=== PATIENT | female | born 1955 | race African-American/Black ===

== ENCOUNTER 2017-08-18 18:03 | Inpatient (IN) | payer MEDICARE, OTHER ==
[~2017-08-18] VITALS: Ht 167.6 cm; Wt 171.0 kg
[~2017-08-18 18:03] MED LIST: ATEN-102 PO; BENZ1TAB PO; DOCQ100C2 PO; HALO10TA PO; HYDR-2768 PO; HYDR-3580 PO; LORTA5 PO; LOTR15T TOP; MOBI15TA PO; OMEP20TA39 PO; OXYB5TAB PO; POTA-243 PO; TRIA.1%T TOP
[2017-08-18 18:25] VITALS: BP 115/71; PULSE 80; RESP 20; TEMP 97.8; O2SAT 96
--- NOTE | 2017-08-18 18:30 | PD ---
HPI Chief Complaint: abnormal labs Time Seen by Provider: 18:25 Travel History International Travel<30 days: No Contact w/Intl Traveler<30days: No History of Present Illness HPI 61 year-old woman, morbidly obese, resident occult [facility], history of schizophrenia, presents to the emergency department complaining of abnormal labs. Reportedly low sodium 118. Unable to provide much additional history. States overall she feels well but is thirsty. Nursing notes report polydipsia, increased appetite and weight gain, fatigue, and dyspnea as well as some behavior changes. Nursing staff reported to falls. History Past Medical History Narrative Medical Spinal stenosis GERD Schizophrenia Hypertension Generalized weakness, difficulty walking Depression Bladder dysfunction Menopausal: Yes : 2 Para: 2 Social History Alcohol Use: No Tobacco Use: No (QUIT 9 YEARS AGO) Allergies-Medications (Allergen,Severity, Reaction): Coded Allergies: shrimp (Verified Allergy, Severe, RASH, 08/18/17) Sulfa (Sulfonamide Antibiotics) (Verified Allergy, Intermediate, RASH, ) Reported Meds & Prescriptions Reported Meds & Active Scripts Active Review of Systems Except as stated in HPI: all other systems reviewed are Neg Physical Exam Narrative GENERAL: Morbidly obese 61 year-old woman, no acute distress. SKIN: Focused skin assessment warm/dry. HEAD: Atraumatic. Normocephalic. EYES: Pupils equal and round. No scleral icterus. No injection or drainage. ENT: No nasal bleeding or discharge. Mucous membranes pink and moist. NECK: Trachea midline. No JVD. CARDIOVASCULAR: Regular rate and rhythm. No murmur appreciated. RESPIRATORY: No accessory muscle use. Clear to auscultation. Breath sounds equal bilaterally. GASTROINTESTINAL: Abdomen soft, non-tender, nondistended. Hepatic and splenic margins not palpable. MUSCULOSKELETAL: No obvious deformities. Trace pitting edema. NEUROLOGICAL: Awake and alert. No obvious cranial nerve deficits. Motor grossly within normal limits. Normal speech. PSYCHIATRIC: Little bit bizarre affect. Data Data Last Documented VS Vital Signs Date Time Temp Pulse Resp B/P (MAP) Pulse Ox O2 Delivery O2 Flow Rate FiO2 08/18/17 18:30 80 20 96 Room Air 08/18/17 18:25 97.8 115/71 (86) Orders Orders Complete Blood Count With Diff (08/18/17 18:25) Comprehensive Metabolic Panel (08/18/17 18:25) Iv Access Insert/Monitor (08/18/17 18:25) [facility] Medical Decision Making Medical Screen Exam Complete: Yes Emergency Medical Condition: Yes Differential Diagnosis Hyponatremia, psychogenic polydipsia, generalized weakness, infection, other Narrative Course Medical decision making INITIAL: 61 year-old woman presents to the emergency department with hyponatremia. Very obese. Looks well. We'll recheck labs. Discussed with Dr. Martinez, likely admission. Physician Communication Physician Communication Spoke with Dr. Martinez, will admit patient. Diagnosis Primary Impression: Hyponatremia Additional Impression: Schizophrenia Patrick Raygoza MD Aug 18, 2017 18:30
[2017-08-18 19:00] LABS: AUTOMATED NEUTROPHIL # 7.5 TH/MM3 (1.8-7.7); BASOPHIL # 0.1 TH/MM3 (0-0.2); BASOPHIL % 0.9 % (0.0-2.0); EOSINOPHIL # 0.1 TH/MM3 (0-0.4); EOSINOPHIL % 0.6 % (0.0-4.0); HEMATOCRIT 30.7 % (35.0-46.0); HEMO FLAGS DIFF FINAL; LYMPH % 18.2 % (9.0-44.0); LYMPHOCYTE # 1.9 TH/MM3 (1.0-4.8); MEAN CELL VOLUME 77.9 FL (80.0-100.0); MEAN CORPUSCULAR HEMOGLOBIN 25.7 PG (27.0-34.0); MONO % 9.8 % (0.0-8.0); NEUT % 70.5 % (16.0-70.0); PLATELET COUNT 314 TH/MM3 (150-450); RED BLOOD COUNT 3.94 MIL/MM3 (4.00-5.30); RED CELL DISTRIBUTION WIDTH 17.3 % (11.6-17.2); WHITE BLOOD COUNT 10.7 TH/MM3 (4.0-11.0)
[2017-08-18 19:01] VITALS: BP 129/64; PULSE 84; RESP 18; O2SAT 95
[2017-08-18] MEDS ORDERED: LEXA10TA PO (19:03)
[2017-08-18] MEDS ORDERED: MILKSUS PO (19:03)
[2017-08-18] MEDS ORDERED: BENZ0.5T PO (19:03)
[2017-08-18] MEDS ORDERED: MOBI15TA PO (19:03)
[2017-08-18] MEDS ORDERED: OMEP20TA PO (19:03)
[2017-08-18] MEDS ORDERED: ATEN1TAB74 PO (19:03)
[2017-08-18] MEDS ORDERED: POTA10CA PO (19:03)
[2017-08-18] MEDS ORDERED: NEUR300C PO (19:03)
[2017-08-18] MEDS ORDERED: TRAZ50TA12 PO (19:03)
[2017-08-18] MEDS ORDERED: ENEMENE5 RECTAL (19:03)
[2017-08-18] MEDS ORDERED: CLAR10TA7 PO (19:03)
[2017-08-18] MEDS ORDERED: DULC10SU3 RECTAL (19:03)
[2017-08-18] MEDS ORDERED: HALO5TAB PO (19:03)
[2017-08-18] MEDS ORDERED: MELA0.02 PO (19:03)
[2017-08-18] MEDS ORDERED: MULT1TAB39 PO (19:03)
[2017-08-18] MEDS ORDERED: HALO10TA PO (19:03)
[2017-08-18] MEDS ORDERED: OXYB5TAB PO (19:03)
[2017-08-18] MEDS ORDERED: TYLE325T PO (19:03)
[2017-08-18] MEDS ORDERED: HYDR-3288 PO (19:03)
[2017-08-18] MEDS ORDERED: CITRSOL4 PO (19:03)
[2017-08-18 19:41] LABS: ALKALINE PHOSPHATASE 88 U/L (45-117); ALT (GPT) 39 U/L (10-53); ANION GAP 7 MEQ/L (5-15); AST (GOT) 60 U/L (15-37); BICARBONATE 30.6 MEQ/L (21.0-32.0); BLOOD UREA NITROGEN 26 MG/DL (7-18); CHLORIDE 77 MEQ/L (98-107); GLOMERULAR FILTRATION RATE 46 ML/MIN (>89); TOTAL BILIRUBIN ADULT 0.5 MG/DL (0.2-1.0)
[2017-08-18 19:42] LABS: POTASSIUM 4.5 MEQ/L (3.5-5.1)
[2017-08-18 19:54] LABS: SODIUM (NA) 115 MEQ/L (136-145)
--- NOTE | 2017-08-18 21:30 | PD ---
Data Data Last Documented VS Vital Signs Date Time Temp Pulse Resp B/P (MAP) Pulse Ox O2 Delivery O2 Flow Rate FiO2 08/18/17 19:04 18 100 Room Air 08/18/17 19:01 84 129/64 (85) 08/18/17 18:25 97.8 Orders Orders Complete Blood Count With Diff (08/18/17 18:25) Comprehensive Metabolic Panel (08/18/17 18:25) Iv Access Insert/Monitor (08/18/17 18:25) Admit Order (Ed Use Only) (08/18/17 ) Sausage Maker / Telemetry BJ.[id number] (08/18/17 19:58) Vital Signs (Adult) Q4H (08/18/17 19:58) Diet Heart Healthy (08/19/17 Breakfast) Activity Bed Rest (08/18/17 19:58) Notify Dr: Other (08/18/17 19:58) Labs Laboratory Tests Test 08/18/17 18:30 White Blood Count 10.7 TH/MM3 Red Blood Count 3.94 MIL/MM3 Hemoglobin 10.1 GM/DL Hematocrit 30.7 % Mean Corpuscular Volume 77.9 FL Mean Corpuscular Hemoglobin 25.7 PG Mean Corpuscular Hemoglobin Concent 33.0 % Red Cell Distribution Width 17.3 % Platelet Count 314 TH/MM3 Mean Platelet Volume 6.9 FL Neutrophils (%) (Auto) 70.5 % Lymphocytes (%) (Auto) 18.2 % Monocytes (%) (Auto) 9.8 % Eosinophils (%) (Auto) 0.6 % Basophils (%) (Auto) 0.9 % Neutrophils # (Auto) 7.5 TH/MM3 Lymphocytes # (Auto) 1.9 TH/MM3 Monocytes # (Auto) 1.1 TH/MM3 Eosinophils # (Auto) 0.1 TH/MM3 Basophils # (Auto) 0.1 TH/MM3 CBC Comment DIFF FINAL Differential Comment Blood Urea Nitrogen 26 MG/DL Creatinine 1.41 MG/DL Random Glucose 91 MG/DL Total Protein 6.6 GM/DL Albumin 3.0 GM/DL Calcium Level 8.1 MG/DL Alkaline Phosphatase 88 U/L Aspartate Amino Transf (AST/SGOT) 60 U/L Alanine Aminotransferase (ALT/SGPT) 39 U/L Total Bilirubin 0.5 MG/DL Sodium Level 115 MEQ/L Potassium Level 4.5 MEQ/L Chloride Level 77 MEQ/L Carbon Dioxide Level 30.6 MEQ/L Anion Gap 7 MEQ/L Estimat Glomerular Filtration Rate 46 ML/MIN MDM Medical Record Reviewed: Yes Supervised Visit with BROOK[place]NN: No Narrative Course CBC & BMP Diagram 08/18/17 18:30 Total Protein 6.6, Albumin 3.0 L, Calcium Level 8.1 L, Alkaline Phosphatase 88, Aspartate Amino Transf (AST/SGOT) 60 H, Alanine Aminotransferase (ALT/SGPT) 39, Total Bilirubin 0.5 Pt has hyponatremia. Admission for serial chemistry and water restriction. Admission to Dr Martinez Diagnosis Primary Impression: Hyponatremia Additional Impression: Schizophrenia Admitting Information Admitting Physician Requests: Observation Terence Kumar MD Aug 18, 2017 21:30
[2017-08-18] MEDS ORDERED: LACTULOSE SYRUP 20 GM/30 ML CUP PO PRN (22:00)
[2017-08-18] MEDS ORDERED: BISACODYL 10 MG SUPP RECTAL PRN (22:00)
[2017-08-18] MEDS ORDERED: ZOLPIDEM TARTRATE 5 MG TAB PO PRN (22:00)
[2017-08-18] MEDS ORDERED: ACETAMINOPHEN 325 MG TAB PO PRN (22:00)
[2017-08-18] MEDS ORDERED: MAGNESIUM HYDROXIDE SUSP 30 ML CUP PO PRN (22:00)
[2017-08-18] MEDS ORDERED: SODIUM CHLORIDE 0.9% FLUSH 10 ML FLUSH IV FLUSH PRN (22:00)
[2017-08-18] MEDS ORDERED: NALOXONE HCL 0.4 MG/ML AMP IV PUSH PRN (22:00)
[2017-08-18] MEDS ORDERED: ONDANSETRON HCL 4 MG/2 ML VIAL IVP PRN (22:00)
[2017-08-18] MEDS ORDERED: ACETAMINOPHEN/HYDROcodone 325 MG/5 MG TAB PO PRN (22:00)
[2017-08-18] MEDS ORDERED: cloNIDine HCL 0.1 MG TAB PO PRN (22:00)
[2017-08-18] MEDS ORDERED: SENNOSIDES 8.6 MG TAB PO PRN (22:00)
[2017-08-18] MEDS ORDERED: PILL SPLITTER OTHER PRN (22:15)
[2017-08-18] MEDS: HEPARIN SODIUM - SQ 10,000 UNITS/ML VIAL SQ SCH (22:45)
[2017-08-18 22:52] VITALS: PULSE 90
[2017-08-18 23:17] VITALS: BP 100/67; PULSE 99; RESP 19; TEMP 96.8; O2SAT 100
[2017-08-18 23:35] VITALS: BP 98/71; PULSE 78; RESP 19; TEMP 97.9; O2SAT 93
[2017-08-19] VITALS (12 sets, daily range): BP systolic 71–153; BP diastolic 66–93; PULSE 78–112; RESP 16–26; TEMP 96.6–98; O2SAT 84–100
[2017-08-19] MEDS ORDERED: ACETAMINOPHEN 325 MG TAB PO SCH (03:15)
[2017-08-19 07:51] LABS: POTASSIUM 4.4 MEQ/L (3.5-5.1)
[2017-08-19 08:55] LABS: BLOOD GAS BASE EXCESS 5.1 mmol/L (-2-2); BLOOD GAS CARBOXYHEMOGLOBIN 1.9 % (0-4); BLOOD GAS HCO3 30 mmol/L (22-26); BLOOD GAS METHEMOGLOBIN 0.8 % (0-2); BLOOD GAS O2 HGB SATURATION 96 % (90-100); BLOOD GAS OXYGEN CONTENT 13.6 Vol % (12.0-20.0); BLOOD GAS PCO2 54 mmHg (38-42); BLOOD GAS PO2 126 mmHg (61-120); BLOOD GAS TOTAL HGB 9.9 G/DL (12.0-16.0); CRITICAL VALUE YES; DRAW SITE RT RADIAL; LITER FLOW 4 L/M; NUMBER OF ARTERIAL PUNCTURES 1; OXYGEN DEVICE NASAL CANNULA; STAT YES; TEMP CORR TO 98.6
[2017-08-19] MEDS: SODIUM CHLOR 0.9% 1000 ML INJ 1,000 ML IV SCH ×2 (09:00→20:05)
[2017-08-19] MEDS: PANTOPRAZOLE SOD 20 MG DELAYED RELEASE TAB PO SCH (09:00)
[2017-08-19] MEDS: POTASSIUM CHLORIDE 10 MEQ CAP PO SCH (09:00)
[2017-08-19] MEDS: SODIUM CHLORIDE 0.9% FLUSH 10 ML FLUSH IV FLUSH SCH ×2 (09:00→21:00)
[2017-08-19] MEDS: DOCUSATE SODIUM 50 MG/SENNA 8.6 MG TAB PO SCH ×2 (09:00→20:08)
[2017-08-19] MEDS: TOLTERODINE TARTRATE 2 MG CAP LA PO SCH (09:00)
[2017-08-19] MEDS: BENZTROPINE MESYLATE 2 MG TAB PO SCH ×2 (09:00→20:08)
--- NOTE | 2017-08-19 09:17 | RADRPT ---
EXAM DATE/TIME: 08/19/2017 08:44 [facility] COMPARISON: CHEST PA & LAT, March 11, 2014, 8:22. INDICATIONS : Halicat. Short of breath. MEDICAL HISTORY : None. SURGICAL HISTORY : Bilateral hip replacements ENCOUNTER: Initial ACUITY: 1 day PAIN SCORE: 0/10 LOCATION: Bilateral chest FINDINGS: The heart is enlarged. Mild interstitial edema is present. There is no pneumothorax, other consolid ation or pleural effusion. CONCLUSION: Mild congestive failure. Moderate cardiomegaly progressed from 03/11/15. Kenneth Queen MD FACR on August 19, 2017 at 9:15 Board Certified Radiologist. This report was verified electronically.
--- NOTE | 2017-08-19 10:26 | MH ---
cc: KEDAR JONES MD DATE OF ADMISSION: 08/18/2017 CHIEF COMPLAINT Altered mental status HISTORY OF PRESENT ILLNESS Leigh Mcnamara is a 61 year-old -Dominican female patient of mine who resides at [facility] nursing [facility]. She apparently had altered mental status at the nursing facility and nurse practitioner was seeing her there and labs were ordered. She was found to have severe hyponatremia with a sodium of 118. She apparently had been taking a lot of ice chips and unsure about the actual free water consumption. There are some nonspecific behavior changes, although the patient typically does exhibit variable behaviors. She prefers to lay in the bed at all hours and eats numerous snacks. She takes hydrocodone for chronic pain and has had back surgery for spinal stenosis. She has had excessive weight gain at the nursing facility and we have been unable to control her weights or her appetite. She is admitted to [facility] emergency room and found to have sodium of 115. I was called by the emergency room physician for admission. Dr. Raygoza is reporting that she does exhibit some behaviors and she seems odd. I was called by nursing staff for further altered mental status and irregularity on her telemetry and the nurse thought she had atrial fibrillation. I ordered EKG and ABG. I started IV fluids after attempting free water restriction. The patient was Helicat to the ICU. She appears to be somewhat altered. She recognizes me and is not far off from her baseline mentation. I had a conference with her daughter at the bedside. I discussed with Dr. Newberry and he has been consulted as well for critical care management. LABS Sodium 115, now 116, creatinine 1.41, now 1.25, AST 60. Hemoglobin 10.1. ABG shows respiratory acidosis. IMAGING Chest x-ray shows CHF. REVIEW OF SYSTEMS Negative 14-point review of systems except as above. PAST MEDICAL HISTORY 1. Schizophrenia 2. Spinal stenosis 3. GERD 4. Hypertension 5. Depression 6. Bladder dysfunction SOCIAL HISTORY She quit tobacco. No alcohol or illicit drug use. ALLERGIES SHRIMP AND SULFA HOME MEDICATIONS 1. Atenolol 2. Meloxicam 3. [place]alt 7.5 4. Gabapentin 5. Lexapro 6. Trazodone 7. Haloperidol 8. Benztropine 9. Potassium 10. Melatonin 11. Oxybutynin PHYSICAL EXAM VITAL SIGNS: Temperature 96.9, pulse 104, respirations 18, blood pressure 141/67, pulse 94, respirations 18. GENERAL: She is an alert, obese, -Dominican female. There is some slight tremor in her right hand that resolves. HEAD, EYES, EARS, NOSE, AND THROAT: Oropharynx is clear. NECK: Carotids are clear. Neck is supple with no lymphadenopathy. CHEST: Clear. No wheezes, rales, crackles or coughing. CARDIOVASCULAR: Regular rate and rhythm. There is an occasional skipped beat. ABDOMEN: Soft and nontender. No rebound or guarding. Morbidly obese. EXTREMITIES: Trace edema in the feet. Skin is clear. NEUROLOGIC: A&O times two in no apparent distress. She has 3/5 weakness in all extremities. She is almost to her baseline mentation and typically exhibits odd behaviors. ASSESSMENT AND PLAN Altered mental status due to hyponatremia secondary to polydipsia, Haldol and SSRI's. Hyponatremia: No free water, 1000 mL fluid restriction. Normal saline IV fluids gently and repeat BMP in four hours with an ammonia level as well. I spoke with Dr. Newberry of critical care and he will see her now. Check ABG and EKG. Schizophrenia Spinal stenosis Chronic pain syndrome Hypertension Pickwickian syndrome Respiratory acidosis Congestive heart failure DVT prophylaxis, heparin 5000 subcu twice a day. GI prophylaxis, Protonix 20 mg daily. DISPOSITION Discharge back to [facility] when her mentation stabilizes and if her sodium is trending upwards. Inpatient admission for the above assessment and plan. The would without correction of her sodium levels. Kedar Jones MD RP/DEBBIE /9:35 AM /10:25 AM
[2017-08-19] MEDS ORDERED: SODIUM CHLOR 0.9% 250 ML INJ 250 ML IV ONE (11:15)
[2017-08-19] MEDS: HEPARIN SODIUM - SQ 10,000 UNITS/ML VIAL SQ SCH ×2 (11:38→18:07)
--- NOTE | 2017-08-19 13:23 | PD.CONS ---
[facility] Service Critical Care Medicine Consult Requested By Dr. Martinez Reason for Consult AMS hyponatremia Primary Care Physician Kedar Martinez MD History of Present Illness Patient is a 61 year-old -[place] patient of Dr. Martinez at [facility], with past medical history of schizophrenia, morbid obesity, hypertension, spinal stenosis. She apparently had altered mental status at the nursing facility and sodium was 118. This was assumed to be due to large amount of free water intake per Dr. Martinez. Patient has history of schizophrenia. Dr. Martinez treated with free water restriction, but patient did not improve. She was transferred to [facility] emergency department for worsening mental status and was found to have sodium of 115. Patient was admitted initially to Dr. Martinez service to the medical floor. A Halicat was called due to mental status not improving and repeat Na 116. I evaluated the patient in the ICU and also discussed with Dr. Martinez. On my evaluation patient is able to follow simple commands and is alert awake, and back to baseline per Dr. Martinez. I will attempt slow correction of sodium, NS 250 bolus followed by normal saline at 100 ML per hour. We'll check a TSH. BUN/ creatinine was elevated 26/1.4 on admission. Sodium and chloride are low. Patient may have hypovolemic hypochloremic hyponatremia. Chest x-ray shows mild pulmonary vascular congestion and cardiomegaly. We'll check a 2-D echo Review of Systems ROS Limitations: Altered Mental Status, Other (as per HPI) Past Family Social History Allergies: Coded Allergies: shrimp (Verified Allergy, Severe, RASH, 08/18/17) Sulfa (Sulfonamide Antibiotics) (Verified Allergy, Intermediate, RASH, ) Past Medical History Schizophrenia Spinal stenosis GERD Hypertension Depression Past Surgical History Unable to verify surgical history due to clinical condition Reported Medications Atenolol Meloxicam [place] Gabapentin Lexapro Trazodone Haloperidol Benztropine Potassium Melatonin Oxybutynin Active Ordered Medications Reviewed Family History Unable to obtain family history due to clinical condition Social History History of tobacco use in the past. [facility] resident Physical Exam Vital Signs Vital Signs Date Time Temp Pulse Resp B/P (MAP) Pulse Ox O2 Delivery O2 Flow Rate FiO2 08/19/17 08:27 78 08/19/17 08:00 96.6 112 16 126/67 (86) 96 08/19/17 04:23 96.9 104 19 141/67 (91) 94 08/18/17 23:35 97.9 78 19 98/71 (80) 93 08/18/17 23:17 96.8 99 19 100/67 (78) 100 08/18/17 22:52 90 08/18/17 22:15 08/18/17 19:04 18 100 Room Air 08/18/17 19:01 84 18 129/64 (85) 95 Room Air 08/18/17 18:30 80 20 96 Room Air 08/18/17 18:25 97.8 80 20 115/71 (86) 96 Physical Exam GENERAL: Morbidly obese 61 year-old woman, no acute distress, slightly lethargic SKIN: Warm/dry. HEAD: Atraumatic. Normocephalic. EYES: Pupils equal and round. No scleral icterus. No injection or drainage. ENT: No nasal bleeding or discharge. Airway patent NECK: Trachea midline. No JVD. CARDIOVASCULAR: Regular rate and rhythm. No murmur appreciated. RESPIRATORY: No accessory muscle use. Clear to auscultation. Breath sounds equal bilaterally. GASTROINTESTINAL: Abdomen soft, non-tender, nondistended. Hepatic and splenic margins not palpable. MUSCULOSKELETAL: No obvious deformities. Trace pitting edema. Intermittent involuntary jerking movements of RUE RLE and lips (Daughter confirms dyskinesia from neuroleptics) NEUROLOGICAL: Awake and alert. No obvious cranial nerve deficits. Motor grossly within normal limits. Normal speech. Laboratory Laboratory Tests Test 08/18/17 18:30 08/19/17 06:20 08/19/17 08:45 White Blood Count 10.7 Red Blood Count 3.94 Hemoglobin 10.1 Hematocrit 30.7 Mean Corpuscular Volume 77.9 Mean Corpuscular Hemoglobin 25.7 Mean Corpuscular Hemoglobin Concent 33.0 Red Cell Distribution Width 17.3 Platelet Count 314 Mean Platelet Volume 6.9 Neutrophils (%) (Auto) 70.5 Lymphocytes (%) (Auto) 18.2 Monocytes (%) (Auto) 9.8 Eosinophils (%) (Auto) 0.6 Basophils (%) (Auto) 0.9 Neutrophils # (Auto) 7.5 Lymphocytes # (Auto) 1.9 Monocytes # (Auto) 1.1 Eosinophils # (Auto) 0.1 Basophils # (Auto) 0.1 CBC Comment DIFF FINAL Differential Comment Blood Urea Nitrogen 26 25 Creatinine 1.41 1.25 Random Glucose 91 98 Total Protein 6.6 Albumin 3.0 Calcium Level 8.1 7.9 Alkaline Phosphatase 88 Aspartate Amino Transf (AST/SGOT) 60 Alanine Aminotransferase (ALT/SGPT) 39 Total Bilirubin 0.5 Sodium Level 115 116 Potassium Level 4.5 4.4 Chloride Level 77 78 Carbon Dioxide Level 30.6 29.0 Anion Gap 7 9 Estimat Glomerular Filtration Rate 46 53 Blood Gas Puncture Site RT RADIAL Blood Gas Patient Temperature 98.6 Blood Gas HCO3 30 Blood Gas Base Excess 5.1 Blood Gas Oxygen Saturation 96 Arterial Blood pH 7.36 Arterial Blood Partial Pressure CO2 54 Arterial Blood Partial Pressure O2 126 Arterial Blood Oxygen Content 13.6 Arterial Blood Carboxyhemoglobin 1.9 Arterial Blood Methemoglobin 0.8 Blood Gas Hemoglobin 9.9 Oxygen Delivery Device NASAL CANNULA Blood Gas Liter Flow 4 Result Diagram: 08/18/17 1830 08/19/17 0620 Imaging Chest x-ray with cardiomegaly and mild pulmonary vascular congestion Assessment and Plan Assessment and Plan NEURO: Acute metabolic encephalopathy Tardive 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 DuoNeb every 6 hours when necessary CV: Mild pulmonary vascular congestion Cardiomegaly - Normal saline IV fluids as below, check 2d echo - Continue home antihypertensives GI: - Regular diet / ENDO: Hypochloremic hyponatremia Acute kidney injury - Target sodium correction at 0.5 meq per hour for a total correction not exceeding 10 meq in 24 hours - Hypovolemic hyponatremia with prerenal picture. 250 mL normal saline bolus for Xenia 100 ML per hour, check sodium every 4 hours - Check TSH, cortisol level - Monitor renal function closely. ID: - Monitor for infection HEME: - Monitor CBC, CMP, coags PROPH: - Bilateral lower extremity SCDs. Heparin sq LINES: - Utilize peripheral IVs, central line if needed Level 3 new consult Code Status Full Discussed Condition With Jonah Stevens MD Aug 19, 2017 13:23
[2017-08-19 13:45] LABS: AUTOMATED NEUTROPHIL # 7.7 TH/MM3 (1.8-7.7); BASOPHIL # 0.1 TH/MM3 (0-0.2); BASOPHIL % 0.6 % (0.0-2.0); EOSINOPHIL % 0.3 % (0.0-4.0); HEMATOCRIT 33.1 % (35.0-46.0); HEMO FLAGS DIFF FINAL; LYMPHOCYTE # 1.7 TH/MM3 (1.0-4.8); MEAN CELL VOLUME 78.8 FL (80.0-100.0); MEAN CORPUSCULAR HEMOGLOBIN 24.5 PG (27.0-34.0); MEAN CORPUSCULAR HGB CONC 31.1 % (32.0-36.0); MONO % 11.8 % (0.0-8.0); NEUT % 71.3 % (16.0-70.0); PLATELET COUNT 303 TH/MM3 (150-450); RED BLOOD COUNT 4.21 MIL/MM3 (4.00-5.30); RED CELL DISTRIBUTION WIDTH 17.3 % (11.6-17.2); WHITE BLOOD COUNT 10.8 TH/MM3 (4.0-11.0)
[2017-08-19 14:14] LABS: ALKALINE PHOSPHATASE 82 U/L (45-117); ALT (GPT) 35 U/L (10-53); ANION GAP 9 MEQ/L (5-15); AST (GOT) 50 U/L (15-37); BICARBONATE 29.4 MEQ/L (21.0-32.0); BLOOD UREA NITROGEN 24 MG/DL (7-18); CHLORIDE 79 MEQ/L (98-107); GLOMERULAR FILTRATION RATE 58 ML/MIN (>89); POTASSIUM 3.7 MEQ/L (3.5-5.1); TOTAL BILIRUBIN ADULT 0.5 MG/DL (0.2-1.0)
[2017-08-19 14:21] LABS: SODIUM (NA) 117 MEQ/L (136-145)
--- NOTE | 2017-08-19 14:54 | ECHRPT ---
Indication: Heart failure, unspecified CONCLUSIONS The left ventricular systolic function grossly appears to be low normal with an estimated ejection f raction in the range of 50-55%. Wall motion abnormalities cannot be excluded. Wall thickness is measured at the upper limits of normal. Normal left ventricular size. No valvular abnormalities are identified though the technical limitations of the study preclude opti mal valvular assessment. BP: 126 / 67 HR: 97 Rhythm: Sinus MEASUREMENTS (Male / Female) Normal Values Technical Quality:Very technically difficult study 2D ECHO LV Diastolic Diameter PLAX 5.1 cm 4.2 - 5.9 / 3.9 - 5.3 cm LV Systolic Diameter PLAX 4.0 cm IVS Diastolic Thickness 1.6 cm 0.6 - 1.0 / 0.6 - 0.9 cm LVPW Diastolic Thickness 1.6 cm 0.6 - 1.0 / 0.6 - 0.9 cm LV Relative Wall Thickness 0.6 LVOT Diameter 2.4 cm M-MODE Aortic Root Diameter MM 3.5 cm LA Systolic Diameter MM 4.0 cm LA Ao Ratio MM 1.1 AV Cusp Separation MM 2.4 cm FINDINGS LEFT VENTRICLE The left ventricular systolic function grossly appears to be low normal with an estimated ejection f raction in the range of 50-55%. Wall motion abnormalities cannot be excluded. Wall thickness is measured at the upper limits of normal. Normal left ventricular size. RIGHT VENTRICLE Normal right ventricular size and systolic function. LEFT ATRIUM The left atrial size is normal. RIGHT ATRIUM The right atrial size is normal. ATRIAL SEPTUM Normal atrial septal thickness without atrial level shunting by limited color doppler interrogation. AORTA The aortic root and proximal ascending aorta are normal in size on limited imaging. MITRAL VALVE Structurally normal mitral valve. No mitral valve stenosis or regurgitation. AORTIC VALVE Trileaflet aortic valve. No aortic valve stenosis or regurgitation. TRICUSPID VALVE Structurally normal tricuspid valve. No tricuspid valve stenosis or regurgitation. PULMONARY VALVE The pulmonary valve is not well visualized. VESSELS The inferior vena cava is normal in size. PERICARDIUM No pericardial effusion. Jeremiah Peterson MD (Electronically Signed) Final Date:19 August 2017 14:53
--- NOTE | 2017-08-19 15:15 | EKG ---
Date Performed: 08/19/2017 Time Performed: 08:46:44 PTAGE: 61 years EKG: Sinus rhythm WITH FIRST DEGREE AV BLOCK WITH FREQUENT VENTRICULAR PREMATURE COMPLEXES LEFT AXIS LAFB NONSPECIFIC ST-T CHANGES ABNORMAL ECG PREVIOUS TRACING : 06/20/2016 15.08 Compared to prior tracing no significant change DOCTOR: Hyacinth Herrera Interpretating Date/Time 08/19/2017 15:15:34
[2017-08-19] MEDS ORDERED: CHLORHEXIDINE GLUCONATE 2 % 1 PACK (2 CLOTHS)(extra cloths) TOPICAL PRN (18:15)
[2017-08-19 18:47] LABS: POTASSIUM 3.7 MEQ/L (3.5-5.1)
[2017-08-19] MEDS ORDERED: HALOPERIDOL 10 MG TAB PO SCH (21:00)
[2017-08-19] MEDS ORDERED: ATENOLOL 50 MG TAB PO SCH (21:00)
[2017-08-19] MEDS: LORazepam 0.5 MG TAB PO PRN (23:00)
[2017-08-20] VITALS (13 sets, daily range): BP systolic 112–176; BP diastolic 66–114; PULSE 63–97; RESP 16–19; TEMP 97.6–98.3; O2SAT 91–96
[2017-08-20 02:11] LABS: BASOPHIL % 0.5 % (0.0-2.0); EOSINOPHIL # 0.1 TH/MM3 (0-0.4); EOSINOPHIL % 0.6 % (0.0-4.0); HEMATOCRIT 31.8 % (35.0-46.0); HEMO FLAGS DIFF FINAL; LYMPH % 16.7 % (9.0-44.0); LYMPHOCYTE # 1.7 TH/MM3 (1.0-4.8); MEAN CELL VOLUME 78.4 FL (80.0-100.0); MEAN CORPUSCULAR HEMOGLOBIN 24.1 PG (27.0-34.0); MEAN CORPUSCULAR HGB CONC 30.8 % (32.0-36.0); MONO % 11.7 % (0.0-8.0); NEUT % 70.5 % (16.0-70.0); PLATELET COUNT 372 TH/MM3 (150-450); RED BLOOD COUNT 4.06 MIL/MM3 (4.00-5.30); RED CELL DISTRIBUTION WIDTH 17.1 % (11.6-17.2)
[2017-08-20 02:27] LABS: BICARBONATE 30.8 MEQ/L (21.0-32.0); POTASSIUM 4.2 MEQ/L (3.5-5.1)
[2017-08-20] MEDS: HEPARIN SODIUM - SQ 10,000 UNITS/ML VIAL SQ SCH ×2 (03:28→08:50)
[2017-08-20] MEDS ORDERED: CHLORHEXIDINE GLUCONATE 2 % 1 PACK (2 CLOTHS)(taper/protocol) TOPICAL SCH (04:00)
[2017-08-20] MEDS: SODIUM CHLOR 0.9% 1000 ML INJ 1,000 ML IV SCH (06:05)
[2017-08-20] MEDS: DOCUSATE SODIUM 50 MG/SENNA 8.6 MG TAB PO SCH (08:49)
[2017-08-20] MEDS: PANTOPRAZOLE SOD 20 MG DELAYED RELEASE TAB PO SCH (08:49)
[2017-08-20] MEDS: POTASSIUM CHLORIDE 10 MEQ CAP PO SCH (08:49)
[2017-08-20] MEDS: BENZTROPINE MESYLATE 2 MG TAB PO SCH (08:49)
[2017-08-20] MEDS: SODIUM CHLORIDE 0.9% FLUSH 10 ML FLUSH IV FLUSH SCH (08:49)
[2017-08-20] MEDS: TOLTERODINE TARTRATE 2 MG CAP LA PO SCH (08:58)
[2017-08-20] MEDS ORDERED: ESCITALOPRAM OXALATE 10 MG TAB PO SCH (09:00)
[2017-08-20] MEDS: LORazepam 0.5 MG TAB PO PRN (11:16)
[2017-08-20] MEDS ORDERED: HALOPERIDOL LACTATE 5 MG/ML AMP IV PRN (13:00)
--- NOTE | 2017-08-20 14:44 | PD.PSY.CON ---
Provisional Diagnosis Admission Date Aug 18, 2017 at 22:01 [place] I. Schizophrenia [place] II. Deferred. [place] III. morbid obesity, hypertension, spinal stenosis History of Present Illness Service Psychiatry Consult Requested By Critical care team Reason for Consult AMBERLY Primary Care Physician Kedar Martinez MD HPI The patient is a 61 year-old -Portuguese woman, domiciled in a residential facility, [facility], single, unemployed, with psychiatric history of schizophrenia, previous psychiatric hospitalizations, established outpatient care with [facility], she is on Haldol 5 mg in the morning, 15 mg at night, Benztropine 2 mg twice a day, trazodone 50 mg hs, patient of Dr. Martinez at, with past medical history of morbid obesity, hypertension, spinal stenosis. She apparently had altered mental status at the nursing facility and sodium was 118. This was assumed to be due to large amount of free water intake per Dr. Martinez. Patient has history of schizophrenia. Dr. Martinez treated with free water restriction, but patient did not improve. She was transferred to [place] emergency department for worsening mental status and was found to have sodium of 115. Patient was admitted initially to Dr. Martinez service to the medical floor. A Halicat was called due to mental status not improving and repeat Na 116. Last Na was 121. Patient was consulted to psychiatry due to restlessness, tardive dyskinesia as a for medication adjustment. On psychiatric evaluation today patient is found restless, superficially cooperative, stating that she feels uncomfortable. She presents with flat affect, poverty of speech and blocking thought. Patient says that she does not really know the reason of her hospitalization. She says that she has been compliant with all her medications. Patient reports that she is at baseline, she denies depressive symptoms, she denies anhedonia, she denies hopelessness, helplessness, she denies suicidal and homicidal ideation, she denies visual and auditory hallucinations. Patient says she takes her Haldol as prescribed everyday. She denies paranoia, she denies delusions of reference, she denies flight of ideas, is no agitation or aggressive behavior reported. However, patient does report that she has been very thirsty " drinking a lot of water everyday, maybe 1 or 2 gallons, to control myself". Patient is observed to be very restless, moving around the bed, unable to have her legs is still for more than 5 seconds. She is fully oriented 3, there is no fluctuation of consciousness, no attention deficit, no gross cognitive impairment present. The patient denies the use of alcohol and illicit drugs. Review of Systems Constitutional: DENIES: Diaphoretic episodes, Fatigue, Fever, Weight gain, Weight loss, Chills, Dizziness, Change in appetite, Night Sweats Endocrine: DENIES: Abnorml menstrual pattern, Heat/cold intolerance, Polydipsia , Polyuria, Polyphagia Eyes: DENIES: Blurred vision, Diplopia, Eye inflammation, Eye pain, Vision loss , Photosensitivity, Double Vision Ears, nose, mouth, throat: DENIES: Tinnitus, Hearing loss, Vertigo, Nasal discharge, Oral lesions, Throat pain, Hoarseness, Ear Pain, Running Nose, Epistaxis, Sinus Pain, Toothache, Odynophagia Respiratory: DENIES: Apneas, Cough, Snoring, Wheezing, Hemoptysis, Sputum production, Shortness of breath Cardiovascular: DENIES: Chest pain, Palpitations, Syncope, Dyspnea on Exertion , PND, Lower Extremity Edema, Orthopnea, Claudication Genitourinary: DENIES: Abnormal vaginal bleeding, Dysmenorrhea, Dyspareunia, Sexual dysfunction, Urinary frequency, Urinary incontinence, Urgency, Hematuria , Dysuria, Nocturia, Vaginal discharge Musculoskeletal: DENIES: Joint pain, Muscle aches, Stiffness, Joint Swelling, Back pain, Neck pain Integumentary: DENIES: Abnormal pigmentation, Pruritus, Rash, Nail changes, Breast masses, Breast skin changes, Nipple discharge Hematologic/lymphatic: DENIES: Bruising, Lymphadenopathy Neurologic: COMPLAINS OF: Tremor Psychiatric: COMPLAINS OF: Anxiety, DENIES: Confusion, Mood changes, Depression , Hallucinations, Agitation, Suicidal Ideation, Homicidal Ideation, Delusions Past Family Social History Coded Allergies: shrimp (Verified Allergy, Severe, RASH, 08/18/17) Sulfa (Sulfonamide Antibiotics) (Verified Allergy, Intermediate, RASH, ) Reported Medications Trazodone (Trazodone) 50 Mg Tab, 50 MG PO HS for Control Depression, #30 TAB 0 Refills 08/18/17 Potassium Chloride ER (Potassium Chloride ER) 10 Meq Cap, 10 MEQ PO DAILY for Electrolyte Replacement, #30 CAP 0 Refills 08/18/17 Oxybutynin ER 24 HR (Oxybutynin ER 24 HR) 5 Mg Tab, 5 MG PO DAILY for Overactive Bladder, TAB 0 Refills 08/18/17 Omeprazole (Omeprazole) 20 Mg Tab, 20 MG PO DAILY for GERD, #30 TAB 0 Refills 08/18/17 Gabapentin (Neurontin) 300 Mg Cap, 300 MG PO BID for Pain Management, #60 CAP 0 Refills 08/18/17 Multiple Vitamins W/ Minerals (Multiple Vitamin/Minerals) 1 Tab Tab, 1 TAB PO DAILY for Nutritional Supplement 08/18/17 Magnesium Hydroxide Liq (Milk of Magnesia Liq) 400 Mg/5 Ml Susp, 30 ML PO HS Y for CONSTIPATION, #1 BOTTLE 0 Refills 08/18/17 Meloxicam (Mobic) 15 Mg Tab, 15 MG PO DAILY, TAB 0 Refills 08/18/17 Melatonin (Melatonin) 3 Mg Tab, 6 MG PO HS for Insomnia 08/18/17 Loratadine (Claritin) 10 Mg Tablet, 10 MG PO DAILY for Allergies 08/18/17 Hydrocodone-Acetaminophen (Comptche) 7.5-325 mg Tab, 1 TAB PO Q4H Y for PAIN, TAB 0 Refills 08/18/17 Haloperidol (Haloperidol) 5 Mg Tab, 2.5 MG PO DAILY for Schizophrenia, TAB 0 Refills 08/18/17 Haloperidol (Haloperidol) 10 Mg Tab, 15 MG PO HS for Schizophrenia, TAB 0 Refills 08/18/17 Escitalopram (Lexapro) 10 Mg Tab, 10 MG PO DAILY for Depression Control, #30 TAB 0 Refills 08/18/17 Sodium Phosphates (Enema Disposable) 19 Gram-7 Gram/118 Ml Flori, 1 APPLIC RECTAL Y for IF NO RESULTS FROM DULCOLAX 08/18/17 Bisacodyl Supp (Dulcolax Supp) 10 Mg Supp, 10 MG RECTAL IN THE AM Y for IF NO RESULTS FROM MILK OF MAG, #12 SUPP 0 Refills 08/18/17 Magnesium Citrate Liq (Citroma Liq) 300 Ml Liq, 296 ML PO IN THE AM Y for IF NO RESULTS FROM ENEMA, #1 BOTTLE 0 Refills 08/18/17 Benztropine (Benztropine) 0.5 Mg Tab, 2 MG PO BID for Parkinson's, #60 TAB 0 Refills 08/18/17 Atenolol (Tenormin) 50 Mg Tab, 50 MG PO HS for Blood Pressure Management, #60 TAB 0 Refills 08/18/17 Acetaminophen (Tylenol) 325 Mg Tab, 650 MG PO Q4H Y for Mild pain/Temp Elevation , TAB 0 Refills 08/18/17 Family Psych History patient denies family psychiatric history Social History She was born raised in [place]. She lives in a residential facility in [place], single, unemployed. Patient's Strengths (min. 2) Outpatient psychiatric care, Physical Exam Patient has bilateral hand tremors, she is restless, easily agitated, markedly akathisia Vital Signs Vital Signs Date Time Temp Pulse Resp B/P (MAP) Pulse Ox O2 Delivery O2 Flow Rate FiO2 08/20/17 11:18 78 127/93 (104) 08/20/17 08:00 Room Air 08/20/17 04:00 96 3.00 08/20/17 04:00 97.6 19 I/O 08/20/17 08/20/17 08/21/17 08:00 16:00 00:00 Output Total 801 ml Balance -801 ml Lab Results Test 08/19/17 17:34 08/19/17 20:06 08/20/17 01:40 08/20/17 06:36 Blood Urea Nitrogen 21 MG/DL 21 MG/DL Creatinine 1.11 MG/DL 1.10 MG/DL Random Glucose 109 MG/DL 124 MG/DL Calcium Level 8.2 MG/DL 7.8 MG/DL Sodium Level 119 MEQ/L 119 MEQ/L 120 MEQ/L 121 MEQ/L Potassium Level 3.7 MEQ/L 4.2 MEQ/L Chloride Level 80 MEQ/L 82 MEQ/L Carbon Dioxide Level 30.0 MEQ/L 30.8 MEQ/L Anion Gap 9 MEQ/L 7 MEQ/L Estimat Glomerular Filtration Rate 60 ML/MIN 61 ML/MIN Random Cortisol 18.5 MCG/DL Hepatitis A IgM Antibody NEGATIVE Hepatitis B Surface Antigen NEGATIVE Hepatitis B Core IgM Antibody NEGATIVE Hepatitis C Antibody NEGATIVE Thyroid Stimulating Hormone 3rd Gen 0.558 uIU/ML White Blood Count 10.0 TH/MM3 Red Blood Count 4.06 MIL/MM3 Hemoglobin 9.8 GM/DL Hematocrit 31.8 % Mean Corpuscular Volume 78.4 FL Mean Corpuscular Hemoglobin 24.1 PG Mean Corpuscular Hemoglobin Concent 30.8 % Red Cell Distribution Width 17.1 % Platelet Count 372 TH/MM3 Mean Platelet Volume 6.7 FL Neutrophils (%) (Auto) 70.5 % Lymphocytes (%) (Auto) 16.7 % Monocytes (%) (Auto) 11.7 % Eosinophils (%) (Auto) 0.6 % Basophils (%) (Auto) 0.5 % Neutrophils # (Auto) 7.0 TH/MM3 Lymphocytes # (Auto) 1.7 TH/MM3 Monocytes # (Auto) 1.2 TH/MM3 Eosinophils # (Auto) 0.1 TH/MM3 Basophils # (Auto) 0.0 TH/MM3 CBC Comment DIFF FINAL Differential Comment Date/Time Source Procedure Growth Status 08/19/17 13:35 Blood Peripheral Aerobic Blood Culture - Preliminary NO GROWTH IN 1 DAY Resulted 08/19/17 13:35 Blood Peripheral Anaerobic Blood Culture - Preliminary NO GROWTH IN 1 DAY Resulted Mental Status Examination Appearance: Disheveled, Malodorous Consciousness: Alert Orientation: x4 Motor Activity: Other (restless, hyperactive) Speech: Hesitant Language: Adequate Fund of Knowledge: Adequate Attention and Concentration: Adequate Memory: Unremarkable Mood: Sad Affect: Flat Thought Process & Associations: Intact Thought Content: Thought blocking Hallucination Type: None Delusion Type: None Suicidal Ideation: No Suicidal Plan: No Suicidal Intention: No Homicidal Ideation: No Homicidal Plan: No Homicidal Intention: No Insight: Adequate Judgment: Adequate Assessment & Plan Problem List: (1) Schizophrenia ICD Codes: F20.9 - Schizophrenia Status: Acute Assessment & Plan: Psychiatric evaluation today patient presents with flat affect, poverty of speech and blocking thought. He also presents with marked restlessness, anxiety and inability to control involuntary movement of her legs and arms. In that the patient denies depression, she denies elvira and psychosis , she denies suicidal and homicidal ideation, she denies visual and auditory hallucinations. She does report uncontrollable desire to take water which most probably had led to her severe hyponatremia. Patient benefits of voluntary psychiatric admission for stabilization of EPS and psychogenic polydipsia. Will hold all psychotropics. collateral information from primary psychiatric team is needed to coordinate changes in current psychotropic regimen, she might benefit of second-generation antipsychotics to avoid EPS and also psychogenic polydipsia. Patient has an elevated risk to have a psychotic break. Will order Ativan 1 mg 3 times a day for akathisia. Olanzapine 10 mg IM every 8 hours when necessary acute psychosis, agitation or aggressive behavior. Water restriction and close monitorization of water intake. Assessment & Plan Estimated LOS: days Mikal Cantu MD Aug 20, 2017 14:44
--- NOTE | 2017-08-20 17:02 | MH ---
cc: KEDAR JONES DATE OF ADMISSION 08/18/2017 CHIEF COMPLAINT Hyponatremia. HISTORY OF PRESENT ILLNESS Leigh Mcnamara is a 61-year-old -Tongan female who initially was at [facility]. She was found to have altered mental status and we did labs and she was found to have a sodium of approximately 118. I ordered her to go to the [facility] emergency room. She was admitted and found to have a sodium of 119. She was placed on fluid restriction. I admitted her to the acute care and put on free water restriction as well and started her on normal saline IV fluids. When she got to the floor, on the fifth floor at [facility], she with demonstrating altered mental status and Helicat was called. They called me and I ordered an ABG, follow up BMP. She was transferred to the ICU. I also saw her there and consulted Dr. Newberry and spoke with him about her care. He agreed with the current plan of fluid restriction and gentle IV fluids and follow up BMP. She remained stable in the ICU and Dr. Newberry saw her and noted some tremors and consulted psychiatry. Psychiatrist saw her today and phoned me for further recommendations and that he suggested she transfer to the medical psychiatric unit. I was asked to assume medical care and I saw her here in the medical psychiatric unit and spoke with Dr. Hampton of psychiatry. The plan is out outlined below. The patient seen in room 403 with the nursing staff and she is sitting up and appears to be in her usual state of health. She looks much improved. There is no tremors. REVIEW OF SYSTEMS Negative 14-point review of systems except as above. PAST MEDICAL HISTORY 1. Schizophrenia 2. Hyponatremia 3. Chronic pain syndrome 4. Spinal stenosis 5. Morbid obesity SOCIAL HISTORY No alcohol, tobacco or illicit drug usage. She lives at [facility] under long-term care. FAMILY HISTORY She is unable to report about her mother and father. She has a daughter who is alive and well. MEDICATIONS Current are none and on hold. PHYSICAL EXAMINATION VITAL SIGNS: Pulse 70, respirations 18, temperature 98.4. Blood pressure 130/78. GENERAL: She is an alert -Tongan female sitting up in a wheelchair. HEENT: Oropharynx is clear. CHEST: Clear. No wheezes, rales, crackles or coughing. CARDIOVASCULAR: Regular rate and rhythm. No murmurs, rubs, clicks or gallops. ABDOMEN: Morbidly obese, nontender. Normoactive bowel sounds. EXTREMITIES: Trace edema in the feet. SKIN: Clear. NEUROLOGIC: Alert and oriented times two. She is not very cooperative. Cranial nerves are intact. Strength is 4/5 in upper and lower extremities. Initial tremor after her resting, she does develop a slight tremor in her right hand. 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 We will place on 1000 mL fluid restriction and no free water at the bedside. I have ordered BMP every morning for three days. We are stopping her Haldol and further psychiatric recommendations per psychiatry. Schizophrenia: Ativan and Zyprexa p.r.n. have been ordered per the psychiatrist. As above, further psychiatric medications to be determined and we are monitoring her off of her medications. Chronic pain syndrome. She will need to get back on her nursing facility doses of hydrocodone. Spinal stenosis Hypertension Morbid obesity Thank you very much for the medical consultation. I will follow up with her again tomorrow. Kedar Jones MD RP/ /4:08 PM /4:48 PM
--- NOTE | 2017-08-20 18:04 | MD ---
cc: KEDAR JONES MD ADMISSION DATE: 08/18/2017 DISCHARGE DATE: 08/20/2017 ADMISSION DIAGNOSIS Altered mental status. DISCHARGE DIAGNOSIS 1. Altered mental status. 2. Hyponatremia 3. Cytogenic polydipsia. 4. Schizophrenia. 5. Spinal stenosis. 6. Chronic pain syndrome 7. Hypertension 8. Pickwickian syndrome 9. Respiratory acidosis 10. Congestive heart failure. HOSPITAL COURSE A Leigh Mcnamara is a 61-year-old -Spanish female patient who was residing at [facility]. She had altered mental status and was found to have a sodium of 118. She was seen by the nurse practitioner and they called me about what to do and it is suggested hospitalization. She presented to [facility]. He was called by the emergency room doctor, he admitted her put her on fluid restriction and no free water. She continued to have further altered mental status and Helicat was called and she was transferred to the ICU. I spoke with Dr. Newberry about her he and he was consulted as well and saw her. He ended up consulting psychiatry and they called me to asked for permission to transfer her to the medical psychiatric unit. The patient's mentation improved and she has been stable and sitting up. I spoke with Dr. Roman and formulated the plan as outlined. She is transfer to the medical on psych unit and held on the [facility]. She is going to have further psychiatric workup. DISCHARGE MEDICATIONS: None. ASSESSMENT AND PLAN: She is to be monitored in the psych unit and further meds to be determined. DISCHARGE CONDITION: Discharge condition is stable and much improved. DISPOSITION As above. Discharge to the medical psych unit. I will see her there. They called me to come see her again. Kedar Jones MD RP/pauly /4:01 PM /6:00 PM
== END 2017-08-20 13:40 | DRG 640 ==
LOC: NEPC 18:03 → NEDA 20:00 → UNDOADMOB 20:00 → INTOOBSV 20:45 → OBSVTOIN 20:45 → NEDA 21:52 → OBSVTOIN 22:01 → N06A 22:15 → HIME 08-19 09:15 → HIMW 08-20 08:12
PROVIDERS: ADMIT Family Medicine; ATTEND Family Medicine
DX: E87.1 Hypo-osmolality and hyponatremia (principal); G93.41 Metabolic encephalopathy; N17.9 Acute kidney failure, unspecified; E87.2 Acidosis; I50.9 Heart failure, unspecified; I11.0 Hypertensive heart disease with heart failure; E66.2 Morbid (severe) obesity with alveolar hypoventilation; F20.9 Schizophrenia, unspecified; R41.82 Altered mental status, unspecified; R63.1 Polydipsia; M48.00 Spinal stenosis, site unspecified; G89.4 Chronic pain syndrome; E87.8 Other disorders of electrolyte and fluid balance, not elsewhere classified; G24.01 Drug induced subacute dyskinesia; K21.9 Gastro-esophageal reflux disease without esophagitis; Z87.891 Personal history of nicotine dependence; Z96.643 Presence of artificial hip joint, bilateral
CPT/HCPCS: 36600; 71010; 80048; 80053; 80074; 82140; 82533; 82805; 82948; 83605; 84295; 84443; 85025; 85652; 87040; 87641; 93005; 93306; J1644; J7030; J7050

== ENCOUNTER 2017-08-20 15:00 | Inpatient (IN) | payer MEDICARE, OTHER ==
[~2017-08-20 15:00] MED LIST changes: -ATEN-102 PO; +ATEN1TAB74 PO; +BENZ0.5T PO; -BENZ1TAB PO; +CITRSOL4 PO; +CLAR10TA7 PO; -DOCQ100C2 PO; +DULC10SU3 RECTAL; +ENEMENE5 RECTAL; +HALO5TAB PO; -HYDR-2768 PO; +HYDR-3288 PO; -HYDR-3580 PO; +LEXA10TA PO; -LORTA5 PO; -LOTR15T TOP; +MELA0.02 PO; +MILKSUS PO; +MULT1TAB39 PO; +NEUR300C PO; +OMEP20TA PO; -OMEP20TA39 PO; -POTA-243 PO; +POTA10CA PO; +TRAZ50TA12 PO; -TRIA.1%T TOP; +TYLE325T PO
[2017-08-20] MEDS ORDERED: cloNIDine HCL 0.1 MG TAB PO PRN (19:00)
[2017-08-20] MEDS ORDERED: NALOXONE HCL 4 MG/10 ML MDV IV PUSH PRN (19:00)
[2017-08-20] MEDS ORDERED: SODIUM CHLOR 0.9% 1000 ML INJ 1,000 ML IV SCH (19:00)
[2017-08-20 20:29] VITALS: BP 154/67; PULSE 78; RESP 17; TEMP 97.5; O2SAT 95
[2017-08-20] MEDS: ATENOLOL 50 MG TAB PO SCH (21:29)
[2017-08-20] MEDS: LORazepam 1 MG TAB PO SCH (21:29)
[2017-08-20] MEDS: ACETAMINOPHEN/HYDROcodone 325 MG/5 MG TAB PO PRN (22:50)
[2017-08-21 06:08] VITALS: BP 126/64; PULSE 64; RESP 18; TEMP 97.8; O2SAT 94
[2017-08-21] MEDS: LORazepam 1 MG TAB PO SCH (06:09)
[2017-08-21 06:28] LABS: BICARBONATE 29.2 MEQ/L (21.0-32.0); CALCIUM 8.3 MG/DL (8.5-10.1); CREATININE 1.19 MG/DL (0.50-1.00)
[2017-08-21] MEDS: PANTOPRAZOLE SOD 20 MG DELAYED RELEASE TAB PO SCH (09:17)
[2017-08-21] MEDS: POTASSIUM CHLORIDE 10 MEQ CONTROLLED RELEASE TAB PO SCH (09:18)
[2017-08-21] MEDS: TOLTERODINE TARTRATE 2 MG CAP LA PO SCH (09:18)
--- NOTE | 2017-08-21 10:11 | HHI.FPPN ---
Subjective Remarks MUCH BETTER OVERALL D/W PSYCHIATRIST PT WITH SOME BEHAVIOURS D/W RN Objective Vitals Vital Signs Date Time Temp Pulse Resp B/P (MAP) Pulse Ox O2 Delivery O2 Flow Rate FiO2 08/21/17 06:08 97.8 64 18 126/64 (84) 94 08/20/17 20:29 97.5 78 17 154/67 (96) 95 I/O 08/20/17 08/20/17 08/20/17 08/21/17 08/21/17 08/21/17 07:00 15:00 23:00 07:00 15:00 23:00 Intake Total 120 ml 240 ml 120 ml Balance 120 ml 240 ml 120 ml Intake Oral 120 ml 240 ml 120 ml # Voids 1 4 Result Diagram: 08/21/17 0425 Objective Remarks GENERAL: SKIN: Warm and dry. HEAD: Atraumatic. Normocephalic. EYES: Pupils equal and round. No scleral icterus. No injection or drainage. ENT: No nasal bleeding or discharge. Mucous membranes pink and moist. NECK: Trachea midline. No JVD. CARDIOVASCULAR: Regular rate and rhythm. RESPIRATORY: No accessory muscle use. Clear to auscultation. Breath sounds equal bilaterally. GASTROINTESTINAL: Abdomen soft, non-tender, nondistended. Hepatic and splenic margins not palpable. MUSCULOSKELETAL: Extremities without clubbing, cyanosis, or edema. No obvious deformities. NEUROLOGICAL: Awake and alert. No obvious cranial nerve deficits. Motor grossly within normal limits. Five out of 5 muscle strength in the arms and legs. Normal speech. PSYCHIATRIC: Appropriate mood and affect; insight and judgment normal. Medications and IVs Current Medications Medications (Trade) Dose Ordered Sig/Wilner Route Start Time Stop Time Status Last Admin ([place] 5-325 Mg) 1 tab Q6H PRN PO 08/20/17 19:00 08/20/17 22:50 (Protonix) 20 mg DAILY PO 08/21/17 09:00 08/21/17 09:17 (Tylenol) 650 mg Q4H PRN PO 08/20/17 19:00 (Tenormin) 50 mg HS PO 08/20/17 21:00 08/20/17 21:29 (KCl) 10 meq DAILY PO 08/21/17 09:00 08/21/17 09:18 (Catapres) 0.1 mg Q6H PRN PO 08/20/17 19:00 (Narcan Inj) 0.4 mg UNSCH PRN IV PUSH 08/20/17 19:00 (Detrol La) 2 mg DAILY PO 08/21/17 09:00 08/21/17 09:18 (Ativan) 1 mg Q8HR PO 08/20/17 22:00 08/21/17 06:09 (Geodon) 20 mg BIDPC PO 08/21/17 09:15 UNV A/P Assessment and Plan A/P: HYPONATREMIA: 1OOO ML FLUID RESTRICT, NO FREE WATER, NACL TABS PSYCHOGENIC POLYDYPSIA AKATHISIA (NO TD'S) SPINAL STENOSIS GABRIELLA EDEMA MORBID OBESITY GI PROPHYLAXIS: PROTONIX DVT PROPHYLAXIS: SCDS/TEDS. DISPO: DISCHARGE BACK TO [facility] WHEN CLEARED BY PSYCHIATRY AND NA ACCEPTABLE. Kedar Martinez MD Aug 21, 2017 10:11
--- NOTE | 2017-08-21 10:11 | HHI.FPPN ---
Subjective Remarks MUCH BETTER OVERALL D/W PSYCHIATRIST PT WITH SOME BEHAVIOURS D/W RN Objective Vitals Vital Signs Date Time Temp Pulse Resp B/P (MAP) Pulse Ox O2 Delivery O2 Flow Rate FiO2 08/21/17 06:08 97.8 64 18 126/64 (84) 94 08/20/17 20:29 97.5 78 17 154/67 (96) 95 I/O 08/20/17 08/20/17 08/20/17 08/21/17 08/21/17 08/21/17 07:00 15:00 23:00 07:00 15:00 23:00 Intake Total 120 ml 240 ml 120 ml Balance 120 ml 240 ml 120 ml Intake Oral 120 ml 240 ml 120 ml # Voids 1 4 Result Diagram: 08/21/17 0425 Objective Remarks GENERAL: SKIN: Warm and dry. HEAD: Atraumatic. Normocephalic. EYES: Pupils equal and round. No scleral icterus. No injection or drainage. ENT: No nasal bleeding or discharge. Mucous membranes pink and moist. NECK: Trachea midline. No JVD. CARDIOVASCULAR: Regular rate and rhythm. RESPIRATORY: No accessory muscle use. Clear to auscultation. Breath sounds equal bilaterally. GASTROINTESTINAL: Abdomen soft, non-tender, nondistended. Hepatic and splenic margins not palpable. MUSCULOSKELETAL: Extremities without clubbing, cyanosis, or edema. No obvious deformities. NEUROLOGICAL: Awake and alert. No obvious cranial nerve deficits. Motor grossly within normal limits. Five out of 5 muscle strength in the arms and legs. Normal speech. PSYCHIATRIC: Appropriate mood and affect; insight and judgment normal. Medications and IVs Current Medications Medications (Trade) Dose Ordered Sig/Wilner Route Start Time Stop Time Status Last Admin ([place] 5-325 Mg) 1 tab Q6H PRN PO 08/20/17 19:00 08/20/17 22:50 (Protonix) 20 mg DAILY PO 08/21/17 09:00 08/21/17 09:17 (Tylenol) 650 mg Q4H PRN PO 08/20/17 19:00 (Tenormin) 50 mg HS PO 08/20/17 21:00 08/20/17 21:29 (KCl) 10 meq DAILY PO 08/21/17 09:00 08/21/17 09:18 (Catapres) 0.1 mg Q6H PRN PO 08/20/17 19:00 (Narcan Inj) 0.4 mg UNSCH PRN IV PUSH 08/20/17 19:00 (Detrol La) 2 mg DAILY PO 08/21/17 09:00 08/21/17 09:18 (Ativan) 1 mg Q8HR PO 08/20/17 22:00 08/21/17 06:09 (Geodon) 20 mg BIDPC PO 08/21/17 09:15 UNV A/P Assessment and Plan A/P: HYPONATREMIA: 1OOO ML FLUID RESTRICT, NO FREE WATER, NACL TABS PSYCHOGENIC POLYDYPSIA AKATHISIA (NO TD'S) SPINAL STENOSIS GABRIELLA EDEMA MORBID OBESITY GI PROPHYLAXIS: PROTONIX DVT PROPHYLAXIS: SCDS/TEDS. DISPO: DISCHARGE BACK TO [facility] WHEN CLEARED BY PSYCHIATRY AND NA ACCEPTABLE. Kedar Martinez MD Aug 21, 2017 10:11
--- NOTE | 2017-08-21 10:11 | HHI.FPPN ---
Subjective Remarks MUCH BETTER OVERALL D/W PSYCHIATRIST PT WITH SOME BEHAVIOURS D/W RN Objective Vitals Vital Signs Date Time Temp Pulse Resp B/P (MAP) Pulse Ox O2 Delivery O2 Flow Rate FiO2 08/21/17 06:08 97.8 64 18 126/64 (84) 94 08/20/17 20:29 97.5 78 17 154/67 (96) 95 I/O 08/20/17 08/20/17 08/20/17 08/21/17 08/21/17 08/21/17 07:00 15:00 23:00 07:00 15:00 23:00 Intake Total 120 ml 240 ml 120 ml Balance 120 ml 240 ml 120 ml Intake Oral 120 ml 240 ml 120 ml # Voids 1 4 Result Diagram: 08/21/17 0425 Objective Remarks GENERAL: SKIN: Warm and dry. HEAD: Atraumatic. Normocephalic. EYES: Pupils equal and round. No scleral icterus. No injection or drainage. ENT: No nasal bleeding or discharge. Mucous membranes pink and moist. NECK: Trachea midline. No JVD. CARDIOVASCULAR: Regular rate and rhythm. RESPIRATORY: No accessory muscle use. Clear to auscultation. Breath sounds equal bilaterally. GASTROINTESTINAL: Abdomen soft, non-tender, nondistended. Hepatic and splenic margins not palpable. MUSCULOSKELETAL: Extremities without clubbing, cyanosis, or edema. No obvious deformities. NEUROLOGICAL: Awake and alert. No obvious cranial nerve deficits. Motor grossly within normal limits. Five out of 5 muscle strength in the arms and legs. Normal speech. PSYCHIATRIC: Appropriate mood and affect; insight and judgment normal. Medications and IVs Current Medications Medications (Trade) Dose Ordered Sig/Wilner Route Start Time Stop Time Status Last Admin ([place] 5-325 Mg) 1 tab Q6H PRN PO 08/20/17 19:00 08/20/17 22:50 (Protonix) 20 mg DAILY PO 08/21/17 09:00 08/21/17 09:17 (Tylenol) 650 mg Q4H PRN PO 08/20/17 19:00 (Tenormin) 50 mg HS PO 08/20/17 21:00 08/20/17 21:29 (KCl) 10 meq DAILY PO 08/21/17 09:00 08/21/17 09:18 (Catapres) 0.1 mg Q6H PRN PO 08/20/17 19:00 (Narcan Inj) 0.4 mg UNSCH PRN IV PUSH 08/20/17 19:00 (Detrol La) 2 mg DAILY PO 08/21/17 09:00 08/21/17 09:18 (Ativan) 1 mg Q8HR PO 08/20/17 22:00 08/21/17 06:09 (Geodon) 20 mg BIDPC PO 08/21/17 09:15 UNV A/P Assessment and Plan A/P: HYPONATREMIA: 1OOO ML FLUID RESTRICT, NO FREE WATER, NACL TABS PSYCHOGENIC POLYDYPSIA AKATHISIA (NO TD'S) SPINAL STENOSIS GABRIELLA EDEMA MORBID OBESITY GI PROPHYLAXIS: PROTONIX DVT PROPHYLAXIS: SCDS/TEDS. DISPO: DISCHARGE BACK TO [facility] WHEN CLEARED BY PSYCHIATRY AND NA ACCEPTABLE. Kedar Martinez MD Aug 21, 2017 10:11
[2017-08-21] MEDS: ZIPRASIDONE HCL 20 MG CAP PO SCH ×2 (11:00→18:00)
--- NOTE | 2017-08-21 12:06 | EKG ---
Date Performed: 08/20/2017 Time Performed: 20:51:01 PTAGE: 61 years EKG: Sinus rhythm with first degree AV block and frequent PACs and PVCs PATTERN CONSISTENT WITH PULMONARY DISEASE LEFT ANTERIOR FASCICULAR BLOCK MINIMAL ST DEPRESSION Compared to prior tracing no significant change ABNO RMAL ECG PREVIOUS TRACING : 08/19/2017 08.46 DOCTOR: Jered Xiao Interpretating Date/Time 08/21/2017 12:05:48
[2017-08-21] MEDS: SODIUM CHLORIDE 1 GRAM TAB PO SCH ×2 (13:00→18:00)
--- NOTE | 2017-08-21 13:32 | HHI.HP ---
Provisional Diagnosis Admission Date Aug 20, 2017 at 15:00 [place]. Schizophrenia; Psychogenic polydipsia Certification of Person's Competence To Provide Express and Informed Consent I have personally examined Leigh Mcnamara , a person being served at [facility] [[email or web address]] on, Aug 21, 2017 13:25. Express and informed consent means consent voluntarily given in writing, by a competent person, after sufficient explanation and disclosure of the subject matter involved to enable the person to make a knowing and willful decision without any element of force, fraud, deceit, duress, or other form of constraint or coercion. This person is 18 years of age or older, is not now known to be incompetent to consent to treatment with a guardian advocate, and does not have a health care surrogate or proxy currently making medical treatment decisions. I have found this person to be one of the following: [x] Competent to provide express and informed consent, as defined above, for voluntary admission to this facility and is competent to provide express and informed consent for treatment. He/she has the consistent capacity to make well reasoned, willful, and knowing decisions concerning his or her medical or mental health treatment. The person fully and consistently understands the purpose of the admission for examination/placement and is fully capable of personally exercising all rights assured [place] Incompetent to provide express and informed consent to voluntary admission, and this is incompetent to provide express and informed consent to treatment. The person must be transferred to involuntary status and a petition for a guardian advocate filed with the Circuit Court. [] Refusing to provide express and informed consent to voluntary admission but is competent to provide express and informed consent for treatment. The person must be discharged or transferred to involuntary status. Form shall be completed within 24 hours of a person's arrival at the receiving facility and filed in the clinical record of each person: 1. Admitted on a voluntary basis 2. Permitted to provide express and informed consent to his/her own treatment 3. Allowed to transfer from involuntary to voluntary status 4. Prior to permitting a person to consent to his or her own treatment after having been previously found incompetent to consent to treatment. 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 services, she is on Haldol 5 mg in the morning, 15 mg at night, Benztropine 2 mg twice a day, trazodone 50 mg hs, patient of Dr. Martinez, past medical history of pickwickian syndrome, morbid obesity, hypertension, GERD, bladder dysfunction, chronic back pain, was brought into the hospital for altered mental status with a sodium level 118 at nursing facility with suspicion due to free water intake and was found to have settled level of 115 in the ED transferred subsequently to ICU then transferred to medical psychiatry unit for further evaluation and management after psychiatric consult. As per psychiatry consult note: Patient was consulted to psychiatry due to restlessness, tardive dyskinesia as a for medication adjustment. On psychiatric evaluation today patient is found restless, superficially cooperative, stating that she feels uncomfortable. She presents with flat affect, poverty of speech and blocking thought. Patient says that she does not really know the reason of her hospitalization. She says that she has been compliant with all her medications. Patient reports that she is at baseline, she denies depressive symptoms, she denies anhedonia, she denies hopelessness, helplessness, she denies suicidal and homicidal ideation, she denies visual and auditory hallucinations. Patient says she takes her Haldol as prescribed everyday. She denies paranoia, she denies delusions of reference, she denies flight of ideas, is no agitation or aggressive behavior reported. However, patient does report that she has been very thirsty "drinking a lot of water everyday, maybe 1 or 2 gallons, to control myself". Patient is observed to be very restless, moving around the bed, unable to have her legs is still for more than 5 seconds. She is fully oriented 3, there is no fluctuation of consciousness, no attention deficit, no gross cognitive impairment present. Patient was seen on the medical psychiatry unit sitting in hospital chair with staff assisting with hygiene, calm and cooperative interview with the noted to have limited responsiveness. Patient states that her mood has been "okay", denies any difficulty with sleep, appetite, energy or concentration, states that she had been noncompliant with her treatment at her nursing facility. Patient denies any perceptual disturbances at this time or recent. Patient reports that she was in taking about 2 gallons of ice chips daily at her residence, stating "I like to crunch". Patient is alert and oriented to person place and date. Denies any mood or psychotic symptoms at this time. Patient was noted to be rocking back and forth somewhat during interview and states that she does this for comfort but was not noted to have any lower extremity restlessness at this time. Past psychiatric history: Previous psychiatric diagnoses of schizophrenia, [facility]izations (last 13 years ago), denies any previous suicide attempts, denies history of abuse.. Medication trials include Haldol 5 mg a.m./50 mg at bedtime, Restoril 2 mg by mouth twice a day, trazodone 50 mg at bedtime. Family psychiatric history: Patient reports mother with mental illness but was unable to specify what diagnoses. Denies suicides in the family. Substance use history: previous tobacco use but quit, denies any other drug use or alcohol use. Past medical history: pickwickian syndrome, morbid obesity, hypertension, GERD, bladder dysfunction, chronic back pain Allergies: Sulfas and shrimp Social history: single, two children, unemployed, domiciled in SNF Review of Systems Except as stated in HPI: all other systems reviewed are Neg Past Psych History Violence risk - others (6 mos) Low Violence risk - self (6 mos) Low Substance Abuse History Drugs/Alcohol past 12 months Patient denies Past Family Social History Coded Allergies: shrimp (Verified Allergy, Severe, RASH, 08/18/17) Sulfa (Sulfonamide Antibiotics) (Verified Allergy, Intermediate, RASH, ) Reported Medications Trazodone (Trazodone) 50 Mg Tab, 50 MG PO HS for Control Depression, #30 TAB 0 Refills 08/18/17 Potassium Chloride ER (Potassium Chloride ER) 10 Meq Cap, 10 MEQ PO DAILY for Electrolyte Replacement, #30 CAP 0 Refills 08/18/17 Oxybutynin ER 24 HR (Oxybutynin ER 24 HR) 5 Mg Tab, 5 MG PO DAILY for Overactive Bladder, TAB 0 Refills 08/18/17 Omeprazole (Omeprazole) 20 Mg Tab, 20 MG PO DAILY for GERD, #30 TAB 0 Refills 08/18/17 Gabapentin (Neurontin) 300 Mg Cap, 300 MG PO BID for Pain Management, #60 CAP 0 Refills 08/18/17 Multiple Vitamins W/ Minerals (Multiple Vitamin/Minerals) 1 Tab Tab, 1 TAB PO DAILY for Nutritional Supplement 08/18/17 Magnesium Hydroxide Liq (Milk of Magnesia Liq) 400 Mg/5 Ml Susp, 30 ML PO HS Y for CONSTIPATION, #1 BOTTLE 0 Refills 08/18/17 Meloxicam (Mobic) 15 Mg Tab, 15 MG PO DAILY, TAB 0 Refills 08/18/17 Melatonin (Melatonin) 3 Mg Tab, 6 MG PO HS for Insomnia 08/18/17 Loratadine (Claritin) 10 Mg Tablet, 10 MG PO DAILY for Allergies 08/18/17 Hydrocodone-Acetaminophen ([place]) 7.5-325 mg Tab, 1 TAB PO Q4H Y for PAIN, TAB 0 Refills 08/18/17 Haloperidol (Haloperidol) 5 Mg Tab, 2.5 MG PO DAILY for Schizophrenia, TAB 0 Refills 08/18/17 Haloperidol (Haloperidol) 10 Mg Tab, 15 MG PO HS for Schizophrenia, TAB 0 Refills 08/18/17 Escitalopram (Lexapro) 10 Mg Tab, 10 MG PO DAILY for Depression Control, #30 TAB 0 Refills 08/18/17 Sodium Phosphates (Enema Disposable) 19 Gram-7 Gram/118 Ml [place], 1 APPLIC RECTAL Y for IF NO RESULTS FROM DULCOLAX 08/18/17 Bisacodyl Supp (Dulcolax Supp) 10 Mg Supp, 10 MG RECTAL IN THE AM Y for IF NO RESULTS FROM MILK OF MAG, #12 SUPP 0 Refills 08/18/17 Magnesium Citrate Liq (Citroma Liq) 300 Ml Liq, 296 ML PO IN THE AM Y for IF NO RESULTS FROM ENEMA, #1 BOTTLE 0 Refills 08/18/17 Benztropine (Benztropine) 0.5 Mg Tab, 2 MG PO BID for Parkinson's, #60 TAB 0 Refills 08/18/17 Atenolol (Tenormin) 50 Mg Tab, 50 MG PO HS for Blood Pressure Management, #60 TAB 0 Refills 08/18/17 Acetaminophen (Tylenol) 325 Mg Tab, 650 MG PO Q4H Y for Mild pain/Temp Elevation , TAB 0 Refills 08/18/17 Current Medications Medications (Trade) Dose Ordered Sig/Wilner Route Start Time Stop Time Status Last Admin ([place] 5-325 Mg) 1 tab Q6H PRN PO 08/20/17 19:00 08/20/17 22:50 (Protonix) 20 mg DAILY PO 08/21/17 09:00 08/21/17 09:17 (Tylenol) 650 mg Q4H PRN PO 08/20/17 19:00 (Tenormin) 50 mg HS PO 08/20/17 21:00 08/20/17 21:29 (KCl) 10 meq DAILY PO 08/21/17 09:00 08/21/17 09:18 (Catapres) 0.1 mg Q6H PRN PO 08/20/17 19:00 (Narcan Inj) 0.4 mg UNSCH PRN IV PUSH 08/20/17 19:00 (Detrol La) 2 mg DAILY PO 08/21/17 09:00 08/21/17 09:18 (Geodon) 20 mg BIDPC PO 08/21/17 11:00 (Sodium Chloride) 1 gm TID PO 08/21/17 13:00 (Ativan) 0.5 mg Q12HR PO 08/21/17 21:00 UNV Family Psych History Mother with history of mental illness (unspecified), no suicides in the family Social History single, two children, unemployed, domiciled in SNF Patient's Strengths (min. 2) Verbal and communicative Physical Exam A physical examination was completed by primary medical team prior to transfer to the inpatient unit. For me, patient noted to be obese, is moving all 4 extremities but noted rocking occasionally during interview as well as slightly sedated. No hand tremor noted today. Normal muscle bulk and tone. No abnormal motor movements noted aside from rocking back and forth. Vital Signs Vital Signs Date Time Temp Pulse Resp B/P (MAP) Pulse Ox O2 Delivery O2 Flow Rate FiO2 08/21/17 06:08 97.8 64 18 126/64 (84) 94 I/O 08/21/17 08/21/17 08/22/17 08:00 16:00 00:00 Intake Total 240 ml 240 ml Balance 240 ml 240 ml Lab Results Labs reviewed. Test 08/21/17 04:25 Blood Urea Nitrogen 22 MG/DL Creatinine 1.19 MG/DL Random Glucose 118 MG/DL Calcium Level 8.3 MG/DL Sodium Level 122 MEQ/L Potassium Level 4.1 MEQ/L Chloride Level 83 MEQ/L Carbon Dioxide Level 29.2 MEQ/L Anion Gap 10 MEQ/L Estimat Glomerular Filtration Rate 56 ML/MIN Mental Status Examination Appearance: Appropriate Consciousness: Somnolent (slightly) Orientation: Person, Place, Date/Time Motor Activity: Other Speech: Slow (slightly) Language: Adequate Fund of Knowledge: Adequate Attention and Concentration: Other (at times noted to be sleepy) Memory: Unremarkable Mood: Other ("ok") Affect: Other (restricted) Thought Process & Associations: Linear Thought Content: Appropriate Hallucination Type: None Delusion Type: None Suicidal Ideation: No Suicidal Plan: No Suicidal Intention: No Homicidal Ideation: No Homicidal Plan: No Homicidal Intention: No Insight: Fair Judgment: Adequate Assessment & Plan Problem List: (1) Schizophrenia ICD Codes: F20.9 - Schizophrenia Status: Acute (2) Psychogenic polydipsia ICD Codes: R63.1 - Polydipsia; F54 - Psychological and behavioral factors associated with disorders or diseases classified elsewhere Assessment & Plan Estimated LOS: 5-7 days. Patient is 61-year-old Afro[place] woman who carries a diagnosis of schizophrenia is admitted to the medical/psychiatry unit due to altered mental status secondary to hyponatremia in the context of likely psychogenic polydipsia as patient was ingesting more than 2-3 gallons of water in the form of ice chips and liquids at her residence. Patient was also noted to have akathisia likely secondary to first generation antipsychotics. Patient was started on lorazepam to address akathisia and Haldol held. We'll replace ziprasidone 20 mg by mouth twice a day with upper titration as needed, decrease lorazepam to 0.5 mg by mouth every 12 hours. Continue to monitor medication response and adverse drug reactions. Continue with fluid restrictions as per primary medical team recommendations. Discharge planning in progress Discharge Planning Patient return back to her residence was psychiatrically and medically stable Nitin Castro MD Aug 21, 2017 13:32
[2017-08-21] MEDS: ACETAMINOPHEN/HYDROcodone 325 MG/5 MG TAB PO PRN (15:34)
[2017-08-21 18:07] VITALS: BP 163/97; PULSE 87; RESP 20; TEMP 98.1; O2SAT 96
[2017-08-21] MEDS: LORazepam 0.5 MG TAB PO SCH (21:27)
[2017-08-21] MEDS: ATENOLOL 50 MG TAB PO SCH (21:27)
[2017-08-22 06:48] VITALS: BP 154/70; PULSE 57; RESP 16; TEMP 97.9; O2SAT 94
--- NOTE | 2017-08-22 07:49 | HHI.PYPN ---
Subjective Remarks Patient seen for follow-up, chart review. Patient found lying in hospital bed, cooperative. Patient reports having slept well last evening, her mood as being "okay", denies any auditory or visual hallucinations, denies any SI or HI. Patient reports that she feels less need to move as opposed to a couple of days ago where she was noted to move her extremities more often. Patient states that she would like to go home and was explained to her that she continues to require medical stabilization due to her low sodium levels which she acknowledged. Review of Systems Except as stated in HPI: all other systems reviewed are Neg Mental Status Examination Appearance: Appropriate Consciousness: Alert Orientation: Person, Place, Date/Time Motor Activity: Other Speech: Slow (slightly) Language: Adequate Fund of Knowledge: Adequate Attention and Concentration: Other (at times noted to be sleepy) Memory: Unremarkable Mood: Other ("good") Affect: Other (restricted) Thought Process & Associations: Linear Thought Content: Appropriate Hallucination Type: None Delusion Type: None Suicidal Ideation: No Suicidal Plan: No Suicidal Intention: No Homicidal Ideation: No Homicidal Plan: No Homicidal Intention: No Insight: Fair Judgment: Adequate Results Vitals/IOs Vital Signs Date Time Temp Pulse Resp B/P (MAP) Pulse Ox O2 Delivery O2 Flow Rate FiO2 08/22/17 06:48 97.9 57 16 154/70 (98) 94 Intake and Output 08/22/17 08/22/17 08/23/17 08:00 16:00 00:00 Intake Total 240 ml Balance 240 ml Assessment & Plan Problem List: (1) Schizophrenia ICD Codes: F20.9 - Schizophrenia Status: Acute (2) Psychogenic polydipsia ICD Codes: R63.1 - Polydipsia; F54 - Psychological and behavioral factors associated with disorders or diseases classified elsewhere Assessment & Plan Patient at this time denies any mood or psychotic symptoms. Patient's apparent akathisia has lessened, which lorazepam was decreased to 0.5 mg by mouth every 12 this patient was noted to be sedated during the day yesterday keeping consideration that she has been pickwickian syndrome. Continue current medication regimen, recommendations as per primary medical team. Labs pending. Discharge planning in progress Justification for Cont. Inpt. At risk for further decompensation if at lower level of care Discharge Planning Patient to come back to her residence once medically stable. Nitin Castro MD Aug 22, 2017 07:48
[2017-08-22] MEDS: ZIPRASIDONE HCL 20 MG CAP PO SCH ×2 (08:11→16:54)
[2017-08-22] MEDS: TOLTERODINE TARTRATE 2 MG CAP LA PO SCH (08:11)
[2017-08-22] MEDS: SODIUM CHLORIDE 1 GRAM TAB PO SCH ×3 (08:11→16:54)
[2017-08-22] MEDS: LORazepam 0.5 MG TAB PO SCH ×2 (08:11→21:24)
[2017-08-22] MEDS: POTASSIUM CHLORIDE 10 MEQ CONTROLLED RELEASE TAB PO SCH (08:11)
[2017-08-22] MEDS: PANTOPRAZOLE SOD 20 MG DELAYED RELEASE TAB PO SCH (08:11)
--- NOTE | 2017-08-22 08:22 | HHI.PR ---
Subjective Remarks Asks to get out of bed and wants to sit on chair, states she is not hungry, denies any nausea or vomiting. doesn't really want to talk. stares at the floor most of the conversation. Discussed w RN, Pt only ate muffin and part of her fruits. She is on fluid restrictions. No other concerns Objective Vitals Vital Signs Date Time Temp Pulse Resp B/P (MAP) Pulse Ox O2 Delivery O2 Flow Rate FiO2 08/22/17 06:48 97.9 57 16 154/70 (98) 94 08/21/17 18:07 98.1 87 20 163/97 (119) 96 I/O 08/21/17 08/21/17 08/21/17 08/22/17 08/22/17 08/22/17 07:00 15:00 23:00 07:00 15:00 23:00 Intake Total 240 ml 480 ml 1000 ml 240 ml 240 ml Balance 240 ml 480 ml 1000 ml 240 ml 240 ml Intake Oral 240 ml 480 ml 1000 ml 240 ml 240 ml # Voids 4 4 1 # Bowel Movements 0 Result Diagram: 08/21/17 0425 Objective Remarks GENERAL: morbidly obese SKIN: dry skin on legs HEAD: Atraumatic. Normocephalic. EYES: stares at the floor, doesn't really make eye contact ENT: No nasal bleeding or discharge. Mucous membranes pink and moist. NECK: Trachea midline. No JVD. CARDIOVASCULAR: Regular rate and rhythm. RESPIRATORY: No accessory muscle use. Clear to auscultation. decrease breath sounds at the bases GASTROINTESTINAL: Abdomen soft,obese, no guarding. MUSCULOSKELETAL: able to sit up but w assistance. hold her walker NEUROLOGICAL: Awake and alert. doesn't always like answering questions. Normal speech. PSYCHIATRIC: calm, no very talkative A/P Assessment and Plan A/P: HYPONATREMIA: continue 1OOO ml fluid restriction, no free water, sodium tabs. BMP today not yet available. Notified RN to please call the lab. PSYCHOGENIC POLYDYPSIA: causing hyponatremia. continue fluid restriction. appreciate psych input as well. AKATHISIA (NO TD'S): management per psych. SPINAL STENOSIS: stable. PT consult for recs. GABRIELLA: Cr yesterday 1.19. Per records it was up to 1.41 10/31/17. Continue to monitor closely. avoid nephrotoxic agents. MORBID OBESITY GI PROPHYLAXIS: on protonix. DVT PROPHYLAXIS: SCDS/TEDS/ambulation. Discharge Planning Discharge to SNF when cleared by Psych and sodium levels improved and acceptable. Anita Reed MD Aug 22, 2017 08:22
[2017-08-22] MEDS ORDERED: EUCERIN CREAM 120 GM JAR TOPICAL PRN (08:30)
[2017-08-22] MEDS ORDERED: cloNIDine HCL 0.1 MG TAB PO PRN (08:30)
[2017-08-22 10:18] LABS: BICARBONATE 25.8 MEQ/L (21.0-32.0); CALCIUM 8.7 MG/DL (8.5-10.1); CREATININE 1.23 MG/DL (0.50-1.00)
[2017-08-22] MEDS ORDERED: diphenhydrAMINE HCL 25 MG CAP PO ONE (13:00)
[2017-08-22 17:45] LABS: CREATININE 1.2 MG/DL (0.50-1.00)
[2017-08-22 18:00] VITALS: BP 133/67; PULSE 80; RESP 16; TEMP 98.2; O2SAT 95
[2017-08-22] MEDS: ATENOLOL 50 MG TAB PO SCH (21:24)
[2017-08-22 22:21] LABS: BICARBONATE 30.4 MEQ/L (21.0-32.0); CALCIUM 9.1 MG/DL (8.5-10.1); CREATININE 1.2 MG/DL (0.50-1.00)
[2017-08-23] MEDS: ACETAMINOPHEN 325 MG TAB PO PRN ×2 (01:41→18:00)
[2017-08-23 04:12] LABS: BICARBONATE 33.1 MEQ/L (21.0-32.0); CREATININE 1.24 MG/DL (0.50-1.00)
[2017-08-23 06:26] VITALS: BP 158/94; PULSE 75; RESP 16; TEMP 97.4; O2SAT 95
--- NOTE | 2017-08-23 07:18 | HHI.PYPN ---
Subjective Remarks Patient seen for follow-up, chart review. Patient found lying in hospital bed, cooperative interview today. Patient states that she has slept well, reports her mood as being "fine", denies any perceptual disturbances, denies any delusions. Patient states that she has been feeling better, please a her sodium level is improving as last lab showed sodium low at 127 now. Patient reports that tolerating medications well with no adverse drug reactions. Patient's akathisia has decreased and denies any feelings of restlessness at this time. Review of Systems Except as stated in HPI: all other systems reviewed are Neg Mental Status Examination Appearance: Appropriate Consciousness: Alert Orientation: Person, Place, Date/Time Motor Activity: Other Speech: Slow (slightly) Language: Adequate Fund of Knowledge: Adequate Attention and Concentration: Other (at times noted to be sleepy) Memory: Unremarkable Mood: Other ("fine") Affect: Other (restricted) Thought Process & Associations: Linear Thought Content: Appropriate Hallucination Type: None Delusion Type: None Suicidal Ideation: No Suicidal Plan: No Suicidal Intention: No Homicidal Ideation: No Homicidal Plan: No Homicidal Intention: No Insight: Fair Judgment: Adequate Results Labs Test 08/22/17 09:11 08/22/17 16:17 08/22/17 21:37 08/23/17 03:23 Blood Urea Nitrogen 23 MG/DL 22 MG/DL 22 MG/DL 23 MG/DL Creatinine 1.23 MG/DL 1.20 MG/DL 1.20 MG/DL 1.24 MG/DL Random Glucose 161 MG/DL 92 MG/DL 94 MG/DL 128 MG/DL Calcium Level 8.7 MG/DL 9.0 MG/DL 9.1 MG/DL 9.0 MG/DL Sodium Level 121 MEQ/L 127 MEQ/L 128 MEQ/L 127 MEQ/L Potassium Level 4.3 MEQ/L 4.5 MEQ/L 4.6 MEQ/L 4.5 MEQ/L Chloride Level 86 MEQ/L 87 MEQ/L 89 MEQ/L 88 MEQ/L Carbon Dioxide Level 25.8 MEQ/L 31.0 MEQ/L 30.4 MEQ/L 33.1 MEQ/L Anion Gap 9 MEQ/L 9 MEQ/L 9 MEQ/L 6 MEQ/L Estimat Glomerular Filtration Rate 54 ML/MIN 55 ML/MIN 55 ML/MIN 53 ML/MIN Vitals/IOs Vital Signs Date Time Temp Pulse Resp B/P (MAP) Pulse Ox O2 Delivery O2 Flow Rate FiO2 08/23/17 06:26 97.4 75 16 158/94 (115) 95 Intake and Output 08/23/17 08/23/17 08/24/17 08:00 16:00 00:00 Intake Total 0 ml Output Total 400 ml Balance -400 ml Assessment & Plan Problem List: (1) Schizophrenia ICD Codes: F20.9 - Schizophrenia Status: Acute (2) Psychogenic polydipsia ICD Codes: R63.1 - Polydipsia; F54 - Psychological and behavioral factors associated with disorders or diseases classified elsewhere Assessment & Plan Patient at this time continues to tolerate medications well, patient's sodium level improving with last lab results at 127. Patient to continue current treatment, continue recommendations as per primary medical team. Discharge planning in progress Justification for Cont. Inpt. At risk for further decompensation if at lower level of care Discharge Planning Patient to return back to residence once medically and psychiatrically cleared. Nitin Castro MD Aug 23, 2017 07:18
[2017-08-23] MEDS: ZIPRASIDONE HCL 20 MG CAP PO SCH ×2 (08:42→16:45)
[2017-08-23] MEDS: TOLTERODINE TARTRATE 2 MG CAP LA PO SCH (08:42)
[2017-08-23] MEDS: POTASSIUM CHLORIDE 10 MEQ CONTROLLED RELEASE TAB PO SCH (08:42)
[2017-08-23] MEDS: LORazepam 0.5 MG TAB PO SCH ×2 (08:42→21:15)
[2017-08-23] MEDS: SODIUM CHLORIDE 1 GRAM TAB PO SCH ×3 (08:42→16:45)
[2017-08-23] MEDS: PANTOPRAZOLE SOD 20 MG DELAYED RELEASE TAB PO SCH (08:42)
[2017-08-23] MEDS ORDERED: diphenhydrAMINE HCL 25 MG CAP PO PRN (10:15)
--- NOTE | 2017-08-23 10:19 | HHI.PR ---
Subjective Remarks Follow-up for hyponatremia Patient has no complaints. Spoke to patient's nurse a show she stated that last night nurse noticed some small amount of blood clots when she urinated but it was not mixed in the urine. Patient states she has vaginal bleeding but there is no vaginal bleeding on her diaper. When I asked patient about this she stated that she is scratching a lot in the area. No bleeding in her stools. Otherwise patient asking to drink water. Objective Vitals Vital Signs Date Time Temp Pulse Resp B/P (MAP) Pulse Ox O2 Delivery O2 Flow Rate FiO2 08/23/17 06:26 97.4 75 16 158/94 (115) 95 08/22/17 18:00 98.2 80 16 133/67 (89) 95 I/O 08/22/17 08/22/17 08/22/17 08/23/17 08/23/17 08/23/17 07:00 15:00 23:00 07:00 15:00 23:00 Intake Total 240 ml 480 ml 1080 ml 0 ml Output Total 400 ml 400 ml Balance 240 ml 480 ml 680 ml -400 ml Intake Oral 240 ml 480 ml 1080 ml 0 ml Output Urine Total 400 ml 400 ml # Voids 1 # Bowel Movements 0 Result Diagram: 08/23/17 0323 Objective Remarks GENERAL: in NAD CARDIOVASCULAR: Regular rate and rhythm without murmurs, gallops, or rubs. RESPIRATORY: Breath sounds equal bilaterally. No accessory muscle use. GASTROINTESTINAL: Abdomen soft, non-tender, nondistended. Pelvic: Patient does look like she has chronic skin changes from scratches but otherwise no lesions or bleeding noted. BACK: Nontender without obvious deformity. No CVA tenderness. NEURO: AAO X2 she is able to give me her full name and location. Unable to give me the date. Answers questions appropriately. Medications and IVs Current Medications Acetaminophen/ Hydrocodone Bitart ([place] 5-325 Mg) 1 tab Q6H PRN PO PAIN SCALE 6-10 Last administered on 08/21/17 15:34; Start 08/20/17 at 19:00 Pantoprazole Sodium (Protonix) 20 mg DAILY PO Last administered on 08/23/17 08 :42; Start 08/21/17 at 09:00 Acetaminophen (Tylenol) 650 mg Q4H PRN PO PAIN SCALE 1-5; TEMP>100.4F Last administered on 08/23/17 01:41; Start 08/20/17 at 19:00 Atenolol (Tenormin) 50 mg HS PO Last administered on 08/22/17 21:24; Start at 21:00 Potassium Chloride (KCl) 10 meq DAILY PO Last administered on 08/23/17 08:42; Start 08/21/17 at 09:00 Clonidine (Catapres) 0.1 mg Q6H PRN PO SBP>160, DBP>90; Start 08/20/17 at 19:00 ; Stop 08/22/17 at 08:40; Status DC Naloxone HCl (Narcan Inj) 0.4 mg UNSCH PRN IV PUSH OPIOID OVERDOSE; Start 08/20 at 19:00 Sodium Chloride 1,000 ml @ 100 mls/hr Q10H IV ; Start 08/20/17 at 19:00; Stop 08/20/17 at 19:03; Status DC Tolterodine Tartrate (Detrol La) 2 mg DAILY PO Last administered on 08/23/17 08:42; Start 08/21/17 at 09:00 Lorazepam (Ativan) 1 mg Q8HR PO Last administered on 08/21/17 06:09; Start at 22:00; Stop 08/21/17 at 12:49; Status DC Ziprasidone (Geodon) 20 mg BIDPC PO Last administered on 08/23/17 08:42; Start 08/21/17 at 11:00 Sodium Chloride (Sodium Chloride) 1 gm TID PO Last administered on 08/23/17 08 :42; Start 08/21/17 at 13:00 Lorazepam (Ativan) 0.5 mg Q12HR PO Last administered on 08/23/17 08:42; Start 08/21/17 at 21:00 Clonidine (Catapres) 0.1 mg Q6H PRN PO SBP>160, DBP>90; Start 08/22/17 at 08:30 Multi-Ingredient Ointment (Eucerin Cream) 1 applic Q6H PRN TOPICAL DRY SKIN Last administered on 08/23/17 08:42; Start 08/22/17 at 08:30 Diphenhydramine HCl (Benadryl) 25 mg ONCE ONCE PO Last administered on t 12:54; Start 08/22/17 at 13:00; Stop 08/22/17 at 13:01; Status DC A/P Assessment and Plan A/P: Hyponatremia -Due to psychogenic polydipsia. See treatment below. Psychogenic polydipsia -Sodium is improving. Continue with fluid restriction at 1 L. Avoid free water. Continue his sodium tablets. Continue to monitor BMP. Akathisia -Management per psych. Spinal stenosis -PT was consulted. But recommendation is to improve ambulation.. Chronic kidney disease -Stable. Continue to monitor. Avoid nephrotoxins. MORBID OBESITY -Education given. DVT PROPHYLAXIS: SCDS/TEDS/ambulation. Sindhu Tapia MD Aug 23, 2017 10:19
[2017-08-23] MEDS: ATENOLOL 50 MG TAB PO SCH (21:15)
[2017-08-24] MEDS: ACETAMINOPHEN/HYDROcodone 325 MG/5 MG TAB PO PRN ×2 (04:08→13:08)
[2017-08-24 05:45] VITALS: BP 136/65; PULSE 64; RESP 19; TEMP 97.9; O2SAT 90
[2017-08-24 06:00] LABS: HEMATOCRIT 34.5 % (35.0-46.0); HEMOGLOBIN 10.4 GM/DL (11.6-15.3); MEAN CELL VOLUME 80.3 FL (80.0-100.0); MEAN CORPUSCULAR HEMOGLOBIN 24.1 PG (27.0-34.0); MEAN CORPUSCULAR HGB CONC 30.1 % (32.0-36.0); MEAN PLATELET VOLUME 6.7 FL (7.0-11.0); PLATELET COUNT 333 TH/MM3 (150-450); RED CELL DISTRIBUTION WIDTH 17.8 % (11.6-17.2); WHITE BLOOD COUNT 7.5 TH/MM3 (4.0-11.0)
[2017-08-24 06:27] LABS: BICARBONATE 32.9 MEQ/L (21.0-32.0); CALCIUM 9.1 MG/DL (8.5-10.1); CREATININE 1.22 MG/DL (0.50-1.00)
[2017-08-24 08:28] VITALS: BP 114/68; PULSE 68; RESP 16; O2SAT 91; O2SAT 96
[2017-08-24] MEDS: SODIUM CHLORIDE 1 GRAM TAB PO SCH ×2 (08:32→13:08)
[2017-08-24] MEDS: ZIPRASIDONE HCL 20 MG CAP PO SCH (08:33)
[2017-08-24] MEDS: TOLTERODINE TARTRATE 2 MG CAP LA PO SCH (08:33)
[2017-08-24] MEDS: POTASSIUM CHLORIDE 10 MEQ CONTROLLED RELEASE TAB PO SCH (08:33)
[2017-08-24] MEDS: LORazepam 0.5 MG TAB PO SCH (09:00)
--- NOTE | 2017-08-24 09:46 | PD.TTN ---
Patient Problems 1. Discharge planning 2. Medication compliance 3. Knowledge deficit 4. Lack of coping skills Progress Toward Goals Provider Present: Dr. Rachel Castro Provider Input: Per Dr. Castro patient requires medical stabilizing and can be dc back to [facility] when stable Nurse(s) Input: Per nursing staff patient is no behavior she is eating meals and taking her medication; at times patient can be attention seeking Psychiatric Counselors Present: KEO Bean Psych Therapist Input: 3008 and PASRR completed; patient is encouraged to attend groups and activities Group Spec/RT/OT/GALLARDO Present: Liam Shore OT Group Spec/RT/OT/GALLARDO Input: Per OT patient has not attended groups or activities Documentation Scribe: KEO Bean Sandra LMHC Aug 24, 2017 09:46
--- NOTE | 2017-08-24 09:46 | PD.TTN ---
Patient Problems 1. Discharge planning 2. Medication compliance 3. Knowledge deficit 4. Lack of coping skills Progress Toward Goals Provider Present: Dr. Rachel Castro Provider Input: Per Dr. Castro patient requires medical stabilizing and can be dc back to [facility] when stable Nurse(s) Input: Per nursing staff patient is no behavior she is eating meals and taking her medication; at times patient can be attention seeking Psychiatric Counselors Present: KEO Bean Psych Therapist Input: 3008 and PASRR completed; patient is encouraged to attend groups and activities Group Spec/RT/OT/GALLARDO Present: Liam Shore OT Group Spec/RT/OT/GALLARDO Input: Per OT patient has not attended groups or activities Documentation Scribe: KEO Bean Sandra LMHC Aug 24, 2017 09:46
--- NOTE | 2017-08-24 10:15 | HHI.FPPN ---
Subjective Remarks stable scratching her vagina and some excoriations and bleeding per the RN. Objective Vitals Vital Signs Date Time Temp Pulse Resp B/P (MAP) Pulse Ox O2 Delivery O2 Flow Rate FiO2 08/24/17 08:28 68 16 114/68 (83) 96 08/24/17 05:45 97.9 64 19 136/65 (88) 90 I/O 08/23/17 08/23/17 08/23/17 08/24/17 08/24/17 08/24/17 07:00 15:00 23:00 07:00 15:00 23:00 Intake Total 0 ml 960 ml 0 ml 120 ml Output Total 400 ml Balance -400 ml 960 ml 0 ml 120 ml Intake Oral 0 ml 960 ml 0 ml 120 ml Output Urine Total 400 ml # Voids 5 2 # Bowel Movements 2 Result Diagram: 08/24/1744808/24/17448 Objective Remarks GENERAL: SKIN: Warm and dry. HEAD: Atraumatic. Normocephalic. EYES: Pupils equal and round. No scleral icterus. No injection or drainage. ENT: No nasal bleeding or discharge. Mucous membranes pink and moist. NECK: Trachea midline. No JVD. CARDIOVASCULAR: Regular rate and rhythm. RESPIRATORY: No accessory muscle use. Clear to auscultation. Breath sounds equal bilaterally. GASTROINTESTINAL: Abdomen soft, non-tender, nondistended. Hepatic and splenic margins not palpable. MUSCULOSKELETAL: Extremities without clubbing, cyanosis, or edema. No obvious deformities. NEUROLOGICAL: Awake and alert. No obvious cranial nerve deficits. Motor grossly within normal limits. Five out of 5 muscle strength in the arms and legs. Normal speech. PSYCHIATRIC: Appropriate mood and affect; insight and judgment normal. Medications and IVs Current Medications Medications (Trade) Dose Ordered Sig/Wilner Route Start Time Stop Time Status Last Admin ([place] 5-325 Mg) 1 tab Q6H PRN PO 08/20/17 19:00 08/24/17 04:08 (Tylenol) 650 mg Q4H PRN PO 08/20/17 19:00 08/23/17 18:00 (Tenormin) 50 mg HS PO 08/20/17 21:00 08/23/17 21:15 (KCl) 10 meq DAILY PO 08/21/17 09:00 08/24/17 08:33 (Narcan Inj) 0.4 mg UNSCH PRN IV PUSH 08/20/17 19:00 (Detrol La) 2 mg DAILY PO 08/21/17 09:00 08/24/17 08:33 (Geodon) 20 mg BIDPC PO 08/21/17 11:00 08/24/17 08:33 (Sodium Chloride) 1 gm TID PO 08/21/17 13:00 08/24/17 08:32 (Ativan) 0.5 mg Q12HR PO 08/21/17 21:00 08/23/17 21:15 (Catapres) 0.1 mg Q6H PRN PO 08/22/17 08:30 (Eucerin Cream) 1 applic Q6H PRN TOPICAL 08/22/17 08:30 08/23/17 08:42 (Benadryl) 25 mg Q4H PRN PO 08/23/17 10:15 A/P Assessment and Plan A/P: HYPONATREMIA: 1OOO ML FLUID RESTRICT, NO FREE WATER, NACL TABS PSYCHOGENIC POLYDYPSIA AKATHISIA (NO TD'S) SPINAL STENOSIS GABRIELLA EDEMA MORBID OBESITY GI PROPHYLAXIS: PROTONIX DVT PROPHYLAXIS: SCDS/TEDS. DISPO: DISCHARGE BACK TO [facility] WHEN CLEARED BY PSYCHIATRY. PT STABLE FOR DC TO SNF. Kedar Martinez MD Aug 24, 2017 10:15
[2017-08-24] MEDS ORDERED: LORA-392 PO (10:32)
[2017-08-24] MEDS ORDERED: ZIPR20 PO (10:32)
[2017-08-24] MEDS ORDERED: DETR2CAP PO (13:02)
[2017-08-24] MEDS ORDERED: Eucerin Cream TOPICAL (13:02)
--- NOTE | 2017-08-24 14:06 | HHI.DS ---
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 Martinez, past medical history of pickwickian syndrome, morbid obesity, hypertension, GERD, bladder dysfunction, chronic back pain, was brought into the hospital for altered mental status with a sodium level 118 at nursing facility with suspicion due to free water intake and was found to have settled level of 115 in the ED transferred subsequently to ICU then transferred to medical psychiatry unit for further evaluation and management after psychiatric consult. As per psychiatry consult note: Patient was consulted to psychiatry due to restlessness, tardive dyskinesia as a for medication adjustment. On psychiatric evaluation today patient is found restless, superficially cooperative, stating that she feels uncomfortable. She presents with flat affect, poverty of speech and blocking thought. Patient says that she does not really know the reason of her hospitalization. She says that she has been compliant with all her medications. Patient reports that she is at baseline, she denies depressive symptoms, she denies anhedonia, she denies hopelessness, helplessness, she denies suicidal and homicidal ideation, she denies visual and auditory hallucinations. Patient says she takes her Haldol as prescribed everyday. She denies paranoia, she denies delusions of reference, she denies flight of ideas, is no agitation or aggressive behavior reported. However, patient does report that she has been very thirsty "drinking a lot of water everyday, maybe 1 or 2 gallons, to control myself". Patient is observed to be very restless, moving around the bed, unable to have her legs is still for more than 5 seconds. She is fully oriented 3, there is no fluctuation of consciousness, no attention deficit, no gross cognitive impairment present. Patient was seen on the medical psychiatry unit sitting in hospital chair with staff assisting with hygiene, calm and cooperative interview with the noted to have limited responsiveness. Patient states that her mood has been "okay", denies any difficulty with sleep, appetite, energy or concentration, states that she had been noncompliant with her treatment at her nursing facility. Patient denies any perceptual disturbances at this time or recent. Patient reports that she was in taking about 2 gallons of ice chips daily at her residence, stating "I like to crunch". Patient is alert and oriented to person place and date. Denies any mood or psychotic symptoms at this time. Patient was noted to be rocking back and forth somewhat during interview and states that she does this for comfort but was not noted to have any lower extremity restlessness at this time. Past psychiatric history: Previous psychiatric diagnoses of schizophrenia, [facility] psychiatric hospitalizations (last 13 years ago), denies any previous suicide attempts, denies history of abuse.. Medication trials include Haldol 5 mg a.m./50 mg at bedtime, Restoril 2 mg by mouth twice a day, trazodone 50 mg at bedtime. Family psychiatric history: Patient reports mother with mental illness but was unable to specify what diagnoses. Denies suicides in the family. Substance use history: previous tobacco use but quit, denies any other drug use or alcohol use. 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 Martinez, past medical history of pickwickian syndrome, morbid obesity, hypertension, GERD, bladder dysfunction, chronic back pain, was brought into the hospital for altered mental status with a sodium level 118 at nursing facility with suspicion due to free water intake and was found to have settled level of 115 in the ED transferred subsequently to ICU then transferred to medical psychiatry unit for further evaluation and management after psychiatric consult. Patient was admitted to the inpatient psychiatry unit where she was started on ziprasidone 20mg PO BID, decrease lorazepam 0.5mg PO every 12 hours Patient continued to have stable mood, denied any perceptual disturbances nor suicidal or homicidal ideations. Patient was followed by the medical team for hyponatremia which improved and stabilized. Patients reported akathisia was also noted to be reduced with current regimen. Upon discharge patient stated feeling motivated to continue treatment as well as outpatient follow up appointments for continuity of care. Patient denies SI, HI, AVH or delusions. Supportive psychotherapy provided. Patient advised to return to ED or call 911 in case of emergency. Patient agrees with plan. Results Blood Pressure 114 / 68 Vital Signs Date Time Temp Pulse Resp B/P (MAP) Pulse Ox O2 Delivery O2 Flow Rate FiO2 08/24/17 08:28 68 16 114/68 (83) 96 08/24/17 05:45 97.9 Laboratory Tests Test 08/22/17 09:11 08/22/17 16:17 08/22/17 21:37 08/23/17 03:23 Blood Urea Nitrogen 23 MG/DL (7-18) 22 MG/DL (7-18) 22 MG/DL (7-18) 23 MG/DL (7-18) Creatinine 1.23 MG/DL (0.50-1.00) 1.20 MG/DL (0.50-1.00) 1.20 MG/DL (0.50-1.00) 1.24 MG/DL (0.50-1.00) Random Glucose 161 MG/DL (74-106) 128 MG/DL (74-106) Sodium Level 121 MEQ/L (136-145) 127 MEQ/L (136-145) 128 MEQ/L (136-145) 127 MEQ/L (136-145) Chloride Level 86 MEQ/L (98-107) 87 MEQ/L (98-107) 89 MEQ/L (98-107) 88 MEQ/L (98-107) Estimat Glomerular Filtration Rate 54 ML/MIN (>89) 55 ML/MIN (>89) 55 ML/MIN (>89) 53 ML/MIN (>89) Carbon Dioxide Level 33.1 MEQ/L (21.0-32.0) Test 08/24/17 04:49 Hemoglobin 10.4 GM/DL (11.6-15.3) Hematocrit 34.5 % (35.0-46.0) Mean Corpuscular Hemoglobin 24.1 PG (27.0-34.0) Mean Corpuscular Hemoglobin Concent 30.1 % (32.0-36.0) Red Cell Distribution Width 17.8 % (11.6-17.2) Mean Platelet Volume 6.7 FL (7.0-11.0) Blood Urea Nitrogen 21 MG/DL (7-18) Creatinine 1.22 MG/DL (0.50-1.00) Random Glucose 108 MG/DL (74-106) Sodium Level 133 MEQ/L (136-145) Chloride Level 93 MEQ/L (98-107) Carbon Dioxide Level 32.9 MEQ/L (21.0-32.0) Estimat Glomerular Filtration Rate 54 ML/MIN (>89) Summary of Procedures none Pending results at discharge: No Medications # of Antipsychotic meds at D/C: 1 Approp Antipsych med options 1 - Minimum of three failed multiple trials of monotherapy. 2 - Documented plan to taper to monotherapy due to previous use of multiple meds OR cross-taper in progress at D/C. 3 - Documentation of augmentation of Clozapine. 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 - Polydipsia; F54 - Psychological and behavioral factors associated with disorders or diseases classified elsewhere Pt Condition on Discharge: Stable Discharge Disposition: Discharge to SNF Discharge Instructions Diet Instructions: Heart Healthy Diet Activities you can perform: Weight Bearing as Min Scheduled Appointment: Amrik Maharaj providers Appointment Date: Aug 25, 2017 Appointment Time: 08:00am Discharge Time > 30 minutes Mental Status Examination Appearance: Appropriate Consciousness: Alert Orientation: Person, Place, Date/Time Motor Activity: Other Speech: Slow (slightly) Language: Adequate Fund of Knowledge: Adequate Attention and Concentration: Other (at times noted to be sleepy) Memory: Unremarkable Mood: Other ("fine") Affect: Other (restricted) Thought Process & Associations: Linear Thought Content: Appropriate Hallucination Type: None Delusion Type: None Suicidal Ideation: No Suicidal Plan: No Suicidal Intention: No Homicidal Ideation: No Homicidal Plan: No Homicidal Intention: No Insight: Fair Judgment: Adequate Discharge/Advance Care Plan Health Problems: (1) Schizophrenia (2) Psychogenic polydipsia Goals to promote your health * To prevent worsening of your condition and complications * To maintain your health at the optimal level Directions to meet your goals Take your medications as prescribed Follow your dietary instruction Follow activity as directed Keep your appointments as scheduled Take your immunizations and boosters as scheduled If your symptoms worsen call your PCP, if no PCP go to Urgent Care Center or Emergency Room For 24 questions related to your inpatient stay or results of tests pending at discharge, please contact Dr. Nitin Castro at Smoking is Dangerous to Your Health. Avoid second hand smoking Nitin Castro MD Aug 24, 2017 14:06
== END 2017-08-24 13:45 | DRG 885 ==
LOC: H4EA 15:00
PROVIDERS: ADMIT Student in an Organized Health Care Education/Training Program; ATTEND Student in an Organized Health Care Education/Training Program
DX: F20.9 Schizophrenia, unspecified (principal); E87.1 Hypo-osmolality and hyponatremia; I12.9 Hypertensive chronic kidney disease with stage 1 through stage 4 chronic kidney disease, or unspecified chronic kidney disease; E66.2 Morbid (severe) obesity with alveolar hypoventilation; R63.1 Polydipsia; G24.01 Drug induced subacute dyskinesia; G25.71 Drug induced akathisia; T43.595A Adverse effect of other antipsychotics and neuroleptics, initial encounter; M48.00 Spinal stenosis, site unspecified; R60.9 Edema, unspecified; N18.9 Chronic kidney disease, unspecified; K21.9 Gastro-esophageal reflux disease without esophagitis; Z87.891 Personal history of nicotine dependence
CPT/HCPCS: 80048; 85027; 93005

== ENCOUNTER 2018-04-09 23:35 | Inpatient (IN) ==
[2018-04-18] MEDS ORDERED: Benzonatate 100 MG Capsule PO PRN (00:01)
[2018-04-18] MEDS ORDERED: Dextrose 50% in Water 50 ML Vial IV.PUSH PRN (00:01)
[2018-04-18] MEDS ORDERED: Albumin Human 25% Inj 100 ML IV.SIG SCH ×2 (01:00→09:00)
[2018-04-18] MEDS ORDERED: Norepinephrine Inj 4 MG in Sodium Chlor 0.9% Inj 246 ML IV.SIG PRN (01:00)
[2018-04-18] MEDS: Oral Hygiene Kit OROPHARYNG SCH ×3 (04:20→17:11)
--- NOTE | 2018-04-18 04:28 | XR ---
EXAM DATE: 04/18/2018 4:24 AM EDT AGE/SEX: 62 years / Female INDICATIONS: Respiratory failure. CLINICAL DATA: This is the patient's subsequent encounter. Patient reports that signs and symptoms h ave been present for 1 week and indicates a pain score of Nonresponsive. MEDICAL/SURGICAL HISTORY: Hypertension. Gastroesophageal reflux disease. Chronic kidney diseas e. Schizophrenia. None. COMPARISON: [facility] [place], 04/16/[place]. . FINDINGS: Exam characterized by low lung volumes. Previous endotracheal tube and nasogastric tube have been rem juan carlos. There is cardiomegaly and bilateral mostly basilar airspace disease slightly increased from Tone e 30. CONCLUSION: Interval removal of endotracheal tube and nasogastric tube with slight increase in basilar airspace d isease. Electronically signed by: Zbigniew Voss MD 04/18/2018 4:27 AM EDT
[2018-04-18] MEDS: Artificial Tears Opth Drops 15 ML Bottle EACH EYE SCH ×3 (06:45→22:52)
--- NOTE | 2018-04-18 07:32 | P.PNCC ---
Subjective Subjective Remarks/Hospital Course: Remarks/Hospital Course This is a 62-year-old AA female. Date of admission 04/10/2018. Date of consultation 04/11/2018. Past medical history includes schizophrenia, depression , seizure disorder, spinal stenosis, essential hypertension, gastroesophageal reflux disease, arthritis, chronic low back pain and urinary tract infection/ recurrent. Patient originally presented from [facility] secondary to " fluid overload" fall according to records from hospitalist. She is also noted to be in acute on chronic renal failure with a creatinine of 2.3. Sodium was 125. Patient had urinary tract infection originally received cephalexin in the ED 500 mg. She is currently on ceftriaxone 1 g every 24 hours patient does have a history of psychogenic polydipsia diagnosed 09/04. She was evaluated by nephrology received 1 dose of tolvaptan 50 mg last night at 1900 hrs. Patient was in her normal state of health sitting her chair when she is found to be unresponsive on the floor. The arms were able to obtain a blood pressure. ABG revealed an acute on chronic respiratory acidosis with pH is 7.18 PCO2 75 PO2 240 bicarbonate 27 base index of -1. All labs are currently pending. She is transferred to room 1333 placed on BiPAP 09/22 at 100%. She is currently arousable and follows commands. She is oriented to person place and year. Subjective 04/12: Afebrile. Noted to have bilateral occlusive posterior tibial DVTs on Dopplers bilateral lower extremities overnight. Patient's family states history of brain mass. Will do stat CT brain and discontinue heparin drip in the interim.. Currently on midazolam drip at 5 mg now and fentanyl drip at 50 mcg an hour. Hemodynamically stable. A.m. labs currently pending. Will need central line for access 04/13: Remains intubated sedated for vent synchrony. Currently on Levophed to maintain map above 65 currently on 6 mcg/min. Urine culture growing E. coli, MDR organism. Cefepime discontinued meropenem started, ID consulted. Creatinine stable but increased weight gain. Will increase Lasix monitor renal function closely. ABG shows respiratory alkalosis respiratory rate decreased. Lactic acid 5.5 will check again in the afternoon 04/14: Remains critical remains on 10 mcg/min of Levophed, not tolerating CPAP trials due to apnea. However excellent diuresis with IV Lasix increased dose, urine output 7.6 L in 24 hours and creatinine has improved from 2.2-1.72. Remains somnolent not following commands but shakes her head intermittently 04/15: Remains intubated off all sedation. Wakes up to command follows weekly. Tolerating CPAP but with high settings, intermittently apneic. Urine output remains excellent on IV Lasix 5.3 L in 24 hours. BUN/creatinine continues to improve 33/1.45 04/16: Remains intubated off sedation currently more awake following commands. Placed on CPAP. Creatinine remained stable. Start weaning trial for potential extubation if ABG and parameters acceptable 04/17: Extubated yesterday breathing comfortably. Oriented to person and somewhat to place. Did not cooperate with BiPAP overnight. Urine output adequate achieving negative balance. We will place patient on Symbicort Spiriva , EzPAP along with DuoNeb breathing treatments 04/18: More awake patient is asking for food. But she failed swallow eval yesterday. Pulling out her IV so I have ordered Geodon IM as needed. UO 200 ml in last 24 hours. IV maintenance fluid was started yesterday suspecting overdiuresis and diuretics were held. CMP is pending at this time Objective Vital Signs / I&O: Intake & Output 04/17/18 04/18/18 04/18/18 18:59 06:59 18:59 Output Total 200 / 200 Balance -200 / -200 Output: Urine 200 / 200 Result Diagrams: 04/17/18 14:56 04/17/18 14:56 Other Results: GENERAL: 62-year-old AA female currently on NC, awake, alert, asking for food SKIN: Warm and dry. HEAD: Atraumatic. Normocephalic. EYES: Pupils equal and round. No scleral icterus. No injection or drainage. ENT: No nasal bleeding or discharge. On NC NECK: Trachea midline. Unable to define JVD secondary to elevated BMI CARDIOVASCULAR: Distant heart sounds. Regular rate and rhythm. S1, S2 no S4. Murmur not appreciated. RESPIRATORY: Diminished breath sound due to body habitus. No wheezing, crackles appreciated. Few coarse rhonchi GASTROINTESTINAL: Abdomen soft, non-tender, obese. Hypoactive bowel sounds appreciated MUSCULOSKELETAL: Extremities with woody bilateral upper and lower extremity edema. NEUROLOGICAL: Off all sedation. Opens her eyes, follows commands. Oriented to person. Asks for food almost continuously Assessment and Plan - Assessment and Plan Plan: A/P Assessment and Plan Neuro/Psych: Acute encephalopathy likely secondary to hypoxia/hypercarbia/metabolic Schizophrenia/Depression Seizure disorder as child? Parkinson's disease? Chronic opioid use History of brain mass? Per family. Brain CT negative Improving mentation. CT brain negative for acute findings Continue ziprasidone 20 mg twice daily, currently held due to no p.o. Geodon IM 5 mg as needed ordered. On hydrocodone/acetaminophen 7.5/325 one tablet every 4 hours as needed at home for pain. Currently on hydrocodone/acetaminophen 5/325 and morphine sulfate 2 mg every 2 hours as needed pain Holding lorazepam 0.5 mg every 12 hours as needed, holding melatonin 6 mg at night for insomnia, holding Neurontin also CV: Septic shock-resolved Fluid overload/pulmonary edema Congestive heart failure Essential hypertension Bradycardia Elevated BNP unclear significance in light of acute kidney injury Lasix placed on hold due to increasing creatinine diminishing urine output. CMP pending today Continue IV albumin Holding atenolol 50 mg at night due to bradycardia, hypotension 2D echocardiogram 09/04 revealed EF 50-55%. Very poor windows. Repeat echocardiogram Unable to perform due to body habitus Resp: Acute hypoxic and hypercarbic respiratory failure Bilateral DVT Pulmonary edema Extubated 04/16/2018. Use BiPAP as needed and strictly at night-patient does not cooperate Albuterol/ipratropium aerosols every 6 hours with albuterol aerosols every 2 hours as needed dyspnea EzPAP, Symbicort, Spiriva and received 1 dose of Solu-Medrol 80 mg IV 04/17 If she gets reintubated will need tracheostomy due to super morbid obesity BMI 65, and most probably obstructive sleep apnea Chest x-ray with very poor windows due to body habitus. CT thorax showed minimal consolidative changes left chest GI: Gastroesophageal reflux disease History of peptic ulcer disease Speech pathology for swallow eval, failed yesterday Lansoprazole for GI prophylaxis Docusate sodium/senna 1 tablet twice daily for bowel regimen On omeprazole 20 mg at night at home. Endo: Sliding scale insulin Accu-Cheks to maintain euglycemia with Accu-Cheks every 6 hours/low regimen NovoLog TSH and cortisol normal range Renal: Acute kidney injury in the setting of chronic kidney disease stage IIIa Followed by Dr. Hollingsworth/nephrology. Renal ultrasound showed no acute findings Diuretics held due to suspected overdiuresis Await CMP Heme: Microcytic anemia Bilateral posterior tibialis occlusive thrombus Continue IV heparin drip, CT head negative Family request no Coumadin but ok with NOAC Monitor CBC daily. Follow trends iron studies -consistent with iron deficiency anemia and reticulocyte count and peripheral smear ID: Urinary tract infection (E Coli, MDR) -Continue Ertapenem for MDR organism per ID. off Meropenem and Teflaro -Follow-up on cultures Access -IJ central line pulled out by patient 04/17/18 Prophylax -GI -pantoprazole -DVT -SCDs/heparin IV Critical Care: Level 3 PT/OT/speech Discussed Condition With: Bedside RN, daughter was updated
[2018-04-18] MEDS: Chlorhexidine 0.12% Oral Kit 15 ML UDC SWISH-SPIT SCH ×2 (08:00→20:49)
[2018-04-18] MEDS: Senna/Docusate Sodium 8.6/50 MG Tablet PO SCH ×2 (08:01→20:49)
[2018-04-18 08:40] LABS: Alanine Aminotransferase 18 U/L (10-53); Alkaline Phosphatase 74 U/L (45-117); Total Protein 7.8 g/dL (6.4-8.2)
[2018-04-18 08:42] LABS: Baso % (Auto) 0.1 % (0.0-2.0); Eos % (Auto) 0.2 % (0.0-4.0); Lymph # (Auto) 0.8 th/mm3 (1.0-4.8); Mean Corpuscular Hemoglobin 23.7 pg (27.0-34.0); Mean Corpuscular Volume 82.9 fL (80.0-100.0); Mean Platelet Volume 8.3 fL (7.0-11.0); Mono # (Auto) 0.5 th/mm3 (0.0-0.9); Neut # (Auto) 4.4 th/mm3 (1.8-7.7); Neut % (Auto) 76.7 % (16.0-70.0); Platelet Count 152 th/mm3 (150-450); Red Blood Count 4.22 mil/mm3 (4.00-5.30); Red Cell Distribution Width 21.4 % (11.6-17.2); White Blood Count 5.8 th/mm3 (4.0-11.0)
[2018-04-18] MEDS ORDERED: Bisacodyl 10 MG Supp RECTAL PRN (09:00)
[2018-04-18] MEDS ORDERED: LORazepam 0.5 MG Tablet PO SCH (09:00)
[2018-04-18 09:01] LABS: Mean Corpuscular HGB Conc 28.6 % (32.0-36.0)
[2018-04-18 09:04] LABS: Albumin 4.4 g/dL (3.4-5.0); Anion Gap 11 meq/L (5-15); Aspartate Aminotransferase 33 U/L (15-37); Blood Urea Nitrogen 43 mg/dL (7-18); Calcium 9.8 mg/dL (8.5-10.1); Carbon Dioxide 30.2 meq/L (21.0-32.0); Chloride 100 meq/L (98-107); Glomerular Filtration Rate 34 mL/min (>89); Glucose,Random 83 mg/dL (74-106); Magnesium 2.3 mg/dL (1.5-2.5); Potassium 4.2 meq/L (3.5-5.1); Sodium 141 meq/L (136-145)
[2018-04-18] MEDS: Fluconazole 100 MG Tablet PO SCH ×2 (09:22→10:03)
[2018-04-18] MEDS: Tolterodine Tartrate LA 2 MG Capsule PO SCH ×2 (09:22→10:03)
[2018-04-18] MEDS: Gabapentin 300 MG Capsule PO SCH ×3 (09:23→20:49)
[2018-04-18] MEDS: Tiotropium Bromide 18 MCG/ACT Inhaler INH SCH (09:24)
[2018-04-18] MEDS: Multivitamin/Minerals Therapeutic Tablet PO SCH (09:24)
[2018-04-18] MEDS: Budesonide-Formoterol 160/4.5 MCG 6 GM Inhaler INH SCH ×2 (09:24→20:49)
[2018-04-18] MEDS: Insulin NovoLIN Regular Correctional Sugar Inj SQ SCH ×2 (13:00→18:17)
--- NOTE | 2018-04-18 13:45 | P.PNNP ---
Physical Exam Vital signs: Vital Signs 04/18/18 08:00 04/18/18 10:00 04/18/18 12:00 Temperature 98.6 F 98.4 F Pulse Rate 98 H 116 H 94 H Respiratory Rate 22 24 Blood Pressure 131/83 128/78 Pulse Oximetry 92 L 94 L Intake & Output 04/17/18 04/18/18 04/18/18 18:59 06:59 18:59 Output Total 200 / 200 Balance -200 / -200 Output: Urine 200 / 200 Other: Date of Last Bowel Movement 04/18/18 - Urinary Catheter Management Indwelling Temp Sensing Catheter Cath placed during this visit: yes Urethral indwelling: Yes Reason for continuing: Not indwelling catheter Insertion date: 04/17/18 Insertion time: 18:10 <Debo Dickerson - Last Filed: 04/18/18 13:40> Vital signs: Vital Signs 04/18/18 08:00 04/18/18 10:00 04/18/18 12:00 Temperature 98.6 F 98.4 F Pulse Rate 98 H 116 H 94 H Respiratory Rate 22 24 Blood Pressure 131/83 128/78 Pulse Oximetry 92 L 94 L 04/18/18 16:44 Temperature Pulse Rate 90 Respiratory Rate 22 Blood Pressure Pulse Oximetry Intake & Output 04/17/18 04/18/18 04/18/18 18:59 06:59 18:59 Output Total 200 / 200 Balance -200 / -200 Output: Urine 200 / 200 Other: Date of Last Bowel Movement 04/18/18 - Urinary Catheter Management Indwelling Temp Sensing Catheter Cath placed during this visit: no <Rosie Mcgovern - Last Filed: 04/18/18 16:46> Assessment and Plan - Assessment (1) Acute kidney injury Code(s): N17.9 - Acute kidney failure, unspecified Status: Acute Plan: Her previous creatinine was 1.2 in August of last year. Creatinine 2.3 -> 2.3->2.3->2.2->1.7->1.4->1.4->1.8 Some acute worsening most likely from diuresis Urinary output has also declined. Continue to hold lasix Repeat UA abnormal and culture is pending Avoid nephrotoxins Will monitor BMP and urinary output. <Debo Dickerson - Last Filed: 04/18/18 13:40> - Assessment (1) Acute kidney injury Code(s): N17.9 - Acute kidney failure, unspecified Status: Acute Plan: Patient seen and examined, agree with above. Slight increase in the Creatinine, Lasix on hold. <Rosie Mcgovern - Last Filed: 04/18/18 16:46>
[2018-04-18] MEDS: Heparin Drip 25,000 UNIT/250 ML BAG IV.CONT PRN (13:54)
[2018-04-18] MEDS ORDERED: Sod Chloride 0.9% Inj 1,000 ML IV.SIG SCH ×2 (17:30)
[2018-04-18] MEDS: Atenolol 50 MG Tablet PO SCH (20:49)
[2018-04-18] MEDS: Melatonin 5 MG Tablet PO SCH (20:49)
[2018-04-19] MEDS: Insulin NovoLIN Regular Correctional Sugar Inj SQ SCH ×3 (00:58→11:06)
[2018-04-19] MEDS: Oral Hygiene Kit OROPHARYNG SCH ×4 (00:59→17:44)
[2018-04-19] MEDS: Artificial Tears Opth Drops 15 ML Bottle EACH EYE SCH ×3 (06:12→22:16)
--- NOTE | 2018-04-19 07:47 | P.PNCC ---
Subjective Subjective Remarks/Hospital Course: Remarks/Hospital Course This is a 62-year-old AA female. Date of admission 04/10/2018. Date of consultation 04/11/2018. Past medical history includes schizophrenia, depression , seizure disorder, spinal stenosis, essential hypertension, gastroesophageal reflux disease, arthritis, chronic low back pain and urinary tract infection/ recurrent. Patient originally presented from [facility] secondary to " fluid overload" fall according to records from hospitalist. She is also noted to be in acute on chronic renal failure with a creatinine of 2.3. Sodium was 125. Patient had urinary tract infection originally received cephalexin in the ED 500 mg. She is currently on ceftriaxone 1 g every 24 hours patient does have a history of psychogenic polydipsia diagnosed 09/04. She was evaluated by nephrology received 1 dose of tolvaptan 50 mg last night at 1900 hrs. Patient was in her normal state of health sitting her chair when she is found to be unresponsive on the floor. The arms were able to obtain a blood pressure. ABG revealed an acute on chronic respiratory acidosis with pH is 7.18 PCO2 75 PO2 240 bicarbonate 27 base index of -1. All labs are currently pending. She is transferred to room 1333 placed on BiPAP 09/22 at 100%. She is currently arousable and follows commands. She is oriented to person place and year. Subjective 04/12: Afebrile. Noted to have bilateral occlusive posterior tibial DVTs on Dopplers bilateral lower extremities overnight. Patient's family states history of brain mass. Will do stat CT brain and discontinue heparin drip in the interim.. Currently on midazolam drip at 5 mg now and fentanyl drip at 50 mcg an hour. Hemodynamically stable. A.m. labs currently pending. Will need central line for access 04/13: Remains intubated sedated for vent synchrony. Currently on Levophed to maintain map above 65 currently on 6 mcg/min. Urine culture growing E. coli, MDR organism. Cefepime discontinued meropenem started, ID consulted. Creatinine stable but increased weight gain. Will increase Lasix monitor renal function closely. ABG shows respiratory alkalosis respiratory rate decreased. Lactic acid 5.5 will check again in the afternoon 04/14: Remains critical remains on 10 mcg/min of Levophed, not tolerating CPAP trials due to apnea. However excellent diuresis with IV Lasix increased dose, urine output 7.6 L in 24 hours and creatinine has improved from 2.2-1.72. Remains somnolent not following commands but shakes her head intermittently 04/15: Remains intubated off all sedation. Wakes up to command follows weekly. Tolerating CPAP but with high settings, intermittently apneic. Urine output remains excellent on IV Lasix 5.3 L in 24 hours. BUN/creatinine continues to improve 33/1.45 04/16: Remains intubated off sedation currently more awake following commands. Placed on CPAP. Creatinine remained stable. Start weaning trial for potential extubation if ABG and parameters acceptable 04/17: Extubated yesterday breathing comfortably. Oriented to person and somewhat to place. Did not cooperate with BiPAP overnight. Urine output adequate achieving negative balance. We will place patient on Symbicort Spiriva , EzPAP along with DuoNeb breathing treatments 04/18: More awake patient is asking for food. But she failed swallow eval yesterday. Pulling out her IV so I have ordered Geodon IM as needed. UO 200 ml in last 24 hours. IV maintenance fluid was started yesterday suspecting overdiuresis and diuretics were held. CMP is pending at this time 04/19: Appears more lethargic today currently on BiPAP. Somnolent but wakes up easily follows commands 4. Chest x-ray and CMP pending at this time. Check ABG only if no improvement over the day. Patient received single dose of melatonin at night and had been somnolent since that Objective Vital Signs / I&O: Vital Signs 04/18/18 08:00 04/18/18 10:00 04/18/18 12:00 Temperature 98.6 F 98.4 F Pulse Rate 98 H 116 H 94 H Respiratory Rate 22 24 Blood Pressure 131/83 128/78 Pulse Oximetry 92 L 94 L 04/18/18 14:00 04/18/18 16:00 04/18/18 16:44 Temperature 98.6 F Pulse Rate 100 H 96 H 90 Respiratory Rate 26 H 22 Blood Pressure 135/90 Pulse Oximetry 92 L 04/18/18 18:00 04/18/18 20:00 04/18/18 20:21 Temperature 98.2 F Pulse Rate 97 H 96 H 112 H Respiratory Rate 33 H 24 Blood Pressure 111/71 Pulse Oximetry 98 97 07/01/18 22:00 04/18/18 23:25 04/18/18 23:28 Temperature Pulse Rate 112 H 109 H Respiratory Rate 20 Blood Pressure Pulse Oximetry 97 96 04/19/18 00:00 04/19/18 02:00 04/19/18 02:29 Temperature Pulse Rate 109 H 106 H Respiratory Rate Blood Pressure Pulse Oximetry 97 04/19/18 03:37 04/19/18 04:00 04/19/18 04:43 Temperature Pulse Rate 102 H 103 H Respiratory Rate 12 Blood Pressure 94/57 L Pulse Oximetry 100 100 04/19/18 06:00 Temperature Pulse Rate 98 H Respiratory Rate Blood Pressure Pulse Oximetry Intake & Output 04/18/18 04/19/18 04/19/18 18:59 06:59 18:59 Intake Total 1480 / 1480 300 / 300 Output Total 150 / 150 125 / 125 Balance 1330 / 1330 175 / 175 Intake: IV 1000 / 1000 NS Inj 1,000 ML @ 50 mls/hr IV. 1000 / 1000 SIG .Q20H SYLVIA Rx#:[id number] Oral 480 / 480 300 / 300 Output: Urine 150 / 150 125 / 125 Other: Date of Last Bowel Movement 04/18/18 04/19/18 # Bowel Movements 1 2 Result Diagrams: 04/18/18 06:51 04/18/18 06:57 Objective Remarks: GENERAL: 62-year-old AA female currently on BiPAP, more somnolent today but wakes up to command SKIN: Warm and dry. HEAD: Atraumatic. Normocephalic. EYES: Pupils equal and round. No scleral icterus. No injection or drainage. ENT: BiPAP mask limits exam NECK: Trachea midline. Unable to define JVD secondary to elevated BMI CARDIOVASCULAR: Distant heart sounds. Regular rate and rhythm. S1, S2 no S4. Murmur not appreciated. RESPIRATORY: Diminished breath sound due to body habitus. No wheezing, crackles appreciated. Few coarse rhonchi GASTROINTESTINAL: Abdomen soft, non-tender, obese. Hypoactive bowel sounds appreciated MUSCULOSKELETAL: Extremities with woody bilateral upper and lower extremity edema. NEUROLOGICAL: Patient is more somnolent today. Opens her eyes, follows verbal commands. Nonfocal exam but BiPAP limits detailed exam Assessment and Plan - Assessment and Plan Plan: A/P Assessment and Plan Neuro/Psych: Acute encephalopathy likely secondary to hypoxia/hypercarbia/metabolic Schizophrenia/Depression Seizure disorder as child? Parkinson's disease? Chronic opioid use History of brain mass? Per family. Brain CT negative More somnolent today, but also received melatonin at night. Will discontinue any sedating medications other than her scheduled Geodon which is a home medication. CT brain negative for acute findings Continue ziprasidone 20 mg twice daily, if patient can take PO. Geodon IM 5 mg as needed ordered. On hydrocodone/acetaminophen 7.5/325 one tablet every 4 hours as needed at home for pain. Currently on hydrocodone/acetaminophen 5/325 and morphine sulfate 2 mg every 2 hours as needed pain Holding lorazepam 0.5 mg every 12 hours as needed, holding melatonin 6 mg at night for insomnia, holding Neurontin also CV: Septic shock-resolved Fluid overload/pulmonary edema Congestive heart failure Essential hypertension Bradycardia Elevated BNP unclear significance in light of acute kidney injury Lasix placed on hold due to increasing creatinine diminishing urine output. Will resume due to reduced urine output CMP pending today Continue IV albumin Holding atenolol 50 mg at night due to bradycardia, hypotension 2D echocardiogram 09/04 revealed EF 50-55%. Very poor windows. Repeat echocardiogram Unable to perform due to body habitus Resp: Acute hypoxic and hypercarbic respiratory failure Bilateral DVT Pulmonary edema Extubated 04/16/2018. Currently requiring BiPAP Protecting airway at this time follow-up on chest x-ray Patient is at high risk for decompensation and reintubation Albuterol/ipratropium aerosols every 6 hours with albuterol aerosols every 2 hours as needed dyspnea EzPAP, Symbicort, Spiriva and received 1 dose of Solu-Medrol 80 mg IV 04/17 If she gets reintubated will need tracheostomy due to super morbid obesity BMI 65, and most probably obstructive sleep apnea Chest x-ray with very poor windows due to body habitus. CT thorax showed minimal consolidative changes left chest GI: Gastroesophageal reflux disease History of peptic ulcer disease Diet per speech recommendation Lansoprazole for GI prophylaxis Docusate sodium/senna 1 tablet twice daily for bowel regimen On omeprazole 20 mg at night at home. Endo: Sliding scale insulin Accu-Cheks to maintain euglycemia with Accu-Cheks every 6 hours/low regimen NovoLog TSH and cortisol normal range Renal: Acute kidney injury in the setting of chronic kidney disease stage IIIa Followed by Dr. Hollingsworth/nephrology. Renal ultrasound showed no acute findings Diuretics held, but will restart due to oliguria Await CMP Heme: Microcytic anemia Bilateral posterior tibialis occlusive thrombus Continue IV heparin drip, CT head negative Family request no Coumadin but ok with NOAC Monitor CBC daily. Follow trends iron studies -consistent with iron deficiency anemia and reticulocyte count and peripheral smear ID: Urinary tract infection (E Coli, MDR) -Continue Ertapenem for MDR organism per ID. off Meropenem and Teflaro -Follow-up on cultures Access -IJ central line pulled out by patient 04/17/18 Prophylax -GI -pantoprazole -DVT -SCDs/heparin IV Critical Care: CCT 30 There is change in patient's respiratory status more somnolent today currently requiring BiPAP. Follow-up on chest x-ray, follow-up on a CMP, resume diuretics , if mental status does not improve we will check ABG. Patient is at risk for acute respiratory decompensation and reintubation. Continue close ICU monitoring Code Status: Full
--- NOTE | 2018-04-19 08:25 | XR ---
EXAM DATE: 04/19/2018 8:14 AM EDT AGE/SEX: 62 years / Female INDICATIONS: Respiratory disease. CLINICAL DATA: This is the patient's subsequent encounter. Patient reports that signs and symptoms h ave been present for 1 week and indicates a pain score of Nonresponsive. MEDICAL/SURGICAL HISTORY: . Hypertension. Gastroesophageal reflux disease. Chronic kidney disea se. None. COMPARISON: [facility] [place], CHEST 1V SINGLE AP, 04/18/2018. . FINDINGS: A single AP view of the chest demonstrates cardiomegaly with increase in pulmonary vascularity. Bibas ilar airspace disease, greater left lower lobe. Probable left pleural effusion. The cardiomediastina l contours are unremarkable. Osseous structures are intact. CONCLUSION: 1. Bibasilar airspace disease greater left lower lobe. 2. Probable left pleural effusion. 3. Cardiomegaly. Electronically signed by: Nitin Cohen MD 04/19/2018 8:24 AM EDT
[2018-04-19] MEDS: Heparin Drip 25,000 UNIT/250 ML BAG IV.CONT PRN (08:31)
[2018-04-19 09:46] LABS: Alanine Aminotransferase 23 U/L (10-53); Alkaline Phosphatase 70 U/L (45-117); Anion Gap 11 meq/L (5-15); Aspartate Aminotransferase 41 U/L (15-37); Blood Urea Nitrogen 56 mg/dL (7-18); Carbon Dioxide 32.3 meq/L (21.0-32.0); Chloride 99 meq/L (98-107); Glomerular Filtration Rate 26 mL/min (>89); Glucose,Random 82 mg/dL (74-106); Potassium 4.5 meq/L (3.5-5.1); Sodium 142 meq/L (136-145); Total Protein 7.3 g/dL (6.4-8.2)
[2018-04-19] MEDS: Gabapentin 300 MG Capsule PO SCH ×2 (10:16→22:13)
[2018-04-19] MEDS: Multivitamin/Minerals Therapeutic Tablet PO SCH (10:16)
[2018-04-19] MEDS: Senna/Docusate Sodium 8.6/50 MG Tablet PO SCH ×2 (10:17→22:15)
[2018-04-19] MEDS: Tolterodine Tartrate LA 2 MG Capsule PO SCH (10:17)
[2018-04-19] MEDS: Chlorhexidine 0.12% Oral Kit 15 ML UDC SWISH-SPIT SCH ×2 (10:17→22:13)
[2018-04-19] MEDS: Fluconazole 100 MG Tablet PO SCH (10:17)
[2018-04-19] MEDS: Budesonide-Formoterol 160/4.5 MCG 6 GM Inhaler INH SCH ×2 (10:21→22:15)
[2018-04-19] MEDS: Tiotropium Bromide 18 MCG/ACT Inhaler INH SCH (10:21)
--- NOTE | 2018-04-19 12:25 | P.PNNP ---
Subjective Interval history: Reports mild shortness of breath, moderate dependent edema. Creatinine has increased at 2.32 and oliguric with urinary output of 275/24 hours. <Debo Dickerson - Last Filed: 04/19/18 12:30> Physical Exam Vital signs: Vital Signs 04/18/18 14:00 04/18/18 16:00 04/18/18 16:44 Temperature 98.6 F Pulse Rate 100 H 96 H 90 Respiratory Rate 26 H 22 Blood Pressure 135/90 Pulse Oximetry 92 L 04/18/18 18:00 04/18/18 20:00 04/18/18 20:21 Temperature 98.2 F Pulse Rate 97 H 96 H 112 H Respiratory Rate 33 H 24 Blood Pressure 111/71 Pulse Oximetry 98 97 04/18/18 22:00 04/18/18 23:25 04/18/18 23:28 Temperature Pulse Rate 112 H 109 H Respiratory Rate 20 Blood Pressure Pulse Oximetry 97 96 04/19/18 00:00 04/19/18 02:00 04/19/18 02:29 Temperature Pulse Rate 109 H 106 H Respiratory Rate Blood Pressure Pulse Oximetry 97 04/19/18 03:37 04/19/18 04:00 04/19/18 04:43 Temperature Pulse Rate 102 H 103 H Respiratory Rate 12 Blood Pressure 94/57 L Pulse Oximetry 100 100 04/19/18 06:00 04/19/18 08:00 04/19/18 08:47 Temperature Pulse Rate 98 H 98 H 58 L Respiratory Rate 15 Blood Pressure Pulse Oximetry 94 L 04/19/18 10:00 04/19/18 11:43 Temperature Pulse Rate 70 Respiratory Rate Blood Pressure Pulse Oximetry 100 Intake & Output 04/18/18 04/19/18 04/19/18 18:59 06:59 18:59 Intake Total 1480 / 1480 300 / 300 250 / 250 Output Total 150 / 150 125 / 125 Balance 1330 / 1330 175 / 175 250 / 250 Intake: IV 1000 / 1000 250 / 250 Heparin/D5W 25,000 U/250 mL 25, 250 / 250 000 unit In 250 ml @ Per Protocol IV.CONT TITRATE PRN Rx #:[id number] NS Inj 1,000 ML @ 50 mls/hr IV. 1000 / 1000 SIG .Q20H SYLVIA Rx#:[id number] Oral 480 / 480 300 / 300 Output: Urine 150 / 150 125 / 125 Other: Date of Last Bowel Movement 04/18/18 04/19/18 04/19/18 # Bowel Movements 1 2 - Constitutional no acute distress, obese - Routine HEENT Exam Head: Present: normocephalic ENT: Present: mucous membranes moist - Routine Neck Exam Absent: JVD - Routine Respiratory Exam Present: decreased breath sounds, rhonchi, diminished air movement - Routine Cardiovascular Exam Present: RRR - Routine Abdominal Exam Present: soft, normoactive bowel sounds Comments: large - Routine Extremities Exam Present: edema - Routine Skin Exam Present: intact - Routine Neurological Exam Present: alert - Detailed Neurological Exam: Coma Scale Eye Opening: Spontaneous - Routine Psychiatric Exam Present: cooperative - Urinary Catheter Management Indwelling Temp Sensing Catheter Cath placed during this visit: yes Urethral indwelling: Yes Reason for continuing: Hourly intake/output Insertion date: 04/17/18 Insertion time: 18:10 <Debo Dickerson - Last Filed: 04/19/18 12:30> Vital signs: Vital Signs 04/18/18 23:25 04/18/18 23:28 04/19/18 00:00 Temperature Pulse Rate 109 H 109 H Respiratory Rate 20 Blood Pressure Pulse Oximetry 96 04/19/18 02:00 04/19/18 02:29 04/19/18 03:37 Temperature Pulse Rate 106 H 102 H Respiratory Rate 12 Blood Pressure Pulse Oximetry 97 04/19/18 04:00 04/19/18 04:43 04/19/18 06:00 Temperature Pulse Rate 103 H 98 H Respiratory Rate Blood Pressure 94/57 L Pulse Oximetry 100 100 04/19/18 08:00 04/19/18 08:47 04/19/18 10:00 Temperature 98.1 F Pulse Rate 98 H 58 L 70 Respiratory Rate 19 15 Blood Pressure 102/68 Pulse Oximetry 96 94 L 04/19/18 11:43 04/19/18 12:00 04/19/18 14:00 Temperature 98.4 F Pulse Rate 74 84 Respiratory Rate 17 Blood Pressure 96/72 L Pulse Oximetry 100 98 04/19/18 16:00 04/19/18 16:32 04/19/18 16:33 Temperature 98.2 F Pulse Rate 84 91 H Respiratory Rate 20 20 Blood Pressure 102/59 L Pulse Oximetry 97 100 04/19/18 18:00 04/19/18 19:09 04/19/18 21:38 Temperature Pulse Rate 93 H 121 H Respiratory Rate 20 18 Blood Pressure Pulse Oximetry 97 100 Intake & Output 04/19/18 04/19/18 04/20/18 06:59 18:59 06:59 Intake Total 300 / 300 1090 / 1090 Output Total 125 / 125 150 / 150 Balance 175 / 175 940 / 940 Intake: IV 250 / 250 Heparin/D5W 25,000 U/250 mL 25, 250 / 250 000 unit In 250 ml @ Per Protocol IV.CONT TITRATE PRN Rx #:[id number] Oral 300 / 300 840 / 840 Output: Urine 125 / 125 Urine Amount (Catheter) 150 / 150 Indwelling Temp Sensing 150 / 150 Catheter Other: Date of Last Bowel Movement 04/19/18 04/19/18 # Bowel Movements 2 0 - Urinary Catheter Management Indwelling Temp Sensing Catheter Cath placed during this visit: no <Rosie Mcgovern - Last Filed: 04/19/18 22:26> Assessment and Plan - Assessment (1) Acute kidney injury Code(s): N17.9 - Acute kidney failure, unspecified Status: Acute Plan: Her previous creatinine was 1.2 in August of last year. Creatinine 2.3 -> 2.3->2.3->2.2->1.7->1.4->1.4->1.8->2.32 Some acute worsening most likely from diuresis Urinary output has also declined at 275ml /24 hours Lasix was resumed due to decrease urinary output and moderate edema Repeat UA abnormal on antibiotics Avoid nephrotoxins Will monitor BMP and urinary output. <Debo Dickerson - Last Filed: 04/19/18 12:30> - Assessment (1) Acute kidney injury Code(s): N17.9 - Acute kidney failure, unspecified Status: Acute - Attending Attestation Patient seen and examined, agree with above. Creatinine increase, possibly related to diuretics. <Rosie Mcgovern - Last Filed: 04/19/18 22:26>
--- NOTE | 2018-04-19 15:53 | P.DIET ---
Nutritional Evaluation Type of nutrition evaluation: follow-up Nutrition consult regarding: Tube Feeding, Diet Evaluation (TFing stopped and diet advanced.) Subjective Subjective Comments: Lethargic and not eating. Objective - Objective Body Weight Used for Calculations: IBW (125#/56.8 kg) Energy Needs - Lower Range (kCal/kg): 22 Energy Needs - Upper Range (kCal/kg): 25 Lower Limit kCal/kg (kCals): 1,250 Upper Limit kCal/kg (kCals): 1,420 Lower Limit Protein Factor (Grams per Kg): 2 Upper Limit Protein Factor (Grams per Kg): 2.5 Lower Protein Needs (Protein): 114 Upper Protein Needs (Protein): 142 Dietitian Reviewed in Medical Record: Current diet, Curent medications, Intake & Output, Labs, Tube feeding Assessment Assessment: Pt has been receiving TFing but diet is now advanced to Heart Healthy. Pt with very poor po intake, however remains with a BMI of 70.7. Needs were calculated per ASPEN and SCCM guidelines for critically ill obese pts. Will send Ensure Enlive bid: each 8 oz serving provides 350 kcals and 20 gms protein. Pt with (+ ) BM. Recommendations: 1. Diet per ST 2. Ensure Enlive bid 3. RD following Dietitian to Monitor: Lab values, Supplement acceptance, Intake & Output, Diet tolerance, Weight change, PO Intake, Medical course
[2018-04-19] MEDS ORDERED: Atropine Inj 1 MG/10 ML Syringe ONE (19:08)
--- NOTE | 2018-04-19 19:17 | P.PNID ---
Subjective Remarks: Most of the history was by review of medical records. Daughter in room confirmed some facts. She lives out of town in [place] but has been visiting with Mom for last 2 weeks. 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 At that time she was able to stand up transiently and sit in chair. She was having difficulty transferring herself. She reports her mom was other becker mentally sharp. With this background Ms. Mcnamara is a 62 y/o AAF with PMHx of Morbid Obesity, history of schizophrenia, CKD, GERD and hypertension. The patient had a previous admission a [facility] in August 2018 where she had significant hyponatremia at that time, per the notes, the patient was drinking 2-3 gallons of water per day and was diagnosed with psychogenic polydipsia. Her serum sodium was as low as 115. At that time, she was medically treated and then transferred over to psychiatry for further management of her schizophrenia. The patient has been living in [facility] and apparently has continued a history of water intake. Per daughter her Mom water intake has gone down some. The patient was admitted to [facility] with confusion apparently after a fall after some shortness of breath. Patient was found to have a sodium of 125. A chest x-ray was evaluated for any findings of pleural effusion and moderate cardiomegaly with no significant pulmonary edema. The patient also was found to have findings of a UTI on the urinalysis and she was started on ceftriaxone for treatment of her UTI. At the time of my evaluation patient is in the [facility] currently on pressors Levophed at 6 mics, elevated lactic acid at 5, no fevers, no rash, no diarrhea. Patient was not responsive at the time of my evaluation except when her daughter called out her name she blinked her eyes without opening them. Did not move any limbs for me. ID consulted for sepsis, MDR UTI, Pneumonia ? aspiration. Overnight events reviewed No fevers No rash No diarrhea Extubated. Talking, asking for food, follows commands. Antibiotics: Ertapenem IV Diflucan Lines: Line ok Past Medical History: Schizophrenia, CKD, GERD HTN Hip Replacement, Ankle Surgery Allergies/Adverse Reactions: Allergies shrimp Allergy (Severe, Verified 08/18/17 18:34) RASH Sulfa (Sulfonamide Antibiotics) Allergy (Intermediate, Verified 08/18/17 18:34) RASH Objective Vital Signs 04/18/18 20:00 04/18/18 20:21 04/18/18 22:00 Temperature 98.2 F Pulse Rate 96 H 112 H 112 H Respiratory Rate 33 H 24 Blood Pressure 111/71 Pulse Oximetry 98 97 97 04/18/18 23:25 04/18/18 23:28 04/19/18 00:00 Temperature Pulse Rate 109 H 109 H Respiratory Rate 20 Blood Pressure Pulse Oximetry 96 04/19/18 02:00 04/19/18 02:29 04/19/18 03:37 Temperature Pulse Rate 106 H 102 H Respiratory Rate 12 Blood Pressure Pulse Oximetry 97 04/19/18 04:00 04/19/18 04:43 04/19/18 06:00 Temperature Pulse Rate 103 H 98 H Respiratory Rate Blood Pressure 94/57 L Pulse Oximetry 100 100 04/19/18 08:00 04/19/18 08:47 04/19/18 10:00 Temperature Pulse Rate 98 H 58 L 70 Respiratory Rate 15 Blood Pressure Pulse Oximetry 94 L 04/19/18 11:43 04/19/18 16:32 04/19/18 16:33 Temperature Pulse Rate 91 H Respiratory Rate 20 Blood Pressure Pulse Oximetry 100 100 Intake & Output 04/19/18 04/19/18 04/20/18 06:59 18:59 06:59 Intake Total 300 / 300 250 / 250 Output Total 125 / 125 Balance 175 / 175 250 / 250 Intake: IV 250 / 250 Heparin/D5W 25,000 U/250 mL 25, 250 / 250 000 unit In 250 ml @ Per Protocol IV.CONT TITRATE PRN Rx #:[id number] Oral 300 / 300 Output: Urine 125 / 125 Other: Date of Last Bowel Movement 04/19/18 04/19/18 # Bowel Movements 2 Lab - Hematology Results 04/15/18 04/16/18 04/17/18 04:15 05:55 14:56 WBC 7.9 7.1 6.4 RBC 4.05 3.98 L 4.15 Hgb 9.6 L 9.5 L 9.8 L Hct 31.6 L 31.8 L 34.8 L MCV 78.1 L 80.0 83.8 D MCH 23.7 L 23.9 L 23.6 L MCHC 30.3 L 29.9 L 28.2 L RDW 20.3 H 20.5 H 21.4 H Plt Count 161 D 147 L 151 MPV 7.3 7.3 8.0 Neut % (Auto) 70.5 H 71.5 H Lymph % (Auto) 13.5 12.4 Bay % (Auto) 9.9 H 11.5 H Eos % (Auto) 4.2 H 3.6 Baso % (Auto) 1.9 1.0 Neut # (Auto) 5.5 5.1 Lymph # (Auto) 1.1 0.9 L Bay # (Auto) 0.8 0.8 Eos # (Auto) 0.3 0.3 Baso # (Auto) 0.2 0.1 CBC Comment DIFF FINAL DIFF FINAL WBC Differential Differential Comment 04/18/18 06:51 WBC 5.8 RBC 4.22 Hgb 10.0 L Hct 35.0 MCV 82.9 MCH 23.7 L MCHC 28.6 L RDW 21.4 H Plt Count 152 MPV 8.3 Neut % (Auto) 76.7 H Lymph % (Auto) 14.0 Bay % (Auto) 9.0 H Eos % (Auto) 0.2 Baso % (Auto) 0.1 Neut # (Auto) 4.4 Lymph # (Auto) 0.8 L Bay # (Auto) 0.5 Eos # (Auto) 0.0 Baso # (Auto) 0.0 CBC Comment WBC Differential . Differential Comment Auto diff final Lab - Chemistry Results 04/15/18 04/16/18 04/17/18 04:15 05:55 14:56 Sodium 142 142 142 Potassium 3.6 3.8 4.2 Chloride 99 98 99 Carbon Dioxide 33.9 H 34.2 H 34.0 H Anion Gap 9 10 9 BUN 33 H 33 H 36 H Creatinine 1.45 H 1.42 H 1.68 H Estimated GFR 44 L 45 L 37 L POC Glucose Random Glucose 114 H 107 H 90 Calcium 9.0 9.2 9.6 Magnesium 2.0 2.0 Total Bilirubin 2.6 H 2.7 H 3.3 H AST 33 37 31 ALT 12 20 17 Alkaline Phosphatase 146 H 169 H 86 Total Protein 6.4 7.0 D 7.9 D Albumin 2.7 L D 3.4 D 4.6 D 04/18/18 04/19/18 04/19/18 06:57 08:45 11:06 Sodium 141 142 Potassium 4.2 4.5 Chloride 100 99 Carbon Dioxide 30.2 32.3 H Anion Gap 11 11 BUN 43 H 56 H Creatinine 1.81 H 2.32 H Estimated GFR 34 L 26 L POC Glucose 78 Random Glucose 83 82 Calcium 9.8 10.0 Magnesium 2.3 Total Bilirubin 3.1 H 2.5 H AST 33 41 H ALT 18 23 Alkaline Phosphatase 74 70 Total Protein 7.8 7.3 Albumin 4.4 4.0 04/19/18 18:10 Sodium Potassium Chloride Carbon Dioxide Anion Gap BUN Creatinine Estimated GFR POC Glucose 109 Random Glucose Calcium Magnesium Total Bilirubin AST ALT Alkaline Phosphatase Total Protein Albumin Imaging: ITS Impressions Chest X-Ray 04/19/18 07:42 CONCLUSION: 1. Bibasilar airspace disease greater left lower lobe. 2. Probable left pleural effusion. 3. Cardiomegaly. Physical Exam: GENERAL: Morbidly obese patient, in no apparent distress. SKIN: No rashes, ecchymoses or lesions. Cool and dry. HEAD: Atraumatic. Normocephalic. No temporal or scalp tenderness. EYES: No scleral icterus. No injection or drainage. ENT: NAD, large neck. NECK: Trachea midline. No Supple, nontender, no meningeal signs. CARDIOVASCULAR: HS audible but distant. RESPIRATORY: Clear to auscultation. Breath sounds equal bilaterally. No wheezes , rales, or rhonchi. GASTROINTESTINAL: Abdomen soft, obese abdomen. All skin folds examined with no e /o infection Back examined with no e.o infection. Axillary folds no eo infection. MUSCULOSKELETAL: Extremities without clubbing, cyanosis. Bilateral LE swollen, left LE with erythema. NEUROLOGICAL: Follows commands, talking. Psych cooperative, calm. Assessment and Plan - Plan Sepsis (UTI, elevated lactic acid) Aspiration Pneumonia in health care setting. MDR UTI Gram negative Acute metabolic encephalopathy: infection, metabolic hyponatremia Acute resp failure on Vent Acute renal failure: prerenal, sepsis. Bilateral LE DVT Left leg cellulitis Psychogenic polydipsia Schizophrenia. Recs DC Ertapenem IV could be causing altered mental status as a side effect. Continue Diflucan per stop date in chart. Clinically treated long enough for UTI and aspiration. WBC normal, no fevers. CXR could be fluid related changes. Will observe off antibiotics. Follow clinically. mikala RN: patient and family concerns about positioning. Will sign off please call back if any change in clinical condition or questions.
--- NOTE | 2018-04-19 20:19 | XR ---
EXAM DATE: 04/19/2018 8:16 PM EDT AGE/SEX: 62 years / Female INDICATIONS: Evaluate central line placement right side CLINICAL DATA: This is the patient's subsequent encounter. Patient reports that signs and symptoms h ave been present for 3 days and indicates a pain score of Nonresponsive. MEDICAL/SURGICAL HISTORY: Non-responsive. Non-responsive. COMPARISON: C, CHEST 1V SINGLE AP, 04/19/2018. . FINDINGS: Moderate interstitial changes are present. Consolidative changes are present in the left lower lobe. There is no pneumothorax. Central line appears to be in the right atrium although film is suboptimal for such. CONCLUSION: No pneumothorax. Line probably in the right atrium. Electronically signed by: Kenneth Queen MD 04/19/2018 8:17 PM EDT
--- NOTE | 2018-04-19 20:39 | P.PCN ---
Date of procedure: 04/19/18 Pre-op diagnosis: Respiratory failure Post-op diagnosis: same Procedure: DATE: 04/19/2018 PROCEDURE: Orotracheal intubation INDICATION: Acute respiratory failure DETAILS OF PROCEDURE The patient was placed in optimal position and preoxygenated with 100% FiO2 via bag valve mask. At the start oxygen saturation was unknown.. The patient was administered no medication IV. I entered the oropharynx with a size 4 laryngoscope blade and obtained a grade 2 view of the airway. On single attempt a size 8.0 cuffed endotracheal tube was passed through the vocal cords. Correct tube location was confirmed with end tidal CO2 detector and by auscultating over bilateral lung mendoza. The endotracheal tube was secured with adhesive tape at a depth of 23 cm at the lips. The patient was connected to the ventilator. The patient tolerated the procedure well without any apparent complications. Oxygen saturations were unknown at all times. STAT chest x-ray pending at time of dictation.
[2018-04-19] MEDS: Propofol 1000 mg/100 ml Inj 1,000 MG/100 ML BOTTLE IV.CONT PRN (21:00)
[2018-04-19 21:07] LABS: ABG Base Excess 1.3 mmol/L (-2-2); ABG PCO2 59 mmHg (38-42); ABG PO2 289 mmHg (61-120)
[2018-04-19] MEDS: Sod Chloride 0.9% Inj 1,000 ML IV.SIG SCH ×2 (22:11→22:31)
[2018-04-19] MEDS ORDERED: Sodium Bicarbonate 8.4% Inj 50 MEQ/50 ML Syringe IV.CONT ONE (22:13)
[2018-04-19] MEDS ORDERED: Calcium Chloride Inj 1 GM/10 ML Syringe IV.CONT ONE (22:13)
[2018-04-19] MEDS: Melatonin 5 MG Tablet PO SCH (22:13)
[2018-04-19] MEDS: Atenolol 50 MG Tablet PO SCH (22:15)
[2018-04-20] MEDS: Sod Chloride 0.9% Inj 1,000 ML IV.SIG SCH ×2 (00:15→00:41)
[2018-04-20] MEDS: Insulin NovoLIN Regular Correctional Sugar Inj SQ SCH ×7 (00:41→23:09)
[2018-04-20] MEDS: Oral Hygiene Kit OROPHARYNG SCH ×5 (00:42→23:10)
[2018-04-20] MEDS: Propofol 1000 mg/100 ml Inj 1,000 MG/100 ML BOTTLE IV.CONT PRN ×3 (01:50→23:27)
--- NOTE | 2018-04-20 03:23 | P.PCN ---
Date of procedure: 04/19/18 Pre-op diagnosis: Respiratory failure Post-op diagnosis: same Procedure: Central line placement A time-out was completed verifying correct patient, procedure, site, positioning , and special equipment if applicable. The patient was placed in a dependent position appropriate for central line placement based on the vein to be cannulated. The patients right neck was prepped and draped in sterile fashion. 1% Lidocaine was used to anesthetize the surrounding skin area. A triple lumen 9 -Algerian Cordis catheter was introduced into the the internal jugular vein using the Seldinger technique and under ultrasound guidance. The catheter was threaded smoothly over the guide wire and appropriate blood return was obtained. Each lumen of the catheter was evacuated of air and flushed with sterile saline. The catheter was then sutured in place to the skin and a sterile dressing applied. Perfusion to the extremity distal to the point of catheter insertion was checked and found to be adequate. Estimated Blood Loss: 1ml The patient tolerated the procedure well and there were no complications. Anesthesia: local Surgeon: Cisco Goodwin Estimated blood loss (mL): 2 Condition: critical
[2018-04-20 04:16] LABS: Alanine Aminotransferase 30 U/L (10-53); Albumin 3.5 g/dL (3.4-5.0); Anion Gap 12 meq/L (5-15); Aspartate Aminotransferase 56 U/L (15-37); Blood Urea Nitrogen 60 mg/dL (7-18); Calcium 9.3 mg/dL (8.5-10.1); Carbon Dioxide 29.1 meq/L (21.0-32.0); Chloride 101 meq/L (98-107); Glomerular Filtration Rate 24 mL/min (>89); Glucose,Random 97 mg/dL (74-106); Potassium 3.8 meq/L (3.5-5.1); Sodium 142 meq/L (136-145)
[2018-04-20 04:19] LABS: Alkaline Phosphatase 64 U/L (45-117); Total Protein 6.5 g/dL (6.4-8.2)
[2018-04-20 04:35] LABS: Hematocrit 31.8 % (35.0-46.0); Hemoglobin 9.4 gm/dL (11.6-15.3); Mean Corpuscular Hemoglobin 24.3 pg (27.0-34.0); Mean Corpuscular Volume 81.9 fL (80.0-100.0); Mean Platelet Volume 8.1 fL (7.0-11.0); Platelet Count 155 th/mm3 (150-450); Red Blood Count 3.88 mil/mm3 (4.00-5.30); Red Cell Distribution Width 21.9 % (11.6-17.2); White Blood Count 7.6 th/mm3 (4.0-11.0)
[2018-04-20 04:38] LABS: Mean Corpuscular HGB Conc 29.6 % (32.0-36.0)
--- NOTE | 2018-04-20 04:52 | XR ---
EXAM DATE: 04/20/2018 3:46 AM EDT AGE/SEX: 62 years / Female INDICATIONS: Respiratory Disease. CLINICAL DATA: This is the patient's subsequent encounter. Patient reports that signs and symptoms h ave been present for 1 week and indicates a pain score of Nonresponsive. MEDICAL/SURGICAL HISTORY: Non-responsive. Non-responsive. COMPARISON: . FINDINGS: Moderate patient rotation towards the left. Persistent consolidation in the left lower lung with loss of delineation of the entire left hemidiaphragm. Patchy areas of infiltrate in the right lower lung. ET tube tip 1.5 cm above the bert. Right internal jugular catheter tip projects in the right atriu m. CONCLUSION: Persistent left lower lobe consolidation. Electronically signed by: Rocky Jiang MD 04/20/2018 4:51 AM EDT
[2018-04-20] MEDS: Artificial Tears Opth Drops 15 ML Bottle EACH EYE SCH ×3 (05:39→21:43)
--- NOTE | 2018-04-20 07:32 | P.PNCC ---
Subjective Subjective Remarks/Hospital Course: Remarks/Hospital Course This is a 62-year-old AA female. Date of admission 04/10/2018. Date of consultation 04/11/2018. Past medical history includes schizophrenia, depression , seizure disorder, spinal stenosis, essential hypertension, gastroesophageal reflux disease, arthritis, chronic low back pain and urinary tract infection/ recurrent. Patient originally presented from [facility] secondary to " fluid overload" fall according to records from hospitalist. She is also noted to be in acute on chronic renal failure with a creatinine of 2.3. Sodium was 125. Patient had urinary tract infection originally received cephalexin in the ED 500 mg. She is currently on ceftriaxone 1 g every 24 hours patient does have a history of psychogenic polydipsia diagnosed 09/04. She was evaluated by nephrology received 1 dose of tolvaptan 50 mg last night at 1900 hrs. Patient was in her normal state of health sitting her chair when she is found to be unresponsive on the floor. The arms were able to obtain a blood pressure. ABG revealed an acute on chronic respiratory acidosis with pH is 7.18 PCO2 75 PO2 240 bicarbonate 27 base index of -1. All labs are currently pending. She is transferred to room 1333 placed on BiPAP 09/22 at 100%. She is currently arousable and follows commands. She is oriented to person place and year. Subjective 04/12: Afebrile. Noted to have bilateral occlusive posterior tibial DVTs on Dopplers bilateral lower extremities overnight. Patient's family states history of brain mass. Will do stat CT brain and discontinue heparin drip in the interim.. Currently on midazolam drip at 5 mg now and fentanyl drip at 50 mcg an hour. Hemodynamically stable. A.m. labs currently pending. Will need central line for access 04/13: Remains intubated sedated for vent synchrony. Currently on Levophed to maintain map above 65 currently on 6 mcg/min. Urine culture growing E. coli, MDR organism. Cefepime discontinued meropenem started, ID consulted. Creatinine stable but increased weight gain. Will increase Lasix monitor renal function closely. ABG shows respiratory alkalosis respiratory rate decreased. Lactic acid 5.5 will check again in the afternoon 04/14: Remains critical remains on 10 mcg/min of Levophed, not tolerating CPAP trials due to apnea. However excellent diuresis with IV Lasix increased dose, urine output 7.6 L in 24 hours and creatinine has improved from 2.2-1.72. Remains somnolent not following commands but shakes her head intermittently 04/15: Remains intubated off all sedation. Wakes up to command follows weekly. Tolerating CPAP but with high settings, intermittently apneic. Urine output remains excellent on IV Lasix 5.3 L in 24 hours. BUN/creatinine continues to improve 33/1.45 04/16: Remains intubated off sedation currently more awake following commands. Placed on CPAP. Creatinine remained stable. Start weaning trial for potential extubation if ABG and parameters acceptable 04/17: Extubated yesterday breathing comfortably. Oriented to person and somewhat to place. Did not cooperate with BiPAP overnight. Urine output adequate achieving negative balance. We will place patient on Symbicort Spiriva , EzPAP along with DuoNeb breathing treatments 04/18: More awake patient is asking for food. But she failed swallow eval yesterday. Pulling out her IV so I have ordered Geodon IM as needed. UO 200 ml in last 24 hours. IV maintenance fluid was started yesterday suspecting overdiuresis and diuretics were held. CMP is pending at this time 04/19: Appears more lethargic today currently on BiPAP. Somnolent but wakes up easily follows commands 4. Chest x-ray and CMP pending at this time. Check ABG only if no improvement over the day. Patient received single dose of melatonin at night and had been somnolent since that 04/20: Yesterday shortly after 7 PM while patient was being fed by her niece, patient apparently aspirated. She was found to be unresponsive, bradycardic hypoxemic. Shortly went into PEA arrest. CPR for 5 minutes intubated during code by Dr. Haq. Return of spontaneous circulation and 5 minutes. Po score according to the RN on sedation hold patient follows commands. Briefly was on Levophed which is being weaned off now. I have instructed heparin to be restarted. There is weight gain and increasing creatinine. Start Bumex infusion. Objective Vital Signs / I&O: Vital Signs 04/19/18 08:00 04/19/18 08:47 04/19/18 10:00 Temperature 98.1 F Pulse Rate 98 H 58 L 70 Respiratory Rate 19 15 Blood Pressure 102/68 Pulse Oximetry 96 94 L 04/19/18 11:43 04/19/18 12:00 04/19/18 14:00 Temperature 98.4 F Pulse Rate 74 84 Respiratory Rate 17 Blood Pressure 96/72 L Pulse Oximetry 100 98 04/19/18 16:00 04/19/18 16:32 04/19/18 16:33 Temperature 98.2 F Pulse Rate 84 91 H Respiratory Rate 20 20 Blood Pressure 102/59 L Pulse Oximetry 97 100 04/19/18 18:00 04/19/18 19:09 04/19/18 20:00 Temperature 98.2 F Pulse Rate 93 H 121 H Respiratory Rate 20 14 Blood Pressure 138/90 Pulse Oximetry 97 100 04/19/18 21:38 04/19/18 22:00 04/20/18 00:00 Temperature 97.7 F Pulse Rate 121 H 119 H 90 Respiratory Rate 18 18 Blood Pressure 155/100 H Pulse Oximetry 100 04/20/18 01:08 04/20/18 02:00 04/20/18 04:00 Temperature 98.1 F Pulse Rate 79 60 Respiratory Rate 20 18 Blood Pressure 99/57 L Pulse Oximetry 99 04/20/18 04:31 04/20/18 06:00 Temperature Pulse Rate 71 74 Respiratory Rate 18 Blood Pressure Pulse Oximetry 100 Intake & Output 04/19/18 04/20/18 04/20/18 18:59 06:59 18:59 Intake Total 1090 / 1090 3200 / 3200 Output Total 150 / 150 125 / 125 Balance 940 / 940 3075 / 3075 Weight 198.6 kg Intake: IV 250 / 250 3200 / 3200 Heparin/D5W 25,000 U/250 mL 25, 250 / 250 000 unit In 250 ml @ Per Protocol IV.CONT TITRATE PRN Rx #:[id number] Diprivan 1000 mg/100 ml Inj 1, 200 / 200 000 mg In 100 ml @ 5 MCG/KG/MIN 5.781 mls/hr IV.CONT TITRATE PRN Rx#:[id number] NS Inj 1,000 ML @ 1000 mls/hr 3000 / 3000 IV.SIG .Q1H SYLVIA Rx#:[id number] Oral 840 / 840 0 / 0 Tube Feeding 0 / 0 Output: Urine Amount (Catheter) 150 / 150 125 / 125 Indwelling Temp Sensing 150 / 150 125 / 125 Catheter Other: Date of Last Bowel Movement 04/19/18 # Bowel Movements 0 0 Result Diagrams: 04/20/18 03:35 04/20/18 03:35 Objective Remarks: GENERAL: 62-year-old AA female currently on intubated, sedated with propofol SKIN: Warm and dry. HEAD: Atraumatic. Normocephalic. EYES: Pupils equal and round. No scleral icterus. No injection or drainage. ENT: Orotracheally intubated NECK: Trachea midline. Unable to define JVD secondary to elevated BMI CARDIOVASCULAR: Distant heart sounds. Regular rate and rhythm. S1, S2 no S4. Murmur not appreciated. RESPIRATORY: Diminished breath sound due to body habitus. No wheezing, crackles appreciated. Few coarse rhonchi. On PRVC/AC GASTROINTESTINAL: Abdomen soft, non-tender, obese. Hypoactive bowel sounds appreciated MUSCULOSKELETAL: Extremities with woody bilateral upper and lower extremity edema. NEUROLOGICAL: Patient is intubated, sedated with propofol. On sedation hold she is able to squeeze with hands to command Assessment and Plan - Assessment and Plan Plan: A/P Assessment and Plan Neuro/Psych: Acute encephalopathy likely secondary to hypoxia/hypercarbia/metabolic Schizophrenia/Depression Seizure disorder as child? Parkinson's disease? Chronic opioid use History of brain mass? Per family. Brain CT negative Propofol for sedation and vent synchrony. Neuro intact after brief PEA arrest CT brain previously negative for acute findings Continue ziprasidone 20 mg twice daily. Geodon IM 5 mg as needed ordered. Currently on hydrocodone/acetaminophen 5/325 and morphine sulfate 2 mg every 2 hours as needed pain. (On hydrocodone/acetaminophen 7.5/325 one tablet every 4 hours as needed at home for pain) Holding lorazepam 0.5 mg every 12 hours as needed, holding melatonin 6 mg at night for insomnia, holding Neurontin also CV: PEA Arrest secondary to aspiration and hypoxia Shock Fluid overload/pulmonary edema Congestive heart failure Essential hypertension Bradycardia Elevated BNP unclear significance in light of acute kidney injury Brief PEA arrest yesterday around 7:10 PM return of spontaneous circulation in 5 minutes, received epinephrine 2 PEA arrest most likely secondary to aspiration and resultant hypoxia Discontinue Lasix, start Bumex infusion at 1 mg/h Continue IV albumin Holding atenolol 50 mg at night due to bradycardia, hypotension 2D echocardiogram 09/04 revealed EF 50-55%. Very poor windows. Repeat echocardiogram Unable to perform due to body habitus Resp: Acute hypoxic and hypercarbic respiratory failure Bilateral DVT Pulmonary edema Extubated 04/16/2018. Reintubated - evening after aspiration and hypoxemic respiratory failure Consult general surgery for tracheostomy placement. Albuterol/ipratropium aerosols every 6 hours with albuterol aerosols every 2 hours as needed dyspnea Chest x-ray with very poor windows due to body habitus. CT thorax showed minimal consolidative changes left chest GI: Gastroesophageal reflux disease History of peptic ulcer disease Resume tube feeds with Nepro Lansoprazole for GI prophylaxis Docusate sodium/senna 1 tablet twice daily for bowel regimen On omeprazole 20 mg at night at home. Endo: Sliding scale insulin Accu-Cheks to maintain euglycemia with Accu-Cheks every 6 hours/low regimen NovoLog TSH and cortisol normal range Renal: Acute kidney injury in the setting of chronic kidney disease stage IIIa Followed by nephrology. I will discontinue Lasix and placed on Bumex infusion Renal ultrasound showed no acute findings Heme: Microcytic anemia Bilateral posterior tibialis occlusive thrombus Continue IV heparin drip, CT head negative Family request no Coumadin but ok with NOAC Monitor CBC daily. Follow trends iron studies -consistent with iron deficiency anemia and reticulocyte count and peripheral smear ID: Urinary tract infection (E Coli, MDR) -Continue Ertapenem for MDR organism per ID. off Meropenem and Teflaro -Send sputum cultures Access -IJ central line pulled out by patient 04/17/18, new RIJ central line 04/19/18 Prophylax -GI -pantoprazole -DVT -SCDs/heparin IV Critical Care: CCT 35 Developed PEA arrest following aspiration while being fed by family member ( niece). PE arrest for 5 minutes, neuro intact. Remains critical. Resume Heparin. Will need trach Code Status: Full
[2018-04-20] MEDS: Heparin Drip 25,000 UNIT/250 ML BAG IV.CONT PRN (09:02)
[2018-04-20] MEDS: Bumetanide Inj 25 MG/100 ML BAG IV.CONT SCH (09:04)
[2018-04-20] MEDS: Chlorhexidine 0.12% Oral Kit 15 ML UDC OROPHARYNG SCH ×2 (09:06→20:28)
[2018-04-20] MEDS: Fluconazole 100 MG Tablet PO SCH (09:07)
[2018-04-20] MEDS: Senna/Docusate Sodium 8.6/50 MG Tablet PO SCH ×2 (09:09→21:41)
[2018-04-20] MEDS: Multivitamin/Minerals Therapeutic Tablet PO SCH (09:09)
--- NOTE | 2018-04-20 13:11 | P.PN ---
Subjective Interval history: Patient is now intubated again, and sedated. Physical Exam Vital signs: Vital Signs 04/19/18 14:00 04/19/18 16:00 04/19/18 16:32 Temperature 98.2 F Pulse Rate 84 84 91 H Respiratory Rate 20 20 Blood Pressure 102/59 L Pulse Oximetry 97 04/19/18 16:33 04/19/18 18:00 04/19/18 19:09 Temperature Pulse Rate 93 H Respiratory Rate 20 Blood Pressure Pulse Oximetry 100 97 100 04/19/18 20:00 04/19/18 21:38 04/19/18 22:00 Temperature 98.2 F Pulse Rate 121 H 121 H 119 H Respiratory Rate 14 18 Blood Pressure 138/90 Pulse Oximetry 04/20/18 00:00 04/20/18 01:08 04/20/18 02:00 Temperature 97.7 F Pulse Rate 90 79 Respiratory Rate 18 20 Blood Pressure 155/100 H Pulse Oximetry 100 99 04/20/18 04:00 04/20/18 04:31 04/20/18 06:00 Temperature 98.1 F Pulse Rate 60 71 74 Respiratory Rate 18 18 Blood Pressure 99/57 L Pulse Oximetry 100 04/20/18 08:00 04/20/18 08:36 04/20/18 08:48 Temperature 98.5 F Pulse Rate 73 65 61 Respiratory Rate 18 18 18 Blood Pressure 108/69 Pulse Oximetry 100 95 95 04/20/18 10:00 04/20/18 11:57 04/20/18 12:00 Temperature 98.1 F Pulse Rate 61 71 Respiratory Rate 18 18 Blood Pressure 101/61 Pulse Oximetry 95 96 Intake & Output 04/19/18 04/20/18 04/20/18 18:59 06:59 18:59 Intake Total 1090 / 1090 3200 / 3200 350 / 350 Output Total 150 / 150 125 / 125 Balance 940 / 940 3075 / 3075 350 / 350 Weight 198.6 kg Intake: IV 250 / 250 3200 / 3200 350 / 350 Heparin/D5W 25,000 U/250 mL 25, 250 / 250 250 / 250 000 unit In 250 ml @ Per Protocol IV.CONT TITRATE PRN Rx #:[id number] Diprivan 1000 mg/100 ml Inj 1, 200 / 200 000 mg In 100 ml @ 5 MCG/KG/MIN 5.781 mls/hr IV.CONT TITRATE PRN Rx#:[id number] INVanz Inj 1,000 MG In NS Inj 100 / 100 100 ML @ 200 mls/hr IV.SIG Q24H SYLVIA Rx#:[id number] NS Inj 1,000 ML @ 1000 mls/hr 3000 / 3000 IV.SIG .Q1H SYLVIA Rx#:[id number] Oral 840 / 840 0 / 0 Tube Feeding 0 / 0 Output: Urine Amount (Catheter) 150 / 150 125 / 125 Indwelling Temp Sensing 150 / 150 125 / 125 Catheter Other: Date of Last Bowel Movement 04/19/18 04/19/18 # Bowel Movements 0 0 - Constitutional Comments: Intubated and sedated. - Routine HEENT Exam Head: Present: normocephalic Eye: Present: EOMI - Routine Neck Exam Present: supple - Routine Respiratory Exam Present: patient mechanically ventilated, decreased breath sounds, rales, rhonchi, distant breath sounds - Routine Cardiovascular Exam Present: S1, S2, tachycardia - Routine Abdominal Exam Present: soft, distended - Routine Extremities Exam Present: edema - Urinary Catheter Management Indwelling Temp Sensing Catheter Cath placed during this visit: yes Urethral indwelling: Yes Reason for continuing: Hourly intake/output Insertion date: 04/17/18 Insertion time: 18:10 Results - Labs CBC & Chem 7: 04/20/18 03:35 04/20/18 03:35 Laboratory Results - last 24 hr 04/19/18 04/19/18 04/19/18 16:35 18:10 20:47 WBC RBC Hgb Hct MCV MCH MCHC RDW Plt Count MPV APTT 53.1 H Puncture Site Right radial Patient Temperature 98.6 O2 Saturation 97 ABG pH 7.29 L* ABG pCO2 59 H* ABG pO2 289 H ABG HCO3 27 H ABG O2 Content 14.4 ABG Base Excess 1.3 ABG Methemoglobin 0.9 Colt Test Present Hemoglobin 10.0 L Carboxyhemoglobin 2.1 O2 Delivery Device Ventilator Vent Setting Prvc/ac Inspired O2 100 Critical Value Yes Sodium Potassium Chloride Carbon Dioxide Anion Gap BUN Creatinine Estimated GFR POC Glucose 109 Random Glucose Calcium Total Bilirubin AST ALT Alkaline Phosphatase Total Protein Albumin 04/20/18 04/20/18 04/20/18 00:29 03:35 03:35 WBC 7.6 RBC 3.88 L Hgb 9.4 L Hct 31.8 L MCV 81.9 MCH 24.3 L MCHC 29.6 L RDW 21.9 H Plt Count 155 MPV 8.1 APTT Puncture Site Patient Temperature O2 Saturation ABG pH ABG pCO2 ABG pO2 ABG HCO3 ABG O2 Content ABG Base Excess ABG Methemoglobin Colt Test Hemoglobin Carboxyhemoglobin O2 Delivery Device Vent Setting Inspired O2 Critical Value Sodium 142 Potassium 3.8 Chloride 101 Carbon Dioxide 29.1 Anion Gap 12 BUN 60 H Creatinine 2.47 H Estimated GFR 24 L POC Glucose 143 H Random Glucose 97 Calcium 9.3 Total Bilirubin 2.7 H AST 56 H ALT 30 Alkaline Phosphatase 64 Total Protein 6.5 D Albumin 3.5 04/20/18 04/20/18 08:30 11:31 WBC RBC Hgb Hct MCV MCH MCHC RDW Plt Count MPV APTT 23.8 L D Puncture Site Patient Temperature O2 Saturation ABG pH ABG pCO2 ABG pO2 ABG HCO3 ABG O2 Content ABG Base Excess ABG Methemoglobin Colt Test Hemoglobin Carboxyhemoglobin O2 Delivery Device Vent Setting Inspired O2 Critical Value Sodium Potassium Chloride Carbon Dioxide Anion Gap BUN Creatinine Estimated GFR POC Glucose 238 H Random Glucose Calcium Total Bilirubin AST ALT Alkaline Phosphatase Total Protein Albumin - Imaging Impressions Chest X-Ray 04/19/18 19:56 CONCLUSION: No pneumothorax. Line probably in the right atrium. Chest X-Ray 04/20/18 06:00 CONCLUSION: Persistent left lower lobe consolidation. Assessment and Plan - Assessment (1) Acute kidney injury Code(s): N17.9 - Acute kidney failure, unspecified Status: Acute - Attending Attestation (1) GABRIELLA (acute kidney injury) ICD Codes: N17.9 - Acute kidney failure, unspecified Plan: Her previous creatinine was 1.2 in August of last year. GABRIELLA, creatinine increase now, 2.4, k is normal. Possible GABRIELLA due to recent antibiotics outpatient? UTI now. Possible cardio-renal component with volume overload. Avoid nephrotoxins Will monitor BMP and urinary output. Started on Bumex gtt. Follow the urine out put and BMP. (2) Hyponatremia ICD Codes: E87.1 - Hypo-osmolality and hyponatremia Plan: The patient presented with a serum sodium of 125. 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 Apparently eating ice chips at intermediate per family. Possible ongoing pychogenic polydipsia. 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 Will continue with diuresis as tolerated. (4) UTI (lower urinary tract infection) ICD Codes: N39.0 - UTI (lower urinary tract infection) Status: Acute Plan: on antibiotics
--- NOTE | 2018-04-20 14:58 | P.CONPAL ---
Consult Service: Palliative Care Requesting Physician: Jonah Newberry Reason for Consult: a. To assist with evaluation and management of symptoms including: dyspnea; pain; encephalopathy b. To assist medical decision maker(s) with: better understanding of current medical conditions; weighing benefits/burdens of medical treatment options; making medical treatment decisions. . Primary Care Provider: Kedar Martinez MD History of Present Illness History of Present Illness: This is the third acute-care [facility] hospitalization for this 62-year- old female with a known medical history including schizophrenia; bipolar disorder; Parkinson's disease; chronic kidney disease; GERD; hypertension; spinal stenosis; osteoarthritis; and peptic ulcer disease; who was sent to the [facility] emergency department from [facility] the evening of due to complaints of generalized weakness; generalized body aches, and a fall (the staff reported the patient slid out of the bed and was found on the floor; a Mandeep lift was used to get the patient into the paramedics stretcher). The patient was a very poor historian at the time but indicated she wanted to be admitted to the psychiatric service not to the medical service and brought up the fact that she has schizophrenia. 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 Patient ingested approximately 2-3 gallons or more water per day. Initial vital signs in the emergency department showed a temperature of 97.9; pulse 53; respiratory rate 18; blood pressure 107/45. O2 sat was 95% on O2 via nasal cannula at 2 L a minute. Physical examination by the emergency department physician noted the following: Patient was morbidly obese. Patient had a strange childlike affect. Examination was otherwise unremarkable. Initial diagnostic testing revealed the following: * CBC showed WBC 4.7; hemoglobin 10.9; platelet count 246 * Chemistry profile showed sodium 125; potassium 4.6; chloride 88; CO2 28.0; BUN 41; creatinine 2.3; GFR 26; glucose 93; calcium 8.7; anion gap 9 * Liver function studies showed total bilirubin 1.6; a ST 23; ALT 16; total protein 7.0; albumin 2.9 * Cardiac serology showed B-type natriuretic peptide at 1740 * Lipase was 87 * Urinalysis was remarkable for large leukocyte esterase; positive for urobilinogen; many white blood cell clumps. The patient was started on Keflex while in the emergency department to address her probable urinary tract infection. Other concerns were her low urine sodium previously attributed to (psychogenic polydipsia). [facility] . Lower extremity edema was noted. There were concerns for the underlying urinary tract infection, hyponatremia, and possible decompensation of her psychiatric status. On 04/11/2018 the patient was found unresponsive on the floor. She had been seen earlier in the day, sitting up in her chair, and felt to be doing well. Critical care was consulted and the patient was transferred to the surgical intensive care unit. ABGs at that time were as follows--> pH 7.18; PCO2 75; PO2 240; bicarbonate 27; base excess -1. The patient was placed on BiPAP at 100%. Unfortunately, further respiratory detrioration led to intubation and mechanical ventilation. Venous dopplers on d bilateral occlusive posterior tibial DVTs. The patient became hypotensive and required pressor support. Urine grew out multi drug resistant E coli . Sedation was initially required for vent synchrony. Ms. Hanna began tolerating SBTs and she was extubated on 04/16/18. She became ore alert and was asking for food. She was agitated and pulled out IVs requiring a neuroleptic. On 04/19, she appeared more somnolent. Around 7 PM that evening while being fed by niece, she had an apparent aspiration event. She was found unresponsive and went into a PEA arrest requiring CPR for 5 minutes and re-intubation. At time of my visit, patient awakens to voice/exam. She is off pressors. She tries to mouth words. She is able to follow simple commands. . Function/Cognitive Trajectory: Ms. Hanna has been a resident of long-term care facility since about 2002. intermediate placement was at first necessary primarily for her mental health issues. Later she required assisted care for some of her medical conditions. Family reports that the patient was able to ambulate with a walker after her hip surgery 3 years ago. This slowly deteriorated. She has been primarily wheelchair bound for approximately 2 years. In the facility, she is able to move herself small distances by using her feet to push herself backwards in the wheelchair. She needs assistance with dressing, bathing, and toileting. She is in adult diapers much of the day. Family reports that the patient is normally able to carry on a conversation. The mental illness often manifests itself with spiritual and protestant beliefs. The patient apparently believes she is some sort of arch Vinicius and will never . Occasionally she has very infantile-like behavior. The patient's 2 daughters tell me she spends most of her day either looking at the Bible or watching TV. Daughters report she is able to interact with some of the activities and goes on outings. The patient is unable to provide her own review of systems. Daughters report the following: * Patient has poor vision but does not seem to have any hearing deficits. * There is a frequent cough and the patient often requests cough drops * There are shortness of breath with exertion. * No nausea, vomiting, blood per rectum, or constipation. There is frequent diarrhea. * Family notes the recurrent urinary tract infections. * Daughters describe motions with the tongue and hands that sound like tardive dyskinesia The remainder of the review of systems is negative . . Review of Systems All other systems reviewed negative except as stated in HPI PMFSH - Medical History Medical History: Medical History (Last Updated 04/20/18 @ 15:17 by Fransico Aguero MD) Pain (Acute) Dyspnea (Acute) Encephalopathy (Acute) Aspiration pneumonia (Acute) Septic shock (Acute) Respiratory failure requiring intubation (Acute) Bipolar disorder (Chronic) Insomnia (Chronic) Hyponatremia (Chronic) Psychogenic polydipsia (Acute) Anemia (Acute) DVT (deep venous thrombosis) (Acute) Urinary tract infection (Acute) - Surgical History Surgical History: Surgical History (Last Updated 04/20/18 @ 20:58 by Fransico Aguero MD) H/O total hip arthroplasty (Resolved) Previous back surgery (Resolved) S/P surgical manipulation of ankle joint (Resolved) - Family History Family History: Family History (Last Updated 04/20/18 @ 15:23 by Fransico Aguero MD) Other Family history of hypertension - Tobacco History Second Hand Smoke Exposure: No Tobacco Use In Past 30 Days: No Smoking Status: Former smoker Tobacco Type: Cigarettes - Alcohol History How Often Do You Have a Drink Containing Alcohol: Never - Substance Use History Substance History: No History of Abuse - Travel History History of Recent Travel: No Recent Travel in the [place] Within the Last 8 Weeks: No Recent Travel Out of the Country Within the Last 8 Weeks: No Medications and Allergies Active Medications: Active Medications Acetaminophen (Tylenol Liq) 650 mg NG/OG Q6H PRN PRN Reason: FEVER Al Hydroxide/Mg Hydroxide (Milk Of Magnesia Liq) 30 ml PO Q12H PRN PRN Reason: MILD CONSTIPATION Albuterol (Albuterol Neb (Prn)) 2.5 mg NEB Q2HR NEB PRN PRN Reason: DYSPNEA Albuterol (Duoneb Neb (Wilner)) 1 ampul NEB Q6HR NEB [facility] Last Admin: 04/20/18 08:35 Dose: 1 ampul Artificial Tears (Tears Naturale Opth Drops) 1 drop EACH EYE Q8HR [facility] Last Admin: 04/20/18 13:19 Dose: 1 drop Atenolol (Tenormin) 50 mg PO HS [facility] Last Admin: 04/19/18 22:15 Dose: Not Given Benzonatate (Tessalon Perles) 100 mg PO Q6H PRN PRN Reason: COUGH Bisacodyl (Dulcolax Supp) 10 mg RECTAL DAILY PRN PRN Reason: SEVERE CONSITIPATION Budesonide/Formoterol Fumarate (Symbicort 160/4.5 Mcg Inh) 2 puff INH Q12HR [facility] Last Admin: 04/19/18 22:15 Dose: Not Given Chlorhexidine Gluconate (Peridex 0.12% Oral Kit) 15 ml OROPHARYNG BID@0800, 2000 [facility] Last Admin: 04/20/18 09:06 Dose: 15 ml Dextrose (D50w Vial) 50 ml IV.PUSH UNSCH PRN PRN Reason: HYPOGLYCEMIA-SEE COMMENTS Fluconazole (Diflucan) 100 mg PO DAILY [facility] Stop: 04/22/18 08:59 Last Admin: 04/20/18 09:07 Dose: Not Given Gabapentin (Neurontin) 300 mg PO BID [facility] Last Admin: 04/19/18 22:13 Dose: Not Given Glucagon (Glucagon Inj) 1 mg OTHER PRN PRN PRN Reason: for Hypoglycemia Protocol Ertapenem 1,000 mg/ Sodium (Chloride) 100 mls @ 200 mls/hr IV.SIG Q24H [facility] Last Admin: 04/20/18 11:28 Dose: 200 mls/hr Heparin Sodium/Dextrose (Heparin/D5w 25,000 U/250 Ml) 25,000 unit in 250 mls @ 0 mls/hr IV.CONT TITRATE PRN; Protocol PRN Reason: Per Protocol Last Admin: 04/20/18 09:02 Dose: 1,800 units/hr, 18 mls/hr Norepinephrine Bitartrate 4 mg (/ Sodium Chloride) 250 mls @ 7.5 mls/hr IV.SIG TITRATE PRN; Protocol PRN Reason: Per Protocol Last Admin: 04/19/18 22:10 Dose: 12 mcg/min, 45 mls/hr Propofol (Diprivan 1000 Mg/100 Ml Inj) 1,000 mg in 100 mls @ 5.781 mls/hr IV.CONT TITRATE PRN; Protocol PRN Reason: Per Protocol Last Admin: 04/20/18 06:00 Dose: 10 mcg/kg/min, 11.56 mls/hr Bumetanide (Bumex Inj) 25 mg in 100 mls @ 4 mls/hr IV.CONT .Q24H [facility] Last Admin: 04/20/18 09:04 Dose: 1 mg/hr, 4 mls/hr Insulin Human Regular (Novolin R Supplemental Scale) 1 units SQ Q6HR [place]IL[place]; Protocol Last Admin: 04/20/18 11:36 Dose: 1 units Lactulose (Lactulose Liq) 30 ml PO DAILY PRN PRN Reason: SEVERE CONSITIPATION Lansoprazole (Prevacid Solutab) 30 mg NG/OG DAILY [facility] Last Admin: 04/20/18 09:09 Dose: Not Given Melatonin (Melatonin) 5 mg PO HS [facility] Last Admin: 04/19/18 22:13 Dose: Not Given Metoclopramide HCl (Reglan Inj) 5 mg IV.PUSH Q6H PRN PRN Reason: NAUSEA OR VOMITING Multivitamins/Minerals (Theragran-M) 1 tab PO DAILY [facility] Last Admin: 04/20/18 09:09 Dose: Not Given Senna/Docusate Sodium (Adriane-Colace) 1 tab PO BID [facility] Last Admin: 04/20/18 09:09 Dose: Not Given Sodium Chloride (Ns Flush) 0 ml IV.FLUSH DAILY [facility] Last Admin: 04/20/18 09:08 Dose: 3 ml Sodium Chloride (Ns Flush) 0 ml IV.FLUSH PRN PRN PRN Reason: FLUSH AFTER USING IV ACCESS Sodium Chloride (Ns Flush) 2 ml IV.FLUSH UNSCH PRN PRN Reason: FLUSH AFTER USING IV ACCESS Last Admin: 04/19/18 10:18 Dose: 2 ml Sodium Chloride (Ns Flush) 2 ml IV.FLUSH BID [facility] Last Admin: 04/20/18 09:09 Dose: Not Given Terbutaline Sulfate (Brethine Inj) 1 mg SQ UNSCH PRN PRN Reason: For Extravasation Tiotropium [place] (Spiriva 18 Mcg Inh) 18 mcg INH DAILY [facility] Last Admin: 04/19/18 10:21 Dose: 18 mcg Tolterodine Tartrate (Detrol La) 2 mg PO DAILY [facility] Last Admin: 04/19/18 10:17 Dose: 2 mg [facility] Admin: 04/20/18 09:07 Dose: Not Given Ziprasidone (Geodon Inj) 10 mg IM Q4H PRN PRN Reason: AGITATION Allergies Allergy/AdvReac Type Severity Reaction Status Date / Time shrimp Allergy Severe RASH Verified 08/18/17 18:34 Sulfa (Sulfonamide Allergy Intermediate RASH Verified 08/18/17 18:34 Antibiotics) Home Medications Medication Instructions Recorded Confirmed Type acetaminophen [Tylenol] 650 mg PO Q4H PRN 04/17/18 04/17/18 History atenolol [Tenormin] 50 mg PO HS 04/17/18 04/17/18 History calcium carbonate [Tums] 500 mg PO DIRECTED PRN 04/17/18 04/17/18 History dextromethorphan-guaifenesin 5 ml PO Q4-8H PRN 04/17/18 04/17/18 History [Robitussin Cough-Chest Alpesh DM] gabapentin [Neurontin] 300 mg PO BID 04/17/18 04/17/18 History hydrocodone-acetaminophen [[place]] 1 tab PO Q4H PRN 04/17/18 04/17/18 History lorazepam [Ativan] 0.5 mg PO Q12H 04/17/18 04/17/18 History magnesium citrate [Citroma] See Label Instructions .ROUTE 04/17/18 04/17/18 History .COMPLEX magnesium hydroxide [Milk of 30 ml PO HS PRN 04/17/18 04/17/18 History Magnesia] melatonin 6 mg PO HS PRN 04/17/18 04/17/18 History multivitamin with minerals 1 tab PO DAILY 04/17/18 04/17/18 History [Multiple Vitamin-Minerals] omeprazole 20 mg PO DAILY 04/17/18 04/17/18 History tolterodine [Detrol LA] 2 mg PO DAILY 04/17/18 04/17/18 History white petrolatum-mineral oil 1 applic TOPICAL Q6H PRN 04/17/18 04/17/18 History [Eucerin] ziprasidone HCl [Geodon] 20 mg PO BIDPC 04/17/18 04/17/18 History Advance Directives Living Will: No Healthcare Surrogate: Yes (Reportedly completed at [facility] -- daughter will bring it in) Health Care Surrogate Name and Number: Reportedly is daughter -- Lena hanna Power of Humid System Operator: No Documented care wishes: No known documented care goals/wishes. . Today's verbally stated goals: Patient is sedated, intubated and is unable to verbalize health care goals/ preferences . Family/friends goals: Both daughters feel the patient would want full aggressive care at this time including trach and PEG. They feel she would not want to be sustained on life support if she were in some type of vegetative state. . Physical Exam Vital Signs: Vital Signs - 24 hr 04/19/18 16:00 04/19/18 16:32 04/19/18 16:33 Temperature 98.2 F Pulse Rate 84 91 H Respiratory Rate 20 20 Blood Pressure 102/59 L Pulse Oximetry 97 100 04/19/18 18:00 04/19/18 19:09 04/19/18 20:00 Temperature 98.2 F Pulse Rate 93 H 121 H Respiratory Rate 20 14 Blood Pressure 138/90 Pulse Oximetry 97 100 04/19/18 21:38 04/19/18 22:00 04/20/18 00:00 Temperature 97.7 F Pulse Rate 121 H 119 H 90 Respiratory Rate 18 18 Blood Pressure 155/100 H Pulse Oximetry 100 04/20/18 01:08 04/20/18 02:00 04/20/18 04:00 Temperature 98.1 F Pulse Rate 79 60 Respiratory Rate 20 18 Blood Pressure 99/57 L Pulse Oximetry 99 04/20/18 04:31 04/20/18 06:00 04/20/18 08:00 Temperature 98.5 F Pulse Rate 71 74 73 Respiratory Rate 18 18 Blood Pressure 108/69 Pulse Oximetry 100 100 04/20/18 08:36 04/20/18 08:48 04/20/18 10:00 Temperature Pulse Rate 65 61 61 Respiratory Rate 18 18 Blood Pressure Pulse Oximetry 95 95 04/20/18 11:57 04/20/18 12:00 Temperature 98.1 F Pulse Rate 71 Respiratory Rate 18 18 Blood Pressure 101/61 Pulse Oximetry 95 96 . I&O: Intake & Output 04/18/18 04/19/18 04/20/18 04/21/18 06:59 06:59 06:59 06:59 Intake Total 1780 / 1780 4290 / 4290 350 / 350 Output Total 200 / 200 275 / 275 275 / 275 Balance -200 / -200 1505 / 1505 4015 / 4015 350 / 350 Weight 198.6 kg . Physical Exam: CONSTITUTIONAL/GENERAL: This is Morbidly obese female, intubated, mechanically ventilated in an [facility] bed. She is able to follow simple commands and attempts to mouth words. TUBES/LINES/DRAINS: Right IJ central line; peripheral IVs; hahn catheter; OT tube; OG tube; soft wrist restraints SKIN: No jaundice, rashes, or lesions. No wounds seen anteriorly. Skin temperature appropriate. Not diaphoretic. HEAD: Atraumatic. Normocephalic. EYES: Pupils equal and round and reactive. Extraocular motions intact. No scleral icterus. No injection or drainage. Fundi not examined. ENT: Hearing grossly normal. Nose without bleeding or purulent drainage. Throat without visible erythema, exudates, masses, or lesions though challenging to examine thoroughly because of intubations. NECK: Trachea feels midline and now obvious thyroid enlargement though level of obesity makes exam very challenging. CARDIOVASCULAR: Regular rate and rhythm without murmurs, gallops, or rubs. No JVD. Peripheral pulses faint but palpable. RESPIRATORY/CHEST: Symmetric, unlabored respirations. Clear to auscultation. Breath sounds equal bilaterally but diminished. . No audible wheezes, rales, or rhonchi. GASTROINTESTINAL: Abdomen obese, soft, non-tender, nondistended. No hepato- splenomegaly, or palpable masses though level of obesity makes exam challenging. . No guarding. Bowel sounds present. GENITOURINARY: Without palpable bladder distension. Hahn catheter in place. MUSCULOSKELETAL: Extremities without clubbing, cyanosis. Bilateral LE edema is present. Inconsistent grimace with calf pressure. No mottling . LYMPHATICS: No palpable cervical or supraclavicular adenopathy. NEUROLOGICAL: Awake. Follows simple commands. Moves all extremities. PSYCHIATRIC: Unable to assess due to level of responsiveness and intubation. . Diagnostic Tests Laboratory: Laboratory Results - last 72 hr 04/14/18 04/15/18 04/15/18 18:36 02:30 02:33 WBC RBC Hgb Hct MCV MCH MCHC RDW Plt Count MPV Neut % (Auto) Lymph % (Auto) Baker % (Auto) Eos % (Auto) Baso % (Auto) Neut # (Auto) Lymph # (Auto) Baker # (Auto) Eos # (Auto) Baso # (Auto) CBC Comment WBC Differential Differential Comment PT Cancelled 12.7 H INR Cancelled 1.3 APTT 66.5 H 63.9 H Puncture Site Patient Temperature HCO3 Base Excess O2 Saturation ABG pH ABG pCO2 ABG pO2 ABG HCO3 ABG O2 Content ABG Base Excess ABG Carboxyhemoglobin ABG Methemoglobin Colt Test Hemoglobin Carboxyhemoglobin O2 Delivery Device Vent Setting Inspired O2 Critical Value Sodium Potassium Chloride Carbon Dioxide Anion Gap BUN Creatinine Estimated GFR POC Glucose Random Glucose Calcium Magnesium Total Bilirubin AST ALT Alkaline Phosphatase Total Protein Albumin Urine Color Urine Turbidity Urine pH Ur Specific [place] Urine Protein Urine Glucose (UA) Urine Ketones Urine Occult Blood Urine Nitrite Urine Bilirubin Urine Urobilinogen Ur Leukocyte Esterase Urine RBC Urine WBC Ur Squamous Epith Cells Ur Transition Epith Cell Urine Bacteria Hyaline Casts Urine Mucus Micro UA Comment Urine Osmolality 04/15/18 04/15/18 04/15/18 04:15 04:15 12:05 WBC 7.9 RBC 4.05 Hgb 9.6 L Hct 31.6 L MCV 78.1 L MCH 23.7 L MCHC 30.3 L RDW 20.3 H Plt Count 161 D MPV 7.3 Neut % (Auto) 70.5 H Lymph % (Auto) 13.5 Baker % (Auto) 9.9 H Eos % (Auto) 4.2 H Baso % (Auto) 1.9 Neut # (Auto) 5.5 Lymph # (Auto) 1.1 Baker # (Auto) 0.8 Eos # (Auto) 0.3 Baso # (Auto) 0.2 CBC Comment DIFF FINAL WBC Differential Differential Comment PT INR APTT Puncture Site RT RADIAL Patient Temperature 98.6 HCO3 35 H Base Excess 8.3 H O2 Saturation 95 ABG pH 7.31 L ABG pCO2 71 H* ABG pO2 112 ABG HCO3 ABG O2 Content 13.5 ABG Base Excess ABG Carboxyhemoglobin 2.3 ABG Methemoglobin 0.9 Colt Test Hemoglobin 10.0 L Carboxyhemoglobin O2 Delivery Device VENTILATOR Vent Setting CPAP/10/+8/45% Inspired O2 45 Critical Value Sodium 142 Potassium 3.6 Chloride 99 Carbon Dioxide 33.9 H Anion Gap 9 BUN 33 H Creatinine 1.45 H Estimated GFR 44 L POC Glucose Random Glucose 114 H Calcium 9.0 Magnesium 2.0 Total Bilirubin 2.6 H AST 33 ALT 12 Alkaline Phosphatase 146 H Total Protein 6.4 Albumin 2.7 L D Urine Color Urine Turbidity Urine pH Ur Specific [place] Urine Protein Urine Glucose (UA) Urine Ketones Urine Occult Blood Urine Nitrite Urine Bilirubin Urine Urobilinogen Ur Leukocyte Esterase Urine RBC Urine WBC Ur Squamous Epith Cells Ur Transition Epith Cell Urine Bacteria Hyaline Casts Urine Mucus Micro UA Comment Urine Osmolality 04/16/18 04/16/18 04/16/18 00:30 00:30 05:55 WBC RBC Hgb Hct MCV MCH MCHC RDW Plt Count MPV Neut % (Auto) Lymph % (Auto) Baker % (Auto) Eos % (Auto) Baso % (Auto) Neut # (Auto) Lymph # (Auto) Baker # (Auto) Eos # (Auto) Baso # (Auto) CBC Comment WBC Differential Differential Comment PT INR APTT Puncture Site Patient Temperature HCO3 Base Excess O2 Saturation ABG pH ABG pCO2 ABG pO2 ABG HCO3 ABG O2 Content ABG Base Excess ABG Carboxyhemoglobin ABG Methemoglobin Colt Test Hemoglobin Carboxyhemoglobin O2 Delivery Device Vent Setting Inspired O2 Critical Value Sodium 142 Potassium 3.8 Chloride 98 Carbon Dioxide 34.2 H Anion Gap 10 BUN 33 H Creatinine 1.42 H Estimated GFR 45 L POC Glucose Random Glucose 107 H Calcium 9.2 Magnesium 2.0 Total Bilirubin 2.7 H AST 37 ALT 20 Alkaline Phosphatase 169 H Total Protein 7.0 D Albumin 3.4 D Urine Color YELLOW Urine Turbidity HAZY H Urine pH 5.0 Ur Specific [place] 1.010 Urine Protein NEG Urine Glucose (UA) NEG Urine Ketones NEG Urine Occult Blood MOD H Urine Nitrite NEG Urine Bilirubin NEG Urine Urobilinogen 2.0 H Ur Leukocyte Esterase NEG Urine RBC 15 H Urine WBC 8 H Ur Squamous Epith Cells 1 Ur Transition Epith Cell <1 Urine Bacteria RARE H Hyaline Casts 19 Urine Mucus FEW H Micro UA Comment CATH-CULTURE IND Urine Osmolality 357 04/16/18 04/16/18 04/16/18 05:55 10:15 11:00 WBC 7.1 RBC 3.98 L Hgb 9.5 L Hct 31.8 L MCV 80.0 MCH 23.9 L MCHC 29.9 L RDW 20.5 H Plt Count 147 L MPV 7.3 Neut % (Auto) 71.5 H Lymph % (Auto) 12.4 Baker % (Auto) 11.5 H Eos % (Auto) 3.6 Baso % (Auto) 1.0 Neut # (Auto) 5.1 Lymph # (Auto) 0.9 L Baker # (Auto) 0.8 Eos # (Auto) 0.3 Baso # (Auto) 0.1 CBC Comment DIFF FINAL WBC Differential Differential Comment PT INR APTT 57.9 H Puncture Site RT RADIAL Patient Temperature 98.6 HCO3 36 H Base Excess 9.9 H O2 Saturation 93 ABG pH 7.34 L ABG pCO2 69 H* ABG pO2 86 ABG HCO3 ABG O2 Content 12.7 ABG Base Excess ABG Carboxyhemoglobin 2.5 ABG Methemoglobin 0.8 Colt Test Hemoglobin 9.6 L Carboxyhemoglobin O2 Delivery Device VENTILATOR Vent Setting Inspired O2 40 Critical Value Sodium Potassium Chloride Carbon Dioxide Anion Gap BUN Creatinine Estimated GFR POC Glucose Random Glucose Calcium Magnesium Total Bilirubin AST ALT Alkaline Phosphatase Total Protein Albumin Urine Color Urine Turbidity Urine pH Ur Specific [place] Urine Protein Urine Glucose (UA) Urine Ketones Urine Occult Blood Urine Nitrite Urine Bilirubin Urine Urobilinogen Ur Leukocyte Esterase Urine RBC Urine WBC Ur Squamous Epith Cells Ur Transition Epith Cell Urine Bacteria Hyaline Casts Urine Mucus Micro UA Comment Urine Osmolality 04/16/18 04/17/18 04/17/18 12:20 14:56 14:56 WBC RBC Hgb Hct MCV MCH MCHC RDW Plt Count MPV Neut % (Auto) Lymph % (Auto) Baker % (Auto) Eos % (Auto) Baso % (Auto) Neut # (Auto) Lymph # (Auto) Baker # (Auto) Eos # (Auto) Baso # (Auto) CBC Comment WBC Differential Differential Comment PT INR APTT 45.5 H D Puncture Site RT RADIAL Patient Temperature 98.6 HCO3 35 H Base Excess 9.6 H O2 Saturation 94 ABG pH 7.36 L ABG pCO2 63 H* ABG pO2 89 ABG HCO3 ABG O2 Content 12.9 ABG Base Excess ABG Carboxyhemoglobin 2.5 ABG Methemoglobin 0.8 Colt Test Hemoglobin 9.7 L Carboxyhemoglobin O2 Delivery Device VENTILATOR Vent Setting CPAP8/8 Inspired O2 35 Critical Value Sodium 142 Potassium 4.2 Chloride 99 Carbon Dioxide 34.0 H Anion Gap 9 BUN 36 H Creatinine 1.68 H Estimated GFR 37 L POC Glucose Random Glucose 90 Calcium 9.6 Magnesium Total Bilirubin 3.3 H AST 31 ALT 17 Alkaline Phosphatase 86 Total Protein 7.9 D Albumin 4.6 D Urine Color Urine Turbidity Urine pH Ur Specific [place] Urine Protein Urine Glucose (UA) Urine Ketones Urine Occult Blood Urine Nitrite Urine Bilirubin Urine Urobilinogen Ur Leukocyte Esterase Urine RBC Urine WBC Ur Squamous Epith Cells Ur Transition Epith Cell Urine Bacteria Hyaline Casts Urine Mucus Micro UA Comment Urine Osmolality 04/17/18 04/18/18 04/18/18 14:56 06:49 06:51 WBC 6.4 5.8 RBC 4.15 4.22 Hgb 9.8 L 10.0 L Hct 34.8 L 35.0 MCV 83.8 D 82.9 MCH 23.6 L 23.7 L MCHC 28.2 L 28.6 L RDW 21.4 H 21.4 H Plt Count 151 152 MPV 8.0 8.3 Neut % (Auto) 76.7 H Lymph % (Auto) 14.0 Baker % (Auto) 9.0 H Eos % (Auto) 0.2 Baso % (Auto) 0.1 Neut # (Auto) 4.4 Lymph # (Auto) 0.8 L [place] # (Auto) 0.5 Eos # (Auto) 0.0 Baso # (Auto) 0.0 CBC Comment WBC Differential . Differential Comment Auto diff final PT INR APTT 26.6 Puncture Site Patient Temperature HCO3 Base Excess O2 Saturation ABG pH ABG pCO2 ABG pO2 ABG HCO3 ABG O2 Content ABG Base Excess ABG Carboxyhemoglobin ABG Methemoglobin Colt Test Hemoglobin Carboxyhemoglobin O2 Delivery Device Vent Setting Inspired O2 Critical Value Sodium Potassium Chloride Carbon Dioxide Anion Gap BUN Creatinine Estimated GFR POC Glucose Random Glucose Calcium Magnesium Total Bilirubin AST ALT Alkaline Phosphatase Total Protein Albumin Urine Color Urine Turbidity Urine pH Ur Specific [place] Urine Protein Urine Glucose (UA) Urine Ketones Urine Occult Blood Urine Nitrite Urine Bilirubin Urine Urobilinogen Ur Leukocyte Esterase Urine RBC Urine WBC Ur Squamous Epith Cells Ur Transition Epith Cell Urine Bacteria Hyaline Casts Urine Mucus Micro UA Comment Urine Osmolality 04/18/18 04/18/18 04/18/18 06:57 12:03 18:34 WBC RBC Hgb Hct MCV MCH MCHC RDW Plt Count MPV Neut % (Auto) Lymph % (Auto) Baker % (Auto) Eos % (Auto) Baso % (Auto) Neut # (Auto) Lymph # (Auto) Baker # (Auto) Eos # (Auto) Baso # (Auto) CBC Comment WBC Differential Differential Comment PT INR APTT 49.5 H D 42.9 H Puncture Site Patient Temperature HCO3 Base Excess O2 Saturation ABG pH ABG pCO2 ABG pO2 ABG HCO3 ABG O2 Content ABG Base Excess ABG Carboxyhemoglobin ABG Methemoglobin Colt Test Hemoglobin Carboxyhemoglobin O2 Delivery Device Vent Setting Inspired O2 Critical Value Sodium 141 Potassium 4.2 Chloride 100 Carbon Dioxide 30.2 Anion Gap 11 BUN 43 H Creatinine 1.81 H Estimated GFR 34 L POC Glucose Random Glucose 83 Calcium 9.8 Magnesium 2.3 Total Bilirubin 3.1 H AST 33 ALT 18 Alkaline Phosphatase 74 Total Protein 7.8 Albumin 4.4 Urine Color Urine Turbidity Urine pH Ur Specific [place] Urine Protein Urine Glucose (UA) Urine Ketones Urine Occult Blood Urine Nitrite Urine Bilirubin Urine Urobilinogen Ur Leukocyte Esterase Urine RBC Urine WBC Ur Squamous Epith Cells Ur Transition Epith Cell Urine Bacteria Hyaline Casts Urine Mucus Micro UA Comment Urine Osmolality 04/19/18 04/19/18 04/19/18 01:41 08:45 08:45 WBC RBC Hgb Hct MCV MCH MCHC RDW Plt Count MPV Neut % (Auto) Lymph % (Auto) Baker % (Auto) Eos % (Auto) Baso % (Auto) Neut # (Auto) Lymph # (Auto) Baker # (Auto) Eos # (Auto) Baso # (Auto) CBC Comment WBC Differential Differential Comment PT INR APTT 82.1 H D 44.8 H D Puncture Site Patient Temperature HCO3 Base Excess O2 Saturation ABG pH ABG pCO2 ABG pO2 ABG HCO3 ABG O2 Content ABG Base Excess ABG Carboxyhemoglobin ABG Methemoglobin Colt Test Hemoglobin Carboxyhemoglobin O2 Delivery Device Vent Setting Inspired O2 Critical Value Sodium 142 Potassium 4.5 Chloride 99 Carbon Dioxide 32.3 H Anion Gap 11 BUN 56 H Creatinine 2.32 H Estimated GFR 26 L POC Glucose Random Glucose 82 Calcium 10.0 Magnesium Total Bilirubin 2.5 H AST 41 H ALT 23 Alkaline Phosphatase 70 Total Protein 7.3 Albumin 4.0 Urine Color Urine Turbidity Urine pH Ur Specific [place] Urine Protein Urine Glucose (UA) Urine Ketones Urine Occult Blood Urine Nitrite Urine Bilirubin Urine Urobilinogen Ur Leukocyte Esterase Urine RBC Urine WBC Ur Squamous Epith Cells Ur Transition Epith Cell Urine Bacteria Hyaline Casts Urine Mucus Micro UA Comment Urine Osmolality 04/19/18 04/19/18 04/19/18 11:06 16:35 18:10 WBC RBC Hgb Hct MCV MCH MCHC RDW Plt Count MPV Neut % (Auto) Lymph % (Auto) Baker % (Auto) Eos % (Auto) Baso % (Auto) Neut # (Auto) Lymph # (Auto) Baker # (Auto) Eos # (Auto) Baso # (Auto) CBC Comment WBC Differential Differential Comment PT INR APTT 53.1 H Puncture Site Patient Temperature HCO3 Base Excess O2 Saturation ABG pH ABG pCO2 ABG pO2 ABG HCO3 ABG O2 Content ABG Base Excess ABG Carboxyhemoglobin ABG Methemoglobin Colt Test Hemoglobin Carboxyhemoglobin O2 Delivery Device Vent Setting Inspired O2 Critical Value Sodium Potassium Chloride Carbon Dioxide Anion Gap BUN Creatinine Estimated GFR POC Glucose 78 109 Random Glucose Calcium Magnesium Total Bilirubin AST ALT Alkaline Phosphatase Total Protein Albumin Urine Color Urine Turbidity Urine pH Ur Specific [place] Urine Protein Urine Glucose (UA) Urine Ketones Urine Occult Blood Urine Nitrite Urine Bilirubin Urine Urobilinogen Ur Leukocyte Esterase Urine RBC Urine WBC Ur Squamous Epith Cells Ur Transition Epith Cell Urine Bacteria Hyaline Casts Urine Mucus Micro UA Comment Urine Osmolality 04/19/18 04/20/18 04/20/18 20:47 00:29 03:35 WBC 7.6 RBC 3.88 L Hgb 9.4 L Hct 31.8 L MCV 81.9 MCH 24.3 L MCHC 29.6 L RDW 21.9 H Plt Count 155 MPV 8.1 Neut % (Auto) Lymph % (Auto) Baker % (Auto) Eos % (Auto) Baso % (Auto) Neut # (Auto) Lymph # (Auto) Baker # (Auto) Eos # (Auto) Baso # (Auto) CBC Comment WBC Differential Differential Comment PT INR APTT Puncture Site Right radial Patient Temperature 98.6 HCO3 Base Excess O2 Saturation 97 ABG pH 7.29 L* ABG pCO2 59 H* ABG pO2 289 H ABG HCO3 27 H ABG O2 Content 14.4 ABG Base Excess 1.3 ABG Carboxyhemoglobin ABG Methemoglobin 0.9 Colt Test Present Hemoglobin 10.0 L Carboxyhemoglobin 2.1 O2 Delivery Device Ventilator Vent Setting Prvc/ac Inspired O2 100 Critical Value Yes Sodium Potassium Chloride Carbon Dioxide Anion Gap BUN Creatinine Estimated GFR POC Glucose 143 H Random Glucose Calcium Magnesium Total Bilirubin AST ALT Alkaline Phosphatase Total Protein Albumin Urine Color Urine Turbidity Urine pH Ur Specific [place] Urine Protein Urine Glucose (UA) Urine Ketones Urine Occult Blood Urine Nitrite Urine Bilirubin Urine Urobilinogen Ur Leukocyte Esterase Urine RBC Urine WBC Ur Squamous Epith Cells Ur Transition Epith Cell Urine Bacteria Hyaline Casts Urine Mucus Micro UA Comment Urine Osmolality 04/20/18 04/20/18 04/20/18 03:35 08:30 11:31 WBC RBC Hgb Hct MCV MCH MCHC RDW Plt Count MPV Neut % (Auto) Lymph % (Auto) Baker % (Auto) Eos % (Auto) Baso % (Auto) Neut # (Auto) Lymph # (Auto) [place] # (Auto) Eos # (Auto) Baso # (Auto) CBC Comment WBC Differential Differential Comment PT INR APTT 23.8 L D Puncture Site Patient Temperature HCO3 Base Excess O2 Saturation ABG pH ABG pCO2 ABG pO2 ABG HCO3 ABG O2 Content ABG Base Excess ABG Carboxyhemoglobin ABG Methemoglobin Colt Test Hemoglobin Carboxyhemoglobin O2 Delivery Device Vent Setting Inspired O2 Critical Value Sodium 142 Potassium 3.8 Chloride 101 Carbon Dioxide 29.1 Anion Gap 12 BUN 60 H Creatinine 2.47 H Estimated GFR 24 L POC Glucose 238 H Random Glucose 97 Calcium 9.3 Magnesium Total Bilirubin 2.7 H AST 56 H ALT 30 Alkaline Phosphatase 64 Total Protein 6.5 D Albumin 3.5 Urine Color Urine Turbidity Urine pH Ur Specific [place] Urine Protein Urine Glucose (UA) Urine Ketones Urine Occult Blood Urine Nitrite Urine Bilirubin Urine Urobilinogen Ur Leukocyte Esterase Urine RBC Urine WBC Ur Squamous Epith Cells Ur Transition Epith Cell Urine Bacteria Hyaline Casts Urine Mucus Micro UA Comment Urine Osmolality Result Diagrams: 04/20/18 03:35 04/20/18 15:05 Microbiology: Urine cx of 04/10/18 grew out E coli MDR Blood cx of 04/13/18 showed no growth\\ Urine cx of 04/16/18 grew out Janie glabrata. . Imaging: Chest X-Ray 04/12/18 0600 Signed Impressions: CONCLUSION: Enlargement of cardiac silhouette. Increased density at the left base likely related to consolidation, atelectasis and/or effusion. Mild increased density at the right medial base likely from some consolidation or atelectasis. Lower Extremity Ultrasound 04/11/18 0000 Signed Impressions: CONCLUSION: 1. Occlusive thrombus in the posterior tibial veins bilaterally. Extensive sub cutaneous edema. Renal Ultrasound 04/10/18 0000 Signed Impressions: CONCLUSION: 1. Examination within normal limits for age. Procedures: Right IJ central line Intubation / mechanical ventilation . Patient/Family Conference Present at Family Conference: Cassi Turcios (daughter) Lena Hanna (daughter and reported health care surrogate) . Family Conference Time: 40 Family Conference Location: Telephone Issues Discussed: * Palliative care role, purpose, approach * Additional medical, psychosocial, and spiritual history * Patients general health, functional status, and cognitive changes in the months leading up to the current hospitalization * Family understanding of the current medical problems * Family understanding of prognosis * Patients goals of care as best understood from advance directives and/or conversations and/or values * Current medical treatment options and benefits/burdens of those options * Likely scenarios comparing ongoing aggressive care with a transition to comfort measures only * Questions answered to the best of my ability . 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 She also lived in [place] for a while. She moved to [place] approximately 28 years ago. The patient is a high school graduate and almost finished college. 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 The patient was never . She has 2 daughters. Cassi Turcios lives in [place]. Lena Hanna lives locally. There are 6 grandchildren. The patient had 2 sisters who are . There is one brother who is alive. The patient has been a resident of long-term care facilities since 2002. Initially, she needed these facilities primarily for her psychiatric condition. Later on she required quite a lot of help for her medical conditions. Legal: The patient never completed a living well. Reportedly, a healthcare surrogate designation was completed. Both daughters informed me that Lena is the designated surrogate. Ethical issues impacting care: The patient is currently incapacitated to make her own healthcare decisions. It is uncertain if and when she will regain capacity to do so. Substance Use: Patient was a heavy smoker earlier in her life but quit approximately 30 years ago. No history of alcohol abuse. No known use of illicits. Family Hx: patient's mother of a stroke. Patient's father of unknown causes. One of the patient's sisters of an unknown type of cancer. No other known diseases run in the family. . Important Contacts: Lena Hanna (daughter and reported health care surrogate) -- [phone] Cassi Turcios (daughter ) [phone] . Prognosis: Ms. Hanna suffers from several chronic problems including morbid obesity, sleep apnea, schizophrenia, recurrent UTIs, recurrent hyponatremia. She has had decreasing functional status over the years. She was able to walk with a walker following her hips surgeries three years ago. she is now wheelchair bound. Her hospital course has been quite challenging with a multi-drug resistant UTI, hyponatremia, aspiration penumonia, septic shock, respiratory failure, and a PEA arrest. She will be challenging to wean from the ventilator. Additional de- conditioning from the hospitalziation will make her even more vulnerable to future infections and complications. . Code Status: Full Code Plan: == Code Status: FULL CODE == Decision Making: The patient is incapacitated to make her own healthcare decisions. It is unclear if/when she will regain capacity to do so. Per the patient's daughters, she was never legally . I am told there were only 2 children. The daughters--Lena Hanna who lives locally, and Cassi Turcios who lives in [place] --are close and speak frequently regarding their mother. Lena tells me that she has paperwork indicating she is the healthcare surrogate. She will bring it in. Cassi is fine with Lena assuming this role since Lena calls Cassi frequently. == Goals of medical treatment: Both daughters feel strongly that at this time the patient would want all aggressive care including tracheostomy and PEG tube placement if necessary. They want her to remain full CODE STATUS. If the patient becomes "vegetative" they do not think at that time she would want to be sustained on life support. == Symptoms * Pain: Patient would occasionally complain of back pain prior to this hospitalization. She has been on gabapentin presumably for peripheral neuropathy. Prehospital medications also included hydrocodone/acetaminophen 7.5 -325. Other sources of pain currently would be from prolonged bedbound status; orotracheal intubation; orogastric intubation; Hahn catheter; restraints; urinary catheter; deep venous thrombosis. There are currently no orders for opiate analgesics. Understandably the medical team is attempting to minimize sedating medications which might interfere with weaning from the ventilator. Patient has been on propofol as sedation for vent synchrony. This is being tapered. As patient becomes more fully awake, we may need to add low-dose opiates to keep her comfortable. No further recommendations at this time. * Dyspnea: Dyspnea is probably from a combination of an aspiration pneumonia along with some chronic lung problems from prior smoking history and likely sleep apnea. Currently dyspnea is being managed with mechanical ventilation. No further recommendations at this time * Encephalopathy: Patient has underlying psychiatric problems but per her daughters, she could carry on a conversation. Currently, while sedation is being held, patient is able to follow some simple commands. It is unclear if she suffered any type of long-term cognitive damage from possible hypoxia during her PEA arrest. The medical team will follow this clinically as she begins to wake up. Patient could certainly have an element of encephalopathy from her infections as well. No further recommendations at this time. == Given the stated goals, recommend we go ahead with tracheostomy and PEG tube placement if critical care feels this is likely going to be needed. == Palliative care will continue to follow to assist with symptom management and to further clarify goals of medical treatment as the clinical course evolves . Appreciation Thank you for the opportunity to participate in the care of Leigh Hanna. . Attestation Attestation: To help prompt me to consider important information that might be impacting today's encounter and assessment, information from prior notes written by myself or my colleagues may have been "brought forward" into today's note. My signature on this note, however, is an attestation that I personally performed the exam, history, and/or decision-making noted today, and, unless otherwise indicated, the interactions with patient, family, and staff as well as the review of records all occurred today. I also attest that the listed assessment and stated plan reflect my best clinical judgment today based on the combination of historical information, prior notes, and today's exam/ interactions. When time spent is documented, it refers only to time spent today by the signer, or if indicated, combined time spent today by collaborating physician/nurse practitioner. .
[2018-04-20 15:55] LABS: Alanine Aminotransferase 30 U/L (10-53); Albumin 3.5 g/dL (3.4-5.0); Anion Gap 13 meq/L (5-15); Aspartate Aminotransferase 49 U/L (15-37); Blood Urea Nitrogen 64 mg/dL (7-18); Calcium 9.5 mg/dL (8.5-10.1); Chloride 101 meq/L (98-107); Glomerular Filtration Rate 21 mL/min (>89); Glucose,Random 83 mg/dL (74-106); Potassium 3.7 meq/L (3.5-5.1); Sodium 143 meq/L (136-145)
[2018-04-20 15:57] LABS: Alkaline Phosphatase 63 U/L (45-117); Total Protein 6.4 g/dL (6.4-8.2)
--- NOTE | 2018-04-20 20:31 | P.CON ---
History of Present Illness Consult date: 04/20/18 Requesting Physician: Jonah Newberry Reason for Consult: Tracheostomy placement Primary Care Provider: No Primary Care Physician History of Present Illness: The patient is a 62-year-old -[place] female who I have been asked to see to place a tracheostomy. The patient had an aspiration event yesterday and will likely have ventilator dependent respiratory failure in the coming days PMF - Medical History Medical History: Medical History (Last Updated 04/20/18 @ 15:17 by Fransico Aguero MD) Schizophrenia (Chronic) Depression (Chronic) Seizure disorder (Chronic) Hypertension (Chronic) Peptic ulcer disease (Chronic) Recurrent urinary tract infection (Chronic) Parkinsonian features (Acute) Peripheral neuropathy (Chronic) Bipolar disorder (Chronic) Insomnia (Chronic) Hyponatremia (Chronic) Psychogenic polydipsia (Acute) Anemia (Acute) DVT (deep venous thrombosis) (Acute) Urinary tract infection (Acute) - Surgical History Surgical History: Surgical History (Last Updated 04/20/18 @ 15:20 by Fransico Aguero MD) H/O total hip arthroplasty (Resolved) S/P surgical manipulation of ankle joint (Resolved) - Family History Family History: Family History (Last Updated 04/20/18 @ 15:23 by Fransico Aguero MD) Other Family history of hypertension - Tobacco History Smoking Status: Former smoker - Travel History History of Recent Travel: No Recent Travel in the [place] Within the Last 8 Weeks: No Recent Travel Out of the Country Within the Last 8 Weeks: No Medications and Allergies Active Medications: Active Medications Acetaminophen (Tylenol Liq) 650 mg NG/OG Q6H PRN PRN Reason: FEVER Al Hydroxide/Mg Hydroxide (Milk Of Magnesia Liq) 30 ml PO Q12H PRN PRN Reason: MILD CONSTIPATION Albuterol (Albuterol Neb (Prn)) 2.5 mg NEB Q2HR NEB PRN PRN Reason: DYSPNEA Albuterol (Duoneb Neb (Wilner)) 1 ampul NEB Q6HR NEB [facility] Last Admin: 04/20/18 16:59 Dose: 1 ampul Artificial Tears (Tears Naturale Opth Drops) 1 drop EACH EYE Q8HR [facility] Last Admin: 04/20/18 13:19 Dose: 1 drop Atenolol (Tenormin) 50 mg PO HS [facility] Last Admin: 04/19/18 22:15 Dose: Not Given Benzonatate (Tessalon Perles) 100 mg PO Q6H PRN PRN Reason: COUGH Bisacodyl (Dulcolax Supp) 10 mg RECTAL DAILY PRN PRN Reason: SEVERE CONSITIPATION Budesonide/Formoterol Fumarate (Symbicort 160/4.5 Mcg Inh) 2 puff INH Q12HR [facility] Last Admin: 04/19/18 22:15 Dose: Not Given Chlorhexidine Gluconate (Peridex 0.12% Oral Kit) 15 ml OROPHARYNG BID@0800, 2000 [facility] Last Admin: 04/20/18 09:06 Dose: 15 ml Dextrose (D50w Vial) 50 ml IV.PUSH UNSCH PRN PRN Reason: HYPOGLYCEMIA-SEE COMMENTS Fluconazole (Diflucan) 100 mg PO DAILY [facility] Stop: 04/22/18 08:59 Last Admin: 04/20/18 09:07 Dose: Not Given Gabapentin (Neurontin) 300 mg PO BID [facility] Last Admin: 04/19/18 22:13 Dose: Not Given Glucagon (Glucagon Inj) 1 mg OTHER PRN PRN PRN Reason: for Hypoglycemia Protocol Ertapenem 1,000 mg/ Sodium (Chloride) 100 mls @ 200 mls/hr IV.SIG Q24H [facility] Last Admin: 04/20/18 11:28 Dose: 200 mls/hr Heparin Sodium/Dextrose (Heparin/D5w 25,000 U/250 Ml) 25,000 unit in 250 mls @ 0 mls/hr IV.CONT TITRATE PRN; Protocol PRN Reason: Per Protocol Last Admin: 04/20/18 09:02 Dose: 1,800 units/hr, 18 mls/hr Norepinephrine Bitartrate 4 mg (/ Sodium Chloride) 250 mls @ 7.5 mls/hr IV.SIG TITRATE PRN; Protocol PRN Reason: Per Protocol Last Admin: 04/19/18 22:10 Dose: 12 mcg/min, 45 mls/hr Propofol (Diprivan 1000 Mg/100 Ml Inj) 1,000 mg in 100 mls @ 5.781 mls/hr IV.CONT TITRATE PRN; Protocol PRN Reason: Per Protocol Last Admin: 04/20/18 06:00 Dose: 10 mcg/kg/min, 11.56 mls/hr Bumetanide (Bumex Inj) 25 mg in 100 mls @ 4 mls/hr IV.CONT .Q24H [facility] Last Admin: 04/20/18 09:04 Dose: 1 mg/hr, 4 mls/hr Insulin Human Regular (Novolin R Supplemental Scale) 1 units SQ Q6HR [facility]; Protocol Last Admin: 04/20/18 17:33 Dose: Not Given Lactulose (Lactulose Liq) 30 ml PO DAILY PRN PRN Reason: SEVERE CONSITIPATION Lansoprazole (Prevacid Solutab) 30 mg NG/OG DAILY [facility] Last Admin: 04/20/18 09:09 Dose: Not Given Melatonin (Melatonin) 5 mg PO HS [facility] Last Admin: 04/19/18 22:13 Dose: Not Given Metoclopramide HCl (Reglan Inj) 5 mg IV.PUSH Q6H PRN PRN Reason: NAUSEA OR VOMITING Multivitamins/Minerals (Theragran-M) 1 tab PO DAILY [facility] Last Admin: 04/20/18 09:09 Dose: Not Given Senna/Docusate Sodium (Adriane-Colace) 1 tab PO BID [facility] Last Admin: 04/20/18 09:09 Dose: Not Given Sodium Chloride (Ns Flush) 0 ml IV.FLUSH DAILY [facility] Last Admin: 04/20/18 09:08 Dose: 3 ml Sodium Chloride (Ns Flush) 0 ml IV.FLUSH PRN PRN PRN Reason: FLUSH AFTER USING IV ACCESS Sodium Chloride (Ns Flush) 2 ml IV.FLUSH UNSCH PRN PRN Reason: FLUSH AFTER USING IV ACCESS Last Admin: 04/19/18 10:18 Dose: 2 ml Sodium Chloride (Ns Flush) 2 ml IV.FLUSH BID [facility] Last Admin: 04/20/18 09:09 Dose: Not Given Terbutaline Sulfate (Brethine Inj) 1 mg SQ UNSCH PRN PRN Reason: For Extravasation Tiotropium [place] (Spiriva 18 Mcg Inh) 18 mcg INH DAILY [facility] Last Admin: 04/19/18 10:21 Dose: 18 mcg Tolterodine Tartrate (Detrol La) 2 mg PO DAILY [facility] Last Admin: 04/19/18 10:17 Dose: 2 mg Ziprasidone (Geodon) 20 [facility] Last Admin: 04/20/18 17:32 Dose: Not Given Ziprasidone (Geodon Inj) 10 mg IM Q4H PRN PRN Reason: AGITATION Allergies Allergy/AdvReac Type Severity Reaction Status Date / Time shrimp Allergy Severe RASH Verified 08/18/17 18:34 Sulfa (Sulfonamide Allergy Intermediate RASH Verified 08/18/17 18:34 Antibiotics) Home Medications Medication Instructions Recorded Confirmed Type acetaminophen [Tylenol] 650 mg PO Q4H PRN 04/17/18 04/17/18 History atenolol [Tenormin] 50 mg PO HS 04/17/18 04/17/18 History calcium carbonate [Tums] 500 mg PO DIRECTED PRN 04/17/18 04/17/18 History dextromethorphan-guaifenesin 5 ml PO Q4-8H PRN 04/17/18 04/17/18 History [Robitussin Cough-Chest Alpesh DM] gabapentin [Neurontin] 300 mg PO BID 04/17/18 04/17/18 History hydrocodone-acetaminophen [[place]] 1 tab PO Q4H PRN 04/17/18 04/17/18 History lorazepam [Ativan] 0.5 mg PO Q12H 04/17/18 04/17/18 History magnesium citrate [Citroma] See Label Instructions .ROUTE 04/17/18 04/17/18 History .COMPLEX magnesium hydroxide [Milk of 30 ml PO HS PRN 04/17/18 04/17/18 History Magnesia] melatonin 6 mg PO HS PRN 04/17/18 04/17/18 History multivitamin with minerals 1 tab PO DAILY 04/17/18 04/17/18 History [Multiple Vitamin-Minerals] omeprazole 20 mg PO DAILY 04/17/18 04/17/18 History tolterodine [Detrol LA] 2 mg PO DAILY 04/17/18 04/17/18 History white petrolatum-mineral oil 1 applic TOPICAL Q6H PRN 04/17/18 04/17/18 History [Eucerin] ziprasidone HCl [Geodon] 20 mg PO BIDPC 04/17/18 04/17/18 History Physical Exam Vital signs: Vital Signs 04/19/18 21:38 04/19/18 22:00 04/20/18 00:00 Temperature 97.7 F Pulse Rate 121 H 119 H 90 Respiratory Rate 18 18 Blood Pressure 155/100 H Pulse Oximetry 100 04/20/18 01:08 04/20/18 02:00 04/20/18 04:00 Temperature 98.1 F Pulse Rate 79 60 Respiratory Rate 20 18 Blood Pressure 99/57 L Pulse Oximetry 99 04/20/18 04:31 04/20/18 06:00 04/20/18 08:00 Temperature 98.5 F Pulse Rate 71 74 73 Respiratory Rate 18 18 Blood Pressure 108/69 Pulse Oximetry 100 100 04/20/18 08:36 04/20/18 08:48 04/20/18 10:00 Temperature Pulse Rate 65 61 61 Respiratory Rate 18 18 Blood Pressure Pulse Oximetry 95 95 04/20/18 11:57 04/20/18 12:00 04/20/18 14:00 Temperature 98.1 F Pulse Rate 71 71 Respiratory Rate 18 18 Blood Pressure 101/61 Pulse Oximetry 95 96 04/20/18 16:00 04/20/18 16:06 04/20/18 16:57 Temperature 97.6 F Pulse Rate 62 71 68 Respiratory Rate 18 18 Blood Pressure 101/55 L Pulse Oximetry 96 04/20/18 16:59 04/20/18 18:00 Temperature Pulse Rate 68 Respiratory Rate 18 Blood Pressure Pulse Oximetry 97 Intake & Output 04/20/18 04/20/18 04/21/18 06:59 18:59 06:59 Intake Total 3200 / 3200 350 / 350 Output Total 125 / 125 800 / 800 Balance 3075 / 3075 -450 / -450 Weight 198.6 kg Intake: IV 3200 / 3200 350 / 350 Heparin/D5W 25,000 U/250 mL 25, 250 / 250 000 unit In 250 ml @ Per Protocol IV.CONT TITRATE PRN Rx #:[id number] Diprivan 1000 mg/100 ml Inj 1, 200 / 200 000 mg In 100 ml @ 5 MCG/KG/MIN 5.781 mls/hr IV.CONT TITRATE PRN Rx#:[id number] INVanz Inj 1,000 MG In NS Inj 100 / 100 100 ML @ 200 mls/hr IV.SIG Q24H [facility] Rx#:[id number] NS Inj 1,000 ML @ 1000 mls/hr 3000 / 3000 IV.SIG .Q1H [facility] Rx#:[id number] Oral 0 / 0 0 / 0 Tube Feeding 0 / 0 0 / 0 Output: Urine 800 / 800 Urine Amount (Catheter) 125 / 125 Indwelling Temp Sensing 125 / 125 Catheter Other: Date of Last Bowel Movement 04/19/18 # Bowel Movements 0 0 - Constitutional morbidly obese - Routine Respiratory Exam Present: distant breath sounds - Routine Cardiovascular Exam Present: RRR - Routine Abdominal Exam Present: soft - Routine Skin Exam Present: intact, warm - Routine Neurological Exam Sedated - Urinary Catheter Management Indwelling Temp Sensing Catheter Cath placed during this visit: yes Urethral indwelling: Yes Reason for continuing: Hourly intake/output Insertion date: 04/17/18 Insertion time: 18:10 Assessment and Plan - Plan Tracheostomy placement next week, if patient unable to wean. Family requests holding procedure until next week if possible. Discussed Condition With: Family Nurse Dr. Newberry
--- NOTE | 2018-04-20 23:56 | P.PNONC ---
Subjective Interval history: Resting in bed. Intubated and sedated. Objective Vital Signs/Intake & Output: Vital Signs 04/20/18 00:00 04/20/18 01:08 04/20/18 02:00 Temperature 97.7 F Pulse Rate 90 79 Respiratory Rate 18 20 Blood Pressure 155/100 H Pulse Oximetry 100 99 04/20/18 04:00 04/20/18 04:31 04/20/18 06:00 Temperature 98.1 F Pulse Rate 60 71 74 Respiratory Rate 18 18 Blood Pressure 99/57 L Pulse Oximetry 100 04/20/18 08:00 04/20/18 08:36 04/20/18 08:48 Temperature 98.5 F Pulse Rate 73 65 61 Respiratory Rate 18 18 18 Blood Pressure 108/69 Pulse Oximetry 100 95 95 04/20/18 10:00 04/20/18 11:57 04/20/18 12:00 Temperature 98.1 F Pulse Rate 61 71 Respiratory Rate 18 18 Blood Pressure 101/61 Pulse Oximetry 95 96 04/20/18 14:00 04/20/18 16:00 04/20/18 16:06 Temperature 97.6 F Pulse Rate 71 62 71 Respiratory Rate 18 Blood Pressure 101/55 L Pulse Oximetry 96 04/20/18 16:57 04/20/18 16:59 04/20/18 18:00 Temperature Pulse Rate 68 68 Respiratory Rate 18 18 Blood Pressure Pulse Oximetry 97 04/20/18 20:00 04/20/18 20:56 Temperature 98.6 F Pulse Rate 72 75 Respiratory Rate 18 18 Blood Pressure 110/59 L Pulse Oximetry 99 99 Intake & Output 04/20/18 04/20/18 04/21/18 06:59 18:59 06:59 Intake Total 3200 / 3200 450 / 450 1100 / 1100 Output Total 125 / 125 800 / 800 Balance 3075 / 3075 -350 / -350 1100 / 1100 Weight 198.6 kg Intake: IV 3200 / 3200 450 / 450 1100 / 1100 Heparin/D5W 25,000 U/250 mL 25, 250 / 250 000 unit In 250 ml @ Per Protocol IV.CONT TITRATE PRN Rx #:[id number] Diprivan 1000 mg/100 ml Inj 1, 200 / 200 100 / 100 000 mg In 100 ml @ 5 MCG/KG/MIN 5.781 mls/hr IV.CONT TITRATE PRN Rx#:[id number] INVanz Inj 1,000 MG In NS Inj 100 / 100 100 / 100 100 ML @ 200 mls/hr IV.SIG Q24H [facility] Rx#:[id number] NS Inj 1,000 ML @ 1000 mls/hr 3000 / 3000 IV.SIG .Q1H [facility] Rx#:[id number] Oral 0 / 0 0 / 0 Tube Feeding 0 / 0 0 / 0 Output: Urine 800 / 800 Urine Amount (Catheter) 125 / 125 Indwelling Temp Sensing 125 / 125 Catheter Other: Date of Last Bowel Movement 04/19/18 04/19/18 # Bowel Movements 0 0 Result Diagrams: 04/21/18 05:46 04/21/18 05:46 Laboratory Results: Laboratory Results - last 24 hr 04/20/18 04/20/18 04/20/18 00:29 03:35 03:35 WBC 7.6 RBC 3.88 L Hgb 9.4 L Hct 31.8 L MCV 81.9 MCH 24.3 L MCHC 29.6 L RDW 21.9 H Plt Count 155 MPV 8.1 APTT Sodium 142 Potassium 3.8 Chloride 101 Carbon Dioxide 29.1 Anion Gap 12 BUN 60 H Creatinine 2.47 H Estimated GFR 24 L POC Glucose 143 H Random Glucose 97 Calcium 9.3 Total Bilirubin 2.7 H AST 56 H ALT 30 Alkaline Phosphatase 64 Total Protein 6.5 D Albumin 3.5 04/20/18 04/20/18 04/20/18 08:30 11:31 15:05 WBC RBC Hgb Hct MCV MCH MCHC RDW Plt Count MPV APTT 23.8 L D Sodium 143 Potassium 3.7 Chloride 101 Carbon Dioxide 29.0 Anion Gap 13 BUN 64 H Creatinine 2.72 H Estimated GFR 21 L POC Glucose 238 H Random Glucose 83 Calcium 9.5 Total Bilirubin 2.6 H AST 49 H ALT 30 Alkaline Phosphatase 63 Total Protein 6.4 Albumin 3.5 04/20/18 04/20/18 04/20/18 15:05 17:00 17:26 WBC RBC Hgb Hct MCV MCH MCHC RDW Plt Count MPV APTT 92.1 H* D 74.2 H Sodium Potassium Chloride Carbon Dioxide Anion Gap BUN Creatinine Estimated GFR POC Glucose 95 Random Glucose Calcium Total Bilirubin AST ALT Alkaline Phosphatase Total Protein Albumin 04/20/18 23:00 WBC RBC Hgb Hct MCV MCH MCHC RDW Plt Count MPV APTT 61.4 H Sodium Potassium Chloride Carbon Dioxide Anion Gap BUN Creatinine Estimated GFR POC Glucose Random Glucose Calcium Total Bilirubin AST ALT Alkaline Phosphatase Total Protein Albumin Imaging Studies: Impressions Chest X-Ray 04/20/18 06:00 CONCLUSION: Persistent left lower lobe consolidation. Medications: Active Medications Generic Name Dose Route Start Last Admin Trade Name Freq PRN Reason Stop Dose Admin Albuterol 1 ampul 04/19/18 10:00 04/20/18 20:56 Duoneb Neb ([facility]) NEB 1 ampul Q6HR NEB [facility] Administration Artificial Tears 1 drop 04/18/18 06:00 04/20/18 21:43 Tears Naturale Opth Drops EACH EYE 1 drop Q8HR [facility] Administration Atenolol 50 mg 04/18/18 21:00 04/19/18 22:15 Tenormin PO Not Given HS [facility] Budesonide/Formoterol Fumarate 2 puff 04/18/18 09:00 04/19/18 22:15 Symbicort 160/4.5 Mcg Inh INH Not Given Q12HR [facility] Chlorhexidine Gluconate 15 ml 04/20/18 08:00 04/20/18 20:28 Peridex 0.12% Oral Kit OROPHARYNG 15 ml BID@0800,2000 [facility] Administration Fluconazole 100 mg 04/18/18 09:00 04/20/18 09:07 Diflucan PO 04/22/18 08:59 Not Given DAILY [facility] Gabapentin 300 mg 04/18/18 09:00 04/19/18 22:13 Neurontin PO Not Given BID [facility] Ertapenem 1,000 mg/ Sodium 100 mls @ 200 mls/hr 04/19/18 11:00 04/20/18 21:53 Chloride IV.SIG Infused Q24H [facility] Infusion Heparin Sodium/Dextrose 25,000 unit in 250 mls @ 0 mls/hr 04/18/18 01:00 01/03 21:47 Heparin/D5w 25,000 U/250 Ml IV.CONT 1,000 units/hr TITRATE PRN 10 mls/hr Per Protocol Titration Protocol Per Protocol Norepinephrine Bitartrate 4 mg 250 mls @ 7.5 mls/hr 04/18/18 01:00 04/20/18 21:53 / Sodium Chloride IV.SIG 0 mcg/min TITRATE PRN 0 mls/hr Per Protocol Titration Protocol 2 MCG/MIN Propofol 1,000 mg in 100 mls @ 5.781 mls/hr 04/19/18 20:24 04/20/18 23:27 Diprivan 1000 Mg/100 Ml Inj IV.CONT 10 mcg/kg/min TITRATE PRN 11.56 mls/hr Per Protocol Administration Protocol 5 MCG/KG/MIN Bumetanide 25 mg in 100 mls @ 4 mls/hr 04/20/18 08:00 04/20/18 09:04 Bumex Inj IV.CONT 1 mg/hr .Q24H [facility] 4 mls/hr Administration 1 MG/HR Insulin Human Regular 1 units 04/18/18 06:00 04/20/18 23:09 Novolin R Supplemental Scale SQ Not Given Q6HR [facility] Protocol Lansoprazole 30 mg 04/18/18 09:00 04/20/18 09:09 Prevacid Solutab NG/OG Not Given DAILY [facility] Melatonin 5 mg 04/18/18 21:00 04/19/18 22:13 Melatonin PO Not Given HS [facility] Multivitamins/Minerals 1 tab 04/18/18 09:00 04/20/18 09:09 Theragran-M PO Not Given DAILY [facility] Senna/Docusate Sodium 1 tab 04/18/18 09:00 04/20/18 21:41 Adriane-Colace PO Not Given BID [facility] Sodium Chloride 0 ml 04/18/18 09:00 04/20/18 09:08 Ns Flush IV.FLUSH 3 ml DAILY [facility] Administration Sodium Chloride 2 ml 04/18/18 00:01 04/19/18 10:18 Ns Flush IV.FLUSH 2 ml UNSCH PRN Administration FLUSH AFTER USING IV ACCESS Sodium Chloride 2 ml 04/18/18 09:00 04/20/18 20:28 Ns Flush IV.FLUSH 2 ml BID [facility] Administration Tiotropium [place] 18 mcg 04/18/18 09:00 04/19/18 10:21 Spiriva 18 Mcg Inh INH 18 mcg DAILY [facility] Administration Tolterodine Tartrate 2 mg 04/18/18 09:00 04/19/18 10:17 Detrol La PO 2 mg DAILY [facility] Administration Ziprasidone 20 mg 04/18/18 09:00 04/20/18 17:32 Geodon PO Not Given BIDPC [facility] Objective Remarks: GENERAL: Well-nourished, well-developed patient. SKIN: Warm and dry. HEAD: Normocephalic. EYES: No scleral icterus. No injection or drainage. NECK: Supple, trachea midline. No JVD or lymphadenopathy. LYMPHATIC: No adenopathy. CARDIOVASCULAR: Regular rate and rhythm without murmurs. RESPIRATORY: Breath sounds equal bilaterally. No accessory muscle use. GASTROINTESTINAL: Abdomen soft, non-tender, nondistended. EXTREMITIES: No cyanosis, or edema. MUSCULOSKELETAL: Adequate muscle tone. NEUROLOGICAL: No obvious focal deficit. Awake, alert, and oriented x3. PSYCHIATRIC: Appropriate mood and affect; insight and judgment normal. Assessment/Plan - Plan 1. Bilateral lower extremity VTE: continue anticoagulation with heparin. Will continue to follow and once clinical condition improves and inpatient discharge approaches will discuss with patient and family outpatient anticoagulation. 2. Anemia. Suspicous for TIM.
--- NOTE | 2018-04-21 04:35 | XR ---
EXAM DATE: 04/21/2018 4:16 AM EDT AGE/SEX: 62 years / Female INDICATIONS: Difficulty breathing. CLINICAL DATA: This is the patient's subsequent encounter. Patient reports that signs and symptoms h ave been present for 1 week and indicates a pain score of Nonresponsive. MEDICAL/SURGICAL HISTORY: . Hypertension. Gastroesophageal reflux disease. Chronic kidney disea se. None. COMPARISON: C, CHEST 1V SINGLE AP, 04/20/2018. . FINDINGS: Image quality is compromised by patient's body habitus. ET tube tip 1.5 cm above the bert. Right in ternal jugular catheter tip in the mid superior vena cava. There is persistent consolidation left mid lower lung with loss of delineation of the entire left hemidiaphragm. Right lung is clear. CONCLUSION: Persistent left lower lobe consolidation. Electronically signed by: Rocky Jiang MD 04/21/2018 4:34 AM EDT
[2018-04-21] MEDS: Oral Hygiene Kit OROPHARYNG SCH ×3 (04:41→16:29)
[2018-04-21] MEDS: Propofol 1000 mg/100 ml Inj 1,000 MG/100 ML BOTTLE IV.CONT PRN ×3 (06:14→21:59)
[2018-04-21 06:17] LABS: Hemoglobin 10.2 gm/dL (11.6-15.3); Mean Corpuscular Hemoglobin 23.6 pg (27.0-34.0); Mean Corpuscular Volume 79.1 fL (80.0-100.0); Mean Platelet Volume 8.5 fL (7.0-11.0); Platelet Count 173 th/mm3 (150-450); Red Cell Distribution Width 22.3 % (11.6-17.2)
[2018-04-21] MEDS: Artificial Tears Opth Drops 15 ML Bottle EACH EYE SCH ×3 (06:20→21:59)
[2018-04-21] MEDS: Insulin NovoLIN Regular Correctional Sugar Inj SQ SCH ×3 (06:20→17:47)
[2018-04-21 06:37] LABS: Mean Corpuscular HGB Conc 29.9 % (32.0-36.0)
[2018-04-21 06:38] LABS: Alanine Aminotransferase 26 U/L (10-53); Albumin 3.3 g/dL (3.4-5.0); Anion Gap 14 meq/L (5-15); Aspartate Aminotransferase 41 U/L (15-37); Calcium 10.1 mg/dL (8.5-10.1); Carbon Dioxide 28.3 meq/L (21.0-32.0); Chloride 100 meq/L (98-107); Glomerular Filtration Rate 20 mL/min (>89); Glucose,Random 78 mg/dL (74-106); Potassium 3.3 meq/L (3.5-5.1); Sodium 142 meq/L (136-145)
[2018-04-21 06:58] LABS: Alkaline Phosphatase 70 U/L (45-117); Blood Urea Nitrogen 69 mg/dL (7-18); Total Protein 6.6 g/dL (6.4-8.2)
[2018-04-21] MEDS: Heparin Drip 25,000 UNIT/250 ML BAG IV.CONT PRN ×2 (07:45→17:56)
[2018-04-21] MEDS: Chlorhexidine 0.12% Oral Kit 15 ML UDC OROPHARYNG SCH ×2 (08:10→21:58)
[2018-04-21] MEDS: Multivitamin/Minerals Therapeutic Tablet PO SCH (08:24)
[2018-04-21] MEDS: Fluconazole 100 MG Tablet PO SCH (08:24)
[2018-04-21] MEDS: Senna/Docusate Sodium 8.6/50 MG Tablet PO SCH ×2 (08:25→21:59)
[2018-04-21] MEDS: Bumetanide Inj 25 MG/100 ML BAG IV.CONT SCH ×2 (08:25→12:23)
--- NOTE | 2018-04-21 10:51 | P.PNCC ---
Subjective Subjective Remarks/Hospital Course: Remarks/Hospital Course This is a 62-year-old AA female. Date of admission 04/10/2018. Date of consultation 04/11/2018. Past medical history includes schizophrenia, depression , seizure disorder, spinal stenosis, essential hypertension, gastroesophageal reflux disease, arthritis, chronic low back pain and urinary tract infection/ recurrent. Patient originally presented from [facility] secondary to " fluid overload" fall according to records from hospitalist. She is also noted to be in acute on chronic renal failure with a creatinine of 2.3. Sodium was 125. Patient had urinary tract infection originally received cephalexin in the ED 500 mg. She is currently on ceftriaxone 1 g every 24 hours patient does have a history of psychogenic polydipsia diagnosed 09/04. She was evaluated by nephrology received 1 dose of tolvaptan 50 mg last night at 1900 hrs. Patient was in her normal state of health sitting her chair when she is found to be unresponsive on the floor. The arms were able to obtain a blood pressure. ABG revealed an acute on chronic respiratory acidosis with pH is 7.18 PCO2 75 PO2 240 bicarbonate 27 base index of -1. All labs are currently pending. She is transferred to room 1333 placed on BiPAP 09/22 at 100%. She is currently arousable and follows commands. She is oriented to person place and year. Subjective 04/12: Afebrile. Noted to have bilateral occlusive posterior tibial DVTs on Dopplers bilateral lower extremities overnight. Patient's family states history of brain mass. Will do stat CT brain and discontinue heparin drip in the interim.. Currently on midazolam drip at 5 mg now and fentanyl drip at 50 mcg an hour. Hemodynamically stable. A.m. labs currently pending. Will need central line for access 04/13: Remains intubated sedated for vent synchrony. Currently on Levophed to maintain map above 65 currently on 6 mcg/min. Urine culture growing E. coli, MDR organism. Cefepime discontinued meropenem started, ID consulted. Creatinine stable but increased weight gain. Will increase Lasix monitor renal function closely. ABG shows respiratory alkalosis respiratory rate decreased. Lactic acid 5.5 will check again in the afternoon 04/14: Remains critical remains on 10 mcg/min of Levophed, not tolerating CPAP trials due to apnea. However excellent diuresis with IV Lasix increased dose, urine output 7.6 L in 24 hours and creatinine has improved from 2.2-1.72. Remains somnolent not following commands but shakes her head intermittently 04/15: Remains intubated off all sedation. Wakes up to command follows weekly. Tolerating CPAP but with high settings, intermittently apneic. Urine output remains excellent on IV Lasix 5.3 L in 24 hours. BUN/creatinine continues to improve 33/1.45 04/16: Remains intubated off sedation currently more awake following commands. Placed on CPAP. Creatinine remained stable. Start weaning trial for potential extubation if ABG and parameters acceptable 04/17: Extubated yesterday breathing comfortably. Oriented to person and somewhat to place. Did not cooperate with BiPAP overnight. Urine output adequate achieving negative balance. We will place patient on Symbicort Spiriva , EzPAP along with DuoNeb breathing treatments 04/18: More awake patient is asking for food. But she failed swallow eval yesterday. Pulling out her IV so I have ordered Geodon IM as needed. UO 200 ml in last 24 hours. IV maintenance fluid was started yesterday suspecting overdiuresis and diuretics were held. CMP is pending at this time 04/19: Appears more lethargic today currently on BiPAP. Somnolent but wakes up easily follows commands 4. Chest x-ray and CMP pending at this time. Check ABG only if no improvement over the day. Patient received single dose of melatonin at night and had been somnolent since that 04/20: Yesterday shortly after 7 PM while patient was being fed by her niece, patient apparently aspirated. She was found to be unresponsive, bradycardic hypoxemic. Shortly went into PEA arrest. CPR for 5 minutes intubated during code by Dr. Haq. Return of spontaneous circulation and 5 minutes. Po score according to the RN on sedation hold patient follows commands. Briefly was on Levophed which is being weaned off now. I have instructed heparin to be restarted. There is weight gain and increasing creatinine. Start Bumex infusion. 04/21: Remains intubated but on sedation lightening patient wakes up easily follows commands 4. With Bumex infusion urine output improved 2.6 L in the last 24 hours. But BUN 69 with creatinine 2.8 for now. With creatinine worsening I will reduce Bumex infusion 2.5 mg/h. Continue IV heparin. Palliative care consulted to address goals of care but it appears like family wants tracheostomy. Dr. Forrest was already consulted Objective Vital Signs / I&O: Vital Signs 04/20/18 11:57 04/20/18 12:00 04/20/18 14:00 Temperature 98.1 F Pulse Rate 71 71 Respiratory Rate 18 18 Blood Pressure 101/61 Pulse Oximetry 95 96 04/20/18 16:00 04/20/18 16:06 04/20/18 16:57 Temperature 97.6 F Pulse Rate 62 71 68 Respiratory Rate 18 18 Blood Pressure 101/55 L Pulse Oximetry 96 04/20/18 16:59 04/20/18 18:00 04/20/18 20:00 Temperature 98.6 F Pulse Rate 68 72 Respiratory Rate 18 18 Blood Pressure 110/59 L Pulse Oximetry 97 99 04/20/18 20:56 04/20/18 22:00 04/21/18 00:00 Temperature Pulse Rate 75 72 86 Respiratory Rate 18 Blood Pressure Pulse Oximetry 99 04/21/18 02:00 04/21/18 04:00 04/21/18 04:19 Temperature 98.2 F Pulse Rate 64 61 69 Respiratory Rate 18 18 Blood Pressure 110/78 Pulse Oximetry 98 96 04/21/18 06:00 04/21/18 08:00 04/21/18 09:09 Temperature 97.9 F Pulse Rate 69 77 Respiratory Rate 18 18 Blood Pressure 94/50 L Pulse Oximetry 99 04/21/18 09:18 04/21/18 10:00 Temperature Pulse Rate 66 66 Respiratory Rate 18 Blood Pressure Pulse Oximetry Intake & Output 04/20/18 04/21/18 04/21/18 18:59 06:59 18:59 Intake Total 450 / 450 1200 / 1200 350 / 350 Output Total 800 / 800 1800 / 1800 Balance -350 / -350 -600 / -600 350 / 350 Weight 194.1 kg Intake: IV 450 / 450 1200 / 1200 350 / 350 Bumex Inj 25 mg In 100 ml @ 1 100 / 100 MG/HR 4 mls/hr IV.CONT .Q24H [facility] Rx#:[id number] Heparin/D5W 25,000 U/250 mL 25, 250 / 250 250 / 250 000 unit In 250 ml @ Per Protocol IV.CONT TITRATE PRN Rx #:[id number] Diprivan 1000 mg/100 ml Inj 1, 100 / 100 100 / 100 000 mg In 100 ml @ 5 MCG/KG/MIN 5.781 mls/hr IV.CONT TITRATE PRN Rx#:[id number] INVanz Inj 1,000 MG In NS Inj 100 / 100 100 / 100 100 ML @ 200 mls/hr IV.SIG Q24H [facility] Rx#:[id number] Oral 0 / 0 0 / 0 Tube Feeding 0 / 0 0 / 0 Output: Urine 800 / 800 1800 / 1800 Other: Date of Last Bowel Movement 04/19/18 04/19/18 04/19/18 # Bowel Movements 0 1 Result Diagrams: 04/21/18 05:46 04/21/18 05:46 Objective Remarks: GENERAL: 62-year-old AA female currently on intubated, sedated with propofol 10 mcg/kg/min SKIN: Warm and dry. HEAD: Atraumatic. Normocephalic. EYES: Pupils equal and round. No scleral icterus. No injection or drainage. ENT: Orotracheally intubated NECK: Trachea midline. Unable to define JVD secondary to elevated BMI CARDIOVASCULAR: Distant heart sounds. Regular rate and rhythm. S1, S2 no S4. Murmur not appreciated. RESPIRATORY: Diminished breath sound due to body habitus. No wheezing, crackles appreciated. Few coarse rhonchi. On PRVC/AC GASTROINTESTINAL: Abdomen soft, non-tender, obese. Hypoactive bowel sounds appreciated MUSCULOSKELETAL: Extremities with woody bilateral upper and lower extremity edema. NEUROLOGICAL: Patient is intubated, sedated with propofol. On sedation hold wakes up easily, follows commands Assessment and Plan - Assessment and Plan Plan: A/P Assessment and Plan Neuro/Psych: Acute encephalopathy Schizophrenia/Depression Seizure disorder as child? Parkinson's disease? Chronic opioid use History of brain mass? Per family. Brain CT negative Propofol for sedation and vent synchrony. Daily sedation location Neuro intact after brief PEA arrest CT brain previously negative for acute findings Continue ziprasidone 20 mg twice daily. Geodon IM 5 mg as needed ordered. Currently on hydrocodone/acetaminophen 5/325 and morphine sulfate 2 mg every 2 hours as needed pain. (On hydrocodone/acetaminophen 7.5/325 one tablet every 4 hours as needed at home for pain) Holding lorazepam 0.5 mg every 12 hours as needed, holding melatonin 6 mg at night for insomnia, holding Neurontin also CV: PEA Arrest secondary to aspiration and hypoxia Shock-resolved Fluid overload/pulmonary edema Congestive heart failure Essential hypertension Bradycardia Brief PEA arrest 04/19/18 around 7:10 PM return of spontaneous circulation in 5 minutes, received epinephrine 2 PEA arrest most likely secondary to aspiration and resultant hypoxia Bumex infusion at 1 mg/h with good urine output but worsening creatinine, reduce Bumex to 0.5 mg/h Continue IV albumin Holding atenolol 50 mg at night due to bradycardia, hypotension 2D echocardiogram 09/04 revealed EF 50-55%. Very poor windows. Repeat echocardiogram Unable to perform due to body habitus Resp: Acute hypoxic and hypercarbic respiratory failure Bilateral DVT Pulmonary edema Extubated 04/16/2018. Reintubated 04/19/18 evening after aspiration and hypoxemic respiratory failure Consulted general surgery for tracheostomy placement-discussed with Dr. Forrest Albuterol/ipratropium aerosols every 6 hours with albuterol aerosols every 2 hours as needed dyspnea Chest x-ray with very poor windows due to body habitus. CT thorax showed minimal consolidative changes left chest GI: Gastroesophageal reflux disease History of peptic ulcer disease Tube feeds with Nepro Lansoprazole for GI prophylaxis Docusate sodium/senna 1 tablet twice daily for bowel regimen On omeprazole 20 mg at night at home. Endo: Sliding scale insulin Accu-Cheks to maintain euglycemia with Accu-Cheks every 6 hours/low regimen NovoLog TSH and cortisol normal range Renal: Acute kidney injury in the setting of chronic kidney disease stage IIIa Followed by nephrology. Bumex infusion as above Renal ultrasound showed no acute findings Heme: Microcytic anemia Bilateral posterior tibialis occlusive thrombus Continue IV heparin drip, CT head negative Family request no Coumadin but ok with NOAC Monitor CBC daily. Follow trends iron studies -consistent with iron deficiency anemia Hematology following ID: Urinary tract infection (E Coli, MDR, Janie) -Continue Ertapenem, Diflucan for MDR organism per ID. Access -IJ central line pulled out by patient 04/17/18, new RIJ central line 04/19/18 Prophylax -GI -pantoprazole -DVT -SCDs/heparin IV Critical Care: CCT 35 Developed PEA arrest 04/19/18 following aspiration while being fed by family member (niece). PE arrest for 5 minutes, neuro intact. Remains critical. Plan for trach soon. Dr. Forrest consulted Code Status: Full
--- NOTE | 2018-04-21 14:41 | P.PN ---
Subjective Interval history: Patient remain intubated and sedated, clinically same. Physical Exam Vital signs: Vital Signs 04/20/18 16:00 04/20/18 16:06 04/20/18 16:57 Temperature 97.6 F Pulse Rate 62 71 68 Respiratory Rate 18 18 Blood Pressure 101/55 L Pulse Oximetry 96 04/20/18 16:59 04/20/18 18:00 04/20/18 20:00 Temperature 98.6 F Pulse Rate 68 72 Respiratory Rate 18 18 Blood Pressure 110/59 L Pulse Oximetry 97 99 04/20/18 20:56 04/20/18 22:00 04/21/18 00:00 Temperature Pulse Rate 75 72 86 Respiratory Rate 18 Blood Pressure Pulse Oximetry 99 04/21/18 02:00 04/21/18 04:00 04/21/18 04:19 Temperature 98.2 F Pulse Rate 64 61 69 Respiratory Rate 18 18 Blood Pressure 110/78 Pulse Oximetry 98 96 04/21/18 06:00 04/21/18 08:00 04/21/18 09:09 Temperature 97.9 F Pulse Rate 69 77 Respiratory Rate 18 18 Blood Pressure 94/50 L Pulse Oximetry 99 04/21/18 09:18 04/21/18 10:00 04/21/18 12:00 Temperature 97.7 F Pulse Rate 66 66 65 Respiratory Rate 18 18 Blood Pressure 101/56 L Pulse Oximetry 99 Intake & Output 04/20/18 04/21/18 04/21/18 18:59 06:59 18:59 Intake Total 450 / 450 1200 / 1200 350 / 350 Output Total 800 / 800 1800 / 1800 Balance -350 / -350 -600 / -600 350 / 350 Weight 194.1 kg Intake: IV 450 / 450 1200 / 1200 350 / 350 Bumex Inj 25 mg In 100 ml @ 1 100 / 100 MG/HR 4 mls/hr IV.CONT .Q24H [facility] Rx#:[id number] Heparin/D5W 25,000 U/250 mL 25, 250 / 250 250 / 250 000 unit In 250 ml @ Per Protocol IV.CONT TITRATE PRN Rx #:[id number] Diprivan 1000 mg/100 ml Inj 1, 100 / 100 100 / 100 000 mg In 100 ml @ 5 MCG/KG/MIN 5.781 mls/hr IV.CONT TITRATE PRN Rx#:[id number] INVanz Inj 1,000 MG In NS Inj 100 / 100 100 / 100 100 ML @ 200 mls/hr IV.SIG Q24H [facility] Rx#:[id number] Oral 0 / 0 0 / 0 Tube Feeding 0 / 0 0 / 0 Output: Urine 800 / 800 1800 / 1800 Other: Date of Last Bowel Movement 04/19/18 04/19/18 04/19/18 # Bowel Movements 0 1 - Constitutional Comments: Intubated and sedated. - Routine HEENT Exam Head: Present: normocephalic - Routine Neck Exam Present: supple - Routine Cardiovascular Exam Present: S1, S2, tachycardia - Routine Abdominal Exam Present: soft, distended - Routine Extremities Exam Present: edema - Routine Neurological Exam Sedated. - Urinary Catheter Management Indwelling Temp Sensing Catheter Cath placed during this visit: yes Urethral indwelling: Yes Reason for continuing: Hourly intake/output Insertion date: 04/17/18 Insertion time: 18:10 Results - Labs CBC & Chem 7: 04/21/18 05:46 04/21/18 05:46 Laboratory Results - last 24 hr 04/20/18 04/20/18 04/20/18 15:05 15:05 17:00 WBC RBC Hgb Hct MCV MCH MCHC RDW Plt Count MPV APTT 92.1 H* D 74.2 H Sodium 143 Potassium 3.7 Chloride 101 Carbon Dioxide 29.0 Anion Gap 13 BUN 64 H Creatinine 2.72 H Estimated GFR 21 L POC Glucose Random Glucose 83 Calcium 9.5 Total Bilirubin 2.6 H AST 49 H ALT 30 Alkaline Phosphatase 63 Total Protein 6.4 Albumin 3.5 04/20/18 04/20/18 04/21/18 17:26 23:00 05:46 WBC 6.0 RBC 4.30 Hgb 10.2 L Hct 34.0 L MCV 79.1 L MCH 23.6 L MCHC 29.9 L RDW 22.3 H Plt Count 173 MPV 8.5 APTT 61.4 H Sodium Potassium Chloride Carbon Dioxide Anion Gap BUN Creatinine Estimated GFR POC Glucose 95 Random Glucose Calcium Total Bilirubin AST ALT Alkaline Phosphatase Total Protein Albumin 04/21/18 04/21/18 04/21/18 05:46 05:46 06:16 WBC RBC Hgb Hct MCV MCH MCHC RDW Plt Count MPV APTT 48.5 H D Sodium 142 Potassium 3.3 L Chloride 100 Carbon Dioxide 28.3 Anion Gap 14 BUN 69 H Creatinine 2.84 H Estimated GFR 20 L POC Glucose 99 Random Glucose 78 Calcium 10.1 Total Bilirubin 3.0 H AST 41 H ALT 26 Alkaline Phosphatase 70 Total Protein 6.6 Albumin 3.3 L 04/21/18 04/21/18 10:00 12:33 WBC RBC Hgb Hct MCV MCH MCHC RDW Plt Count MPV APTT 40.9 H Sodium Potassium Chloride Carbon Dioxide Anion Gap BUN Creatinine Estimated GFR POC Glucose 84 Random Glucose Calcium Total Bilirubin AST ALT Alkaline Phosphatase Total Protein Albumin - Imaging Impressions Chest X-Ray 04/21/18 06:00 CONCLUSION: Persistent left lower lobe consolidation. Assessment and Plan - Assessment (1) Acute kidney injury Code(s): N17.9 - Acute kidney failure, unspecified Status: Acute - Plan (1) Acute kidney injury Code(s): N17.9 - Acute kidney failure, unspecified Status: Acute - Attending Attestation (1) GABRIELLA (acute kidney injury) ICD Codes: N17.9 - Acute kidney failure, unspecified Plan: Her previous creatinine was 1.2 in August of last year. GABRIELLA, creatinine now stable at 2.7-2.8. Possible GABRIELLA due to recent antibiotics outpatient? UTI now. Possible cardio-renal component with volume overload. Avoid nephrotoxins Will monitor BMP and urinary output. Started on Bumex gtt. Follow the urine out put and BMP. (2) Hyponatremia ICD Codes: E87.1 - Hypo-osmolality and hyponatremia Plan: The Sodium is normalized. 3) Fluid overload: Continue Bumex. 4) Respiratory failure. Intubated, CCM following.
--- NOTE | 2018-04-21 14:52 | P.PNID ---
Subjective Remarks: Most of the history was by review of medical records. Daughter in room confirmed some facts. She [place] out [place] in [place] but has been visiting with Mom for last 2 weeks. 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 At that time she was able to stand up transiently and sit in chair. She was having difficulty transferring herself. She reports her mom was other becker mentally sharp. With this background Ms. Mcnamara is a 62 y/o AAF with PMHx of Morbid Obesity, history of schizophrenia, CKD, GERD and hypertension. The patient had a previous admission a [facility] in August 2018 where she had significant hyponatremia at that time, per the notes, the patient was drinking 2-3 gallons of water per day and was diagnosed with psychogenic polydipsia. Her serum sodium was as low as 115. At that time, she was medically treated and then transferred over to psychiatry for further management of her schizophrenia. The patient has been living in [facility] and apparently has continued a history of water intake. Per daughter her Mom water intake has gone down some. The patient was admitted to [facility] with confusion apparently after a fall after some shortness of breath. Patient was found to have a sodium of 125. A chest x-ray was evaluated for any findings of pleural effusion and moderate cardiomegaly with no significant pulmonary edema. The patient also was found to have findings of a UTI on the urinalysis and she was started on ceftriaxone for treatment of her UTI. At the time of my evaluation patient is in the [facility] currently on pressors Levophed at 6 mics, elevated lactic acid at 5, no fevers, no rash, no diarrhea. Patient was not responsive at the time of my evaluation except when her daughter called out her name she blinked her eyes without opening them. Did not move any limbs for me. ID consulted for sepsis, MDR UTI, Pneumonia ? aspiration. reconsulted by to address antibiotics and Left lower lobe consolidation. Overnight events reviewed No fevers No rash No diarrhea Antibiotics: Ertapenem IV Diflucan Lines: Line ok Past Medical History: Schizophrenia, CKD, GERD HTN Hip Replacement, Ankle Surgery Allergies/Adverse Reactions: Allergies shrimp Allergy (Severe, Verified 08/18/17 18:34) RASH Sulfa (Sulfonamide Antibiotics) Allergy (Intermediate, Verified 08/18/17 18:34) RASH Objective Vital Signs 04/20/18 16:00 04/20/18 16:06 04/20/18 16:57 Temperature 97.6 F Pulse Rate 62 71 68 Respiratory Rate 18 18 Blood Pressure 101/55 L Pulse Oximetry 96 04/20/18 16:59 04/20/18 18:00 04/20/18 20:00 Temperature 98.6 F Pulse Rate 68 72 Respiratory Rate 18 18 Blood Pressure 110/59 L Pulse Oximetry 97 99 04/20/18 20:56 04/20/18 22:00 04/21/18 00:00 Temperature Pulse Rate 75 72 86 Respiratory Rate 18 Blood Pressure Pulse Oximetry 99 04/21/18 02:00 04/21/18 04:00 04/21/18 04:19 Temperature 98.2 F Pulse Rate 64 61 69 Respiratory Rate 18 18 Blood Pressure 110/78 Pulse Oximetry 98 96 04/21/18 06:00 04/21/18 08:00 04/21/18 09:09 Temperature 97.9 F Pulse Rate 69 77 Respiratory Rate 18 18 Blood Pressure 94/50 L Pulse Oximetry 99 04/21/18 09:18 04/21/18 10:00 04/21/18 12:00 Temperature 97.7 F Pulse Rate 66 66 65 Respiratory Rate 18 18 Blood Pressure 101/56 L Pulse Oximetry 99 04/21/18 14:00 Temperature Pulse Rate 65 Respiratory Rate Blood Pressure Pulse Oximetry Intake & Output 04/20/18 04/21/18 04/21/18 18:59 06:59 18:59 Intake Total 450 / 450 1200 / 1200 450 / 450 Output Total 800 / 800 1800 / 1800 Balance -350 / -350 -600 / -600 450 / 450 Weight 194.1 kg Intake: IV 450 / 450 1200 / 1200 450 / 450 Bumex Inj 25 mg In 100 ml @ 1 100 / 100 MG/HR 4 mls/hr IV.CONT .Q24H [facility] Rx#:[id number] Heparin/D5W 25,000 U/250 mL 25, 250 / 250 250 / 250 000 unit In 250 ml @ Per Protocol IV.CONT TITRATE PRN Rx #:[id number] Diprivan 1000 mg/100 ml Inj 1, 100 / 100 100 / 100 100 / 100 000 mg In 100 ml @ 5 MCG/KG/MIN 5.781 mls/hr IV.CONT TITRATE PRN Rx#:[id number] INVanz Inj 1,000 MG In NS Inj 100 / 100 100 / 100 100 ML @ 200 mls/hr IV.SIG Q24H [facility] Rx#:[id number] Oral 0 / 0 0 / 0 Tube Feeding 0 / 0 0 / 0 Output: Urine 800 / 800 1800 / 1800 Other: Date of Last Bowel Movement 04/19/18 04/19/18 04/19/18 # Bowel Movements 0 1 04/21/18 14:00 Sputum - Endotracheal Gram Stain - Pending 04/21/18 14:00 Sputum - Endotracheal Sputum Culture - Pending Lab - Hematology Results 04/20/18 04/21/18 03:35 05:46 WBC 7.6 6.0 RBC 3.88 L 4.30 Hgb 9.4 L 10.2 L Hct 31.8 L 34.0 L MCV 81.9 79.1 L MCH 24.3 L 23.6 L MCHC 29.6 L 29.9 L RDW 21.9 H 22.3 H Plt Count 155 173 MPV 8.1 8.5 Lab - Chemistry Results 04/19/18 04/20/18 04/20/18 18:10 00:29 03:35 Sodium 142 Potassium 3.8 Chloride 101 Carbon Dioxide 29.1 Anion Gap 12 BUN 60 H Creatinine 2.47 H Estimated GFR 24 L POC Glucose 109 143 H Random Glucose 97 Calcium 9.3 Total Bilirubin 2.7 H AST 56 H ALT 30 Alkaline Phosphatase 64 Total Protein 6.5 D Albumin 3.5 04/20/18 04/20/18 04/20/18 11:31 15:05 17:26 Sodium 143 Potassium 3.7 Chloride 101 Carbon Dioxide 29.0 Anion Gap 13 BUN 64 H Creatinine 2.72 H Estimated GFR 21 L POC Glucose 238 H 95 Random Glucose 83 Calcium 9.5 Total Bilirubin 2.6 H AST 49 H ALT 30 Alkaline Phosphatase 63 Total Protein 6.4 Albumin 3.5 04/21/18 04/21/18 04/21/18 05:46 06:16 12:33 Sodium 142 Potassium 3.3 L Chloride 100 Carbon Dioxide 28.3 Anion Gap 14 BUN 69 H Creatinine 2.84 H Estimated GFR 20 L POC Glucose 99 84 Random Glucose 78 Calcium 10.1 Total Bilirubin 3.0 H AST 41 H ALT 26 Alkaline Phosphatase 70 Total Protein 6.6 Albumin 3.3 L Imaging: ITS Impressions Chest X-Ray 04/21/18 06:00 CONCLUSION: Persistent left lower lobe consolidation. Physical Exam: GENERAL: Morbidly obese patient, in no apparent distress. SKIN: No rashes, ecchymoses or lesions. Cool and dry. HEAD: Atraumatic. Normocephalic. No temporal or scalp tenderness. EYES: No scleral icterus. No injection or drainage. ENT: NAD, large neck. NECK: Trachea midline. No Supple, nontender, no meningeal signs. CARDIOVASCULAR: HS audible but distant. RESPIRATORY: Clear to auscultation. Breath sounds equal bilaterally. No wheezes , rales, or rhonchi. GASTROINTESTINAL: Abdomen soft, obese abdomen. All skin folds examined with no e /o infection Back examined with no e.o infection. Axillary folds no eo infection. MUSCULOSKELETAL: Extremities without clubbing, cyanosis. Bilateral LE swollen, left LE with erythema. NEUROLOGICAL: Follows commands, talking. Psych cooperative, calm. Assessment and Plan - Plan Sepsis (UTI, elevated lactic acid) Aspiration Pneumonia in health care setting. MDR UTI Gram negative Acute metabolic encephalopathy: infection, metabolic hyponatremia Acute resp failure on Vent Acute renal failure: prerenal, sepsis. Bilateral LE DVT Left leg cellulitis Psychogenic polydipsia Schizophrenia. Recs DC Ertapenem IV could be causing altered mental status as a side effect. Continue Diflucan per stop date in chart. Clinically treated long enough for UTI and aspiration. WBC normal, no fevers. CXR could be fluid related changes. Will observe off antibiotics. Follow clinically. mikala RN: patient and family concerns about positioning. Will sign off please call back if any change in clinical condition or questions.
[2018-04-22] MEDS: Insulin NovoLIN Regular Correctional Sugar Inj SQ SCH ×4 (01:54→18:22)
[2018-04-22] MEDS: Oral Hygiene Kit OROPHARYNG SCH ×3 (01:54→16:00)
[2018-04-22] MEDS: Propofol 1000 mg/100 ml Inj 1,000 MG/100 ML BOTTLE IV.CONT PRN ×3 (05:05→22:11)
[2018-04-22] MEDS: Artificial Tears Opth Drops 15 ML Bottle EACH EYE SCH ×3 (06:20→21:18)
[2018-04-22] MEDS: Chlorhexidine 0.12% Oral Kit 15 ML UDC OROPHARYNG SCH ×2 (10:08→21:17)
[2018-04-22] MEDS: Senna/Docusate Sodium 8.6/50 MG Tablet PO SCH ×2 (10:09→21:18)
[2018-04-22] MEDS: Multivitamin/Minerals Therapeutic Tablet PO SCH (10:10)
[2018-04-22 12:35] LABS: Calcium 10.2 mg/dL (8.5-10.1)
--- NOTE | 2018-04-22 12:38 | P.PNCC ---
Subjective Subjective Remarks/Hospital Course: This is a 62-year-old AA female. Date of admission 04/10/2018. Date of consultation 04/11/2018. Past medical history includes schizophrenia, depression , seizure disorder, spinal stenosis, essential hypertension, gastroesophageal reflux disease, arthritis, chronic low back pain and urinary tract infection/ recurrent. Patient originally presented from [facility] secondary to " fluid overload" fall according to records from hospitalist. She is also noted to be in acute on chronic renal failure with a creatinine of 2.3. Sodium was 125. Patient had urinary tract infection originally received cephalexin in the ED 500 mg. She is currently on ceftriaxone 1 g every 24 hours patient does have a history of psychogenic polydipsia diagnosed 09/04. She was evaluated by nephrology received 1 dose of tolvaptan 50 mg last night at 1900 hrs. Patient was in her normal state of health sitting her chair when she is found to be unresponsive on the floor. The arms were able to obtain a blood pressure. ABG revealed an acute on chronic respiratory acidosis with pH is 7.18 PCO2 75 PO2 240 bicarbonate 27 base index of -1. All labs are currently pending. She is transferred to room 1333 placed on BiPAP 09/22 at 100%. She is currently arousable and follows commands. She is oriented to person place and year. 04/12: Afebrile. Noted to have bilateral occlusive posterior tibial DVTs on Dopplers bilateral lower extremities overnight. Patient's family states history of brain mass. Will do stat CT brain and discontinue heparin drip in the interim.. Currently on midazolam drip at 5 mg now and fentanyl drip at 50 mcg an hour. Hemodynamically stable. A.m. labs currently pending. Will need central line for access 04/13: Remains intubated sedated for vent synchrony. Currently on Levophed to maintain map above 65 currently on 6 mcg/min. Urine culture growing E. coli, MDR organism. Cefepime discontinued meropenem started, ID consulted. Creatinine stable but increased weight gain. Will increase Lasix monitor renal function closely. ABG shows respiratory alkalosis respiratory rate decreased. Lactic acid 5.5 will check again in the afternoon 04/14: Remains critical remains on 10 mcg/min of Levophed, not tolerating CPAP trials due to apnea. However excellent diuresis with IV Lasix increased dose, urine output 7.6 L in 24 hours and creatinine has improved from 2.2-1.72. Remains somnolent not following commands but shakes her head intermittently 04/15: Remains intubated off all sedation. Wakes up to command follows weekly. Tolerating CPAP but with high settings, intermittently apneic. Urine output remains excellent on IV Lasix 5.3 L in 24 hours. BUN/creatinine continues to improve 33/1.45 04/16: Remains intubated off sedation currently more awake following commands. Placed on CPAP. Creatinine remained stable. Start weaning trial for potential extubation if ABG and parameters acceptable 04/17: Extubated yesterday breathing comfortably. Oriented to person and somewhat to place. Did not cooperate with BiPAP overnight. Urine output adequate achieving negative balance. We will place patient on Symbicort Spiriva , EzPAP along with DuoNeb breathing treatments 04/18: More awake patient is asking for food. But she failed swallow eval yesterday. Pulling out her IV so I have ordered Geodon IM as needed. UO 200 ml in last 24 hours. IV maintenance fluid was started yesterday suspecting overdiuresis and diuretics were held. CMP is pending at this time 04/19: Appears more lethargic today currently on BiPAP. Somnolent but wakes up easily follows commands 4. Chest x-ray and CMP pending at this time. Check ABG only if no improvement over the day. Patient received single dose of melatonin at night and had been somnolent since that 04/20: Yesterday shortly after 7 PM while patient was being fed by her niece, patient apparently aspirated. She was found to be unresponsive, bradycardic hypoxemic. Shortly went into PEA arrest. CPR for 5 minutes intubated during code by Dr. Haq. Return of spontaneous circulation and 5 minutes. Po score according to the RN on sedation hold patient follows commands. Briefly was on Levophed which is being weaned off now. I have instructed heparin to be restarted. There is weight gain and increasing creatinine. Start Bumex infusion. 04/21: Remains intubated but on sedation lightening patient wakes up easily follows commands 4. With Bumex infusion urine output improved 2.6 L in the last 24 hours. But BUN 69 with creatinine 2.8 for now. With creatinine worsening I will reduce Bumex infusion 2.5 mg/h. Continue IV heparin. Palliative care consulted to address goals of care but it appears like family wants tracheostomy. Dr. Forrest was already consulted SUBJECTIVE: 04/22: Afebrile. Heparin drip currently at one thousand units an hour. Tube feeds are resumed. Bumetanide drip at 0.5 mg an hour. Stable on propofol drip at 10 mcg/kg/min Objective Vital Signs / I&O: Vital Signs 04/21/18 14:00 04/21/18 16:00 04/21/18 16:17 Temperature 97.6 F Pulse Rate 65 65 65 Respiratory Rate 18 18 Blood Pressure 109/71 Pulse Oximetry 97 98 04/21/18 18:00 04/21/18 20:00 04/21/18 20:30 Temperature Pulse Rate 82 69 Respiratory Rate 18 Blood Pressure 102/63 Pulse Oximetry 96 97 04/21/18 20:37 04/21/18 22:00 04/22/18 00:00 Temperature 98.2 F Pulse Rate 65 65 66 Respiratory Rate 18 18 Blood Pressure 104/56 L Pulse Oximetry 96 04/22/18 00:11 04/22/18 02:00 04/22/18 03:37 Temperature Pulse Rate 65 66 Respiratory Rate 19 18 Blood Pressure Pulse Oximetry 98 94 L 04/22/18 04:00 04/22/18 06:00 04/22/18 08:00 Temperature 98.0 F 97.8 F Pulse Rate 66 65 67 Respiratory Rate 18 18 Blood Pressure 106/80 137/60 Pulse Oximetry 96 97 04/22/18 09:12 04/22/18 09:17 04/22/18 09:19 Temperature Pulse Rate 66 Respiratory Rate 18 18 18 Blood Pressure Pulse Oximetry 97 98 04/22/18 10:00 04/22/18 12:00 04/22/18 12:10 Temperature 97.9 F Pulse Rate 66 67 Respiratory Rate 20 Blood Pressure 138/100 H 131/67 Pulse Oximetry Intake & Output 04/21/18 04/22/18 04/22/18 18:59 06:59 18:59 Intake Total 700 / 700 200 / 200 100 / 100 Output Total 3000 / 3000 1800 / 1800 Balance -2300 / -2300 -1600 / -1600 100 / 100 Weight 188.7 kg Intake: IV 700 / 700 200 / 200 Bumex Inj 25 mg In 100 ml @ 1 100 / 100 MG/HR 4 mls/hr IV.CONT .Q24H [facility] Rx#:[id number] Heparin/D5W 25,000 U/250 mL 25, 500 / 500 000 unit In 250 ml @ Per Protocol IV.CONT TITRATE PRN Rx #:[id number] Diprivan 1000 mg/100 ml Inj 1, 100 / 100 200 / 200 000 mg In 100 ml @ 5 MCG/KG/MIN 5.781 mls/hr IV.CONT TITRATE PRN Rx#:[id number] Oral 0 / 0 0 / 0 Tube Feeding 0 / 0 0 / 0 Water Bolus Amount 100 / 100 Output: Urine 1800 / 1800 Urine Amount (Catheter) 3000 / 3000 Indwelling Temp Sensing 3000 / 3000 Catheter Other: Date of Last Bowel Movement 04/19/18 04/19/18 04/21/18 # Bowel Movements 1 1 Result Diagrams: 04/21/18 05:46 04/22/18 12:01 Other Results: Microbiology 04/21/18 14:00 Sputum - Endotracheal Gram Stain - Final Imaging: ITS Impressions Chest X-Ray 04/18/18 06:00 CONCLUSION: Interval removal of endotracheal tube and nasogastric tube with slight increase in basilar airspace disease. Chest X-Ray 04/19/18 07:42 CONCLUSION: 1. Bibasilar airspace disease greater left lower lobe. 2. Probable left pleural effusion. 3. Cardiomegaly. Chest X-Ray 04/19/18 19:56 CONCLUSION: No pneumothorax. Line probably in the right atrium. Chest X-Ray 04/20/18 06:00 CONCLUSION: Persistent left lower lobe consolidation. Chest X-Ray 04/21/18 06:00 CONCLUSION: Persistent left lower lobe consolidation. Objective Remarks: GENERAL: 62-year-old AA female currently orotracheally intubated SKIN: Warm and dry. HEAD: Atraumatic. Normocephalic. EYES: Pupils equal and round. No scleral icterus. No injection or drainage. ENT: Orotracheally intubated NECK: Trachea midline. Unable to define JVD secondary to elevated BMI. Right IJ CVL clean dry and intact CARDIOVASCULAR: Distant heart sounds. Regular rate and rhythm. S1, S2 no S4. Murmur not appreciated. RESPIRATORY: Diminished breath sound due to body habitus. No wheezing, crackles appreciated. Few coarse rhonchi. GASTROINTESTINAL: Abdomen soft, non-tender, obese. Hypoactive bowel sounds appreciated MUSCULOSKELETAL: Extremities with woody bilateral upper and lower extremity edema. NEUROLOGICAL: Patient is intubated, sedated with propofol. On sedation hold wakes up easily, follows commands bilateral upper lower extremities Assessment and Plan - Assessment and Plan Plan: A/P Assessment and Plan Neuro/Psych: Acute encephalopathy Schizophrenia/Depression Seizure disorder as child? Parkinson's disease? Chronic opioid use History of brain mass? Per family. Brain CT negative. Unable to do MRI at this facility due to body habitus Propofol currently at 10 mcg/kg/min for sedation and vent synchrony. GOAL RASS -2 Daily sedation vacation Neuro intact after brief PEA arrest CT brain previously negative for acute findings Continue ziprasidone 20 mg twice daily. Holding lorazepam 0.5 mg every 12 hours as needed, holding melatonin 6 mg at night for insomnia, holding Neurontin also CV: PEA Arrest secondary to aspiration and hypoxia Shock-resolved Fluid overload/pulmonary edema Congestive heart failure Essential hypertension Bradycardia Brief PEA arrest 04/19/18 around 7:10 PM return of spontaneous circulation in 5 minutes, received epinephrine 2 PEA arrest most likely secondary to aspiration and resultant hypoxia Bumetanide infusion at 0.5 mg/h with good urine output but worsening creatinine with a.m. laboratories still pending Continue IV albumin Holding atenolol 50 mg at night due to bradycardia, hypotension Weaned off norepinephrine to maintain mean arterial pressure greater than equal to 65 2D echocardiogram 09/04 revealed EF 50-55%. Very poor windows. Repeat echocardiogram Unable to perform due to body habitus Resp: Acute hypoxic and hypercarbic respiratory failure Bilateral DVT Pulmonary edema Extubated 04/16/2018. Reintubated 04/19/18 evening after aspiration and hypoxemic respiratory failure [facility] ventilation Consulted general surgery for tracheostomy placement-discussed with Dr. Forrest Albuterol/ipratropium aerosols every 4 hours with albuterol aerosols every 2 hours as needed dyspnea Chest x-ray with very poor windows due to body habitus. CT thorax showed minimal consolidative changes left chest GI: Gastroesophageal reflux disease History of peptic ulcer disease Tube feeds with Nepro to resume goal 50 cc an hour. Lansoprazole for GI prophylaxis Docusate sodium/senna 1 tablet twice daily for bowel regimen On omeprazole 20 mg at night at home. Endo: Sliding scale insulin Accu-Cheks to maintain euglycemia with Accu-Cheks every 6 hours/low regimen NovoLog TSH and cortisol normal range Renal: Acute kidney injury in the setting of chronic kidney disease stage IIIa Followed by nephrology. Bumetanide infusion as above Renal ultrasound showed no acute findings Heme: Microcytic anemia Bilateral posterior tibialis occlusive thrombus Continue IV heparin drip, CT head negative Family request no Coumadin but ok with NOAC Monitor CBC daily. Follow trends iron studies -consistent with iron deficiency anemia Hematology following ID: Urinary tract infection (E Coli, MDR, Janie) ID discontinued ertapenem/continue, Diflucan for MDR organism per ID. MSK: Elevated BMI Weight loss encouraged Access -IJ central line pulled out by patient 04/17/18, new RIJ central line 04/19/18 Prophylax -GI -lansoprazole -DVT -SCDs/heparin IV
--- NOTE | 2018-04-22 15:32 | P.PNNP ---
Subjective Interval history: Intubated on slight sedation. Creatinine is stable at 2.81 on Bumex gtt. <MariannasherwinJessica eliasne - Last Filed: 04/22/18 15:28> Physical Exam Vital signs: Vital Signs 04/21/18 16:00 04/21/18 16:17 04/21/18 18:00 Temperature 97.6 F Pulse Rate 65 65 82 Respiratory Rate 18 18 Blood Pressure 109/71 Pulse Oximetry 97 98 04/21/18 20:00 04/21/18 20:30 04/21/18 20:37 Temperature Pulse Rate 69 65 Respiratory Rate 18 18 Blood Pressure 102/63 Pulse Oximetry 96 97 04/21/18 22:00 04/22/18 00:00 04/22/18 00:11 Temperature 98.2 F Pulse Rate 65 66 Respiratory Rate 18 19 Blood Pressure 104/56 L Pulse Oximetry 96 98 04/22/18 02:00 04/22/18 03:37 04/22/18 04:00 Temperature 98.0 F Pulse Rate 65 66 66 Respiratory Rate 18 18 Blood Pressure 106/80 Pulse Oximetry 94 L 96 04/22/18 06:00 04/22/18 08:00 04/22/18 09:12 Temperature 97.8 F Pulse Rate 65 67 Respiratory Rate 18 18 Blood Pressure 137/60 Pulse Oximetry 97 97 04/22/18 09:17 04/22/18 09:19 04/22/18 10:00 Temperature Pulse Rate 66 66 Respiratory Rate 18 18 Blood Pressure Pulse Oximetry 98 04/22/18 12:00 04/22/18 12:10 Temperature 97.9 F Pulse Rate 67 Respiratory Rate 20 Blood Pressure 138/100 H 131/67 Pulse Oximetry Intake & Output 04/21/18 04/22/18 04/22/18 18:59 06:59 18:59 Intake Total 700 / 700 200 / 200 200 / 200 Output Total 3000 / 3000 1800 / 1800 Balance -2300 / -2300 -1600 / -1600 200 / 200 Weight 188.7 kg Intake: IV 700 / 700 200 / 200 Bumex Inj 25 mg In 100 ml @ 1 100 / 100 MG/HR 4 mls/hr IV.CONT .Q24H [facility] Rx#:[id number] Heparin/D5W 25,000 U/250 mL 25, 500 / 500 000 unit In 250 ml @ Per Protocol IV.CONT TITRATE PRN Rx #:[id number] Diprivan 1000 mg/100 ml Inj 1, 100 / 100 200 / 200 000 mg In 100 ml @ 5 MCG/KG/MIN 5.781 mls/hr IV.CONT TITRATE PRN Rx#:[id number] Oral 0 / 0 0 / 0 Tube Feeding 0 / 0 0 / 0 Water Bolus Amount 100 / 100 Other 100 / 100 Output: Urine 1800 / 1800 Urine Amount (Catheter) 3000 / 3000 Indwelling Temp Sensing 3000 / 3000 Catheter Other: Date of Last Bowel Movement 04/19/18 04/19/18 04/21/18 # Bowel Movements 1 1 - Constitutional no acute distress, morbidly obese - Routine HEENT Exam Head: Present: normocephalic ENT: Present: mucous membranes moist - Routine Neck Exam Absent: JVD - Routine Respiratory Exam Present: patient mechanically ventilated, rhonchi. Absent: wheezes, crackles - Routine Cardiovascular Exam Present: RRR - Routine Abdominal Exam Present: soft, normoactive bowel sounds Comments: large - Routine Extremities Exam Present: edema - Routine Skin Exam Present: warm - Detailed Neurological Exam: Coma Scale Eye Opening: Spontaneous - Urinary Catheter Management Indwelling Temp Sensing Catheter Cath placed during this visit: yes Urethral indwelling: Yes Reason for continuing: Hourly intake/output Insertion date: 04/17/18 Insertion time: 18:10 <Debo Dickerson - Last Filed: 04/22/18 15:28> Vital signs: Vital Signs 04/22/18 00:00 04/22/18 00:11 04/22/18 02:00 Temperature 98.2 F Pulse Rate 66 65 Respiratory Rate 18 19 Blood Pressure 104/56 L Pulse Oximetry 96 98 04/22/18 03:37 04/22/18 04:00 04/22/18 06:00 Temperature 98.0 F Pulse Rate 66 66 65 Respiratory Rate 18 18 Blood Pressure 106/80 Pulse Oximetry 94 L 96 04/22/18 08:00 04/22/18 09:12 04/22/18 09:17 Temperature 97.8 F Pulse Rate 67 Respiratory Rate 18 18 18 Blood Pressure 137/60 Pulse Oximetry 97 97 98 04/22/18 09:19 04/22/18 10:00 04/22/18 12:00 Temperature 97.9 F Pulse Rate 66 66 67 Respiratory Rate 18 20 Blood Pressure 138/100 H Pulse Oximetry 04/22/18 12:10 04/22/18 14:00 04/22/18 16:00 Temperature 97.6 F Pulse Rate 66 67 Respiratory Rate 21 Blood Pressure 131/67 107/58 L Pulse Oximetry 04/22/18 17:26 04/22/18 17:30 04/22/18 18:00 Temperature Pulse Rate 69 67 Respiratory Rate 19 19 Blood Pressure Pulse Oximetry 100 04/22/18 20:42 Temperature Pulse Rate 68 Respiratory Rate 18 Blood Pressure Pulse Oximetry 98 Intake & Output 04/22/18 04/22/18 04/23/18 06:59 18:59 06:59 Intake Total 200 / 200 640 / 640 Output Total 1800 / 1800 1840 / 1840 Balance -1600 / -1600 -1200 / -1200 Weight 188.7 kg Intake: IV 200 / 200 250 / 250 Heparin/D5W 25,000 U/250 mL 25, 250 / 250 000 unit In 250 ml @ Per Protocol IV.CONT TITRATE PRN Rx #:[id number] Diprivan 1000 mg/100 ml Inj 1, 200 / 200 000 mg In 100 ml @ 5 MCG/KG/MIN 5.781 mls/hr IV.CONT TITRATE PRN Rx#:[id number] Oral 0 / 0 Tube Feeding 0 / 0 Water Bolus Amount 290 / 290 Other 100 / 100 Output: Urine 1800 / 1800 Emesis 40 / 40 Urine Amount (Catheter) 1800 / 1800 Indwelling Temp Sensing 1800 / 1800 Catheter Other: Date of Last Bowel Movement 04/19/18 04/21/18 # Bowel Movements 1 # Emeses 1 - Urinary Catheter Management Indwelling Temp Sensing Catheter Cath placed during this visit: no <Rosie Mcgovern - Last Filed: 04/22/18 22:28> Assessment and Plan - Assessment (1) Acute kidney injury Code(s): N17.9 - Acute kidney failure, unspecified Status: Acute Plan: Her previous creatinine was 1.2 in August of last year. Possible GABRIELLA due to recent antibiotics outpatient? UTI now. Possible cardio-renal component with volume overload. Creatinine 2.81 and potassium level at 3.0 Urinary output 3 Lm /24 hours Hypokalemia replacement give Continue Bumex gtt Avoid nephrotoxins Will monitor BMP and urinary output. <Debo Dickerson - Last Filed: 04/22/18 15:28> - Assessment (1) Acute kidney injury Code(s): N17.9 - Acute kidney failure, unspecified Status: Acute - Attending Attestation Patient seen and examined, agree with above. Continue Bumex infusion, Creatinine is same. <Rosie Mcgovern - Last Filed: 04/22/18 22:28>
[2018-04-22] MEDS ORDERED: Potassium Chloride 20 MEQ Pwd Pkt NG/OG ONE (15:50)
--- NOTE | 2018-04-22 17:42 | P.PN ---
Subjective Interval history: Failed weaning today Physical Exam Vital signs: Vital Signs 04/21/18 18:00 04/21/18 20:00 04/21/18 20:30 Temperature Pulse Rate 82 69 Respiratory Rate 18 Blood Pressure 102/63 Pulse Oximetry 96 97 04/21/18 20:37 04/21/18 22:00 04/22/18 00:00 Temperature 98.2 F Pulse Rate 65 65 66 Respiratory Rate 18 18 Blood Pressure 104/56 L Pulse Oximetry 96 04/22/18 00:11 04/22/18 02:00 04/22/18 03:37 Temperature Pulse Rate 65 66 Respiratory Rate 19 18 Blood Pressure Pulse Oximetry 98 94 L 04/22/18 04:00 04/22/18 06:00 04/22/18 08:00 Temperature 98.0 F 97.8 F Pulse Rate 66 65 67 Respiratory Rate 18 18 Blood Pressure 106/80 137/60 Pulse Oximetry 96 97 04/22/18 09:12 04/22/18 09:17 04/22/18 09:19 Temperature Pulse Rate 66 Respiratory Rate 18 18 18 Blood Pressure Pulse Oximetry 97 98 04/22/18 10:00 04/22/18 12:00 04/22/18 12:10 Temperature 97.9 F Pulse Rate 66 67 Respiratory Rate 20 Blood Pressure 138/100 H 131/67 Pulse Oximetry 04/22/18 14:00 04/22/18 16:00 04/22/18 17:26 Temperature 97.6 F Pulse Rate 66 67 Respiratory Rate 21 19 Blood Pressure 107/58 L Pulse Oximetry 100 04/22/18 17:30 Temperature Pulse Rate 69 Respiratory Rate 19 Blood Pressure Pulse Oximetry Intake & Output 04/21/18 04/22/18 04/22/18 18:59 06:59 18:59 Intake Total 700 / 700 200 / 200 350 / 350 Output Total 3000 / 3000 1800 / 1800 1800 / 1800 Balance -2300 / -2300 -1600 / -1600 -1450 / -1450 Weight 188.7 kg Intake: IV 700 / 700 200 / 200 Bumex Inj 25 mg In 100 ml @ 1 100 / 100 MG/HR 4 mls/hr IV.CONT .Q24H [facility] Rx#:[id number] Heparin/D5W 25,000 U/250 mL 25, 500 / 500 000 unit In 250 ml @ Per Protocol IV.CONT TITRATE PRN Rx #:[id number] Diprivan 1000 mg/100 ml Inj 1, 100 / 100 200 / 200 000 mg In 100 ml @ 5 MCG/KG/MIN 5.781 mls/hr IV.CONT TITRATE PRN Rx#:[id number] Oral 0 / 0 0 / 0 Tube Feeding 0 / 0 0 / 0 Water Bolus Amount 250 / 250 Other 100 / 100 Output: Urine 1800 / 1800 Urine Amount (Catheter) 3000 / 3000 1800 / 1800 Indwelling Temp Sensing 3000 / 3000 1800 / 1800 Catheter Other: Date of Last Bowel Movement 04/19/18 04/19/18 04/21/18 # Bowel Movements 1 1 - Routine Respiratory Exam Present: distant breath sounds - Urinary Catheter Management Indwelling Temp Sensing Catheter Cath placed during this visit: yes Urethral indwelling: Yes Reason for continuing: Hourly intake/output Insertion date: 04/17/18 Insertion time: 18:10 Results - Labs CBC & Chem 7: 04/21/18 05:46 04/22/18 12:01 Laboratory Results - last 24 hr 04/21/18 04/22/18 04/22/18 17:44 07:00 12:01 APTT 41.6 H Sodium 143 Potassium 3.0 L Chloride 98 Carbon Dioxide 28.0 Anion Gap 17 H BUN 74 H Creatinine 2.81 H Estimated GFR 21 L POC Glucose 115 H Random Glucose 84 Calcium 10.2 H Microbiology 04/21/18 14:00 Sputum - Endotracheal Gram Stain - Final 04/21/18 14:00 Sputum - Endotracheal Sputum Culture - Preliminary Assessment and Plan - Plan Tracheostomy placement next week, if patient unable to wean. Family requests holding procedure until next week if possible. Discussed Condition With: Nurse Owens
[2018-04-22] MEDS: Bumetanide Inj 25 MG/100 ML BAG IV.CONT SCH (18:11)
[2018-04-22] MEDS: Heparin Drip 25,000 UNIT/250 ML BAG IV.CONT PRN (19:08)
[2018-04-23] MEDS: Oral Hygiene Kit OROPHARYNG SCH ×4 (00:18→17:46)
--- NOTE | 2018-04-23 04:04 | XR ---
EXAM DATE: 04/23/2018 4:00 AM EDT AGE/SEX: 62 years / Female INDICATIONS: Respiratory failure. CLINICAL DATA: This is the patient's subsequent encounter. Patient reports that signs and symptoms h ave been present for 2 weeks and indicates a pain score of Nonresponsive. MEDICAL/SURGICAL HISTORY: . Hypertension. Gastroesophageal reflux disease. Chronic kidney disea se. None. COMPARISON: [facility] – [place]ST 1V SINGLE AP, 04/21/2018. . FINDINGS: Persistent left base consolidation and probably at least modestly worse in the interim. Right lung re familia reasonably clear. No pneumothorax seen. Mild cardiomegaly unchanged. Endotracheal tube tip estimated 3 cm above the bert. Nasogastric tube courses in the stomach. CONCLUSION: Persistent and probably at least modestly worse left base consolidation. Electronically signed by: Rohith Parmar MD 04/23/2018 4:03 AM EDT
[2018-04-23] MEDS: Propofol 1000 mg/100 ml Inj 1,000 MG/100 ML BOTTLE IV.CONT PRN (05:32)
[2018-04-23] MEDS: Insulin NovoLIN Regular Correctional Sugar Inj SQ SCH ×4 (05:33→18:47)
[2018-04-23 06:20] LABS: Baso % (Auto) 0.3 % (0.0-2.0); Eos # (Auto) 0.2 th/mm3 (0.0-0.4); Eos % (Auto) 3.6 % (0.0-4.0); Hematocrit 32.9 % (35.0-46.0); Lymph # (Auto) 1.3 th/mm3 (1.0-4.8); Mean Corpuscular Hemoglobin 24.4 pg (27.0-34.0); Mean Corpuscular Volume 80.1 fL (80.0-100.0); Mean Platelet Volume 8.8 fL (7.0-11.0); Mono # (Auto) 0.5 th/mm3 (0.0-0.9); Mono % (Auto) 8.3 % (0.0-8.0); Neut # (Auto) 3.6 th/mm3 (1.8-7.7); Neut % (Auto) 63.8 % (16.0-70.0); Platelet Count 164 th/mm3 (150-450); Red Blood Count 4.11 mil/mm3 (4.00-5.30); Red Cell Distribution Width 22.4 % (11.6-17.2); White Blood Count 5.6 th/mm3 (4.0-11.0)
[2018-04-23 06:38] LABS: Mean Corpuscular HGB Conc 30.5 % (32.0-36.0)
[2018-04-23] MEDS: Artificial Tears Opth Drops 15 ML Bottle EACH EYE SCH ×3 (06:54→22:33)
[2018-04-23 06:56] LABS: Alkaline Phosphatase 74 U/L (45-117); Total Protein 6.3 g/dL (6.4-8.2)
[2018-04-23 07:14] LABS: Alanine Aminotransferase 19 U/L (10-53); Albumin 3.1 g/dL (3.4-5.0); Anion Gap 13 meq/L (5-15); Aspartate Aminotransferase 32 U/L (15-37); Blood Urea Nitrogen 69 mg/dL (7-18); Calcium 9.8 mg/dL (8.5-10.1); Carbon Dioxide 32.1 meq/L (21.0-32.0); Chloride 101 meq/L (98-107); Glomerular Filtration Rate 21 mL/min (>89); Glucose,Random 80 mg/dL (74-106); Magnesium 2.3 mg/dL (1.5-2.5); Phosphorus 4.3 mg/dL (2.5-4.9); Sodium 146 meq/L (136-145)
[2018-04-23] MEDS ORDERED: Potassium Chloride 20 MEQ Pwd Pkt NG/OG ONE (09:00)
[2018-04-23] MEDS ORDERED: Dexmedetomidine Inj 800 MCG in Sodium Chlor 0.9% Inj 42 ML IV.CONT PRN (09:00)
[2018-04-23] MEDS ORDERED: Potassium Chlor 20 mEq Premix 20 MEQ/100 ML PIGGYBACK IV.SIG ONE (09:00)
--- NOTE | 2018-04-23 09:06 | P.PNCC ---
Subjective Subjective Remarks/Hospital Course: This is a 62-year-old AA female. Date of admission 04/10/2018. Date of consultation 04/11/2018. Past medical history includes schizophrenia, depression , seizure disorder, spinal stenosis, essential hypertension, gastroesophageal reflux disease, arthritis, chronic low back pain and urinary tract infection/ recurrent. Patient originally presented from [facility] secondary to " fluid overload" fall according to records from hospitalist. She is also noted to be in acute on chronic renal failure with a creatinine of 2.3. Sodium was 125. Patient had urinary tract infection originally received cephalexin in the ED 500 mg. She is currently on ceftriaxone 1 g every 24 hours patient does have a history of psychogenic polydipsia diagnosed 09/04. She was evaluated by nephrology received 1 dose of tolvaptan 50 mg last night at 1900 hrs. Patient was in her normal state of health sitting her chair when she is found to be unresponsive on the floor. The arms were able to obtain a blood pressure. ABG revealed an acute on chronic respiratory acidosis with pH is 7.18 PCO2 75 PO2 240 bicarbonate 27 base index of -1. All labs are currently pending. She is transferred to room 1333 placed on BiPAP 09/22 at 100%. She is currently arousable and follows commands. She is oriented to person place and year. 04/12: Afebrile. Noted to have bilateral occlusive posterior tibial DVTs on Dopplers bilateral lower extremities overnight. Patient's family states history of brain mass. Will do stat CT brain and discontinue heparin drip in the interim.. Currently on midazolam drip at 5 mg now and fentanyl drip at 50 mcg an hour. Hemodynamically stable. A.m. labs currently pending. Will need central line for access 04/13: Remains intubated sedated for vent synchrony. Currently on Levophed to maintain map above 65 currently on 6 mcg/min. Urine culture growing E. coli, MDR organism. Cefepime discontinued meropenem started, ID consulted. Creatinine stable but increased weight gain. Will increase Lasix monitor renal function closely. ABG shows respiratory alkalosis respiratory rate decreased. Lactic acid 5.5 will check again in the afternoon 04/14: Remains critical remains on 10 mcg/min of Levophed, not tolerating CPAP trials due to apnea. However excellent diuresis with IV Lasix increased dose, urine output 7.6 L in 24 hours and creatinine has improved from 2.2-1.72. Remains somnolent not following commands but shakes her head intermittently 04/15: Remains intubated off all sedation. Wakes up to command follows weekly. Tolerating CPAP but with high settings, intermittently apneic. Urine output remains excellent on IV Lasix 5.3 L in 24 hours. BUN/creatinine continues to improve 33/1.45 04/16: Remains intubated off sedation currently more awake following commands. Placed on CPAP. Creatinine remained stable. Start weaning trial for potential extubation if ABG and parameters acceptable 04/17: Extubated yesterday breathing comfortably. Oriented to person and somewhat to place. Did not cooperate with BiPAP overnight. Urine output adequate achieving negative balance. We will place patient on Symbicort Spiriva , EzPAP along with DuoNeb breathing treatments 04/18: More awake patient is asking for food. But she failed swallow eval yesterday. Pulling out her IV so I have ordered Geodon IM as needed. UO 200 ml in last 24 hours. IV maintenance fluid was started yesterday suspecting overdiuresis and diuretics were held. CMP is pending at this time 04/19: Appears more lethargic today currently on BiPAP. Somnolent but wakes up easily follows commands 4. Chest x-ray and CMP pending at this time. Check ABG only if no improvement over the day. Patient received single dose of melatonin at night and had been somnolent since that 04/20: Yesterday shortly after 7 PM while patient was being fed by her niece, patient apparently aspirated. She was found to be unresponsive, bradycardic hypoxemic. Shortly went into PEA arrest. CPR for 5 minutes intubated during code by Dr. Haq. Return of spontaneous circulation and 5 minutes. Po score according to the RN on sedation hold patient follows commands. Briefly was on Levophed which is being weaned off now. I have instructed heparin to be restarted. There is weight gain and increasing creatinine. Start Bumex infusion. 04/21: Remains intubated but on sedation lightening patient wakes up easily follows commands 4. With Bumex infusion urine output improved 2.6 L in the last 24 hours. But BUN 69 with creatinine 2.8 for now. With creatinine worsening I will reduce Bumex infusion 2.5 mg/h. Continue IV heparin. Palliative care consulted to address goals of care but it appears like family wants tracheostomy. Dr. Forrest was already consulted 04/22: Afebrile. Heparin drip currently at one thousand units an hour. Tube feeds are resumed. Bumetanide drip at 0.5 mg an hour. Stable on propofol drip at 10 mcg/kg/min SUBJECTIVE: 04/23: Currently resting in bed in no acute distress. Will attempt dexmedetomidine drip and attempt for spontaneous breathing trials today. Otherwise too agitated. Currently afebrile. Positive BM. Tolerating tube feeds. Objective Vital Signs / I&O: Vital Signs 04/22/18 09:12 04/22/18 09:17 04/22/18 09:19 Temperature Pulse Rate 66 Respiratory Rate 18 18 18 Blood Pressure Pulse Oximetry 97 98 04/22/18 10:00 04/22/18 12:00 04/22/18 12:10 Temperature 97.9 F Pulse Rate 66 67 Respiratory Rate 20 Blood Pressure 138/100 H 131/67 Pulse Oximetry 04/22/18 14:00 04/22/18 16:00 04/22/18 17:26 Temperature 97.6 F Pulse Rate 66 67 Respiratory Rate 21 19 Blood Pressure 107/58 L Pulse Oximetry 100 04/22/18 17:30 04/22/18 18:00 04/22/18 20:00 Temperature 98.1 F Pulse Rate 69 67 68 Respiratory Rate 19 18 Blood Pressure 97/49 L Pulse Oximetry 04/22/18 20:42 04/22/18 22:00 04/23/18 00:00 Temperature 98.0 F Pulse Rate 68 68 67 Respiratory Rate 18 Blood Pressure 101/49 L Pulse Oximetry 98 98 04/23/18 00:43 04/23/18 02:00 04/23/18 03:33 Temperature Pulse Rate 67 68 Respiratory Rate 20 21 Blood Pressure Pulse Oximetry 97 99 04/23/18 03:37 04/23/18 04:00 04/23/18 06:00 Temperature 98.0 F Pulse Rate 68 67 68 Respiratory Rate 21 Blood Pressure 101/49 L Pulse Oximetry 98 Intake & Output 04/22/18 04/23/18 04/23/18 18:59 06:59 18:59 Intake Total 640 / 640 350 / 350 Output Total 1840 / 1840 4200 / 4200 Balance -1200 / -1200 -3850 / -3850 Weight 184.4 kg Intake: IV 250 / 250 200 / 200 Heparin/D5W 25,000 U/250 mL 25, 250 / 250 000 unit In 250 ml @ Per Protocol IV.CONT TITRATE PRN Rx #:[id number] Diprivan 1000 mg/100 ml Inj 1, 200 / 200 000 mg In 100 ml @ 5 MCG/KG/MIN 5.781 mls/hr IV.CONT TITRATE PRN Rx#:[id number] Oral 0 / 0 Tube Feeding 0 / 0 Water Bolus Amount 290 / 290 50 / 50 Other 100 / 100 100 / 100 Output: Urine 4200 / 4200 Emesis 40 / 40 Urine Amount (Catheter) 1800 / 1800 Indwelling Temp Sensing 1800 / 1800 Catheter Other: Date of Last Bowel Movement 04/21/18 04/21/18 # Bowel Movements 3 # Emeses 1 Result Diagrams: 04/23/18 05:31 04/23/18 05:31 Other Results: Microbiology 04/21/18 14:00 Sputum - Endotracheal Gram Stain - Final 04/21/18 14:00 Sputum - Endotracheal Sputum Culture - Preliminary Imaging: ITS Impressions Chest X-Ray 04/18/18 06:00 CONCLUSION: Interval removal of endotracheal tube and nasogastric tube with slight increase in basilar airspace disease. Chest X-Ray 04/19/18 07:42 CONCLUSION: 1. Bibasilar airspace disease greater left lower lobe. 2. Probable left pleural effusion. 3. Cardiomegaly. Chest X-Ray 04/19/18 19:56 CONCLUSION: No pneumothorax. Line probably in the right atrium. Chest X-Ray 04/20/18 06:00 CONCLUSION: Persistent left lower lobe consolidation. Chest X-Ray 04/21/18 06:00 CONCLUSION: Persistent left lower lobe consolidation. Chest X-Ray 04/23/18 06:00 CONCLUSION: Persistent and probably at least modestly worse left base consolidation. Objective Remarks: GENERAL: 62-year-old AA female currently orotracheally intubated SKIN: Warm and dry. HEAD: Atraumatic. Normocephalic. EYES: Pupils equal and round. No scleral icterus. No injection or drainage. ENT: Orotracheally intubated NECK: Trachea midline. Unable to define JVD secondary to elevated BMI. Right IJ CVL clean dry and intact CARDIOVASCULAR: Distant heart sounds. Regular rate and rhythm. S1, S2 no S4. Murmur not appreciated. RESPIRATORY: Diminished breath sound due to body habitus. No wheezing, crackles appreciated. Few coarse rhonchi. GASTROINTESTINAL: Abdomen soft, non-tender, obese. Hypoactive bowel sounds appreciated MUSCULOSKELETAL: Extremities with woody bilateral upper and lower extremity edema. NEUROLOGICAL: Patient is intubated, sedated with propofol. On sedation hold wakes up easily, follows commands bilateral upper lower extremities Assessment and Plan - Assessment and Plan Plan: Neuro/Psych: Acute encephalopathy Schizophrenia/Depression Seizure disorder as child? Parkinson's disease? Chronic opioid use History of brain mass? Per family. Brain CT negative. Unable to do MRI at this facility due to body habitus Propofol currently at 10 mcg/kg/min for sedation and vent synchrony. We will start on dexmedetomidine drip and attempt to initiate spontaneous breathing trial GOAL RASS -2 Daily sedation vacation Neuro intact after brief PEA arrest CT brain previously negative for acute findings Continue ziprasidone 20 mg twice daily. Holding lorazepam 0.5 mg every 12 hours as needed, holding melatonin 6 mg at night for insomnia, holding Neurontin also CV: PEA Arrest secondary to aspiration and hypoxia Shock-resolved Fluid overload/pulmonary edema Congestive heart failure Essential hypertension Bradycardia Brief PEA arrest 04/19/18 around 7:10 PM return of spontaneous circulation in 5 minutes, received epinephrine 2 PEA arrest most likely secondary to aspiration and resultant hypoxia Bumetanide infusion at 0.5 mg/h with good urine output but worsening creatinine with a.m. laboratories still pending Continue IV albumin Holding atenolol 50 mg at night due to bradycardia, hypotension Weaned off norepinephrine to maintain mean arterial pressure greater than equal to 65 2D echocardiogram 09/04 revealed EF 50-55%. Very poor windows. Repeat echocardiogram Unable to perform due to body habitus Resp: Acute hypoxic and hypercarbic respiratory failure Bilateral DVT Pulmonary edema Extubated 04/16/2018. Reintubated 04/19/18 evening after aspiration and hypoxemic respiratory failure PRVC ventilation 18/10/26/49 Consulted general surgery for tracheostomy placement-discussed with Dr. Forrest Albuterol/ipratropium aerosols every 4 hours with albuterol aerosols every 2 hours as needed dyspnea Chest x-ray with very poor windows due to body habitus. CT thorax showed minimal consolidative changes left chest GI: Gastroesophageal reflux disease History of peptic ulcer disease Tube feeds with Nepro to resume goal 50 cc an hour. Currently at 25 cc an hour Lansoprazole for GI prophylaxis Docusate sodium/senna 1 tablet twice daily for bowel regimen On omeprazole 20 mg at night at home. Endo: Sliding scale insulin Accu-Cheks to maintain euglycemia with Accu-Cheks every 6 hours/low regimen NovoLog TSH and cortisol normal range Renal: Acute kidney injury in the setting of chronic kidney disease stage IIIa Followed by nephrology. Bumetanide infusion as above Renal ultrasound showed no acute findings Heme: Microcytic anemia Bilateral posterior tibialis occlusive thrombus Continue IV heparin drip currently at thousand units an hour, CT head negative Family request no Coumadin but ok with TSOAC Monitor CBC daily. Follow trends iron studies -consistent with iron deficiency anemia Hematology following ID: Urinary tract infection (E Coli, MDR, Janie) ID discontinued ertapenem/continue, fluconazole for MDR organism per ID. MSK: Elevated BMI Weight loss encouraged Access -IJ central line pulled out by patient 04/17/18, new RIJ central line 04/19/18 Prophylax -GI -lansoprazole -DVT -SCDs/heparin IV Level 2 follow-up
[2018-04-23] MEDS: Chlorhexidine 0.12% Oral Kit 15 ML UDC OROPHARYNG SCH ×2 (09:13→19:56)
[2018-04-23] MEDS: Multivitamin/Minerals Therapeutic Tablet PO SCH (09:41)
[2018-04-23] MEDS: Senna/Docusate Sodium 8.6/50 MG Tablet PO SCH ×2 (09:41→20:36)
--- NOTE | 2018-04-23 10:35 | P.DIET ---
Nutritional Evaluation Type of nutrition evaluation: follow-up (04/22 [facility] [place] Nutrition consult regarding: Tube Feeding, Diet Evaluation (TFing stopped and diet advanced.) Subjective Subjective Comments: Lethargic and not eating. Objective - Objective Body Weight Used for Calculations: IBW (125#/56.8 kg) Energy Needs - Lower Range (kCal/kg): 22 Energy Needs - Upper Range (kCal/kg): 25 Lower Limit kCal/kg (kCals): 1,250 Upper Limit kCal/kg (kCals): 1,420 Lower Limit Protein Factor (Grams per Kg): 2 Upper Limit Protein Factor (Grams per Kg): 2.5 Lower Protein Needs (Protein): 114 Upper Protein Needs (Protein): 142 Dietitian Reviewed in Medical Record: Current diet, Curent medications, Intake & Output, Labs, Tube feeding Feeding - Current Tube Feeding Tube Feeding Product: Nepro Tube Feeding Rate: 20 (mls/hr) Assessment Assessment: Pt aspirated while being fed, had PEA arrest and was intubated on 04/20. TF started on 04/22. Needs were calculated per ASPEN and SCCM guidelines for critically ill obese pts. To meet needs with TFing, recommend Vital High Protein @ 55 mls/hr to provide 1320 kcals, 116 gms protein and 1104 mls of free water. Some addiitonal kcals will beprovided by propofol (1.1 kcal/ml). Pt with (+) BM. CBW = 184.4 kg. Renal labs noted. Recommendations: Vital High Protein @ 55 mls/hr goal Dietitian to Monitor: Lab values, Renal labs, Intake & Output, Tube feeding tolerance, Weight change, PO Intake, Medical course
--- NOTE | 2018-04-23 12:40 | P.PNNP ---
Subjective Interval history: Patient is sedated and intubated. FiO2 at 40 %. Creatinine at 2.76 on bumex gtt. <Debo Dickerson - Last Filed: 04/23/18 12:33> Physical Exam Vital signs: Vital Signs 04/22/18 14:00 04/22/18 16:00 04/22/18 17:26 Temperature 97.6 F Pulse Rate 66 67 Respiratory Rate 21 19 Blood Pressure 107/58 L Pulse Oximetry 100 04/22/18 17:30 04/22/18 18:00 04/22/18 20:00 Temperature 98.1 F Pulse Rate 69 67 68 Respiratory Rate 19 18 Blood Pressure 97/49 L Pulse Oximetry 04/22/18 20:42 04/22/18 22:00 04/23/18 00:00 Temperature 98.0 F Pulse Rate 68 68 67 Respiratory Rate 18 Blood Pressure 101/49 L Pulse Oximetry 98 98 04/23/18 00:43 04/23/18 02:00 04/23/18 03:33 Temperature Pulse Rate 67 68 Respiratory Rate 20 21 Blood Pressure Pulse Oximetry 97 99 04/23/18 03:37 04/23/18 04:00 04/23/18 06:00 Temperature 98.0 F Pulse Rate 68 67 68 Respiratory Rate 21 Blood Pressure 101/49 L Pulse Oximetry 98 04/23/18 09:05 Temperature Pulse Rate 68 Respiratory Rate 18 Blood Pressure Pulse Oximetry 98 Intake & Output 04/22/18 04/23/18 04/23/18 18:59 06:59 18:59 Intake Total 640 / 640 350 / 350 Output Total 1840 / 1840 4200 / 4200 Balance -1200 / -1200 -3850 / -3850 Weight 184.4 kg Intake: IV 250 / 250 200 / 200 Heparin/D5W 25,000 U/250 mL 25, 250 / 250 000 unit In 250 ml @ Per Protocol IV.CONT TITRATE PRN Rx #:[id number] Diprivan 1000 mg/100 ml Inj 1, 200 / 200 000 mg In 100 ml @ 5 MCG/KG/MIN 5.781 mls/hr IV.CONT TITRATE PRN Rx#:[id number] Oral 0 / 0 Tube Feeding 0 / 0 Water Bolus Amount 290 / 290 50 / 50 Other 100 / 100 100 / 100 Output: Urine 4200 / 4200 Emesis 40 / 40 Urine Amount (Catheter) 1800 / 1800 Indwelling Temp Sensing 1800 / 1800 Catheter Other: Date of Last Bowel Movement 04/21/18 04/21/18 # Bowel Movements 3 # Emeses 1 - Constitutional no acute distress - Routine HEENT Exam Head: Present: normocephalic - Routine Neck Exam Present: supple. Absent: JVD - Routine Respiratory Exam Present: patient mechanically ventilated - Routine Cardiovascular Exam Present: RRR - Routine Abdominal Exam Present: soft, normoactive bowel sounds Comments: large - Routine Extremities Exam Present: edema Comments: improving - Routine Skin Exam Present: warm - Detailed Neurological Exam: Coma Scale Eye Opening: To sound - Urinary Catheter Management Indwelling Temp Sensing Catheter Cath placed during this visit: yes Urethral indwelling: Yes Reason for continuing: Hourly intake/output Insertion date: 04/17/18 Insertion time: 18:10 <Debo Dickerson - Last Filed: 04/23/18 12:33> Vital signs: Vital Signs 04/23/18 00:00 04/23/18 00:43 04/23/18 02:00 Temperature 98.0 F Pulse Rate 67 67 68 Respiratory Rate 20 Blood Pressure 101/49 L Pulse Oximetry 98 97 04/23/18 03:33 04/23/18 03:37 04/23/18 04:00 Temperature 98.0 F Pulse Rate 68 67 Respiratory Rate 21 21 Blood Pressure 101/49 L Pulse Oximetry 99 98 04/23/18 06:00 04/23/18 08:00 04/23/18 09:05 Temperature Pulse Rate 68 66 68 Respiratory Rate 18 Blood Pressure 114/58 L Pulse Oximetry 98 98 04/23/18 10:00 04/23/18 12:00 04/23/18 12:36 Temperature Pulse Rate 66 66 Respiratory Rate 18 Blood Pressure 117/57 L Pulse Oximetry 98 98 04/23/18 12:38 04/23/18 14:00 04/23/18 16:00 Temperature Pulse Rate 68 66 66 Respiratory Rate 11 L Blood Pressure 129/64 Pulse Oximetry 98 04/23/18 17:16 04/23/18 17:17 04/23/18 18:00 Temperature Pulse Rate 66 66 Respiratory Rate 18 18 Blood Pressure Pulse Oximetry 04/23/18 20:00 04/23/18 22:00 Temperature 97.0 F L Pulse Rate 64 66 Respiratory Rate 18 Blood Pressure 136/71 Pulse Oximetry 96 Intake & Output 04/23/18 04/23/18 04/24/18 06:59 18:59 06:59 Intake Total 350 / 350 811 / 811 250 / 250 Output Total 4200 / 4200 2950 / 2950 Balance -3850 / -3850 -2139 / -2139 250 / 250 Weight 184.4 kg Intake: IV 200 / 200 250 / 250 Heparin/D5W 25,000 U/250 mL 25, 250 / 250 000 unit In 250 ml @ Per Protocol IV.CONT TITRATE PRN Rx #:[id number] Diprivan 1000 mg/100 ml Inj 1, 200 / 200 000 mg In 100 ml @ 5 MCG/KG/MIN 5.781 mls/hr IV.CONT TITRATE PRN Rx#:[id number] Oral 0 / 0 0 / 0 Tube Feeding 0 / 0 211 / 211 Water Bolus Amount 50 / 50 600 / 600 Other 100 / 100 Output: Urine 4200 / 4200 Urine Amount (Catheter) 2950 / 2950 Indwelling Temp Sensing 2950 / 2950 Catheter Other: Date of Last Bowel Movement 04/21/18 04/21/18 04/23/18 # Bowel Movements 3 - Urinary Catheter Management Indwelling Temp Sensing Catheter Cath placed during this visit: no <Rosie Mcgovern - Last Filed: 04/23/18 22:40> Assessment and Plan - Assessment (1) Acute kidney injury Code(s): N17.9 - Acute kidney failure, unspecified Status: Deleted Plan: Her previous creatinine was 1.2 in August of last year. Possible GABRIELLA due to recent antibiotics outpatient? UTI now. Possible cardio-renal component with volume overload. Creatinine at 2.76 from 2.81 and potassium level at 3.0 Urinary output 4.2 Lm /24 hours Hypokalemia replacement has been ordered. On Bumex gtt Avoid nephrotoxins Will monitor BMP and urinary output. labs in AM <Debo Dickerson - Last Filed: 04/23/18 12:33> - Assessment (1) Acute kidney injury Code(s): N17.9 - Acute kidney failure, unspecified Status: Deleted - Attending Attestation Patient seen and examined, agree with above. K was low, replaced, Creatinine is almost same. Continue diuretics. <Rosie Mcgovern - Last Filed: 04/23/18 22:40>
[2018-04-23] MEDS: Bumetanide Inj 25 MG/100 ML BAG IV.CONT SCH (18:48)
--- NOTE | 2018-04-23 19:05 | P.PNONC ---
Subjective Interval history: Resting in bed. Objective Vital Signs/Intake & Output: Vital Signs 04/22/18 20:00 04/22/18 20:42 04/22/18 22:00 Temperature 98.1 F Pulse Rate 68 68 68 Respiratory Rate 18 18 Blood Pressure 97/49 L Pulse Oximetry 98 04/23/18 00:00 04/23/18 00:43 04/23/18 02:00 Temperature 98.0 F Pulse Rate 67 67 68 Respiratory Rate 20 Blood Pressure 101/49 L Pulse Oximetry 98 97 04/23/18 03:33 04/23/18 03:37 04/23/18 04:00 Temperature 98.0 F Pulse Rate 68 67 Respiratory Rate 21 21 Blood Pressure 101/49 L Pulse Oximetry 99 98 04/23/18 06:00 04/23/18 08:00 04/23/18 09:05 Temperature Pulse Rate 68 66 68 Respiratory Rate 18 Blood Pressure 114/58 L Pulse Oximetry 98 98 04/23/18 10:00 04/23/18 12:00 04/23/18 12:36 Temperature Pulse Rate 66 66 Respiratory Rate 18 Blood Pressure 117/57 L Pulse Oximetry 98 98 04/23/18 12:38 04/23/18 14:00 04/23/18 16:00 Temperature Pulse Rate 68 66 66 Respiratory Rate 11 L Blood Pressure 129/64 Pulse Oximetry 98 04/23/18 17:16 04/23/18 17:17 04/23/18 18:00 Temperature Pulse Rate 66 66 Respiratory Rate 18 18 Blood Pressure Pulse Oximetry Intake & Output 04/23/18 04/23/18 04/24/18 06:59 18:59 06:59 Intake Total 350 / 350 811 / 811 Output Total 4200 / 4200 2950 / 2950 Balance -3850 / -3850 -2139 / -2139 Weight 184.4 kg Intake: IV 200 / 200 Diprivan 1000 mg/100 ml Inj 1, 200 / 200 000 mg In 100 ml @ 5 MCG/KG/MIN 5.781 mls/hr IV.CONT TITRATE PRN Rx#:[id number] Oral 0 / 0 0 / 0 Tube Feeding 0 / 0 211 / 211 Water Bolus Amount 50 / 50 600 / 600 Other 100 / 100 Output: Urine 4200 / 4200 Urine Amount (Catheter) 2950 / 2950 Indwelling Temp Sensing 2950 / 2950 Catheter Other: Date of Last Bowel Movement 04/21/18 04/21/18 # Bowel Movements 3 Result Diagrams: 04/23/18 05:31 04/23/18 05:31 Laboratory Results: Laboratory Results - last 24 hr 04/23/18 04/23/18 04/23/18 05:31 05:31 05:31 WBC 5.6 RBC 4.11 Hgb 10.0 L Hct 32.9 L MCV 80.1 MCH 24.4 L MCHC 30.5 L RDW 22.4 H Plt Count 164 MPV 8.8 Neut % (Auto) 63.8 Lymph % (Auto) 24.0 Heard % (Auto) 8.3 H Eos % (Auto) 3.6 Baso % (Auto) 0.3 Neut # (Auto) 3.6 Lymph # (Auto) 1.3 Heard # (Auto) 0.5 Eos # (Auto) 0.2 Baso # (Auto) 0.0 WBC Differential . Differential Comment Auto diff final APTT 40.3 H Sodium 146 H Potassium 3.0 L Chloride 101 Carbon Dioxide 32.1 H Anion Gap 13 BUN 69 H Creatinine 2.76 H Estimated GFR 21 L Random Glucose 80 Calcium 9.8 Phosphorus 4.3 Magnesium 2.3 Total Bilirubin 3.5 H AST 32 ALT 19 Alkaline Phosphatase 74 Total Protein 6.3 L Albumin 3.1 L Culture Results: Microbiology 04/21/18 14:00 Gram Stain - Final Sputum - Endotracheal Sputum Culture - Final Moderate growth normal respiratory paramjit Imaging Studies: Impressions Chest X-Ray 04/23/18 06:00 CONCLUSION: Persistent and probably at least modestly worse left base consolidation. Medications: Active Medications Generic Name Dose Route Start Last Admin Trade Name Freq PRN Reason Stop Dose Admin Albuterol 1 ampul 04/22/18 16:00 04/23/18 17:20 Duoneb Neb (Wilner) NEB 1 ampul Q4HR NEB WILNER Administration Artificial Tears 1 drop 04/18/18 06:00 04/23/18 17:46 Tears Naturale Opth Drops EACH EYE 1 drop Q8HR WILNER Administration Budesonide 0.5 mg 04/23/18 09:00 04/23/18 10:45 Pulmocort Respule Neb NEB Not Given Q12HR NEB WILNER Chlorhexidine Gluconate 15 ml 04/20/18 08:00 04/23/18 09:13 Peridex 0.12% Oral Kit OROPHARYNG 15 ml BID@0800,2000 WILNER Administration Dextrose 50 ml 04/18/18 00:01 04/21/18 17:47 D50w Vial IV.PUSH 50 ml UNSCH PRN Administration HYPOGLYCEMIA-SEE COMMENTS Heparin Sodium/Dextrose 25,000 unit in 250 mls @ 0 mls/hr 04/18/18 01:00 03/05 19:08 Heparin/D5w 25,000 U/250 Ml IV.CONT 1,000 units/hr TITRATE PRN 10 mls/hr Per Protocol Administration Protocol Per Protocol Norepinephrine Bitartrate 4 mg 250 mls @ 7.5 mls/hr 04/18/18 01:00 04/20/18 21:53 / Sodium Chloride IV.SIG 0 mcg/min TITRATE PRN 0 mls/hr Per Protocol Titration Protocol 2 MCG/MIN Propofol 1,000 mg in 100 mls @ 5.781 mls/hr 04/19/18 20:24 04/23/18 05:32 Diprivan 1000 Mg/100 Ml Inj IV.CONT 10 mcg/kg/min TITRATE PRN 11.56 mls/hr Per Protocol Administration Protocol 5 MCG/KG/MIN Bumetanide 25 mg in 100 mls @ 2 mls/hr 04/21/18 11:00 04/23/18 18:48 Bumex Inj IV.CONT Not Given .Q24H WILNER 0.5 MG/HR Insulin Human Regular 1 units 04/18/18 06:00 04/23/18 18:47 Novolin R Supplemental Scale SQ 1 units Q6HR WILNER Administration Protocol Lansoprazole 30 mg 04/18/18 09:00 04/23/18 09:45 Prevacid Solutab NG/OG 30 mg DAILY WILNER Administration Multivitamins/Minerals 1 tab 04/18/18 09:00 04/23/18 09:41 Theragran-M PO 1 tab DAILY WILNER Administration Senna/Docusate Sodium 1 tab 04/18/18 09:00 04/23/18 09:41 Adriane-Colace PO 1 tab BID WILNER Administration Sodium Chloride 0 ml 04/18/18 09:00 04/23/18 09:42 Ns Flush IV.FLUSH 6 ml DAILY WILNER Administration Sodium Chloride 2 ml 04/18/18 00:01 04/19/18 10:18 Ns Flush IV.FLUSH 2 ml UNSCH PRN Administration FLUSH AFTER USING IV ACCESS Sodium Chloride 2 ml 04/18/18 09:00 04/23/18 09:43 Ns Flush IV.FLUSH 2 ml BID WILNER Administration Sterile Water 200 ml 04/23/18 12:00 04/23/18 17:45 Free Water G-TUBE 200 ml Q4HR WILNER Administration Ziprasidone 20 mg 04/18/18 09:00 04/23/18 18:47 Geodon PO 20 mg BIDPC WILNER Administration Objective Remarks: GENERAL: overweight lady in no distress SKIN: Warm and dry. HEAD: Normocephalic. EYES: No scleral icterus. No injection or drainage. LYMPHATIC: No adenopathy. CARDIOVASCULAR: Regular rate and rhythm without murmurs. RESPIRATORY: Breath sounds equal bilaterally. No accessory muscle use. GASTROINTESTINAL: Abdomen soft, non-tender, nondistended. EXTREMITIES: No cyanosis, or edema. MUSCULOSKELETAL: Adequate muscle tone. NEUROLOGICAL: No obvious focal deficit. Assessment/Plan - Plan 1. Bilateral lower extremity VTE: continue anticoagulation with heparin. Will continue to follow and once clinical condition improves and inpatient discharge approaches will discuss with patient and family outpatient anticoagulation. 2. Anemia. Suspicous for TIM. Once acute illness resolved will consider EGD and colonoscopy
[2018-04-23] MEDS: Heparin Drip 25,000 UNIT/250 ML BAG IV.CONT PRN (22:33)
[2018-04-23] MEDS: Potassium Chlor 40 mEq Premix 40 MEQ/100 ML PIGGYBACK IV.SIG SCH (23:48)
[2018-04-24] MEDS: Potassium Chlor 40 mEq Premix 40 MEQ/100 ML PIGGYBACK IV.SIG SCH ×3 (03:40→18:30)
[2018-04-24] MEDS: Oral Hygiene Kit OROPHARYNG SCH ×4 (03:41→17:41)
--- NOTE | 2018-04-24 04:37 | XR ---
EXAM DATE: 04/24/2018 4:06 AM EDT AGE/SEX: 62 years / Female INDICATIONS: Respiratory failure. CLINICAL DATA: This is the patient's subsequent encounter. Patient reports that signs and symptoms h ave been present for 2 weeks and indicates a pain score of Nonresponsive. MEDICAL/SURGICAL HISTORY: . Hypertension. Gastroesophageal reflux disease. Chronic kidney disea se. None. COMPARISON: [facility], CHEST 1V SINGLE AP, 04/23/2018. . FINDINGS: Single AP view the chest. Endotracheal tube and nasogastric tube as well as right IJ central venous c atheter remain in place. Slight increase in bilateral basilar pulmonary parenchymal opacity and small bilateral pleural effusions. No evidence of pneumothorax. CONCLUSION: Slight increase in bilateral lower lung zone pulmonary parenchymal opacity and small bilateral pleura l effusions. Electronically signed by: Seth Kathleen MD 04/24/2018 4:36 AM EDT
[2018-04-24 06:17] LABS: Baso % (Auto) 0.4 % (0.0-2.0); Eos # (Auto) 0.1 th/mm3 (0.0-0.4); Eos % (Auto) 2.1 % (0.0-4.0); Hematocrit 31.6 % (35.0-46.0); Hemoglobin 9.6 gm/dL (11.6-15.3); Lymph # (Auto) 1.5 th/mm3 (1.0-4.8); Mean Corpuscular Hemoglobin 24.3 pg (27.0-34.0); Mean Corpuscular Volume 80.1 fL (80.0-100.0); Mean Platelet Volume 8.6 fL (7.0-11.0); Mono # (Auto) 0.4 th/mm3 (0.0-0.9); Mono % (Auto) 6.8 % (0.0-8.0); Neut # (Auto) 3.8 th/mm3 (1.8-7.7); Neut % (Auto) 65.7 % (16.0-70.0); Platelet Count 151 th/mm3 (150-450); Red Blood Count 3.95 mil/mm3 (4.00-5.30); Red Cell Distribution Width 23.1 % (11.6-17.2); White Blood Count 5.8 th/mm3 (4.0-11.0)
[2018-04-24 06:27] LABS: Mean Corpuscular HGB Conc 30.3 % (32.0-36.0)
[2018-04-24] MEDS: Artificial Tears Opth Drops 15 ML Bottle EACH EYE SCH ×3 (06:28→21:32)
[2018-04-24 06:31] LABS: Alanine Aminotransferase 19 U/L (10-53); Albumin 3.2 g/dL (3.4-5.0); Alkaline Phosphatase 112 U/L (45-117); Anion Gap 13 meq/L (5-15); Aspartate Aminotransferase 31 U/L (15-37); Blood Urea Nitrogen 72 mg/dL (7-18); Calcium 9.7 mg/dL (8.5-10.1); Carbon Dioxide 31.8 meq/L (21.0-32.0); Chloride 100 meq/L (98-107); Glomerular Filtration Rate 21 mL/min (>89); Glucose,Random 139 mg/dL (74-106); Magnesium 2.1 mg/dL (1.5-2.5); Phosphorus 4.8 mg/dL (2.5-4.9); Sodium 145 meq/L (136-145); Total Protein 6.7 g/dL (6.4-8.2)
[2018-04-24 06:37] LABS: Potassium 2.8 meq/L (3.5-5.1)
[2018-04-24] MEDS: Insulin NovoLIN Regular Correctional Sugar Inj SQ SCH ×4 (06:50→18:31)
[2018-04-24] MEDS: Multivitamin/Minerals Therapeutic Tablet PO SCH (08:24)
[2018-04-24] MEDS: Senna/Docusate Sodium 8.6/50 MG Tablet PO SCH ×2 (08:24→21:30)
[2018-04-24] MEDS: Chlorhexidine 0.12% Oral Kit 15 ML UDC OROPHARYNG SCH ×2 (08:25→21:30)
--- NOTE | 2018-04-24 11:00 | P.PNCC ---
Subjective Subjective Remarks/Hospital Course: This is a 62-year-old AA female. Date of admission 04/10/2018. Date of consultation 04/11/2018. Past medical history includes schizophrenia, depression , seizure disorder, spinal stenosis, essential hypertension, gastroesophageal reflux disease, arthritis, chronic low back pain and urinary tract infection/ recurrent. Patient originally presented from [facility] secondary to " fluid overload" fall according to records from hospitalist. She is also noted to be in acute on chronic renal failure with a creatinine of 2.3. Sodium was 125. Patient had urinary tract infection originally received cephalexin in the ED 500 mg. She is currently on ceftriaxone 1 g every 24 hours patient does have a history of psychogenic polydipsia diagnosed 09/04. She was evaluated by nephrology received 1 dose of tolvaptan 50 mg last night at 1900 hrs. Patient was in her normal state of health sitting her chair when she is found to be unresponsive on the floor. The arms were able to obtain a blood pressure. ABG revealed an acute on chronic respiratory acidosis with pH is 7.18 PCO2 75 PO2 240 bicarbonate 27 base index of -1. All labs are currently pending. She is transferred to room 1333 placed on BiPAP 09/22 at 100%. She is currently arousable and follows commands. She is oriented to person place and year. 04/12: Afebrile. Noted to have bilateral occlusive posterior tibial DVTs on Dopplers bilateral lower extremities overnight. Patient's family states history of brain mass. Will do stat CT brain and discontinue heparin drip in the interim.. Currently on midazolam drip at 5 mg now and fentanyl drip at 50 mcg an hour. Hemodynamically stable. A.m. labs currently pending. Will need central line for access 04/13: Remains intubated sedated for vent synchrony. Currently on Levophed to maintain map above 65 currently on 6 mcg/min. Urine culture growing E. coli, MDR organism. Cefepime discontinued meropenem started, ID consulted. Creatinine stable but increased weight gain. Will increase Lasix monitor renal function closely. ABG shows respiratory alkalosis respiratory rate decreased. Lactic acid 5.5 will check again in the afternoon 04/14: Remains critical remains on 10 mcg/min of Levophed, not tolerating CPAP trials due to apnea. However excellent diuresis with IV Lasix increased dose, urine output 7.6 L in 24 hours and creatinine has improved from 2.2-1.72. Remains somnolent not following commands but shakes her head intermittently 04/15: Remains intubated off all sedation. Wakes up to command follows weekly. Tolerating CPAP but with high settings, intermittently apneic. Urine output remains excellent on IV Lasix 5.3 L in 24 hours. BUN/creatinine continues to improve 33/1.45 04/16: Remains intubated off sedation currently more awake following commands. Placed on CPAP. Creatinine remained stable. Start weaning trial for potential extubation if ABG and parameters acceptable 04/17: Extubated yesterday breathing comfortably. Oriented to person and somewhat to place. Did not cooperate with BiPAP overnight. Urine output adequate achieving negative balance. We will place patient on Symbicort Spiriva , EzPAP along with DuoNeb breathing treatments 04/18: More awake patient is asking for food. But she failed swallow eval yesterday. Pulling out her IV so I have ordered Geodon IM as needed. UO 200 ml in last 24 hours. IV maintenance fluid was started yesterday suspecting overdiuresis and diuretics were held. CMP is pending at this time 04/19: Appears more lethargic today currently on BiPAP. Somnolent but wakes up easily follows commands 4. Chest x-ray and CMP pending at this time. Check ABG only if no improvement over the day. Patient received single dose of melatonin at night and had been somnolent since that 04/20: Yesterday shortly after 7 PM while patient was being fed by her niece, patient apparently aspirated. She was found to be unresponsive, bradycardic hypoxemic. Shortly went into PEA arrest. CPR for 5 minutes intubated during code by Dr. Haq. Return of spontaneous circulation and 5 minutes. Po score according to the RN on sedation hold patient follows commands. Briefly was on Levophed which is being weaned off now. I have instructed heparin to be restarted. There is weight gain and increasing creatinine. Start Bumex infusion. 04/21: Remains intubated but on sedation lightening patient wakes up easily follows commands 4. With Bumex infusion urine output improved 2.6 L in the last 24 hours. But BUN 69 with creatinine 2.8 for now. With creatinine worsening I will reduce Bumex infusion 2.5 mg/h. Continue IV heparin. Palliative care consulted to address goals of care but it appears like family wants tracheostomy. Dr. Forrest was already consulted 04/22: Afebrile. Heparin drip currently at one thousand units an hour. Tube feeds are resumed. Bumetanide drip at 0.5 mg an hour. Stable on propofol drip at 10 mcg/kg/min 04/23: Currently resting in bed in no acute distress. Will attempt dexmedetomidine drip and attempt for spontaneous breathing trials today. Otherwise too agitated. Currently afebrile. Positive BM. Tolerating tube feeds. SUBJECTIVE: 04/24: Currently afebrile. Continues on dexmedetomidine drip at 0.2 mg now for sedation. Lasted 1 minute spontaneous breathing trial 04/23. Positive BM. Tolerating tube feeds at goal. No family available. Objective Vital Signs / I&O: Vital Signs 04/23/18 12:00 04/23/18 12:36 04/23/18 12:38 Temperature Pulse Rate 66 68 Respiratory Rate 18 11 L Blood Pressure 117/57 L Pulse Oximetry 98 98 04/23/18 14:00 04/23/18 16:00 04/23/18 17:16 Temperature Pulse Rate 66 66 Respiratory Rate 18 Blood Pressure 129/64 Pulse Oximetry 98 04/23/18 17:17 04/23/18 18:00 04/23/18 20:00 Temperature 97.0 F L Pulse Rate 66 66 64 Respiratory Rate 18 18 Blood Pressure 136/71 Pulse Oximetry 96 04/23/18 22:00 04/24/18 00:00 04/24/18 00:45 Temperature 97.5 F L Pulse Rate 66 64 65 Respiratory Rate 18 18 Blood Pressure 131/65 Pulse Oximetry 96 04/24/18 02:00 04/24/18 03:10 04/24/18 04:00 Temperature 97.6 F Pulse Rate 68 83 Respiratory Rate 18 18 Blood Pressure 119/63 Pulse Oximetry 97 97 04/24/18 04:12 04/24/18 06:00 04/24/18 08:00 Temperature Pulse Rate 69 69 Respiratory Rate 18 18 Blood Pressure Pulse Oximetry 94 L 04/24/18 09:28 Temperature Pulse Rate 69 Respiratory Rate 18 Blood Pressure Pulse Oximetry Intake & Output 04/23/18 04/24/18 04/24/18 18:59 06:59 18:59 Intake Total 811 / 811 787 / 787 Output Total 2950 / 2950 2150 / 2150 Balance -2139 / -2139 -1363 / -1363 Weight 180.2 kg Intake: IV 350 / 350 Heparin/D5W 25,000 U/250 mL 25, 250 / 250 000 unit In 250 ml @ Per Protocol IV.CONT TITRATE PRN Rx #:[id number] KCl 40 mEq Premix Inj 40 meq In 100 / 100 100 ml @ 50 mls/hr IV.SIG Q4H SYLVIA Rx#:[id number] Oral 0 / 0 0 / 0 Tube Feeding 211 / 211 437 / 437 Water Bolus Amount 600 / 600 Output: Urine 2150 / 2150 Urine Amount (Catheter) 2950 / 2950 Indwelling Temp Sensing 2950 / 2950 Catheter Other: Date of Last Bowel Movement 04/21/18 04/23/18 Result Diagrams: 04/24/18 05:20 04/24/18 05:20 Other Results: Microbiology 04/21/18 14:00 Sputum - Endotracheal Gram Stain - Final 04/21/18 14:00 Sputum - Endotracheal Sputum Culture - Final Moderate growth normal respiratory paramjit Imaging: ITS Impressions Chest X-Ray 04/18/18 06:00 CONCLUSION: Interval removal of endotracheal tube and nasogastric tube with slight increase in basilar airspace disease. Chest X-Ray 04/19/18 07:42 CONCLUSION: 1. Bibasilar airspace disease greater left lower lobe. 2. Probable left pleural effusion. 3. Cardiomegaly. Chest X-Ray 04/19/18 19:56 CONCLUSION: No pneumothorax. Line probably in the right atrium. Chest X-Ray 04/20/18 06:00 CONCLUSION: Persistent left lower lobe consolidation. Chest X-Ray 04/21/18 06:00 CONCLUSION: Persistent left lower lobe consolidation. Chest X-Ray 04/23/18 06:00 CONCLUSION: Persistent and probably at least modestly worse left base consolidation. Chest X-Ray 04/24/18 06:00 CONCLUSION: Slight increase in bilateral lower lung zone pulmonary parenchymal opacity and small bilateral pleural effusions. Objective Remarks: GENERAL: 62-year-old AA female currently orotracheally intubated SKIN: Warm and dry. HEAD: Atraumatic. Normocephalic. EYES: Pupils equal and round. No scleral icterus. No injection or drainage. ENT: Orotracheally intubated NECK: Trachea midline. Unable to define JVD secondary to elevated BMI. Right IJ CVL clean dry and intact CARDIOVASCULAR: Distant heart sounds. Regular rate and rhythm. S1, S2 no S4. Murmur not appreciated. RESPIRATORY: Diminished breath sound due to body habitus. No wheezing, crackles appreciated. Few coarse rhonchi. GASTROINTESTINAL: Abdomen soft, non-tender, obese. Hypoactive bowel sounds appreciated MUSCULOSKELETAL: Extremities with woody bilateral upper and lower extremity edema. NEUROLOGICAL: Patient is intubated, sedated with propofol. On sedation hold wakes up easily, follows commands bilateral upper lower extremities Assessment and Plan - Assessment and Plan Plan: Neuro/Psych: Acute encephalopathy Schizophrenia/Depression Seizure disorder as child? Parkinson's disease? Chronic opioid use History of brain mass? Per family. Brain CT negative. Unable to do MRI at this facility due to body habitus Currently on dexmedetomidine drip 0.2 mcg per gallop per minute for sedation/ analgesia while intubated GOAL RASS -2 Daily sedation vacation Neuro intact after brief PEA arrest CT brain previously negative for acute findings Continue ziprasidone 20 mg twice daily. Holding lorazepam 0.5 mg every 12 hours as needed, holding melatonin 6 mg at night for insomnia, holding Neurontin also CV: PEA Arrest secondary to aspiration and hypoxia Shock-resolved Fluid overload/pulmonary edema Congestive heart failure Essential hypertension Bradycardia Brief PEA arrest 04/19/18 around 7:10 PM return of spontaneous circulation in 5 minutes, received epinephrine 2 PEA arrest most likely secondary to aspiration and resultant hypoxia Bumetanide infusion at 0.5 mg/h with good urine output but worsening creatinine with a.m. laboratories still pending Continue IV albumin Holding atenolol 50 mg at night due to bradycardia, hypotension Weaned off norepinephrine to maintain mean arterial pressure greater than equal to 65 2D echocardiogram 09/04 revealed EF 50-55%. Very poor windows. Repeat echocardiogram Unable to perform due to body habitus Resp: Acute hypoxic and hypercarbic respiratory failure Bilateral DVT Pulmonary edema Extubated 04/16/2018. Reintubated 04/19/18 evening after aspiration and hypoxemic respiratory failure PRVC ventilation 18/550/10/26/50 Consulted general surgery for tracheostomy placement-discussed with Dr. Forrest Albuterol/ipratropium aerosols every 4 hours with albuterol aerosols every 2 hours as needed dyspnea Chest x-ray with very poor windows due to body habitus. CT thorax showed minimal consolidative changes left chest GI: Gastroesophageal reflux disease History of peptic ulcer disease Tube feeds with Nepro to resume goal 50 cc an hour. Currently at 25 cc an hour Lansoprazole for GI prophylaxis Docusate sodium/senna 1 tablet twice daily for bowel regimen On omeprazole 20 mg at night at home. Endo: Sliding scale insulin Accu-Cheks to maintain euglycemia with Accu-Cheks every 6 hours/low regimen NovoLog TSH and cortisol normal range Renal: Acute kidney injury in the setting of chronic kidney disease stage IIIa Followed by nephrology. Bumetanide infusion as above Renal ultrasound showed no acute findings Heme: Microcytic anemia Bilateral posterior tibialis occlusive thrombus Continue IV heparin drip currently at thousand units an hour, CT head negative Family request no Coumadin but ok with TSOAC Monitor CBC daily. Follow trends iron studies -consistent with iron deficiency anemia Hematology following ID: Urinary tract infection (E Coli, MDR, Janie) ID discontinued ertapenem/continue fluconazole for MDR organism per ID. Sputum 04/21 revealed normal paramjit. MSK: Elevated BMI Weight loss encouraged Access -IJ central line pulled out by patient 04/17/18, new RIJ central line 04/19/18 Prophylax -GI -lansoprazole -DVT -SCDs/heparin IV Level 2 follow-up
[2018-04-24] MEDS: Bumetanide Inj 25 MG/100 ML BAG IV.CONT SCH (17:41)
--- NOTE | 2018-04-24 19:46 | P.PNNP ---
Subjective Interval history: no acute events, remains intubated Physical Exam Vital signs: Vital Signs 04/23/18 20:00 04/23/18 22:00 04/24/18 00:00 Temperature 97.0 F L 97.5 F L Pulse Rate 64 66 64 Respiratory Rate 18 18 Blood Pressure 136/71 131/65 Pulse Oximetry 96 96 04/24/18 00:45 04/24/18 02:00 04/24/18 03:10 Temperature Pulse Rate 65 68 Respiratory Rate 18 18 Blood Pressure Pulse Oximetry 97 04/24/18 04:00 04/24/18 04:12 04/24/18 06:00 Temperature 97.6 F Pulse Rate 83 69 69 Respiratory Rate 18 18 Blood Pressure 119/63 Pulse Oximetry 97 04/24/18 08:00 04/24/18 09:28 04/24/18 10:00 Temperature 98.0 F Pulse Rate 68 69 68 Respiratory Rate 18 18 Blood Pressure 106/56 L Pulse Oximetry 100 04/24/18 11:56 04/24/18 12:00 04/24/18 16:00 Temperature 98.4 F 97.9 F Pulse Rate 72 94 H Respiratory Rate 23 26 H 19 Blood Pressure 89/52 L 109/51 L Pulse Oximetry 92 L 88 L 94 L 04/24/18 16:03 04/24/18 18:00 Temperature Pulse Rate 94 H 94 H Respiratory Rate 20 Blood Pressure Pulse Oximetry Intake & Output 04/24/18 04/24/18 04/25/18 06:59 18:59 06:59 Intake Total 787 / 787 1237 / 1237 Output Total 2150 / 2150 2190 / 2190 Balance -1363 / -1363 -953 / -953 Weight 180.2 kg Intake: IV 350 / 350 100 / 100 Heparin/D5W 25,000 U/250 mL 25, 250 / 250 000 unit In 250 ml @ Per Protocol IV.CONT TITRATE PRN Rx #:[id number] KCl 40 mEq Premix Inj 40 meq In 100 / 100 100 / 100 100 ml @ 25 mls/hr IV.SIG Q4H SYLVIA Rx#:[id number] Oral 0 / 0 0 / 0 Tube Feeding 437 / 437 437 / 437 Water Bolus Amount 600 / 600 Other 100 / 100 Output: Urine 2150 / 2150 2150 / 2150 Emesis 40 / 40 Other: Date of Last Bowel Movement 04/23/18 04/23/18 # Bowel Movements 3 # Emeses 1 - Constitutional no acute distress - Routine HEENT Exam Head: Present: normocephalic ENT: Present: mucous membranes moist - Routine Neck Exam Present: supple - Routine Respiratory Exam Present: patient mechanically ventilated, diminished air movement - Routine Cardiovascular Exam Present: RRR - Routine Abdominal Exam Present: soft - Routine Extremities Exam Present: edema - Routine Skin Exam Present: intact - Urinary Catheter Management Indwelling Temp Sensing Catheter Cath placed during this visit: yes Urethral indwelling: Yes Reason for continuing: Hourly intake/output Insertion date: 04/17/18 Insertion time: 18:10 Assessment and Plan - Assessment (1) Acute kidney injury Code(s): N17.9 - Acute kidney failure, unspecified Status: Deleted Plan: Her previous creatinine was 1.2 in August of last year. Possible GABRIELLA due to recent antibiotics outpatient? UTI now. Possible cardio-renal component with volume overload. Creatinine stable at 2.7 Hypokalemia today - replacement ordered Urinary output 2 Lm /24 hours Continue Bumex gtt at 0.5mg/hour, creatinine stable Avoid nephrotoxins Will monitor BMP and urinary output. labs in AM
[2018-04-24 22:27] LABS: Hematocrit 30.8 % (35.0-46.0); Hemoglobin 9.2 gm/dL (11.6-15.3); Mean Corpuscular Hemoglobin 24.1 pg (27.0-34.0); Mean Corpuscular Volume 80.9 fL (80.0-100.0); Mean Platelet Volume 8.6 fL (7.0-11.0); Platelet Count 144 th/mm3 (150-450); Red Blood Count 3.81 mil/mm3 (4.00-5.30); Red Cell Distribution Width 23.5 % (11.6-17.2); White Blood Count 7.7 th/mm3 (4.0-11.0)
[2018-04-24 22:29] LABS: Mean Corpuscular HGB Conc 29.8 % (32.0-36.0)
[2018-04-24] MEDS: Heparin Drip 25,000 UNIT/250 ML BAG IV.CONT PRN (22:34)
[2018-04-24 23:02] LABS: Albumin 3.2 g/dL (3.4-5.0); Anion Gap 12 meq/L (5-15); Aspartate Aminotransferase 36 U/L (15-37); Blood Urea Nitrogen 77 mg/dL (7-18); Carbon Dioxide 33.4 meq/L (21.0-32.0); Chloride 101 meq/L (98-107); Glomerular Filtration Rate 22 mL/min (>89); Glucose,Random 127 mg/dL (74-106); Magnesium 2.2 mg/dL (1.5-2.5); Potassium 3.3 meq/L (3.5-5.1); Sodium 146 meq/L (136-145)
[2018-04-24 23:03] LABS: Alanine Aminotransferase 21 U/L (10-53); Phosphorus 4.5 mg/dL (2.5-4.9)
[2018-04-24 23:05] LABS: Alkaline Phosphatase 132 U/L (45-117); Total Protein 6.7 g/dL (6.4-8.2)
[2018-04-25] MEDS: Insulin NovoLIN Regular Correctional Sugar Inj SQ SCH ×4 (03:44→18:53)
[2018-04-25] MEDS: Oral Hygiene Kit OROPHARYNG SCH ×4 (03:45→18:52)
[2018-04-25 06:16] LABS: Baso % (Auto) 0.3 % (0.0-2.0); Eos # (Auto) 0.2 th/mm3 (0.0-0.4); Eos % (Auto) 2.9 % (0.0-4.0); Hematocrit 29.7 % (35.0-46.0); Hemoglobin 9.1 gm/dL (11.6-15.3); Lymph # (Auto) 1.2 th/mm3 (1.0-4.8); Lymph % (Auto) 17.7 % (9.0-44.0); Mean Corpuscular Hemoglobin 24.5 pg (27.0-34.0); Mean Corpuscular Volume 79.7 fL (80.0-100.0); Mean Platelet Volume 8.4 fL (7.0-11.0); Mono # (Auto) 0.4 th/mm3 (0.0-0.9); Mono % (Auto) 6.4 % (0.0-8.0); Neut # (Auto) 5.1 th/mm3 (1.8-7.7); Neut % (Auto) 72.7 % (16.0-70.0); Platelet Count 145 th/mm3 (150-450); Red Blood Count 3.72 mil/mm3 (4.00-5.30); Red Cell Distribution Width 23.7 % (11.6-17.2)
[2018-04-25 06:26] LABS: Mean Corpuscular HGB Conc 30.7 % (32.0-36.0)
[2018-04-25 06:34] LABS: Alanine Aminotransferase 19 U/L (10-53); Albumin 3.3 g/dL (3.4-5.0); Anion Gap 13 meq/L (5-15); Aspartate Aminotransferase 31 U/L (15-37); Blood Urea Nitrogen 72 mg/dL (7-18); Calcium 9.9 mg/dL (8.5-10.1); Carbon Dioxide 32.5 meq/L (21.0-32.0); Chloride 102 meq/L (98-107); Glomerular Filtration Rate 23 mL/min (>89); Glucose,Random 119 mg/dL (74-106); Magnesium 2.2 mg/dL (1.5-2.5); Potassium 3.1 meq/L (3.5-5.1); Sodium 147 meq/L (136-145)
[2018-04-25 06:36] LABS: Alkaline Phosphatase 132 U/L (45-117); Total Protein 6.8 g/dL (6.4-8.2)
[2018-04-25] MEDS: Artificial Tears Opth Drops 15 ML Bottle EACH EYE SCH ×3 (06:42→22:22)
[2018-04-25] MEDS: Senna/Docusate Sodium 8.6/50 MG Tablet PO SCH ×2 (10:31→20:09)
[2018-04-25] MEDS: Chlorhexidine 0.12% Oral Kit 15 ML UDC OROPHARYNG SCH ×2 (10:32→20:09)
[2018-04-25] MEDS: Multivitamin/Minerals Therapeutic Tablet PO SCH (10:34)
[2018-04-25] MEDS ORDERED: Potassium Chloride 20 MEQ Pwd Pkt NG/OG ONE (12:59)
--- NOTE | 2018-04-25 13:04 | P.PNCC ---
Subjective Subjective Remarks/Hospital Course: This is a 62-year-old AA female. Date of admission 04/10/2018. Date of consultation 04/11/2018. Past medical history includes schizophrenia, depression , seizure disorder, spinal stenosis, essential hypertension, gastroesophageal reflux disease, arthritis, chronic low back pain and urinary tract infection/ recurrent. Patient originally presented from [facility] secondary to " fluid overload" fall according to records from hospitalist. She is also noted to be in acute on chronic renal failure with a creatinine of 2.3. Sodium was 125. Patient had urinary tract infection originally received cephalexin in the ED 500 mg. She is currently on ceftriaxone 1 g every 24 hours patient does have a history of psychogenic polydipsia diagnosed 09/04. She was evaluated by nephrology received 1 dose of tolvaptan 50 mg last night at 1900 hrs. Patient was in her normal state of health sitting her chair when she is found to be unresponsive on the floor. The arms were able to obtain a blood pressure. ABG revealed an acute on chronic respiratory acidosis with pH is 7.18 PCO2 75 PO2 240 bicarbonate 27 base index of -1. All labs are currently pending. She is transferred to room 1333 placed on BiPAP 09/22 at 100%. She is currently arousable and follows commands. She is oriented to person place and year. 04/12: Afebrile. Noted to have bilateral occlusive posterior tibial DVTs on Dopplers bilateral lower extremities overnight. Patient's family states history of brain mass. Will do stat CT brain and discontinue heparin drip in the interim.. Currently on midazolam drip at 5 mg now and fentanyl drip at 50 mcg an hour. Hemodynamically stable. A.m. labs currently pending. Will need central line for access 04/13: Remains intubated sedated for vent synchrony. Currently on Levophed to maintain map above 65 currently on 6 mcg/min. Urine culture growing E. coli, MDR organism. Cefepime discontinued meropenem started, ID consulted. Creatinine stable but increased weight gain. Will increase Lasix monitor renal function closely. ABG shows respiratory alkalosis respiratory rate decreased. Lactic acid 5.5 will check again in the afternoon 04/14: Remains critical remains on 10 mcg/min of Levophed, not tolerating CPAP trials due to apnea. However excellent diuresis with IV Lasix increased dose, urine output 7.6 L in 24 hours and creatinine has improved from 2.2-1.72. Remains somnolent not following commands but shakes her head intermittently 04/15: Remains intubated off all sedation. Wakes up to command follows weekly. Tolerating CPAP but with high settings, intermittently apneic. Urine output remains excellent on IV Lasix 5.3 L in 24 hours. BUN/creatinine continues to improve 33/1.45 04/16: Remains intubated off sedation currently more awake following commands. Placed on CPAP. Creatinine remained stable. Start weaning trial for potential extubation if ABG and parameters acceptable 04/17: Extubated yesterday breathing comfortably. Oriented to person and somewhat to place. Did not cooperate with BiPAP overnight. Urine output adequate achieving negative balance. We will place patient on Symbicort Spiriva , EzPAP along with DuoNeb breathing treatments 04/18: More awake patient is asking for food. But she failed swallow eval yesterday. Pulling out her IV so I have ordered Geodon IM as needed. UO 200 ml in last 24 hours. IV maintenance fluid was started yesterday suspecting overdiuresis and diuretics were held. CMP is pending at this time 04/19: Appears more lethargic today currently on BiPAP. Somnolent but wakes up easily follows commands 4. Chest x-ray and CMP pending at this time. Check ABG only if no improvement over the day. Patient received single dose of melatonin at night and had been somnolent since that 04/20: Yesterday shortly after 7 PM while patient was being fed by her niece, patient apparently aspirated. She was found to be unresponsive, bradycardic hypoxemic. Shortly went into PEA arrest. CPR for 5 minutes intubated during code by Dr. Haq. Return of spontaneous circulation and 5 minutes. Po score according to the RN on sedation hold patient follows commands. Briefly was on Levophed which is being weaned off now. I have instructed heparin to be restarted. There is weight gain and increasing creatinine. Start Bumex infusion. 04/21: Remains intubated but on sedation lightening patient wakes up easily follows commands 4. With Bumex infusion urine output improved 2.6 L in the last 24 hours. But BUN 69 with creatinine 2.8 for now. With creatinine worsening I will reduce Bumex infusion 2.5 mg/h. Continue IV heparin. Palliative care consulted to address goals of care but it appears like family wants tracheostomy. Dr. Forrest was already consulted 04/22: Afebrile. Heparin drip currently at one thousand units an hour. Tube feeds are resumed. Bumetanide drip at 0.5 mg an hour. Stable on propofol drip at 10 mcg/kg/min 04/23: Currently resting in bed in no acute distress. Will attempt dexmedetomidine drip and attempt for spontaneous breathing trials today. Otherwise too agitated. Currently afebrile. Positive BM. Tolerating tube feeds. 04/24: Currently afebrile. Continues on dexmedetomidine drip at 0.2 mcg per kilogram per hour now for sedation. Lasted 1 minute spontaneous breathing trial 04/23. Positive BM. Tolerating tube feeds at goal. No family available. SUBJECTIVE: 04/25: Resting in bed in no acute distress on dexmedetomidine drip at 0.2 mcg/kg/ h. Tolerating spontaneous breathing trials. 09/25 at 40%. Tolerating tube feeding. Objective Vital Signs / I&O: Vital Signs 04/24/18 16:00 04/24/18 16:03 04/24/18 18:00 Temperature 97.9 F Pulse Rate 94 H 94 H 94 H Respiratory Rate 19 20 Blood Pressure 109/51 L Pulse Oximetry 94 L 04/24/18 20:00 04/24/18 20:35 04/24/18 20:36 Temperature 97.9 F Pulse Rate 70 70 Respiratory Rate 18 21 18 Blood Pressure 105/51 L Pulse Oximetry 97 95 04/24/18 22:00 04/25/18 00:00 04/25/18 01:13 Temperature 98.2 F Pulse Rate 70 70 70 Respiratory Rate 18 18 Blood Pressure 106/55 L Pulse Oximetry 95 95 04/25/18 02:00 04/25/18 04:00 04/25/18 04:01 Temperature 98.8 F Pulse Rate 70 71 71 Respiratory Rate 18 19 Blood Pressure 108/50 L Pulse Oximetry 96 96 04/25/18 06:00 04/25/18 08:18 04/25/18 08:19 Temperature Pulse Rate 71 72 Respiratory Rate 18 16 Blood Pressure Pulse Oximetry 99 04/25/18 11:45 Temperature Pulse Rate 70 Respiratory Rate 18 Blood Pressure Pulse Oximetry 92 L Intake & Output 04/24/18 04/25/18 04/25/18 18:59 06:59 18:59 Intake Total 1237 / 1237 1361 / 1361 Output Total 2190 / 2190 3015 / 3015 Balance -953 / -953 -1654 / -1654 Weight 178.1 kg Intake: IV 100 / 100 250 / 250 Heparin/D5W 25,000 U/250 mL 25, 250 / 250 000 unit In 250 ml @ Per Protocol IV.CONT TITRATE PRN Rx #:[id number] KCl 40 mEq Premix Inj 40 meq In 100 / 100 100 ml @ 25 mls/hr IV.SIG Q4H SYLVIA Rx#:[id number] Oral 0 / 0 0 / 0 Tube Feeding 437 / 437 511 / 511 Water Bolus Amount 600 / 600 600 / 600 Other 100 / 100 Output: Urine 2150 / 2150 Emesis 40 / 40 40 / 40 Urine Amount (Catheter) 2975 / 2975 Indwelling Temp Sensing 2975 / 2975 Catheter Other: Date of Last Bowel Movement 04/23/18 04/23/18 # Bowel Movements 3 3 # Emeses 1 1 Result Diagrams: 04/25/18 05:30 04/25/18 05:30 Other Results: Microbiology 04/21/18 14:00 Sputum - Endotracheal Gram Stain - Final 04/21/18 14:00 Sputum - Endotracheal Sputum Culture - Final Moderate growth normal respiratory paramjit Imaging: ITS Impressions Chest X-Ray 04/18/18 06:00 CONCLUSION: Interval removal of endotracheal tube and nasogastric tube with slight increase in basilar airspace disease. Chest X-Ray 04/19/18 07:42 CONCLUSION: 1. Bibasilar airspace disease greater left lower lobe. 2. Probable left pleural effusion. 3. Cardiomegaly. Chest X-Ray 04/19/18 19:56 CONCLUSION: No pneumothorax. Line probably in the right atrium. Chest X-Ray 04/20/18 06:00 CONCLUSION: Persistent left lower lobe consolidation. Chest X-Ray 04/21/18 06:00 CONCLUSION: Persistent left lower lobe consolidation. Chest X-Ray 04/23/18 06:00 CONCLUSION: Persistent and probably at least modestly worse left base consolidation. Chest X-Ray 04/24/18 06:00 CONCLUSION: Slight increase in bilateral lower lung zone pulmonary parenchymal opacity and small bilateral pleural effusions. Objective Remarks: GENERAL: 62-year-old AA female currently orotracheally intubated SKIN: Warm and dry. HEAD: Atraumatic. Normocephalic. EYES: Pupils equal and round. No scleral icterus. No injection or drainage. ENT: Orotracheally intubated NECK: Trachea midline. Unable to define JVD secondary to elevated BMI. Right IJ CVL clean dry and intact CARDIOVASCULAR: Distant heart sounds. Regular rate and rhythm. S1, S2 no S4. Murmur not appreciated. RESPIRATORY: Diminished breath sound due to body habitus. No wheezing, crackles appreciated. Few coarse rhonchi. GASTROINTESTINAL: Abdomen soft, non-tender, obese. Hypoactive bowel sounds appreciated MUSCULOSKELETAL: Extremities with woody bilateral upper and lower extremity edema. NEUROLOGICAL: Patient is intubated, sedated with propofol. On sedation hold wakes up easily, follows commands bilateral upper lower extremities. Assessment and Plan - Assessment and Plan Plan: Neuro/Psych: Acute encephalopathy Schizophrenia/Depression Seizure disorder as child? Parkinson's disease? Chronic opioid use History of brain mass? Per family. Brain CT negative. Unable to do MRI at this facility due to body habitus Currently on dexmedetomidine drip 0.2 mcg per gallop per minute for sedation/ analgesia while intubated GOAL RASS -2 Daily sedation vacation Neuro intact after brief PEA arrest CT brain previously negative for acute findings Continue ziprasidone 20 mg twice daily. Holding lorazepam 0.5 mg every 12 hours as needed, holding melatonin 6 mg at night for insomnia, holding Neurontin also CV: PEA Arrest secondary to aspiration and hypoxia Shock-resolved Fluid overload/pulmonary edema Congestive heart failure Essential hypertension Bradycardia Brief PEA arrest 04/19/18 around 7:10 PM return of spontaneous circulation in 5 minutes, received epinephrine 2 PEA arrest most likely secondary to aspiration and resultant hypoxia Bumetanide infusion at 0.25 mg/h with good urine output but worsening creatinine with a.m. laboratories still pending Continue IV albumin Holding atenolol 50 mg at night due to bradycardia, hypotension Weaned off norepinephrine to maintain mean arterial pressure greater than equal to 65 2D echocardiogram 09/04 revealed EF 50-55%. Very poor windows. Repeat echocardiogram Unable to perform due to body habitus Resp: Acute hypoxic and hypercarbic respiratory failure Bilateral DVT Pulmonary edema Extubated 04/16/2018. Reintubated 04/19/18 evening after aspiration and hypoxemic respiratory failure PRVC ventilation 18/550/10/26/39 Consulted general surgery for tracheostomy placement-discussed with Dr. Forrest Albuterol/ipratropium aerosols every 4 hours with albuterol aerosols every 2 hours as needed dyspnea Budesonide 0.5/2 1 inhalation twice daily Chest x-ray with very poor windows due to body habitus. CT thorax showed minimal consolidative changes left chest GI: Gastroesophageal reflux disease History of peptic ulcer disease Tube feeds with Nepro to resume goal 50 cc an hour. Currently at 25 cc an hour Lansoprazole for GI prophylaxis Docusate sodium/senna 1 tablet twice daily for bowel regimen On omeprazole 20 mg at night at home. Endo: Sliding scale insulin Accu-Cheks to maintain euglycemia with Accu-Cheks every 6 hours/low regimen NovoLog TSH and cortisol normal range FEN/Renal: Acute kidney injury in the setting of chronic kidney disease stage IIIa Hypernatremia Hypopotassemia Followed by nephrology. Bumetanide infusion as above Renal ultrasound showed no acute findings Receiving free water flushes 250 every 4 hours. Recheck BMP in a.m. Receiving 120 mg potassium chloride 1 now. Recheck in a.m. Heme: Microcytic anemia Bilateral posterior tibialis occlusive thrombus Continue IV heparin drip currently at thousand units an hour, CT head negative Family request no Coumadin but ok with TSOAC Monitor CBC daily. Follow trends iron studies -consistent with iron deficiency anemia Hematology following ID: Urinary tract infection (E Coli, MDR, Janie) ID discontinued ertapenem/continue fluconazole for MDR organism per ID. Sputum 04/21 revealed normal paramjit. MSK: Elevated BMI Weight loss encouraged Access -IJ central line pulled out by patient 04/17/18, new RIJ central line 04/19/18 Prophylax -GI -lansoprazole -DVT -SCDs/heparin IV Level 2 follow-up
[2018-04-25] MEDS: Bumetanide Inj 25 MG/100 ML BAG IV.CONT SCH (13:18)
[2018-04-25] MEDS: Dexmedetomidine Inj 1,000 MCG in Sodium Chlor 0.9% Inj 240 ML IV.CONT PRN (13:22)
--- NOTE | 2018-04-25 13:58 | P.PNNP ---
Subjective Interval history: no acute issues, remains on ventilator Physical Exam Vital signs: Vital Signs 04/24/18 16:00 04/24/18 16:03 04/24/18 18:00 Temperature 97.9 F Pulse Rate 94 H 94 H 94 H Respiratory Rate 19 20 Blood Pressure 109/51 L Pulse Oximetry 94 L 04/24/18 20:00 04/24/18 20:35 04/24/18 20:36 Temperature 97.9 F Pulse Rate 70 70 Respiratory Rate 18 21 18 Blood Pressure 105/51 L Pulse Oximetry 97 95 04/24/18 22:00 04/25/18 00:00 04/25/18 01:13 Temperature 98.2 F Pulse Rate 70 70 70 Respiratory Rate 18 18 Blood Pressure 106/55 L Pulse Oximetry 95 95 04/25/18 02:00 04/25/18 04:00 04/25/18 04:01 Temperature 98.8 F Pulse Rate 70 71 71 Respiratory Rate 18 19 Blood Pressure 108/50 L Pulse Oximetry 96 96 04/25/18 06:00 04/25/18 08:18 04/25/18 08:19 Temperature Pulse Rate 71 72 Respiratory Rate 18 16 Blood Pressure Pulse Oximetry 99 04/25/18 11:45 Temperature Pulse Rate 70 Respiratory Rate 18 Blood Pressure Pulse Oximetry 92 L Intake & Output 04/24/18 04/25/18 04/25/18 18:59 06:59 18:59 Intake Total 1237 / 1237 1461 / 1461 Output Total 2190 / 2190 3015 / 3015 Balance -953 / -953 -1554 / -1554 Weight 178.1 kg Intake: IV 100 / 100 350 / 350 Bumex Inj 25 mg In 100 ml @ 0. 100 / 100 25 MG/HR 1 mls/hr IV.CONT .Q24H SYLVIA Rx#:[id number] Heparin/D5W 25,000 U/250 mL 25, 250 / 250 000 unit In 250 ml @ Per Protocol IV.CONT TITRATE PRN Rx #:[id number] KCl 40 mEq Premix Inj 40 meq In 100 / 100 100 ml @ 25 mls/hr IV.SIG Q4H SYLVIA Rx#:[id number] Oral 0 / 0 0 / 0 Tube Feeding 437 / 437 511 / 511 Water Bolus Amount 600 / 600 600 / 600 Other 100 / 100 Output: Urine 2150 / 2150 Emesis 40 / 40 40 / 40 Urine Amount (Catheter) 2975 / 2975 Indwelling Temp Sensing 2975 / 2975 Catheter Other: Date of Last Bowel Movement 04/23/18 04/23/18 # Bowel Movements 3 3 # Emeses 1 1 - Constitutional no acute distress - Routine HEENT Exam Head: Present: normocephalic - Routine Neck Exam Present: supple - Routine Respiratory Exam Present: patient mechanically ventilated, diminished air movement - Routine Cardiovascular Exam Present: RRR - Routine Abdominal Exam Present: soft - Routine Skin Exam Present: intact - Routine Psychiatric Exam Present: unable to assess - Urinary Catheter Management Indwelling Temp Sensing Catheter Cath placed during this visit: yes Urethral indwelling: Yes Reason for continuing: Hourly intake/output Insertion date: 04/17/18 Insertion time: 18:10 Assessment and Plan - Assessment (1) Acute kidney injury Code(s): N17.9 - Acute kidney failure, unspecified Status: Deleted Plan: Her previous creatinine was 1.2 in August of last year. Possible GABRIELLA due to recent antibiotics outpatient? UTI now. Possible cardio-renal component with volume overload. Creatinine stable: 2.6 -> 2.5 Hypokalemia today - replacement ordered Urinary output 2.1 Lm /24 hours Continue Bumex gtt at 0.5mg/hour, creatinine stable Avoid nephrotoxins Will monitor BMP and urinary output. labs in AM
[2018-04-25] MEDS: Potassium Chlor 40 mEq Premix 40 MEQ/100 ML PIGGYBACK IV.SIG SCH ×2 (14:34→19:33)
[2018-04-26] MEDS: Insulin NovoLIN Regular Correctional Sugar Inj SQ SCH ×4 (00:29→17:59)
[2018-04-26] MEDS: Oral Hygiene Kit OROPHARYNG SCH ×4 (00:30→17:12)
[2018-04-26] MEDS: Heparin Drip 25,000 UNIT/250 ML BAG IV.CONT PRN (02:04)
--- NOTE | 2018-04-26 05:26 | XR ---
EXAM DATE: 04/26/2018 5:21 AM EDT AGE/SEX: 62 years / Female INDICATIONS: Respiratory failure. CLINICAL DATA: This is the patient's subsequent encounter. Patient reports that signs and symptoms h ave been present for 2 weeks and indicates a pain score of Nonresponsive. MEDICAL/SURGICAL HISTORY: . Hypertension. Gastroesophageal reflux disease. Chronic kidney dise ase. None. COMPARISON: [facility], CHEST 1V SINGLE AP, 04/24/2018. . FINDINGS: Stable ETT, right IJ central line and NGT. Cardiac silhouette is enlarged with diffuse interstitial p rominence and indistinct central pulmonary vascularity. Mild bilateral airspace disease. Bony thorax is intact. CONCLUSION: 1. No significant interval change. 2. Stable tubes and lines. 3. Cardiomegaly with positive fluid balance. 4. Stable bilateral lower lobe airspace disease. Electronically signed by: Eber Goddard MD 04/26/2018 5:24 AM EDT
[2018-04-26 06:19] LABS: Hematocrit 29.2 % (35.0-46.0); Hemoglobin 8.8 gm/dL (11.6-15.3); Mean Corpuscular Hemoglobin 24.3 pg (27.0-34.0); Mean Corpuscular Volume 80.1 fL (80.0-100.0); Mean Platelet Volume 8.3 fL (7.0-11.0); Platelet Count 144 th/mm3 (150-450); Red Blood Count 3.65 mil/mm3 (4.00-5.30); Red Cell Distribution Width 23.8 % (11.6-17.2); White Blood Count 8.6 th/mm3 (4.0-11.0)
[2018-04-26 06:23] LABS: Mean Corpuscular HGB Conc 30.3 % (32.0-36.0)
[2018-04-26 06:45] LABS: Alanine Aminotransferase 20 U/L (10-53); Albumin 3.3 g/dL (3.4-5.0); Anion Gap 11 meq/L (5-15); Aspartate Aminotransferase 34 U/L (15-37); Blood Urea Nitrogen 69 mg/dL (7-18); Calcium 9.9 mg/dL (8.5-10.1); Chloride 103 meq/L (98-107); Glomerular Filtration Rate 25 mL/min (>89); Glucose,Random 111 mg/dL (74-106); Magnesium 2.2 mg/dL (1.5-2.5); Phosphorus 3.3 mg/dL (2.5-4.9); Potassium 3.1 meq/L (3.5-5.1); Sodium 148 meq/L (136-145)
[2018-04-26 06:47] LABS: Alkaline Phosphatase 127 U/L (45-117)
[2018-04-26 09:32] LABS: Eosinophils 8 % (0-4); Lymphocytes 13 % (9-44); Monocytes 3 % (0-8)
[2018-04-26 09:33] LABS: Platelet Morphology Normal (Normal); Stomatocytes 1+
[2018-04-26] MEDS: Artificial Tears Opth Drops 15 ML Bottle EACH EYE SCH ×3 (09:59→21:25)
[2018-04-26] MEDS: Chlorhexidine 0.12% Oral Kit 15 ML UDC OROPHARYNG SCH ×2 (10:00→21:25)
[2018-04-26] MEDS: Multivitamin/Minerals Therapeutic Tablet PO SCH (10:04)
[2018-04-26] MEDS: Senna/Docusate Sodium 8.6/50 MG Tablet PO SCH ×2 (10:04→21:24)
--- NOTE | 2018-04-26 15:33 | P.PNCC ---
Subjective Subjective Remarks/Hospital Course: This is a 62-year-old AA female. Date of admission 04/10/2018. Date of consultation 04/11/2018. Past medical history includes schizophrenia, depression , seizure disorder, spinal stenosis, essential hypertension, gastroesophageal reflux disease, arthritis, chronic low back pain and urinary tract infection/ recurrent. Patient originally presented from [facility] secondary to " fluid overload" fall according to records from hospitalist. She is also noted to be in acute on chronic renal failure with a creatinine of 2.3. Sodium was 125. Patient had urinary tract infection originally received cephalexin in the ED 500 mg. She is currently on ceftriaxone 1 g every 24 hours patient does have a history of psychogenic polydipsia diagnosed 09/04. She was evaluated by nephrology received 1 dose of tolvaptan 50 mg last night at 1900 hrs. Patient was in her normal state of health sitting her chair when she is found to be unresponsive on the floor. The arms were able to obtain a blood pressure. ABG revealed an acute on chronic respiratory acidosis with pH is 7.18 PCO2 75 PO2 240 bicarbonate 27 base index of -1. All labs are currently pending. She is transferred to room 1333 placed on BiPAP 09/22 at 100%. She is currently arousable and follows commands. She is oriented to person place and year. 04/12: Afebrile. Noted to have bilateral occlusive posterior tibial DVTs on Dopplers bilateral lower extremities overnight. Patient's family states history of brain mass. Will do stat CT brain and discontinue heparin drip in the interim.. Currently on midazolam drip at 5 mg now and fentanyl drip at 50 mcg an hour. Hemodynamically stable. A.m. labs currently pending. Will need central line for access 04/13: Remains intubated sedated for vent synchrony. Currently on Levophed to maintain map above 65 currently on 6 mcg/min. Urine culture growing E. coli, MDR organism. Cefepime discontinued meropenem started, ID consulted. Creatinine stable but increased weight gain. Will increase Lasix monitor renal function closely. ABG shows respiratory alkalosis respiratory rate decreased. Lactic acid 5.5 will check again in the afternoon 04/14: Remains critical remains on 10 mcg/min of Levophed, not tolerating CPAP trials due to apnea. However excellent diuresis with IV Lasix increased dose, urine output 7.6 L in 24 hours and creatinine has improved from 2.2-1.72. Remains somnolent not following commands but shakes her head intermittently 04/15: Remains intubated off all sedation. Wakes up to command follows weekly. Tolerating CPAP but with high settings, intermittently apneic. Urine output remains excellent on IV Lasix 5.3 L in 24 hours. BUN/creatinine continues to improve 33/1.45 04/16: Remains intubated off sedation currently more awake following commands. Placed on CPAP. Creatinine remained stable. Start weaning trial for potential extubation if ABG and parameters acceptable 04/17: Extubated yesterday breathing comfortably. Oriented to person and somewhat to place. Did not cooperate with BiPAP overnight. Urine output adequate achieving negative balance. We will place patient on Symbicort Spiriva , EzPAP along with DuoNeb breathing treatments 04/18: More awake patient is asking for food. But she failed swallow eval yesterday. Pulling out her IV so I have ordered Geodon IM as needed. UO 200 ml in last 24 hours. IV maintenance fluid was started yesterday suspecting overdiuresis and diuretics were held. CMP is pending at this time 04/19: Appears more lethargic today currently on BiPAP. Somnolent but wakes up easily follows commands 4. Chest x-ray and CMP pending at this time. Check ABG only if no improvement over the day. Patient received single dose of melatonin at night and had been somnolent since that 04/20: Yesterday shortly after 7 PM while patient was being fed by her niece, patient apparently aspirated. She was found to be unresponsive, bradycardic hypoxemic. Shortly went into PEA arrest. CPR for 5 minutes intubated during code by Dr. Haq. Return of spontaneous circulation and 5 minutes. Po score according to the RN on sedation hold patient follows commands. Briefly was on Levophed which is being weaned off now. I have instructed heparin to be restarted. There is weight gain and increasing creatinine. Start Bumex infusion. 04/21: Remains intubated but on sedation lightening patient wakes up easily follows commands 4. With Bumex infusion urine output improved 2.6 L in the last 24 hours. But BUN 69 with creatinine 2.8 for now. With creatinine worsening I will reduce Bumex infusion 2.5 mg/h. Continue IV heparin. Palliative care consulted to address goals of care but it appears like family wants tracheostomy. Dr. Forrest was already consulted 04/22: Afebrile. Heparin drip currently at one thousand units an hour. Tube feeds are resumed. Bumetanide drip at 0.5 mg an hour. Stable on propofol drip at 10 mcg/kg/min 04/23: Currently resting in bed in no acute distress. Will attempt dexmedetomidine drip and attempt for spontaneous breathing trials today. Otherwise too agitated. Currently afebrile. Positive BM. Tolerating tube feeds. 04/24: Currently afebrile. Continues on dexmedetomidine drip at 0.2 mcg per kilogram per hour now for sedation. Lasted 1 minute spontaneous breathing trial 04/23. Positive BM. Tolerating tube feeds at goal. No family available. SUBJECTIVE: 04/25: Resting in bed in no acute distress on dexmedetomidine drip at 0.2 mcg/kg/ h. Tolerating spontaneous breathing trials. 09/25 at 40%. Tolerating tube feedin 04/26: Vigorous upper extremity movement and interacts aggressively with eyes and left arm. Strong on CPAP today but chest x-ray and body habitus makes successful extubation at this time unlikely. The patient has been offered tracheostomy which she flatly refuses and she has asked us to remove the endotracheal tube. After consultation with the palliative care service we will request that the psychiatric department assess the patient's capacity to make healthcare decisions. Her daughters state that her history of schizophrenia precludes this. Objective Vital Signs / I&O: Vital Signs 04/25/18 16:00 04/25/18 16:35 04/25/18 16:36 Temperature 99 F Pulse Rate 70 70 Respiratory Rate 18 18 Blood Pressure 94/50 L Pulse Oximetry 94 L 100 04/25/18 18:00 04/25/18 19:59 04/25/18 20:00 Temperature 99 F Pulse Rate 70 75 Respiratory Rate 19 18 Blood Pressure 117/72 Pulse Oximetry 96 96 04/25/18 22:00 04/25/18 23:58 04/26/18 00:00 Temperature 97.2 F L Pulse Rate 75 75 70 Respiratory Rate 18 18 Blood Pressure 115/63 Pulse Oximetry 100 04/26/18 00:15 04/26/18 02:00 04/26/18 03:51 Temperature Pulse Rate 70 71 Respiratory Rate 21 18 Blood Pressure Pulse Oximetry 99 04/26/18 04:00 04/26/18 04:55 04/26/18 06:00 Temperature 97.9 F Pulse Rate 70 73 Respiratory Rate 18 19 Blood Pressure 123/65 Pulse Oximetry 100 99 04/26/18 08:00 04/26/18 08:57 04/26/18 10:00 Temperature 98 F Pulse Rate 70 70 70 Respiratory Rate 18 13 Blood Pressure 129/74 Pulse Oximetry 99 100 04/26/18 12:00 04/26/18 13:23 04/26/18 14:00 Temperature 97.5 F L Pulse Rate 70 70 70 Respiratory Rate 17 21 Blood Pressure 107/56 L Pulse Oximetry 99 Intake & Output 04/25/18 04/26/18 04/26/18 18:59 06:59 18:59 Intake Total 1331 / 1331 1554 / 1554 Output Total 2190 / 2190 3225 / 3225 Balance -859 / -859 -1671 / -1671 Weight 175.4 kg Intake: IV 120 / 120 452 / 452 Heparin/D5W 25,000 U/250 mL 25, 326 / 326 000 unit In 250 ml @ Per Protocol IV.CONT TITRATE PRN Rx #:[id number] KCl 40 mEq Premix Inj 40 meq In 120 / 120 126 / 126 100 ml @ 25 mls/hr IV.SIG Q4H [facility] Rx#:[id number] Oral 0 / 0 0 / 0 Tube Feeding 511 / 511 452 / 452 Water Bolus Amount 600 / 600 650 / 650 Other 100 / 100 Output: Urine 2150 / 2150 Emesis 40 / 40 Urine Amount (Catheter) 3225 / 3225 Indwelling Temp Sensing 3225 / 3225 Catheter Other: Date of Last Bowel Movement 04/23/18 04/23/18 04/23/18 # Bowel Movements 3 0 # Emeses 1 Result Diagrams: 04/26/18 06:00 04/26/18 06:00 Objective Remarks: GENERAL: 62-year-old AA female currently orotracheally intubated SKIN: Warm and dry. HEAD: Atraumatic. Normocephalic. EYES: Pupils equal and round. No scleral icterus. No injection or drainage. ENT: Orotracheally intubated NECK: Trachea midline. Unable to define JVD secondary to elevated BMI. Right IJ CVL clean dry and intact CARDIOVASCULAR: Distant heart sounds. Regular rate and rhythm. S1, S2 no S4. Murmur not appreciated. RESPIRATORY: Diminished breath sound due to body habitus. No wheezing, crackles appreciated. Few coarse rhonchi. GASTROINTESTINAL: Abdomen soft, non-tender, obese. Hypoactive bowel sounds appreciated MUSCULOSKELETAL: Extremities with woody bilateral upper and lower extremity edema. NEUROLOGICAL: Patient is intubated, lightly sedated with propofol. On sedation hold wakes up easily, follows commands bilateral upper lower extremities. Nods head yes and no to questions and gestures strongly with her arms. Assessment and Plan - Assessment and Plan Plan: Neuro/Psych: Acute encephalopathy Schizophrenia/Depression Seizure disorder as child? Parkinson's disease? Chronic opioid use History of brain mass? Per family. Brain CT negative. Unable to do MRI at this facility due to body habitus Currently on dexmedetomidine drip 0.2 mcg per gallop per minute for sedation/ analgesia while intubated GOAL RASS -2 Daily sedation vacation Neuro intact after brief PEA arrest CT brain previously negative for acute findings Continue ziprasidone 20 mg twice daily. Holding lorazepam 0.5 mg every 12 hours as needed, holding melatonin 6 mg at night for insomnia, holding Neurontin also CV: PEA Arrest secondary to aspiration and hypoxia Shock-resolved Fluid overload/pulmonary edema Congestive heart failure Essential hypertension Bradycardia Brief PEA arrest 04/19/18 around 7:10 PM return of spontaneous circulation in 5 minutes, received epinephrine 2 PEA arrest most likely secondary to aspiration and resultant hypoxia Bumetanide infusion at 0.25 mg/h with good urine output but worsening creatinine with a.m. laboratories still pending Continue IV albumin Holding atenolol 50 mg at night due to bradycardia, hypotension Weaned off norepinephrine to maintain mean arterial pressure greater than equal to 65 2D echocardiogram 09/04 revealed EF 50-55%. Very poor windows. Repeat echocardiogram Unable to perform due to body habitus Resp: Acute hypoxic and hypercarbic respiratory failure Bilateral DVT Pulmonary edema Extubated 04/16/2018. Reintubated 04/19/18 evening after aspiration and hypoxemic respiratory failure PRVC ventilation 18/550///40 Consulted general surgery for tracheostomy placement-discussed with Dr. Forrest Albuterol/ipratropium aerosols every 4 hours with albuterol aerosols every 2 hours as needed dyspnea Budesonide 0.5/2 1 inhalation twice daily Chest x-ray with very poor windows due to body habitus. CT thorax showed minimal consolidative changes left chest GI: Gastroesophageal reflux disease History of peptic ulcer disease Tube feeds with Nepro to resume goal 50 cc an hour. Currently at 25 cc an hour Lansoprazole for GI prophylaxis Docusate sodium/senna 1 tablet twice daily for bowel regimen On omeprazole 20 mg at night at home. Endo: Sliding scale insulin Accu-Cheks to maintain euglycemia with Accu-Cheks every 6 hours/low regimen NovoLog TSH and cortisol normal range FEN/Renal: Acute kidney injury in the setting of chronic kidney disease stage IIIa Hypernatremia Hypopotassemia Followed by nephrology. Bumetanide infusion as above Renal ultrasound showed no acute findings Recheck BMP in a.m. Heme: Microcytic anemia Bilateral posterior tibialis occlusive thrombus Continue IV heparin drip currently at thousand units an hour, CT head negative Family request no Coumadin but ok with TSOAC Monitor CBC daily. Follow trends iron studies -consistent with iron deficiency anemia Hematology following ID: Urinary tract infection (E Coli, MDR, Janie) ID discontinued ertapenem/continue fluconazole for MDR organism per ID. Sputum 04/21 revealed normal paramjit. MSK: Elevated BMI Weight loss encouraged Access -IJ central line pulled out by patient 04/17/18, new RIJ central line 04/19/18 Prophylax -GI -lansoprazole -DVT -SCDs/heparin IV Overall impression: Patient is marginal for extubation at this point but is adamant that we perform such. Historically the patient's daughters have had power of privacy attorney over her healthcare decisions because of her schizophrenia. Today she seems quite appropriate and oriented. I will ask the psychiatry service to assess her capacity to make healthcare decisions.
--- NOTE | 2018-04-26 15:50 | P.PNGS ---
<Liyah Bell - Last Filed: 04/26/18 15:46> Subjective Patient reports: no new complaints (attempting CPAP trials; anxious ) Physical Exam Vital signs: Vital Signs 04/25/18 16:00 04/25/18 16:35 04/25/18 16:36 Temperature 99 F Pulse Rate 70 70 Respiratory Rate 18 18 Blood Pressure 94/50 L Pulse Oximetry 94 L 100 04/25/18 18:00 04/25/18 19:59 04/25/18 20:00 Temperature 99 F Pulse Rate 70 75 Respiratory Rate 19 18 Blood Pressure 117/72 Pulse Oximetry 96 96 04/25/18 22:00 04/25/18 23:58 04/26/18 00:00 Temperature 97.2 F L Pulse Rate 75 75 70 Respiratory Rate 18 18 Blood Pressure 115/63 Pulse Oximetry 100 04/26/18 00:15 04/26/18 02:00 04/26/18 03:51 Temperature Pulse Rate 70 71 Respiratory Rate 21 18 Blood Pressure Pulse Oximetry 99 04/26/18 04:00 04/26/18 04:55 04/26/18 06:00 Temperature 97.9 F Pulse Rate 70 73 Respiratory Rate 18 19 Blood Pressure 123/65 Pulse Oximetry 100 99 04/26/18 08:00 04/26/18 08:57 04/26/18 10:00 Temperature 98 F Pulse Rate 70 70 70 Respiratory Rate 18 13 Blood Pressure 129/74 Pulse Oximetry 99 100 04/26/18 12:00 04/26/18 13:23 04/26/18 14:00 Temperature 97.5 F L Pulse Rate 70 70 70 Respiratory Rate 17 21 Blood Pressure 107/56 L Pulse Oximetry 99 Intake & Output 04/25/18 04/26/18 04/26/18 18:59 06:59 18:59 Intake Total 1331 / 1331 1554 / 1554 Output Total 2190 / 2190 3225 / 3225 Balance -859 / -859 -1671 / -1671 Weight 175.4 kg Intake: IV 120 / 120 452 / 452 Heparin/D5W 25,000 U/250 mL 25, 326 / 326 000 unit In 250 ml @ Per Protocol IV.CONT TITRATE PRN Rx #:[id number] KCl 40 mEq Premix Inj 40 meq In 120 / 120 126 / 126 100 ml @ 25 mls/hr IV.SIG Q4H [facility] Rx#:[id number] Oral 0 / 0 0 / 0 Tube Feeding 511 / 511 452 / 452 Water Bolus Amount 600 / 600 650 / 650 Other 100 / 100 Output: Urine 2150 / 2150 Emesis 40 / 40 Urine Amount (Catheter) 3225 / 3225 Indwelling Temp Sensing 3225 / 3225 Catheter Other: Date of Last Bowel Movement 04/23/18 04/23/18 04/23/18 # Bowel Movements 3 0 # Emeses 1 - Constitutional moderate distress - Routine HEENT Exam Head: Present: normocephalic - Routine Neck Exam Comments: short neck - Routine Respiratory Exam Present: patient mechanically ventilated - Routine Cardiovascular Exam Present: RRR - Routine Abdominal Exam Present: soft, normoactive bowel sounds - Routine Extremities Exam Present: pulses intact - Routine Skin Exam Present: intact - Routine Neurological Exam Present: alert, oriented X3 - Detailed Neurological Exam: Coma Scale Eye Opening: Spontaneous Verbal Response: Oriented Motor Response: Obey commands Ayan Coma Scale Total: 15 - Routine Psychiatric Exam Present: normal affect - Urinary Catheter Management Indwelling Temp Sensing Catheter Cath placed during this visit: yes Urethral indwelling: Yes Reason for continuing: Hourly intake/output Insertion date: 04/17/18 Insertion time: 18:10 Assessment and Plan - Plan 62 year old female with VDRF; possible need for tracheostomy tube placement -Will hold off on trach placement for now -CCM attempting to wean ventilator -Patient does not want trach placement -Palliative Care following <Sher Forrest - Last Filed: 04/27/18 18:00> Physical Exam Vital signs: Vital Signs 04/26/18 18:00 04/26/18 20:00 04/26/18 20:51 Temperature 98.5 F Pulse Rate 70 69 68 Respiratory Rate 24 18 Blood Pressure 114/63 Pulse Oximetry 100 100 04/26/18 22:00 04/27/18 00:00 04/27/18 00:35 Temperature 98.4 F Pulse Rate 70 70 Respiratory Rate 18 18 Blood Pressure 103/65 Pulse Oximetry 99 99 04/27/18 02:00 04/27/18 04:00 04/27/18 04:29 Temperature 98.1 F Pulse Rate 70 71 Respiratory Rate 18 18 Blood Pressure 98/51 L Pulse Oximetry 98 100 04/27/18 06:00 04/27/18 08:00 04/27/18 09:09 Temperature 98.8 F Pulse Rate 71 70 Respiratory Rate 18 18 Blood Pressure 116/65 Pulse Oximetry 100 98 04/27/18 09:12 04/27/18 10:00 04/27/18 12:00 Temperature Pulse Rate 70 71 70 Respiratory Rate 18 Blood Pressure Pulse Oximetry 04/27/18 14:00 04/27/18 17:02 Temperature Pulse Rate 70 Respiratory Rate 18 Blood Pressure Pulse Oximetry Intake & Output 04/26/18 04/27/18 04/27/18 18:59 06:59 18:59 Intake Total 1206 / 1206 1375 / 1375 Output Total 2450 / 2450 900 / 900 Balance -1244 / -1244 475 / 475 Weight 168.1 kg Intake: IV 250 / 250 250 / 250 Precedex Inj 1,000 MCG In NS 250 / 250 Inj 240 ML @ 0.2 MCG/KG/HR 9.22 mls/hr IV.CONT TITRATE PRN Rx# :[id number] Heparin/D5W 25,000 U/250 mL 25, 250 / 250 000 unit In 250 ml @ Per Protocol IV.CONT TITRATE PRN Rx #:[id number] Oral 0 / 0 0 / 0 Tube Feeding 556 / 556 625 / 625 Water Bolus Amount 400 / 400 500 / 500 Output: Urine Amount (Catheter) 2450 / 2450 900 / 900 Indwelling Temp Sensing 2450 / 2450 900 / 900 Catheter Other: Date of Last Bowel Movement 04/23/18 04/27/18 04/27/18 # Bowel Movements 0 # Incontinent Bowel Movements 1 - Urinary Catheter Management Indwelling Temp Sensing Catheter Cath placed during this visit: no Assessment and Plan - Plan As above; patient is adamant about refusing tracheostomy; she is competent, and thus cannot proceed at this time. - Attending Attestation The exam, history, and the medical decision-making described in the above note were completed with the assistance of the mid-level provider. I reviewed and agree with the findings presented. I attest that I had a [id number] encounter with the patient on the same day, and personally performed and documented my assessment and findings in the medical record.
--- NOTE | 2018-04-26 16:04 | P.PNPAL ---
Reason for Visit Reason for visit: a. To assist with evaluation and management of symptoms including: dyspnea; pain; encephalopathy b. To assist medical decision maker(s) with: better understanding of current medical conditions; weighing benefits/burdens of medical treatment options; making medical treatment decisions. . Subjective Subjective/Interval History: INTERVAL NOTE: The patient remains alert, on the ventilator. The nurse reports that the patient has been insisting that she be extubated and allowed to . The patient's daughters, on the other hand, continue to insist that the patient remain intubated and all aggressive care be continued, and they reportedly told the nurse that the patient "has schizophrenia and cannot make her own decisions." Remains afebrile Advance Directives Health Care Surrogate Name and Number: Reportedly is daughter -- Lena hanna Documented care wishes:: No known documented care goals/wishes. . Objective Vital Signs: Vital Signs 04/25/18 16:00 04/25/18 16:35 04/25/18 16:36 Temperature 99 F Pulse Rate 70 70 Respiratory Rate 18 18 Blood Pressure 94/50 L Pulse Oximetry 94 L 100 04/25/18 18:00 04/25/18 19:59 04/25/18 20:00 Temperature 99 F Pulse Rate 70 75 Respiratory Rate 19 18 Blood Pressure 117/72 Pulse Oximetry 96 96 04/25/18 22:00 04/25/18 23:58 04/26/18 00:00 Temperature 97.2 F L Pulse Rate 75 75 70 Respiratory Rate 18 18 Blood Pressure 115/63 Pulse Oximetry 100 04/26/18 00:15 04/26/18 02:00 04/26/18 03:51 Temperature Pulse Rate 70 71 Respiratory Rate 21 18 Blood Pressure Pulse Oximetry 99 04/26/18 04:00 04/26/18 04:55 04/26/18 06:00 Temperature 97.9 F Pulse Rate 70 73 Respiratory Rate 18 19 Blood Pressure 123/65 Pulse Oximetry 100 99 04/26/18 08:00 04/26/18 08:57 04/26/18 10:00 Temperature 98 F Pulse Rate 70 70 70 Respiratory Rate 18 13 Blood Pressure 129/74 Pulse Oximetry 99 100 04/26/18 12:00 04/26/18 13:23 04/26/18 14:00 Temperature 97.5 F L Pulse Rate 70 70 70 Respiratory Rate 17 21 Blood Pressure 107/56 L Pulse Oximetry 99 Intake & Output 04/25/18 04/26/18 04/26/18 18:59 06:59 18:59 Intake Total 1331 / 1331 1554 / 1554 Output Total 2190 / 2190 3225 / 3225 Balance -859 / -859 -1671 / -1671 Weight 175.4 kg Intake: IV 120 / 120 452 / 452 Heparin/D5W 25,000 U/250 mL 25, 326 / 326 000 unit In 250 ml @ Per Protocol IV.CONT TITRATE PRN Rx #:[id number] KCl 40 mEq Premix Inj 40 meq In 120 / 120 126 / 126 100 ml @ 25 mls/hr IV.SIG Q4H SYLVIA Rx#:[id number] Oral 0 / 0 0 / 0 Tube Feeding 511 / 511 452 / 452 Water Bolus Amount 600 / 600 650 / 650 Other 100 / 100 Output: Urine 2150 / 2150 Emesis 40 / 40 Urine Amount (Catheter) 3225 / 3225 Indwelling Temp Sensing 3225 / 3225 Catheter Other: Date of Last Bowel Movement 04/23/18 04/23/18 04/23/18 # Bowel Movements 3 0 # Emeses 1 Physical Exam: CONSTITUTIONAL/GENERAL: This is Morbidly obese female, intubated, mechanically ventilated in an [facility] bed. She is alert and communicating with her hands and by nodding yes/no. EYES: Pupils equal and round and reactive. Extraocular motions intact. ENT: Hearing grossly normal. Nose without bleeding or purulent drainage. NECK: Trachea feels midline and now obvious thyroid enlargement though level of obesity makes exam very challenging. CARDIOVASCULAR: Regular rate and rhythm without murmurs, gallops, or rubs. No JVD. Peripheral pulses faint but palpable. RESPIRATORY/CHEST: Symmetric, unlabored respirations. Clear to auscultation. Breath sounds equal bilaterally but diminished. . No audible wheezes, rales, or rhonchi. GASTROINTESTINAL: Abdomen obese, soft, non-tender, nondistended. No hepato- splenomegaly, or palpable masses though level of obesity makes exam challenging. . No guarding. Bowel sounds present. MUSCULOSKELETAL: Extremities without clubbing, cyanosis. Bilateral LE edema is present. No mottling . NEUROLOGICAL: Awake. Nods yes/no appropriately, answering multiple choice queries correctly regarding month, year, place, person. PSYCHIATRIC: Denies visual or auditory hallucinations . Diagnostic Tests Laboratory: Laboratory Results - last 72 hr 04/23/18 04/23/18 04/24/18 20:30 23:21 05:20 WBC RBC Hgb Hct MCV MCH MCHC RDW Plt Count MPV Prelim Diff (Auto) Neut % (Auto) Lymph % (Auto) Newberry % (Auto) Eos % (Auto) Baso % (Auto) Neut # (Auto) Lymph # (Auto) Newberry # (Auto) Eos # (Auto) Baso # (Auto) WBC Differential Seg Neuts % (Manual) Band Neuts % (Manual) Lymphocytes % (Manual) Monocytes % (Manual) Eosinophils % (Manual) Abs Neuts (Manual) Differential Comment Platelet Estimate Platelet Morphology Stomatocytes APTT Sodium 145 Potassium 2.6 L* 2.8 L* Chloride 100 Carbon Dioxide 31.8 Anion Gap 13 BUN 72 H Creatinine 2.72 H Estimated GFR 21 L POC Glucose 136 H Random Glucose 139 H Calcium 9.7 Phosphorus 4.8 Magnesium 2.1 Total Bilirubin 3.4 H Direct Bilirubin 2.4 H Indirect Bilirubin 1.0 H AST 31 ALT 19 Alkaline Phosphatase 112 Total Protein 6.7 Albumin 3.2 L 04/24/18 04/24/18 04/24/18 05:20 05:20 22:10 WBC 5.8 7.7 RBC 3.95 L 3.81 L Hgb 9.6 L 9.2 L Hct 31.6 L 30.8 L MCV 80.1 80.9 MCH 24.3 L 24.1 L MCHC 30.3 L 29.8 L RDW 23.1 H 23.5 H Plt Count 151 144 L MPV 8.6 8.6 Prelim Diff (Auto) Neut % (Auto) 65.7 Lymph % (Auto) 25.0 Newberry % (Auto) 6.8 Eos % (Auto) 2.1 Baso % (Auto) 0.4 Neut # (Auto) 3.8 Lymph # (Auto) 1.5 Newberry # (Auto) 0.4 Eos # (Auto) 0.1 Baso # (Auto) 0.0 WBC Differential . Seg Neuts % (Manual) Band Neuts % (Manual) Lymphocytes % (Manual) Monocytes % (Manual) Eosinophils % (Manual) Abs Neuts (Manual) Differential Comment Auto diff final Platelet Estimate Platelet Morphology Stomatocytes APTT 42.3 H Sodium Potassium Chloride Carbon Dioxide Anion Gap BUN Creatinine Estimated GFR POC Glucose Random Glucose Calcium Phosphorus Magnesium Total Bilirubin Direct Bilirubin Indirect Bilirubin AST ALT Alkaline Phosphatase Total Protein Albumin 04/24/18 04/25/18 04/25/18 22:10 05:30 05:30 WBC 7.0 RBC 3.72 L Hgb 9.1 L Hct 29.7 L MCV 79.7 L MCH 24.5 L MCHC 30.7 L RDW 23.7 H Plt Count 145 L MPV 8.4 Prelim Diff (Auto) Neut % (Auto) 72.7 H Lymph % (Auto) 17.7 Newberry % (Auto) 6.4 Eos % (Auto) 2.9 Baso % (Auto) 0.3 Neut # (Auto) 5.1 Lymph # (Auto) 1.2 Newberry # (Auto) 0.4 Eos # (Auto) 0.2 Baso # (Auto) 0.0 WBC Differential . Seg Neuts % (Manual) Band Neuts % (Manual) Lymphocytes % (Manual) Monocytes % (Manual) Eosinophils % (Manual) Abs Neuts (Manual) Differential Comment Auto diff final Platelet Estimate Platelet Morphology Stomatocytes APTT 41.0 H Sodium 146 H Potassium 3.3 L Chloride 101 Carbon Dioxide 33.4 H Anion Gap 12 BUN 77 H Creatinine 2.64 H Estimated GFR 22 L POC Glucose Random Glucose 127 H Calcium 10.0 Phosphorus 4.5 Magnesium 2.2 Total Bilirubin 2.8 H Direct Bilirubin Indirect Bilirubin AST 36 ALT 21 Alkaline Phosphatase 132 H Total Protein 6.7 Albumin 3.2 L 04/25/18 04/25/18 04/26/18 05:30 23:25 06:00 WBC 8.6 RBC 3.65 L Hgb 8.8 L Hct 29.2 L MCV 80.1 MCH 24.3 L MCHC 30.3 L RDW 23.8 H Plt Count 144 L MPV 8.3 Prelim Diff (Auto) Slide review pending Neut % (Auto) Lymph % (Auto) Newberry % (Auto) Eos % (Auto) Baso % (Auto) Neut # (Auto) Lymph # (Auto) Newberry # (Auto) Eos # (Auto) Baso # (Auto) WBC Differential Manual diff final Seg Neuts % (Manual) 75 H Band Neuts % (Manual) 1 Lymphocytes % (Manual) 13 Monocytes % (Manual) 3 Eosinophils % (Manual) 8 H Abs Neuts (Manual) 6.5 Differential Comment . Platelet Estimate Low L Platelet Morphology Normal Stomatocytes 1+ H APTT Sodium 147 H Potassium 3.1 L Chloride 102 Carbon Dioxide 32.5 H Anion Gap 13 BUN 72 H Creatinine 2.52 H Estimated GFR 23 L POC Glucose 137 H Random Glucose 119 H Calcium 9.9 Phosphorus 4.0 Magnesium 2.2 Total Bilirubin 2.7 H Direct Bilirubin Indirect Bilirubin AST 31 ALT 19 Alkaline Phosphatase 132 H Total Protein 6.8 Albumin 3.3 L 04/26/18 04/26/18 04/26/18 06:00 06:00 07:30 WBC RBC Hgb Hct MCV MCH MCHC RDW Plt Count MPV Prelim Diff (Auto) Neut % (Auto) Lymph % (Auto) Newberry % (Auto) Eos % (Auto) Baso % (Auto) Neut # (Auto) Lymph # (Auto) Newberry # (Auto) Eos # (Auto) Baso # (Auto) WBC Differential Seg Neuts % (Manual) Band Neuts % (Manual) Lymphocytes % (Manual) Monocytes % (Manual) Eosinophils % (Manual) Abs Neuts (Manual) Differential Comment Platelet Estimate Platelet Morphology Stomatocytes APTT 37.6 H Sodium 148 H Potassium 3.1 L Chloride 103 Carbon Dioxide 34.0 H Anion Gap 11 BUN 69 H Creatinine 2.34 H Estimated GFR 25 L POC Glucose 117 H Random Glucose 111 H Calcium 9.9 Phosphorus 3.3 Magnesium 2.2 Total Bilirubin 2.9 H Direct Bilirubin Indirect Bilirubin AST 34 ALT 20 Alkaline Phosphatase 127 H Total Protein 7.0 Albumin 3.3 L 04/26/18 13:19 WBC RBC Hgb Hct MCV MCH MCHC RDW Plt Count MPV Prelim Diff (Auto) Neut % (Auto) Lymph % (Auto) Newberry % (Auto) Eos % (Auto) Baso % (Auto) Neut # (Auto) Lymph # (Auto) Newberry # (Auto) Eos # (Auto) Baso # (Auto) WBC Differential Seg Neuts % (Manual) Band Neuts % (Manual) Lymphocytes % (Manual) Monocytes % (Manual) Eosinophils % (Manual) Abs Neuts (Manual) Differential Comment Platelet Estimate Platelet Morphology Stomatocytes APTT Sodium Potassium Chloride Carbon Dioxide Anion Gap BUN Creatinine Estimated GFR POC Glucose 124 H Random Glucose Calcium Phosphorus Magnesium Total Bilirubin Direct Bilirubin Indirect Bilirubin AST ALT Alkaline Phosphatase Total Protein Albumin Result Diagrams: 04/26/18 06:00 04/26/18 06:00 Procedures: Right IJ central line Intubation / mechanical ventilation . Assessment and Plan - Disease Oriented Problem List (1) Acute kidney injury (2) Aspiration pneumonia (3) Septic shock (4) Respiratory failure requiring intubation (5) Previous back surgery (6) Bipolar disorder (7) Insomnia (8) Hyponatremia (9) Psychogenic polydipsia (10) Anemia (11) DVT (deep venous thrombosis) Comment: Posterior tibial veins bilaterally per dopplers of 04/11/18 (12) Urinary tract infection Comment: Cultures grew out resistant E coli and Janie glabrata Pertinent Non-Medical Issues: Psychosocial: Patient is originally from [place]. She also lived in [place] for a while. She moved to [place] approximately 28 years ago. The patient is a high school graduate and almost finished college. 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 The patient was never . She has 2 daughters. Cassi Turcios lives in [place]. Lena Hanna lives locally. There are 6 grandchildren. The patient had 2 sisters who are . There is one brother who is alive. The patient has been a resident of long-term care facilities since 2002. Initially, she needed these facilities primarily for her psychiatric condition. Later on she required quite a lot of help for her medical conditions. Legal: The patient never completed a living well. Reportedly, a healthcare surrogate designation was completed. Both daughters informed me that Lena is the designated surrogate. Ethical issues impacting care: The patient is currently incapacitated to make her own healthcare decisions. It is uncertain if and when she will regain capacity to do so. Substance Use: Patient was a heavy smoker earlier in her life but quit approximately 30 years ago. No history of alcohol abuse. No known use of illicits. Family Hx: patient's mother of a stroke. Patient's father of unknown causes. One of the patient's sisters of an unknown type of cancer. No other known diseases run in the family. . Important Contacts: Lena Hanna (daughter and reported health care surrogate) -- [phone] Cassi Turcios (daughter ) [phone] . Prognosis: Ms. Hanna suffers from several chronic problems including morbid obesity, sleep apnea, schizophrenia, recurrent UTIs, recurrent hyponatremia. She has had decreasing functional status over the years. She was able to walk with a walker following her hips surgeries three years ago. she is now wheelchair bound. Her hospital course has been quite challenging with a multi-drug resistant UTI, hyponatremia, aspiration pneumonia, septic shock, respiratory failure, and a PEA arrest. She will be challenging to wean from the ventilator. Additional de- conditioning from the hospitalization will make her even more vulnerable to future infections and complications. She is appropriate for hospice services if the goals become comfort oriented. . Code Status: Full Code Plan: == Code Status: FULL CODE, per request of her 2 daughters == Decision Making: The patient was felt to be incapacitated to make her own healthcare decisions, and her daughters were the decision-maker. It is clear that the patient is much more alert now, and is making her own demands. Dr. Hall is requesting a determination of capacity from psychiatry (since the patient's goals appear to be in marked contrast with those of her daughters). == Goals of medical treatment: Both daughters have asked for all aggressive care including tracheostomy and PEG tube placement if necessary. They have wanted her to remain full CODE STATUS. In spite of being intubated, the patient seems to be expressing other goals, and a determination of capacity is being requested. == Symptoms * Pain: Patient would occasionally complain of back pain prior to this hospitalization. She has been on gabapentin presumably for peripheral neuropathy. Prehospital medications also included hydrocodone/acetaminophen 7.5 -325. She is denying pain at this time. * Dyspnea: Dyspnea is probably from a combination of an aspiration pneumonia along with some chronic lung problems from prior smoking history and likely sleep apnea. Currently dyspnea is being managed with mechanical ventilation. No further recommendations at this time * Encephalopathy: Patient has underlying psychiatric problems but per her daughters, she could carry on a conversation. Currently, she is remaining alert and communicative. == Psychiatry has been consulted to assist in determining capacity for medical decision making. == Palliative care will continue to follow to assist with symptom management and to further clarify goals of medical treatment as the clinical course evolves . Time Spent Total Floor Time (mins): 39 Face to Face Time (mins): 21 >50% Time in Counseling or Coordination of Care: Yes (d/w Dr. Hall, Alexandra Ortiz MEMBER SERVICE REPRESENTATIVE, and RN) Attestation Attestation: To help prompt me to consider important information that might be impacting today's encounter and assessment, information from prior notes written by myself or my colleagues may have been "brought forward" into today's note. My signature on this note, however, is an attestation that I personally performed the exam, history, and/or decision-making noted today, and, unless otherwise indicated, the interactions with patient, family, and staff as well as the review of records all occurred today. I also attest that the listed assessment and stated plan reflect my best clinical judgment today based on the combination of historical information, prior notes, and today's exam/ interactions. When time spent is documented, it refers only to time spent today by the signer, or if indicated, combined time spent today by collaborating physician/nurse practitioner.
--- NOTE | 2018-04-26 16:30 | P.PNNP ---
Subjective Interval history: Remains on ventilator. Creatinine is stable at 2.34, on bumex gtt. <Debo Dickerson - Last Filed: 04/26/18 16:24> Physical Exam Vital signs: Vital Signs 04/25/18 16:35 04/25/18 16:36 04/25/18 18:00 Temperature Pulse Rate 70 70 Respiratory Rate 18 18 Blood Pressure Pulse Oximetry 100 04/25/18 19:59 04/25/18 20:00 04/25/18 22:00 Temperature 99 F Pulse Rate 75 75 Respiratory Rate 19 18 Blood Pressure 117/72 Pulse Oximetry 96 96 04/25/18 23:58 04/26/18 00:00 04/26/18 00:15 Temperature 97.2 F L Pulse Rate 75 70 Respiratory Rate 18 18 21 Blood Pressure 115/63 Pulse Oximetry 100 99 04/26/18 02:00 04/26/18 03:51 04/26/18 04:00 Temperature 97.9 F Pulse Rate 70 71 70 Respiratory Rate 18 18 Blood Pressure 123/65 Pulse Oximetry 100 04/26/18 04:55 04/26/18 06:00 04/26/18 08:00 Temperature 98 F Pulse Rate 73 70 Respiratory Rate 19 18 Blood Pressure 129/74 Pulse Oximetry 99 99 04/26/18 08:57 04/26/18 10:00 04/26/18 12:00 Temperature 97.5 F L Pulse Rate 70 70 70 Respiratory Rate 13 17 Blood Pressure 107/56 L Pulse Oximetry 100 04/26/18 13:23 04/26/18 14:00 Temperature Pulse Rate 70 70 Respiratory Rate 21 Blood Pressure Pulse Oximetry 99 Intake & Output 04/25/18 04/26/18 04/26/18 18:59 06:59 18:59 Intake Total 1331 / 1331 1554 / 1554 Output Total 2190 / 2190 3225 / 3225 Balance -859 / -859 -1671 / -1671 Weight 175.4 kg Intake: IV 120 / 120 452 / 452 Heparin/D5W 25,000 U/250 mL 25, 326 / 326 000 unit In 250 ml @ Per Protocol IV.CONT TITRATE PRN Rx #:[id number] KCl 40 mEq Premix Inj 40 meq In 120 / 120 126 / 126 100 ml @ 25 mls/hr IV.SIG Q4H SYLVIA Rx#:[id number] Oral 0 / 0 0 / 0 Tube Feeding 511 / 511 452 / 452 Water Bolus Amount 600 / 600 650 / 650 Other 100 / 100 Output: Urine 2150 / 2150 Emesis 40 / 40 Urine Amount (Catheter) 3225 / 3225 Indwelling Temp Sensing 3224 / 3224 Catheter Other: Date of Last Bowel Movement 04/23/18 04/23/18 04/23/18 # Bowel Movements 3 0 # Emeses 1 - Constitutional no acute distress, morbidly obese - Routine HEENT Exam Head: Present: normocephalic ENT: Present: mucous membranes moist - Routine Neck Exam Absent: JVD - Routine Respiratory Exam Present: patient mechanically ventilated. Absent: rhonchi - Routine Cardiovascular Exam Present: RRR - Routine Abdominal Exam Present: soft, normoactive bowel sounds. Absent: tenderness - Routine Extremities Exam Present: edema - Routine Skin Exam Present: dry, warm - Routine Neurological Exam Present: alert - Routine Psychiatric Exam Present: cooperative - Urinary Catheter Management Indwelling Temp Sensing Catheter Cath placed during this visit: yes Urethral indwelling: Yes Reason for continuing: Hourly intake/output Insertion date: 04/17/18 Insertion time: 18:10 <Debo Dickerson - Last Filed: 04/26/18 16:24> Vital signs: Vital Signs 04/25/18 22:00 04/25/18 23:58 04/26/18 00:00 Temperature 97.2 F L Pulse Rate 75 75 70 Respiratory Rate 18 18 Blood Pressure 115/63 Pulse Oximetry 100 04/26/18 00:15 04/26/18 02:00 04/26/18 03:51 Temperature Pulse Rate 70 71 Respiratory Rate 21 18 Blood Pressure Pulse Oximetry 99 04/26/18 04:00 04/26/18 04:55 04/26/18 06:00 Temperature 97.9 F Pulse Rate 70 73 Respiratory Rate 18 19 Blood Pressure 123/65 Pulse Oximetry 100 99 04/26/18 08:00 04/26/18 08:57 04/26/18 10:00 Temperature 98 F Pulse Rate 70 70 70 Respiratory Rate 18 13 Blood Pressure 129/74 Pulse Oximetry 99 100 04/26/18 12:00 04/26/18 13:23 04/26/18 14:00 Temperature 97.5 F L Pulse Rate 70 70 70 Respiratory Rate 17 21 Blood Pressure 107/56 L Pulse Oximetry 99 04/26/18 16:00 04/26/18 16:59 04/26/18 18:00 Temperature 97.2 F L Pulse Rate 68 70 70 Respiratory Rate 22 18 Blood Pressure 108/64 Pulse Oximetry 100 96 Intake & Output 04/26/18 04/26/18 04/27/18 06:59 18:59 06:59 Intake Total 1554 / 1554 1206 / 1206 Output Total 3225 / 3225 2450 / 2450 Balance -1671 / -1671 -1244 / -1244 Weight 175.4 kg Intake: IV 452 / 452 250 / 250 Precedex Inj 1,000 MCG In NS 250 / 250 Inj 240 ML @ 0.2 MCG/KG/HR 9.22 mls/hr IV.CONT TITRATE PRN Rx# :[id number] Heparin/D5W 25,000 U/250 mL 25, 326 / 326 000 unit In 250 ml @ Per Protocol IV.CONT TITRATE PRN Rx #:[id number] KCl 40 mEq Premix Inj 40 meq In 126 / 126 100 ml @ 25 mls/hr IV.SIG Q4H SYLVIA Rx#:[id number] Oral 0 / 0 0 / 0 Tube Feeding 452 / 452 556 / 556 Water Bolus Amount 650 / 650 400 / 400 Output: Urine Amount (Catheter) 3225 / 3225 2450 / 2450 Indwelling Temp Sensing 3225 / 3225 2450 / 2450 Catheter Other: Date of Last Bowel Movement 04/23/18 04/23/18 # Bowel Movements 0 0 - Urinary Catheter Management Indwelling Temp Sensing Catheter Cath placed during this visit: no <Rosie Mcgovern - Last Filed: 04/26/18 21:13> Assessment and Plan - Assessment (1) Acute kidney injury Code(s): N17.9 - Acute kidney failure, unspecified Status: Deleted Plan: Acute kidney injury Her previous creatinine was 1.2 in August of last year. Possible GABRIELLA due to recent antibiotics outpatient? UTI now. Possible cardio-renal component with volume overload. Creatinine stable: 2.6 -> 2.5 ->2.34 Urinary output 2.1 Lm /24 hours Continue Bumex gtt at 0.5mg/hour, creatinine stable Avoid nephrotoxins Will monitor BMP and urinary output. labs in AM Hypernatremia On bumex gtt may need to decrease gtt with worsening hypernatremia. <Debo Dickerson - Last Filed: 04/26/18 16:24> - Assessment (1) Acute kidney injury Code(s): N17.9 - Acute kidney failure, unspecified Status: Deleted - Attending Attestation Patient seen and examined, agree with above. Continue diuretics, Creatinine is slightly better. <Rosie Mcgovern - Last Filed: 04/26/18 21:13>
[2018-04-26] MEDS: Bumetanide Inj 25 MG/100 ML BAG IV.CONT SCH (17:11)
[2018-04-26] MEDS: Dexmedetomidine Inj 1,000 MCG in Sodium Chlor 0.9% Inj 240 ML IV.CONT PRN (18:40)
[2018-04-27] MEDS: Heparin Drip 25,000 UNIT/250 ML BAG IV.CONT PRN (00:11)
[2018-04-27] MEDS: Oral Hygiene Kit OROPHARYNG SCH ×3 (00:13→11:11)
[2018-04-27 06:04] LABS: Calcium 10.7 mg/dL (8.5-10.1); Carbon Dioxide 35.3 meq/L (21.0-32.0); Potassium 3.1 meq/L (3.5-5.1)
[2018-04-27] MEDS: Insulin NovoLIN Regular Correctional Sugar Inj SQ SCH ×3 (06:17→11:11)
[2018-04-27] MEDS: Artificial Tears Opth Drops 15 ML Bottle EACH EYE SCH ×2 (06:19→16:58)
[2018-04-27] MEDS: Chlorhexidine 0.12% Oral Kit 15 ML UDC OROPHARYNG SCH (09:11)
[2018-04-27] MEDS: Senna/Docusate Sodium 8.6/50 MG Tablet PO SCH (09:12)
[2018-04-27] MEDS: Multivitamin/Minerals Therapeutic Tablet PO SCH (09:12)
[2018-04-27] MEDS ORDERED: Potassium Chloride 20 MEQ Pwd Pkt NG/OG ONE (10:00)
--- NOTE | 2018-04-27 10:17 | P.PNNP ---
Subjective Interval history: Orally intubated on ventilator, pointing to pain in right hip region. Creatinine has remained stable at 2.15, on Bumex gtt. <JaylaDebo - Last Filed: 04/27/18 10:11> Physical Exam Vital signs: Vital Signs 04/26/18 12:00 04/26/18 13:23 04/26/18 14:00 Temperature 97.5 F L Pulse Rate 70 70 70 Respiratory Rate 17 21 Blood Pressure 107/56 L Pulse Oximetry 99 04/26/18 16:00 04/26/18 16:59 04/26/18 18:00 Temperature 97.2 F L Pulse Rate 68 70 70 Respiratory Rate 22 18 Blood Pressure 108/64 Pulse Oximetry 100 96 04/26/18 20:00 04/26/18 20:51 04/26/18 22:00 Temperature 98.5 F Pulse Rate 69 68 70 Respiratory Rate 24 18 Blood Pressure 114/63 Pulse Oximetry 100 100 04/27/18 00:00 04/27/18 00:35 04/27/18 02:00 Temperature 98.4 F Pulse Rate 70 70 Respiratory Rate 18 18 Blood Pressure 103/65 Pulse Oximetry 99 99 04/27/18 04:00 04/27/18 04:29 04/27/18 06:00 Temperature 98.1 F Pulse Rate 71 71 Respiratory Rate 18 18 Blood Pressure 98/51 L Pulse Oximetry 98 100 04/27/18 09:09 04/27/18 09:12 Temperature Pulse Rate 70 Respiratory Rate 18 18 Blood Pressure Pulse Oximetry 98 Intake & Output 04/26/18 04/27/18 04/27/18 18:59 06:59 18:59 Intake Total 1206 / 1206 1375 / 1375 Output Total 2450 / 2450 900 / 900 Balance -1244 / -1244 475 / 475 Weight 168.1 kg Intake: IV 250 / 250 250 / 250 Precedex Inj 1,000 MCG In NS 250 / 250 Inj 240 ML @ 0.2 MCG/KG/HR 9.22 mls/hr IV.CONT TITRATE PRN Rx# :[id number] Heparin/D5W 25,000 U/250 mL 25, 250 / 250 000 unit In 250 ml @ Per Protocol IV.CONT TITRATE PRN Rx #:[id number] Oral 0 / 0 0 / 0 Tube Feeding 556 / 556 625 / 625 Water Bolus Amount 400 / 400 500 / 500 Output: Urine Amount (Catheter) 2450 / 2450 900 / 900 Indwelling Temp Sensing 2450 / 2450 900 / 900 Catheter Other: Date of Last Bowel Movement 04/23/18 04/27/18 # Bowel Movements 0 # Incontinent Bowel Movements 1 - Constitutional no acute distress - Routine HEENT Exam Head: Present: normocephalic ENT: Present: mucous membranes moist - Routine Neck Exam Present: supple. Absent: JVD - Routine Respiratory Exam Present: patient mechanically ventilated, rhonchi. Absent: wheezes - Routine Cardiovascular Exam Present: RRR - Routine Abdominal Exam Present: soft, normoactive bowel sounds Comments: large - Routine Extremities Exam Present: edema Comments: improving - Routine Skin Exam Present: dry, warm - Routine Neurological Exam Present: alert - Detailed Neurological Exam: Coma Scale Verbal Response: Oriented Motor Response: Obey commands - Routine Psychiatric Exam Present: cooperative - Urinary Catheter Management Indwelling Temp Sensing Catheter Cath placed during this visit: yes Urethral indwelling: Yes Reason for continuing: Not indwelling catheter Insertion date: 04/17/18 Insertion time: 18:10 <Debo iDckerson - Last Filed: 04/27/18 10:11> Vital signs: Vital Signs 04/27/18 00:00 04/27/18 00:35 04/27/18 02:00 Temperature 98.4 F Pulse Rate 70 70 Respiratory Rate 18 18 Blood Pressure 103/65 Pulse Oximetry 99 99 04/27/18 04:00 04/27/18 04:29 04/27/18 06:00 Temperature 98.1 F Pulse Rate 71 71 Respiratory Rate 18 18 Blood Pressure 98/51 L Pulse Oximetry 98 100 04/27/18 08:00 04/27/18 09:09 04/27/18 09:12 Temperature 98.8 F Pulse Rate 70 70 Respiratory Rate 18 18 18 Blood Pressure 116/65 Pulse Oximetry 100 98 04/27/18 10:00 04/27/18 12:00 04/27/18 14:00 Temperature Pulse Rate 71 70 70 Respiratory Rate Blood Pressure Pulse Oximetry 04/27/18 17:02 Temperature Pulse Rate Respiratory Rate 18 Blood Pressure Pulse Oximetry Intake & Output 04/27/18 04/27/18 04/28/18 06:59 18:59 06:59 Intake Total 1375 / 1375 Output Total 900 / 900 Balance 475 / 475 Weight 168.1 kg Intake: IV 250 / 250 Heparin/D5W 25,000 U/250 mL 25, 250 / 250 000 unit In 250 ml @ Per Protocol IV.CONT TITRATE PRN Rx #:[id number] Oral 0 / 0 Tube Feeding 625 / 625 Water Bolus Amount 500 / 500 Output: Urine Amount (Catheter) 900 / 900 Indwelling Temp Sensing 900 / 900 Catheter Other: Date of Last Bowel Movement 04/27/18 04/27/18 # Incontinent Bowel Movements 1 - Urinary Catheter Management Indwelling Temp Sensing Catheter Cath placed during this visit: no <Rosie Mcgovern - Last Filed: 04/27/18 22:04> Assessment and Plan - Assessment (1) Acute kidney injury Code(s): N17.9 - Acute kidney failure, unspecified Status: Deleted Plan: Acute kidney injury Her previous creatinine was 1.2 in August of last year. Possible GABRIELLA due to recent antibiotics outpatient? UTI now. Possible cardio-renal component with volume overload. Creatinine stable: 2.6 -> 2.5 ->2.34->2.15 Urinary output 3.3 L /24 hours Continue Bumex gtt at 0.5mg/hour, creatinine stable Avoid nephrotoxins Will monitor BMP and urinary output. labs in AM Hypernatremia On bumex gtt may need to decrease gtt with hypernatremia. Free water <Debo Dickerson - Last Filed: 04/27/18 10:11> - Assessment (1) Acute kidney injury Code(s): N17.9 - Acute kidney failure, unspecified Status: Deleted - Attending Attestation Patient for with drawl of treatment. Will sign off from Nephrology. <Rosie Mcgovern - Last Filed: 04/27/18 22:04>
--- NOTE | 2018-04-27 10:44 | P.PNCC ---
Subjective Subjective Remarks/Hospital Course: This is a 62-year-old AA female. Date of admission 04/10/2018. Date of consultation 04/11/2018. Past medical history includes schizophrenia, depression , seizure disorder, spinal stenosis, essential hypertension, gastroesophageal reflux disease, arthritis, chronic low back pain and urinary tract infection/ recurrent. Patient originally presented from [facility] secondary to " fluid overload" fall according to records from hospitalist. She is also noted to be in acute on chronic renal failure with a creatinine of 2.3. Sodium was 125. Patient had urinary tract infection originally received cephalexin in the ED 500 mg. She is currently on ceftriaxone 1 g every 24 hours patient does have a history of psychogenic polydipsia diagnosed 09/04. She was evaluated by nephrology received 1 dose of tolvaptan 50 mg last night at 1900 hrs. Patient was in her normal state of health sitting her chair when she is found to be unresponsive on the floor. The arms were able to obtain a blood pressure. ABG revealed an acute on chronic respiratory acidosis with pH is 7.18 PCO2 75 PO2 240 bicarbonate 27 base index of -1. All labs are currently pending. She is transferred to room 1333 placed on BiPAP 09/22 at 100%. She is currently arousable and follows commands. She is oriented to person place and year. 04/12: Afebrile. Noted to have bilateral occlusive posterior tibial DVTs on Dopplers bilateral lower extremities overnight. Patient's family states history of brain mass. Will do stat CT brain and discontinue heparin drip in the interim.. Currently on midazolam drip at 5 mg now and fentanyl drip at 50 mcg an hour. Hemodynamically stable. A.m. labs currently pending. Will need central line for access 04/13: Remains intubated sedated for vent synchrony. Currently on Levophed to maintain map above 65 currently on 6 mcg/min. Urine culture growing E. coli, MDR organism. Cefepime discontinued meropenem started, ID consulted. Creatinine stable but increased weight gain. Will increase Lasix monitor renal function closely. ABG shows respiratory alkalosis respiratory rate decreased. Lactic acid 5.5 will check again in the afternoon 04/14: Remains critical remains on 10 mcg/min of Levophed, not tolerating CPAP trials due to apnea. However excellent diuresis with IV Lasix increased dose, urine output 7.6 L in 24 hours and creatinine has improved from 2.2-1.72. Remains somnolent not following commands but shakes her head intermittently 04/15: Remains intubated off all sedation. Wakes up to command follows weekly. Tolerating CPAP but with high settings, intermittently apneic. Urine output remains excellent on IV Lasix 5.3 L in 24 hours. BUN/creatinine continues to improve 33/1.45 04/16: Remains intubated off sedation currently more awake following commands. Placed on CPAP. Creatinine remained stable. Start weaning trial for potential extubation if ABG and parameters acceptable 04/17: Extubated yesterday breathing comfortably. Oriented to person and somewhat to place. Did not cooperate with BiPAP overnight. Urine output adequate achieving negative balance. We will place patient on Symbicort Spiriva , EzPAP along with DuoNeb breathing treatments 04/18: More awake patient is asking for food. But she failed swallow eval yesterday. Pulling out her IV so I have ordered Geodon IM as needed. UO 200 ml in last 24 hours. IV maintenance fluid was started yesterday suspecting overdiuresis and diuretics were held. CMP is pending at this time 04/19: Appears more lethargic today currently on BiPAP. Somnolent but wakes up easily follows commands 4. Chest x-ray and CMP pending at this time. Check ABG only if no improvement over the day. Patient received single dose of melatonin at night and had been somnolent since that 04/20: Yesterday shortly after 7 PM while patient was being fed by her niece, patient apparently aspirated. She was found to be unresponsive, bradycardic hypoxemic. Shortly went into PEA arrest. CPR for 5 minutes intubated during code by Dr. Haq. Return of spontaneous circulation and 5 minutes. Po score according to the RN on sedation hold patient follows commands. Briefly was on Levophed which is being weaned off now. I have instructed heparin to be restarted. There is weight gain and increasing creatinine. Start Bumex infusion. 04/21: Remains intubated but on sedation lightening patient wakes up easily follows commands 4. With Bumex infusion urine output improved 2.6 L in the last 24 hours. But BUN 69 with creatinine 2.8 for now. With creatinine worsening I will reduce Bumex infusion 2.5 mg/h. Continue IV heparin. Palliative care consulted to address goals of care but it appears like family wants tracheostomy. Dr. Forrest was already consulted 04/22: Afebrile. Heparin drip currently at one thousand units an hour. Tube feeds are resumed. Bumetanide drip at 0.5 mg an hour. Stable on propofol drip at 10 mcg/kg/min 04/23: Currently resting in bed in no acute distress. Will attempt dexmedetomidine drip and attempt for spontaneous breathing trials today. Otherwise too agitated. Currently afebrile. Positive BM. Tolerating tube feeds. 04/24: Currently afebrile. Continues on dexmedetomidine drip at 0.2 mcg per kilogram per hour now for sedation. Lasted 1 minute spontaneous breathing trial 04/23. Positive BM. Tolerating tube feeds at goal. No family available. SUBJECTIVE: 04/25: Resting in bed in no acute distress on dexmedetomidine drip at 0.2 mcg/kg/ h. Tolerating spontaneous breathing trials. 09/25 at 40%. Tolerating tube feedin 04/26: Vigorous upper extremity movement and interacts aggressively with eyes and left arm. Strong on CPAP today but chest x-ray and body habitus makes successful extubation at this time unlikely. The patient has been offered tracheostomy which she flatly refuses and she has asked us to remove the endotracheal tube. After consultation with the palliative care service we will request that the psychiatric department assess the patient's capacity to make healthcare decisions. Her daughters state that her history of schizophrenia precludes this. 04/27: Alert and vigorous. Requiring 0.2 mcg/kg/min Precedex to avoid extubation. Capacity for healthcare decisions being decided. Objective Vital Signs / I&O: Vital Signs 04/26/18 12:00 04/26/18 13:23 04/26/18 14:00 Temperature 97.5 F L Pulse Rate 70 70 70 Respiratory Rate 17 21 Blood Pressure 107/56 L Pulse Oximetry 99 04/26/18 16:00 04/26/18 16:59 04/26/18 18:00 Temperature 97.2 F L Pulse Rate 68 70 70 Respiratory Rate 22 18 Blood Pressure 108/64 Pulse Oximetry 100 96 04/26/18 20:00 04/26/18 20:51 04/26/18 22:00 Temperature 98.5 F Pulse Rate 69 68 70 Respiratory Rate 24 18 Blood Pressure 114/63 Pulse Oximetry 100 100 04/27/18 00:00 04/27/18 00:35 04/27/18 02:00 Temperature 98.4 F Pulse Rate 70 70 Respiratory Rate 18 18 Blood Pressure 103/65 Pulse Oximetry 99 99 04/27/18 04:00 04/27/18 04:29 04/27/18 06:00 Temperature 98.1 F Pulse Rate 71 71 Respiratory Rate 18 18 Blood Pressure 98/51 L Pulse Oximetry 98 100 04/27/18 09:09 04/27/18 09:12 Temperature Pulse Rate 70 Respiratory Rate 18 18 Blood Pressure Pulse Oximetry 98 Intake & Output 04/26/18 04/27/18 04/27/18 18:59 06:59 18:59 Intake Total 1206 / 1206 1375 / 1375 Output Total 2450 / 2450 900 / 900 Balance -1244 / -1244 475 / 475 Weight 168.1 kg Intake: IV 250 / 250 250 / 250 Precedex Inj 1,000 MCG In NS 250 / 250 Inj 240 ML @ 0.2 MCG/KG/HR 9.22 mls/hr IV.CONT TITRATE PRN Rx# :[id number] Heparin/D5W 25,000 U/250 mL 25, 250 / 250 000 unit In 250 ml @ Per Protocol IV.CONT TITRATE PRN Rx #:[id number] Oral 0 / 0 0 / 0 Tube Feeding 556 / 556 625 / 625 Water Bolus Amount 400 / 400 500 / 500 Output: Urine Amount (Catheter) 2450 / 2450 900 / 900 Indwelling Temp Sensing 2450 / 2450 900 / 900 Catheter Other: Date of Last Bowel Movement 04/23/18 04/27/18 # Bowel Movements 0 # Incontinent Bowel Movements 1 Result Diagrams: 04/26/18 06:00 04/27/18 05:30 Objective Remarks: GENERAL: 62-year-old AA female currently orotracheally intubated SKIN: Warm and dry. HEAD: Atraumatic. Normocephalic. EYES: Pupils equal and round. No scleral icterus. No injection or drainage. ENT: Orotracheally intubated NECK: Trachea midline. Unable to define JVD secondary to elevated BMI. Right IJ CVL clean dry and intact CARDIOVASCULAR: Distant heart sounds. Regular rate and rhythm. S1, S2 no S4. Murmur not appreciated. RESPIRATORY: Diminished breath sound due to body habitus. No wheezing, crackles appreciated. Few coarse rhonchi. GASTROINTESTINAL: Abdomen soft, non-tender, obese. Hypoactive bowel sounds appreciated MUSCULOSKELETAL: Extremities with woody bilateral upper and lower extremity edema. NEUROLOGICAL: Patient is intubated, lightly sedated with propofol. On sedation hold wakes up easily, follows commands bilateral upper lower extremities. Nods head yes and no to questions and gestures strongly with her arms. Assessment and Plan - Assessment and Plan Plan: Neuro/Psych: Acute encephalopathy Schizophrenia/Depression Seizure disorder as child? Parkinson's disease? Chronic opioid use History of brain mass? Per family. Brain CT negative. Unable to do MRI at this facility due to body habitus Currently on dexmedetomidine drip 0.2 mcg per gallop per minute for sedation/ analgesia while intubated GOAL RASS -2 Daily sedation vacation Neuro intact after brief PEA arrest CT brain previously negative for acute findings Continue ziprasidone 20 mg twice daily. Holding lorazepam 0.5 mg every 12 hours as needed, holding melatonin 6 mg at night for insomnia, holding Neurontin also CV: PEA Arrest secondary to aspiration and hypoxia Shock-resolved Fluid overload/pulmonary edema Congestive heart failure Essential hypertension Bradycardia Brief PEA arrest 04/19/18 around 7:10 PM return of spontaneous circulation in 5 minutes, received epinephrine 2 PEA arrest most likely secondary to aspiration and resultant hypoxia Bumetanide infusion at 0.25 mg/h with good urine output but worsening creatinine with a.m. laboratories still pending Continue IV albumin Holding atenolol 50 mg at night due to bradycardia, hypotension Weaned off norepinephrine to maintain mean arterial pressure greater than equal to 65 2D echocardiogram 09/04 revealed EF 50-55%. Very poor windows. Repeat echocardiogram Unable to perform due to body habitus Resp: Acute hypoxic and hypercarbic respiratory failure Bilateral DVT Pulmonary edema Extubated 04/16/2018. Reintubated 04/19/18 evening after aspiration and hypoxemic respiratory failure PRVC ventilation /10/26/39 Consulted general surgery for tracheostomy placement-discussed with Dr. Forrest Albuterol/ipratropium aerosols every 4 hours with albuterol aerosols every 2 hours as needed dyspnea Budesonide 0.5/2 1 inhalation twice daily Chest x-ray with very poor windows due to body habitus. CT thorax showed minimal consolidative changes left chest GI: Gastroesophageal reflux disease History of peptic ulcer disease Tube feeds with Nepro to resume goal 50 cc an hour. Currently at 25 cc an hour Lansoprazole for GI prophylaxis Docusate sodium/senna 1 tablet twice daily for bowel regimen On omeprazole 20 mg at night at home. Endo: Sliding scale insulin Accu-Cheks to maintain euglycemia with Accu-Cheks every 6 hours/low regimen NovoLog TSH and cortisol normal range FEN/Renal: Acute kidney injury in the setting of chronic kidney disease stage IIIa Hypernatremia Hypopotassemia Followed by nephrology. Bumetanide infusion as above Renal ultrasound showed no acute findings Recheck BMP in a.m. Heme: Microcytic anemia Bilateral posterior tibialis occlusive thrombus Continue IV heparin drip currently at thousand units an hour, CT head negative Family request no Coumadin but ok with TSOAC Monitor CBC daily. Follow trends iron studies -consistent with iron deficiency anemia Hematology following ID: Urinary tract infection (E Coli, MDR, Janie) ID discontinued ertapenem/continue fluconazole for MDR organism per ID. Sputum 04/21 revealed normal paramjit. MSK: Elevated BMI Weight loss encouraged Access -IJ central line pulled out by patient 04/17/18, new RIJ central line 04/19/18 Prophylax -GI -lansoprazole -DVT -SCDs/heparin IV Overall impression: Patient is marginal for extubation at this point but remains adamant that we perform such. Historically the patient's daughters have had power of city attorney over her healthcare decisions because of her schizophrenia. Today, again, she seems quite appropriate and oriented. I will ask the psychiatry service to assess her capacity to make healthcare decisions.
[2018-04-27] MEDS: Bumetanide Inj 25 MG/100 ML BAG IV.CONT SCH (11:10)
--- NOTE | 2018-04-27 11:42 | P.PNONC ---
Subjective Interval history: Afebrile Patient on CPAP; appears very anxious Daughter at bedside Objective Vital Signs/Intake & Output: Vital Signs 04/26/18 12:00 04/26/18 13:23 04/26/18 14:00 Temperature 97.5 F L Pulse Rate 70 70 70 Respiratory Rate 17 21 Blood Pressure 107/56 L Pulse Oximetry 99 04/26/18 16:00 04/26/18 16:59 04/26/18 18:00 Temperature 97.2 F L Pulse Rate 68 70 70 Respiratory Rate 22 18 Blood Pressure 108/64 Pulse Oximetry 100 96 04/26/18 20:00 04/26/18 20:51 04/26/18 22:00 Temperature 98.5 F Pulse Rate 69 68 70 Respiratory Rate 24 18 Blood Pressure 114/63 Pulse Oximetry 100 100 04/27/18 00:00 04/27/18 00:35 04/27/18 02:00 Temperature 98.4 F Pulse Rate 70 70 Respiratory Rate 18 18 Blood Pressure 103/65 Pulse Oximetry 99 99 04/27/18 04:00 04/27/18 04:29 04/27/18 06:00 Temperature 98.1 F Pulse Rate 71 71 Respiratory Rate 18 18 Blood Pressure 98/51 L Pulse Oximetry 98 100 04/27/18 08:00 04/27/18 09:09 04/27/18 09:12 Temperature 98.8 F Pulse Rate 70 70 Respiratory Rate 18 18 18 Blood Pressure 116/65 Pulse Oximetry 100 98 04/27/18 10:00 Temperature Pulse Rate 71 Respiratory Rate Blood Pressure Pulse Oximetry Intake & Output 04/26/18 04/27/18 04/27/18 18:59 06:59 18:59 Intake Total 1206 / 1206 1375 / 1375 Output Total 2450 / 2450 900 / 900 Balance -1244 / -1244 475 / 475 Weight 370 lb 9.553 oz Intake: IV 250 / 250 250 / 250 Precedex Inj 1,000 MCG In NS 250 / 250 Inj 240 ML @ 0.2 MCG/KG/HR 9.22 mls/hr IV.CONT TITRATE PRN Rx# :[id number] Heparin/D5W 25,000 U/250 mL 25, 250 / 250 000 unit In 250 ml @ Per Protocol IV.CONT TITRATE PRN Rx #:[id number] Oral 0 / 0 0 / 0 Tube Feeding 556 / 556 625 / 625 Water Bolus Amount 400 / 400 500 / 500 Output: Urine Amount (Catheter) 2450 / 2450 900 / 900 Indwelling Temp Sensing 2450 / 2450 900 / 900 Catheter Other: Date of Last Bowel Movement 04/23/18 04/27/18 04/27/18 # Bowel Movements 0 # Incontinent Bowel Movements 1 Result Diagrams: 04/26/18 06:00 04/27/18 05:30 Laboratory Results: Laboratory Results - last 24 hr 04/26/18 04/26/18 04/26/18 13:19 16:00 17:28 APTT 39.2 H Sodium Potassium Chloride Carbon Dioxide Anion Gap BUN Creatinine Estimated GFR POC Glucose 124 H 125 H Random Glucose Calcium 04/27/18 04/27/18 04/27/18 02:02 02:06 05:30 APTT 56.1 H D Sodium 148 H Potassium 3.1 L Chloride 101 Carbon Dioxide 35.3 H Anion Gap 12 BUN 70 H Creatinine 2.15 H Estimated GFR 28 L POC Glucose 137 H Random Glucose 121 H Calcium 10.7 H D 04/27/18 06:30 APTT 47.4 H Sodium Potassium Chloride Carbon Dioxide Anion Gap BUN Creatinine Estimated GFR POC Glucose Random Glucose Calcium Medications: Active Medications Generic Name Dose Route Start Last Admin Trade Name Freq PRN Reason Stop Dose Admin Artificial Tears 1 drop 04/18/18 06:00 04/27/18 06:19 Tears Naturale Opth Drops EACH EYE 1 drop Q8HR SYLVIA Administration Budesonide 0.5 mg 04/23/18 09:00 04/27/18 09:13 Pulmocort Respule Neb NEB 0.5 mg Q12HR NEB SYLVIA Administration Chlorhexidine Gluconate 15 ml 04/20/18 08:00 04/27/18 09:11 Peridex 0.12% Oral Kit OROPHARYNG 15 ml BID@0800,2000 SYLVIA Administration Dextrose 50 ml 04/18/18 00:01 04/21/18 17:47 D50w Vial IV.PUSH 50 ml UNSCH PRN Administration HYPOGLYCEMIA-SEE COMMENTS Heparin Sodium/Dextrose 25,000 unit in 250 mls @ 0 mls/hr 04/18/18 01:00 08/05 00:11 Heparin/D5w 25,000 U/250 Ml IV.CONT 1,200 units/hr TITRATE PRN 12 mls/hr Per Protocol Administration Protocol Per Protocol Norepinephrine Bitartrate 4 mg 250 mls @ 7.5 mls/hr 04/18/18 01:00 04/20/18 21:53 / Sodium Chloride IV.SIG 0 mcg/min TITRATE PRN 0 mls/hr Per Protocol Titration Protocol 2 MCG/MIN Propofol 1,000 mg in 100 mls @ 5.781 mls/hr 04/19/18 20:24 04/23/18 05:32 Diprivan 1000 Mg/100 Ml Inj IV.CONT 10 mcg/kg/min TITRATE PRN 11.56 mls/hr Per Protocol Administration Protocol 5 MCG/KG/MIN Bumetanide 25 mg in 100 mls @ 1 mls/hr 04/21/18 11:00 04/27/18 11:10 Bumex Inj IV.CONT Not Given .Q24H SYLVIA 0.25 MG/HR Dexmedetomidine HCl 1,000 mcg/ 250 mls @ 9.22 mls/hr 04/23/18 11:43 04/26/18 18:40 Sodium Chloride IV.CONT 0.5 mcg/kg/hr TITRATE PRN 23.05 mls/hr See Protocol Administration Protocol 0.2 MCG/KG/HR Insulin Human Regular 1 units 04/18/18 06:00 04/27/18 11:11 Novolin R Supplemental Scale SQ Not Given Q6HR SYLVIA Protocol Lansoprazole 30 mg 04/18/18 09:00 04/27/18 09:12 Prevacid Solutab NG/OG 30 mg DAILY SYLVIA Administration Multivitamins/Minerals 1 tab 04/18/18 09:00 04/27/18 09:12 Theragran-M PO 1 tab DAILY SYLVIA Administration Senna/Docusate Sodium 1 tab 04/18/18 09:00 04/27/18 09:12 Adriane-Colace PO Not Given BID SYLVIA Sodium Chloride 0 ml 04/18/18 09:00 04/27/18 09:12 Ns Flush IV.FLUSH 5 ml DAILY SYLVIA Administration Sodium Chloride 2 ml 04/18/18 00:01 04/19/18 10:18 Ns Flush IV.FLUSH 2 ml UNSCH PRN Administration FLUSH AFTER USING IV ACCESS Sodium Chloride 2 ml 04/18/18 09:00 04/27/18 09:12 Ns Flush IV.FLUSH Not Given BID SYLVIA Sterile Water 250 ml 04/25/18 13:00 04/27/18 11:10 Free Water G-TUBE 250 ml Q4HR SYVLIA Administration Ziprasidone 20 mg 04/18/18 09:00 04/27/18 09:12 Geodon PO 20 mg BIDPC SYLVIA Administration Objective Remarks: GENERAL: Obese female resting in bed mechanically ventilated. SKIN: Warm and dry. HEAD: Normocephalic. EYES: No scleral icterus. No injection or drainage. NECK: Supple, trachea midline. No JVD or lymphadenopathy. CARDIOVASCULAR: Regular rate and rhythm without murmurs. RESPIRATORY: Clear anteriorly. Breathing unlabored at rest. GASTROINTESTINAL: Abdomen soft, non-tender, nondistended. EXTREMITIES: No cyanosis. Generalized edema. MUSCULOSKELETAL: Generalized weakness NEUROLOGICAL: Unable to speak. Mouthing words over the ET tube. Assessment/Plan - Plan 1. Patient continues on anticoagulation with heparin drip for her bilateral lower extremity DVT. No obvious bleeding. Once she is extubated and her clinical course has improved we can transition to oral anticoagulation. 2. Her hemoglobin is noted to be slightly declining. She remains microcytic in nature. Check stool for occult blood. Continue to monitor CBC. - Attending Statement 62 yoF who the hematology service was following for bilateral VTE. Patient elected for palliative extubation and today.
[2018-04-27] MEDS ORDERED: Morphine Inj 4 MG/ML Vial IV.PUSH ONE (12:29)
[2018-04-27] MEDS ORDERED: Hyoscyamine Inj 0.5 MG/ML Ampul IV.PUSH PRN (12:31)
--- NOTE | 2018-04-27 13:53 | P.PNPAL ---
Reason for Visit Reason for visit: a. To assist with evaluation and management of symptoms including: dyspnea; pain b. To assist medical decision maker(s) with: better understanding of current medical conditions; weighing benefits/burdens of medical treatment options; making medical treatment decisions. . Subjective Subjective/Interval History: INTERVAL NOTE: The patient remains alert, on the ventilator, requesting extubation. Dr. Beltre evaluated the pt and agrees that she has capacity for maker medical decisions. Remains afebrile. Family/Friend Interactions: Daughter Lena at bedside and other tg on speaker phone. Pt clearly requests to be extubated, and clearly understands that her breathing may fail today or in upcoming days and she may soon; she wants to proceed, and daughters want to honor her wishes and have her extubated, "putting it in God's hands." Advance Directives Health Care Surrogate Name and Number: Reportedly is daughter -- Lena hanna Documented care wishes:: No known documented care goals/wishes. . Significant change in goals:: requests extubation; does not want hospice yet Objective Vital Signs: Vital Signs 04/26/18 14:00 04/26/18 16:00 04/26/18 16:59 Temperature 97.2 F L Pulse Rate 70 68 70 Respiratory Rate 22 18 Blood Pressure 108/64 Pulse Oximetry 100 96 04/26/18 18:00 04/26/18 20:00 04/26/18 20:51 Temperature 98.5 F Pulse Rate 70 69 68 Respiratory Rate 24 18 Blood Pressure 114/63 Pulse Oximetry 100 100 04/26/18 22:00 04/27/18 00:00 04/27/18 00:35 Temperature 98.4 F Pulse Rate 70 70 Respiratory Rate 18 18 Blood Pressure 103/65 Pulse Oximetry 99 99 04/27/18 02:00 04/27/18 04:00 04/27/18 04:29 Temperature 98.1 F Pulse Rate 70 71 Respiratory Rate 18 18 Blood Pressure 98/51 L Pulse Oximetry 98 100 04/27/18 06:00 04/27/18 08:00 04/27/18 09:09 Temperature 98.8 F Pulse Rate 71 70 Respiratory Rate 18 18 Blood Pressure 116/65 Pulse Oximetry 100 98 04/27/18 09:12 04/27/18 10:00 04/27/18 12:00 Temperature Pulse Rate 70 71 70 Respiratory Rate 18 Blood Pressure Pulse Oximetry Intake & Output 04/26/18 04/27/18 04/27/18 18:59 06:59 18:59 Intake Total 1206 / 1206 1375 / 1375 Output Total 2450 / 2450 900 / 900 Balance -1244 / -1244 475 / 475 Weight 168.1 kg Intake: IV 250 / 250 250 / 250 Precedex Inj 1,000 MCG In NS 250 / 250 Inj 240 ML @ 0.2 MCG/KG/HR 9.22 mls/hr IV.CONT TITRATE PRN Rx# :[id number] Heparin/D5W 25,000 U/250 mL 25, 250 / 250 000 unit In 250 ml @ Per Protocol IV.CONT TITRATE PRN Rx #:[id number] Oral 0 / 0 0 / 0 Tube Feeding 556 / 556 625 / 625 Water Bolus Amount 400 / 400 500 / 500 Output: Urine Amount (Catheter) 2450 / 2450 900 / 900 Indwelling Temp Sensing 2450 / 2450 900 / 900 Catheter Other: Date of Last Bowel Movement 04/23/18 04/27/18 04/27/18 # Bowel Movements 0 # Incontinent Bowel Movements 1 Physical Exam: CONSTITUTIONAL/GENERAL: This is Morbidly obese female, intubated, mechanically ventilated in an [facility] bed. She is alert and communicating with her hands and by nodding yes/no. EYES: Pupils equal and round and reactive. Extraocular motions intact. ENT: Hearing grossly normal. Nose without bleeding or purulent drainage. NECK: Trachea feels midline and now obvious thyroid enlargement though level of obesity makes exam very challenging. CARDIOVASCULAR: Regular rate and rhythm without murmurs, gallops, or rubs. No JVD. Peripheral pulses faint but palpable. RESPIRATORY/CHEST: Symmetric, unlabored respirations. Clear to auscultation. Breath sounds equal bilaterally but diminished. . No audible wheezes, rales, or rhonchi. GASTROINTESTINAL: Abdomen obese, soft, non-tender, nondistended. No hepato- splenomegaly, or palpable masses though level of obesity makes exam challenging. . No guarding. Bowel sounds present. MUSCULOSKELETAL: Extremities without clubbing, cyanosis. Bilateral LE edema is present. No mottling . NEUROLOGICAL: Awake. Nods yes/no appropriately, answering multiple choice queries correctly regarding month, year, place, person. Writing her wishes on a tablet. PSYCHIATRIC: no evidence of psychosis . Diagnostic Tests Laboratory: Laboratory Results - last 72 hr 04/24/18 04/24/18 04/25/18 22:10 22:10 05:30 WBC 7.7 RBC 3.81 L Hgb 9.2 L Hct 30.8 L MCV 80.9 MCH 24.1 L MCHC 29.8 L RDW 23.5 H Plt Count 144 L MPV 8.6 Prelim Diff (Auto) Neut % (Auto) Lymph % (Auto) [place] % (Auto) Eos % (Auto) Baso % (Auto) Neut # (Auto) Lymph # (Auto) [place] # (Auto) Eos # (Auto) Baso # (Auto) WBC Differential Seg Neuts % (Manual) Band Neuts % (Manual) Lymphocytes % (Manual) Monocytes % (Manual) Eosinophils % (Manual) Abs Neuts (Manual) Differential Comment Platelet Estimate Platelet Morphology Stomatocytes APTT 41.0 H Sodium 146 H Potassium 3.3 L Chloride 101 Carbon Dioxide 33.4 H Anion Gap 12 BUN 77 H Creatinine 2.64 H Estimated GFR 22 L POC Glucose Random Glucose 127 H Calcium 10.0 Phosphorus 4.5 Magnesium 2.2 Total Bilirubin 2.8 H AST 36 ALT 21 Alkaline Phosphatase 132 H Total Protein 6.7 Albumin 3.2 L 04/25/18 04/25/18 04/25/18 05:30 05:30 23:25 WBC 7.0 RBC 3.72 L Hgb 9.1 L Hct 29.7 L MCV 79.7 L MCH 24.5 L MCHC 30.7 L RDW 23.7 H Plt Count 145 L MPV 8.4 Prelim Diff (Auto) Neut % (Auto) 72.7 H Lymph % (Auto) 17.7 [place] % (Auto) 6.4 Eos % (Auto) 2.9 Baso % (Auto) 0.3 Neut # (Auto) 5.1 Lymph # (Auto) 1.2 [place] # (Auto) 0.4 Eos # (Auto) 0.2 Baso # (Auto) 0.0 WBC Differential . Seg Neuts % (Manual) Band Neuts % (Manual) Lymphocytes % (Manual) Monocytes % (Manual) Eosinophils % (Manual) Abs Neuts (Manual) Differential Comment Auto diff final Platelet Estimate Platelet Morphology Stomatocytes APTT Sodium 147 H Potassium 3.1 L Chloride 102 Carbon Dioxide 32.5 H Anion Gap 13 BUN 72 H Creatinine 2.52 H Estimated GFR 23 L POC Glucose 137 H Random Glucose 119 H Calcium 9.9 Phosphorus 4.0 Magnesium 2.2 Total Bilirubin 2.7 H AST 31 ALT 19 Alkaline Phosphatase 132 H Total Protein 6.8 Albumin 3.3 L 04/26/18 04/26/18 04/26/18 06:00 06:00 06:00 WBC 8.6 RBC 3.65 L Hgb 8.8 L Hct 29.2 L MCV 80.1 MCH 24.3 L MCHC 30.3 L RDW 23.8 H Plt Count 144 L MPV 8.3 Prelim Diff (Auto) Slide review pending Neut % (Auto) Lymph % (Auto) [place] % (Auto) Eos % (Auto) Baso % (Auto) Neut # (Auto) Lymph # (Auto) [place] # (Auto) Eos # (Auto) Baso # (Auto) WBC Differential Manual diff final Seg Neuts % (Manual) 75 H Band Neuts % (Manual) 1 Lymphocytes % (Manual) 13 Monocytes % (Manual) 3 Eosinophils % (Manual) 8 H Abs Neuts (Manual) 6.5 Differential Comment . Platelet Estimate Low L Platelet Morphology Normal Stomatocytes 1+ H APTT Sodium 148 H Potassium 3.1 L Chloride 103 Carbon Dioxide 34.0 H Anion Gap 11 BUN 69 H Creatinine 2.34 H Estimated GFR 25 L POC Glucose 117 H Random Glucose 111 H Calcium 9.9 Phosphorus 3.3 Magnesium 2.2 Total Bilirubin 2.9 H AST 34 ALT 20 Alkaline Phosphatase 127 H Total Protein 7.0 Albumin 3.3 L 04/26/18 04/26/18 04/26/18 07:30 13:19 16:00 WBC RBC Hgb Hct MCV MCH MCHC RDW Plt Count MPV Prelim Diff (Auto) Neut % (Auto) Lymph % (Auto) [place] % (Auto) Eos % (Auto) Baso % (Auto) Neut # (Auto) Lymph # (Auto) [place] # (Auto) Eos # (Auto) Baso # (Auto) WBC Differential Seg Neuts % (Manual) Band Neuts % (Manual) Lymphocytes % (Manual) Monocytes % (Manual) Eosinophils % (Manual) Abs Neuts (Manual) Differential Comment Platelet Estimate Platelet Morphology Stomatocytes APTT 37.6 H 39.2 H Sodium Potassium Chloride Carbon Dioxide Anion Gap BUN Creatinine Estimated GFR POC Glucose 124 H Random Glucose Calcium Phosphorus Magnesium Total Bilirubin AST ALT Alkaline Phosphatase Total Protein Albumin 04/26/18 04/27/18 04/27/18 17:28 02:02 02:06 WBC RBC Hgb Hct MCV MCH MCHC RDW Plt Count MPV Prelim Diff (Auto) Neut % (Auto) Lymph % (Auto) [place] % (Auto) Eos % (Auto) Baso % (Auto) Neut # (Auto) Lymph # (Auto) [place] # (Auto) Eos # (Auto) Baso # (Auto) WBC Differential Seg Neuts % (Manual) Band Neuts % (Manual) Lymphocytes % (Manual) Monocytes % (Manual) Eosinophils % (Manual) Abs Neuts (Manual) Differential Comment Platelet Estimate Platelet Morphology Stomatocytes APTT 56.1 H D Sodium Potassium Chloride Carbon Dioxide Anion Gap BUN Creatinine Estimated GFR POC Glucose 125 H 137 H Random Glucose Calcium Phosphorus Magnesium Total Bilirubin AST ALT Alkaline Phosphatase Total Protein Albumin 04/27/18 04/27/18 05:30 06:30 WBC RBC Hgb Hct MCV MCH MCHC RDW Plt Count MPV Prelim Diff (Auto) Neut % (Auto) Lymph % (Auto) [place] % (Auto) Eos % (Auto) Baso % (Auto) Neut # (Auto) Lymph # (Auto) [place] # (Auto) Eos # (Auto) Baso # (Auto) WBC Differential Seg Neuts % (Manual) Band Neuts % (Manual) Lymphocytes % (Manual) Monocytes % (Manual) Eosinophils % (Manual) Abs Neuts (Manual) Differential Comment Platelet Estimate Platelet Morphology Stomatocytes APTT 47.4 H Sodium 148 H Potassium 3.1 L Chloride 101 Carbon Dioxide 35.3 H Anion Gap 12 BUN 70 H Creatinine 2.15 H Estimated GFR 28 L POC Glucose Random Glucose 121 H Calcium 10.7 H D Phosphorus Magnesium Total Bilirubin AST ALT Alkaline Phosphatase Total Protein Albumin Result Diagrams: 04/26/18 06:00 04/27/18 05:30 Procedures: Right IJ central line Intubation / mechanical ventilation Extubation 04/27/18 . Assessment and Plan - Disease Oriented Problem List (1) Respiratory failure requiring intubation Comment: extubating 04/27 (2) Acute kidney injury (3) Aspiration pneumonia (4) Septic shock (5) Anemia (6) DVT (deep venous thrombosis) (7) Hyponatremia (8) Psychogenic polydipsia (9) Anemia (10) DVT (deep venous thrombosis) Comment: Posterior tibial veins bilaterally per dopplers of 04/11/18 (11) Urinary tract infection Comment: Cultures grew out resistant E coli and Janie glabrata - Symptom Scale (1) Pain 0-10 Scale: 1 (2) Dyspnea 0-10 Scale: 1 Pertinent Non-Medical Issues: Psychosocial: Patient is originally from [place]. She also lived in [place] for a while. She moved to [place] approximately 28 years ago. The patient is a high school graduate and almost finished college. 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 The patient was never . She has 2 daughters. Cassi Turcios lives in [place]. Lena Hanna lives locally. There are 6 grandchildren. The patient had 2 sisters who are . There is one brother who is alive. The patient has been a resident of long-term care facilities since 2002. Initially, she needed these facilities primarily for her psychiatric condition. Later on she required quite a lot of help for her medical conditions. Legal: The patient never completed a living well. Reportedly, a healthcare surrogate designation was completed. Both daughters informed me that Lena is the designated surrogate. Ethical issues impacting care: The patient is currently incapacitated to make her own healthcare decisions. It is uncertain if and when she will regain capacity to do so. Substance Use: Patient was a heavy smoker earlier in her life but quit approximately 30 years ago. No history of alcohol abuse. No known use of illicits. Family Hx: patient's mother of a stroke. Patient's father of unknown causes. One of the patient's sisters of an unknown type of cancer. No other known diseases run in the family. . Important Contacts: Lena Hanna (daughter and reported health care surrogate) -- [phone] Cassi Turcios (daughter ) [phone] . Prognosis: Ms. Hanna suffers from several chronic problems including morbid obesity, sleep apnea, schizophrenia, recurrent UTIs, recurrent hyponatremia. She has had decreasing functional status over the years. She was able to walk with a walker following her hips surgeries three years ago. she is now wheelchair bound. Her hospital course has been quite challenging with a multi-drug resistant UTI, hyponatremia, aspiration pneumonia, septic shock, respiratory failure, and a PEA arrest. She is being extubated 7/10; Additional de-conditioning from the hospitalization will make her even more vulnerable to future infections and complications. She is appropriate for hospice services if the goals become comfort oriented. . Code Status: No Code DNR Plan: == DNR == Decision Making: The patient is found to have capacity for medical decision- making 04/27/18; her daughters are supporting her in her decisions. == Goals of medical treatment: DNR. Extubate. Comfort meds available if she develops symptoms. == Symptoms * Pain: Patient would occasionally complain of back pain prior to this hospitalization. She has been on gabapentin presumably for peripheral neuropathy. Prehospital medications also included hydrocodone/acetaminophen 7.5 -325. She is denying pain at this time. * Dyspnea: extubated 04/27 and PRN meds and comfort meds in place * Encephalopathy: Cleared == Palliative care will continue to follow to assist with symptom management and to further clarify goals of medical treatment as the clinical course evolves * Will engage in further discussion RE hospice services, and perhaps can get [facility] to the [facility].. . Time Spent Total Floor Time (mins): 44 Face to Face Time (mins): 22 >50% Time in Counseling or Coordination of Care: Yes (d/w Dr. Beltre, Dr. Hall, and RN) Attestation Attestation: To help prompt me to consider important information that might be impacting today's encounter and assessment, information from prior notes written by myself or my colleagues may have been "brought forward" into today's note. My signature on this note, however, is an attestation that I personally performed the exam, history, and/or decision-making noted today, and, unless otherwise indicated, the interactions with patient, family, and staff as well as the review of records all occurred today. I also attest that the listed assessment and stated plan reflect my best clinical judgment today based on the combination of historical information, prior notes, and today's exam/ interactions. When time spent is documented, it refers only to time spent today by the signer, or if indicated, combined time spent today by collaborating physician/nurse practitioner.
[2018-04-27] MEDS: Morphine Inj 4 MG/ML Vial IV.PUSH PRN ×2 (14:25→15:30)
--- NOTE | 2018-04-27 16:02 | P.DS ---
Date of admission: 04/10/18 02:33 Primary care physician: No Primary Care Physician Attending physician on discharge: Mehran Hall Anticipated date of discharge: 04/27/18 Brief History from admission: This 62-year-old woman developed acute respiratory failure at her nursing facility and was rushed to [facility] where she required endotracheal intubation and mechanical ventilation. She was found to be in hypercapnic respiratory failure exacerbated by fluid overload. She had newly developed acute kidney injury and severe sepsis from urinary tract infection. After several days it became apparent that she would not be easily weaned from mechanical ventilation. The patient refused tracheostomy or long-term mechanical ventilation. She was deemed competent to make healthcare decisions by a psychiatric evaluation and she elected for compassionate extubation. She shortly thereafter at 1543 hours on April 27, 2018. Dictation time 38 minutes DS: Summary Hospital Course: This is a 62-year-old AA female. Date of admission 04/10/2018. Date of consultation 04/11/2018. Past medical history includes schizophrenia, depression , seizure disorder, spinal stenosis, essential hypertension, gastroesophageal reflux disease, arthritis, chronic low back pain and urinary tract infection/ recurrent. Patient originally presented from [facility] secondary to " fluid overload" fall according to records from hospitalist. She is also noted to be in acute on chronic renal failure with a creatinine of 2.3. Sodium was 125. Patient had urinary tract infection originally received cephalexin in the ED 500 mg. She is currently on ceftriaxone 1 g every 24 hours patient does have a history of psychogenic polydipsia diagnosed 09/04. She was evaluated by nephrology received 1 dose of tolvaptan 50 mg last night at 1900 hrs. Patient was in her normal state of health sitting her chair when she is found to be unresponsive on the floor. The arms were able to obtain a blood pressure. ABG revealed an acute on chronic respiratory acidosis with pH is 7.18 PCO2 75 PO2 240 bicarbonate 27 base index of -1. All labs are currently pending. She is transferred to room 1333 placed on BiPAP 09/22 at 100%. She is currently arousable and follows commands. She is oriented to person place and year. 04/12: Afebrile. Noted to have bilateral occlusive posterior tibial DVTs on Dopplers bilateral lower extremities overnight. Patient's family states history of brain mass. Will do stat CT brain and discontinue heparin drip in the interim.. Currently on midazolam drip at 5 mg now and fentanyl drip at 50 mcg an hour. Hemodynamically stable. A.m. labs currently pending. Will need central line for access 04/13: Remains intubated sedated for vent synchrony. Currently on Levophed to maintain map above 65 currently on 6 mcg/min. Urine culture growing E. coli, MDR organism. Cefepime discontinued meropenem started, ID consulted. Creatinine stable but increased weight gain. Will increase Lasix monitor renal function closely. ABG shows respiratory alkalosis respiratory rate decreased. Lactic acid 5.5 will check again in the afternoon 04/14: Remains critical remains on 10 mcg/min of Levophed, not tolerating CPAP trials due to apnea. However excellent diuresis with IV Lasix increased dose, urine output 7.6 L in 24 hours and creatinine has improved from 2.2-1.72. Remains somnolent not following commands but shakes her head intermittently 04/15: Remains intubated off all sedation. Wakes up to command follows weekly. Tolerating CPAP but with high settings, intermittently apneic. Urine output remains excellent on IV Lasix 5.3 L in 24 hours. BUN/creatinine continues to improve 33/1.45 04/16: Remains intubated off sedation currently more awake following commands. Placed on CPAP. Creatinine remained stable. Start weaning trial for potential extubation if ABG and parameters acceptable 04/17: Extubated yesterday breathing comfortably. Oriented to person and somewhat to place. Did not cooperate with BiPAP overnight. Urine output adequate achieving negative balance. We will place patient on Symbicort Spiriva , EzPAP along with DuoNeb breathing treatments 04/18: More awake patient is asking for food. But she failed swallow eval yesterday. Pulling out her IV so I have ordered Geodon IM as needed. UO 200 ml in last 24 hours. IV maintenance fluid was started yesterday suspecting overdiuresis and diuretics were held. CMP is pending at this time 04/19: Appears more lethargic today currently on BiPAP. Somnolent but wakes up easily follows commands 4. Chest x-ray and CMP pending at this time. Check ABG only if no improvement over the day. Patient received single dose of melatonin at night and had been somnolent since that 04/20: Yesterday shortly after 7 PM while patient was being fed by her niece, patient apparently aspirated. She was found to be unresponsive, bradycardic hypoxemic. Shortly went into PEA arrest. CPR for 5 minutes intubated during code by Dr. Haq. Return of spontaneous circulation and 5 minutes. Po score according to the RN on sedation hold patient follows commands. Briefly was on Levophed which is being weaned off now. I have instructed heparin to be restarted. There is weight gain and increasing creatinine. Start Bumex infusion. 04/21: Remains intubated but on sedation lightening patient wakes up easily follows commands 4. With Bumex infusion urine output improved 2.6 L in the last 24 hours. But BUN 69 with creatinine 2.8 for now. With creatinine worsening I will reduce Bumex infusion 2.5 mg/h. Continue IV heparin. Palliative care consulted to address goals of care but it appears like family wants tracheostomy. Dr. Forrest was already consulted 04/22: Afebrile. Heparin drip currently at one thousand units an hour. Tube feeds are resumed. Bumetanide drip at 0.5 mg an hour. Stable on propofol drip at 10 mcg/kg/min 04/23: Currently resting in bed in no acute distress. Will attempt dexmedetomidine drip and attempt for spontaneous breathing trials today. Otherwise too agitated. Currently afebrile. Positive BM. Tolerating tube feeds. 04/24: Currently afebrile. Continues on dexmedetomidine drip at 0.2 mcg per kilogram per hour now for sedation. Lasted 1 minute spontaneous breathing trial 04/23. Positive BM. Tolerating tube feeds at goal. No family available. SUBJECTIVE: 04/25: Resting in bed in no acute distress on dexmedetomidine drip at 0.2 mcg/kg/ h. Tolerating spontaneous breathing trials. 09/25 at 40%. Tolerating tube feedin 04/26: Vigorous upper extremity movement and interacts aggressively with eyes and left arm. Strong on CPAP today but chest x-ray and body habitus makes successful extubation at this time unlikely. The patient has been offered tracheostomy which she flatly refuses and she has asked us to remove the endotracheal tube. After consultation with the palliative care service we will request that the psychiatric department assess the patient's capacity to make healthcare decisions. Her daughters state that her history of schizophrenia precludes this. 04/27: Alert and vigorous. Requiring 0.2 mcg/kg/min Precedex to avoid extubation. Capacity for healthcare decisions being decided. 04/27: Patient was found to be competent at psychiatric evaluation today. She is clearly ventilator dependent and will require tracheostomy for ongoing ventilator support. The patient is quite clear in her thinking and adamant that she not stay intubated any longer. The patient is specifically requested compassionate extubation after lengthy discussion with myself and the palliative care team. Her daughters are aware of her decision and accepted. She was from mechanical ventilation and shortly thereafter at 1543 hrs. the family is at the bedside. - Time Spent with Patient Total time spent providing and/or coordinating discharge services: Greater than 30 minutes Exam Vital signs: Vital Signs 04/26/18 16:00 04/26/18 16:59 04/26/18 18:00 Temperature 97.2 F L Pulse Rate 68 70 70 Respiratory Rate 22 18 Blood Pressure 108/64 Pulse Oximetry 100 96 04/26/18 20:00 04/26/18 20:51 04/26/18 22:00 Temperature 98.5 F Pulse Rate 69 68 70 Respiratory Rate 24 18 Blood Pressure 114/63 Pulse Oximetry 100 100 04/27/18 00:00 04/27/18 00:35 04/27/18 02:00 Temperature 98.4 F Pulse Rate 70 70 Respiratory Rate 18 18 Blood Pressure 103/65 Pulse Oximetry 99 99 04/27/18 04:00 04/27/18 04:29 04/27/18 06:00 Temperature 98.1 F Pulse Rate 71 71 Respiratory Rate 18 18 Blood Pressure 98/51 L Pulse Oximetry 98 100 04/27/18 08:00 04/27/18 09:09 04/27/18 09:12 Temperature 98.8 F Pulse Rate 70 70 Respiratory Rate 18 18 18 Blood Pressure 116/65 Pulse Oximetry 100 98 04/27/18 10:00 04/27/18 12:00 04/27/18 14:00 Temperature Pulse Rate 71 70 70 Respiratory Rate Blood Pressure Pulse Oximetry Intake & Output 04/26/18 04/27/18 04/27/18 18:59 06:59 18:59 Intake Total 1206 / 1206 1375 / 1375 Output Total 2450 / 2450 900 / 900 Balance -1244 / -1244 475 / 475 Weight 168.1 kg Intake: IV 250 / 250 250 / 250 Precedex Inj 1,000 MCG In NS 250 / 250 Inj 240 ML @ 0.2 MCG/KG/HR 9.22 mls/hr IV.CONT TITRATE PRN Rx# :[id number] Heparin/D5W 25,000 U/250 mL 25, 250 / 250 000 unit In 250 ml @ Per Protocol IV.CONT TITRATE PRN Rx #:[id number] Oral 0 / 0 0 / 0 Tube Feeding 556 / 556 625 / 625 Water Bolus Amount 400 / 400 500 / 500 Output: Urine Amount (Catheter) 2450 / 2450 900 / 900 Indwelling Temp Sensing 2450 / 2450 900 / 900 Catheter Other: Date of Last Bowel Movement 04/23/18 04/27/18 04/27/18 # Bowel Movements 0 # Incontinent Bowel Movements 1 Narrative: Lungs clear. Results Procedures completed during hospitalization: none Labs on day of discharge: Labs from last 24 hours 04/27/18 04/27/18 04/27/18 06:30 05:30 02:06 APTT 47.4 H Sodium 148 H Potassium 3.1 L Chloride 101 Carbon Dioxide 35.3 H Anion Gap 12 BUN 70 H Creatinine 2.15 H Estimated GFR 28 L POC Glucose 137 H Random Glucose 121 H Calcium 10.7 H D 04/27/18 04/26/18 04/26/18 02:02 17:28 16:00 APTT 56.1 H D 39.2 H Sodium Potassium Chloride Carbon Dioxide Anion Gap BUN Creatinine Estimated GFR POC Glucose 125 H Random Glucose Calcium - Impressions ITS Impressions Chest X-Ray 04/26/18 06:00 CONCLUSION: 1. No significant interval change. 2. Stable tubes and lines. 3. Cardiomegaly with positive fluid balance. 4. Stable bilateral lower lobe airspace disease. Discharge Plan - Discharge Disposition Patient Disposition: 20 - Discharge Details Date/Time: 04/27/18 16:36 - Physicians Team Primary Care Provider: Primary Care Rhiannon Cai Attending Provider: Teo Haq Other Providers: Teo Haq MD ; Rosie Mcogvern MD ; Sridevi Gan MD ; Terence Hollingsworth MD ; Randi Christianson ; ; Sher Forrest MD ; Fransico Aguero MD ; [facility] ; [facility] ; [facility] ; Mikal Cantu MD - Rxs /Orders / Referrals /Forms Prescriptions: Discontinued acetaminophen [Tylenol] 325 mg Capsule 650 mg PO Q4H PRN (Reason: Pain) atenolol [Tenormin] 50 mg Tablet 50 mg PO HS No Action calcium carbonate [Tums] 200 mg calcium (500 mg) Tablet,Chewable 500 mg PO DIRECTED PRN (Reason: Heartburn) dextromethorphan-guaifenesin [Robitussin Cough-Chest Alpesh DM] 5-100 mg/5 mL Liquid 5 ml PO Q4-8H PRN (Reason: Cough) gabapentin [Neurontin] 300 mg Capsule 300 mg PO BID hydrocodone-acetaminophen [Sidney] 7.5-325 mg Tablet 1 tab PO Q4H PRN (Reason: Pain) lorazepam [Ativan] 0.5 mg Tablet 0.5 mg PO Q12H magnesium citrate [Citroma] Solution See Label Instructions .ROUTE .COMPLEX magnesium hydroxide [Milk of Magnesia] 400 mg/5 mL Suspension 30 ml PO HS PRN (Reason: Constipation) melatonin 3 mg Tablet 6 mg PO HS PRN (Reason: Insomnia) multivitamin with minerals [Multiple Vitamin-Minerals] Tablet 1 tab PO DAILY omeprazole 20 mg Capsule,Delayed Release(Dr/Ec) 20 mg PO DAILY tolterodine [Detrol LA] 2 mg Capsule,Extended Release 24hr 2 mg PO DAILY white petrolatum-mineral oil [Eucerin] Cream 1 applic TOPICAL Q6H PRN (Reason: Itching) ziprasidone HCl [Geodon] 20 mg Capsule 20 mg PO BIDPC Referrals: Primary Care KlausiNo [Primary Care Provider] - See Instructions
--- NOTE | 2018-04-27 16:26 | P.CONPSY ---
Provisional Diagnosis Admission Date: April 10, 2018 02:33 [place] I.: Chronic paranoid schizophrenia History of Present Illness Service: Critical care team Primary Care Provider: No Primary Care Physician History of Present Illness: The patient is a is a 62-year-old -[place] woman, she is domiciled in an [place], she has 2 daughters, she has psychiatric history of schizophrenia, previous psychiatric hospitalizations, she was hospitalized in 4 . under the care of Dr. Castro in August 2017, I was the psychiatrist who saw her in the medical floor and suggested psychiatric admission due to altered mental status related with hyponatremia and suspected psychogenic polydipsia, at that moment we learned that the patient has history of schizophrenia, but she was quite stable for many years, never had any suicidal attempt in the past, and she was quite functional in the society and for her family, she has medical history of seizure disorder, spinal stenosis, essential hypertension, gastroesophageal reflux disease, arthritis, chronic low back pain and urinary tract infection/ recurrent. Patient originally presented from [facility] secondary to " fluid overload" fall according to records from hospitalist. She is also noted to be in acute on chronic renal failure with a creatinine of 2.3. Sodium was 125. The patient now is hospitalized due to acute respiratory failure, she is intubated, psychiatric was consulted to assist her decision-making capacity to refuse aggressive treatment including intubation. This case was widely discussed with palliative care team. I also had a conversation with her youngest daughter, Lena Mcnamara, . On psychiatric evaluation patient is calm, superficially cooperative. Communication is limited due to intubation. However, the patient is able to communicate through writing and blinking. She reports that she feels quite okay. Reports good mood. But she says that she does not wish to continue intubated. She clarifies that she does not want to , but she does not know have any suicidal thoughts, and her wish is to live, but she does not want to have a tooth in her mouth. The patient expressed the understanding that we doubt the tube she might but she says that she prefers to take that chance. The patient is fully oriented 3. She knows who is the street superintendent, she expressed a good understanding of hospitalization a medical conditions. She is quite logical, coherent and relevant. Denies suicidal enemas ideation, she denies visual and auditory hallucinations. [facility] - Medical History Medical History: Medical History (Last Updated 04/20/18 @ 15:17 by Fransico Aguero MD) Anemia (Acute) DVT (deep venous thrombosis) (Acute) - Surgical History Surgical History: Surgical History (Last Updated 04/20/18 @ 20:58 by Fransico Aguero MD) H/O total hip arthroplasty (Resolved) Previous back surgery (Resolved) S/P surgical manipulation of ankle joint (Resolved) - Family History Family History: Family History (Last Updated 04/20/18 @ 15:23 by Fransico Aguero MD) Other Family history of hypertension - Tobacco History Second Hand Smoke Exposure: No Tobacco Use In Past 30 Days: No Smoking Status: Former smoker Tobacco Type: Cigarettes - Alcohol History How Often Do You Have a Drink Containing Alcohol: Never - Substance Use History Substance History: No History of Abuse - Travel History History of Recent Travel: No Recent Travel in the [place] Within the Last 8 Weeks: No Recent Travel Out of the Country Within the Last 8 Weeks: No Medications and Allergies Active Medications: Active Medications Acetaminophen (Tylenol Liq) 650 mg NG/OG Q6H PRN PRN Reason: FEVER Al Hydroxide/Mg Hydroxide (Milk Of Magnesia Liq) 30 ml PO Q12H PRN PRN Reason: MILD CONSTIPATION Albuterol (Albuterol Neb (Prn)) 2.5 mg NEB Q2HR NEB PRN PRN Reason: DYSPNEA Artificial Tears (Tears Naturale Opth Drops) 1 drop EACH EYE Q8HR [facility] Last Admin: 04/27/18 06:19 Dose: 1 drop Benzonatate (Tessalon Perles) 100 mg PO Q6H PRN PRN Reason: COUGH Bisacodyl (Dulcolax Supp) 10 mg RECTAL DAILY PRN PRN Reason: SEVERE CONSITIPATION Budesonide (Pulmocort Respule Neb) 0.5 mg NEB Q12HR NEB [facility] Last Admin: 04/27/18 09:13 Dose: 0.5 mg Chlorhexidine Gluconate (Peridex 0.12% Oral Kit) 15 ml OROPHARYNG BID@0800, 2000 [facility] Last Admin: 04/27/18 09:11 Dose: 15 ml Dextrose (D50w Vial) 50 ml IV.PUSH UNSCH PRN PRN Reason: HYPOGLYCEMIA-SEE COMMENTS Last Admin: 04/21/18 17:47 Dose: 50 ml Furosemide (Lasix Inj) 20 mg IV.PUSH Q6H PRN PRN Reason: Pulmonary Congestion Glucagon (Glucagon Inj) 1 mg OTHER PRN PRN PRN Reason: for Hypoglycemia Protocol Hyoscyamine (Levsin Inj) 0.25 mg IV.PUSH Q4H PRN PRN Reason: SECRETIONS Heparin Sodium/Dextrose (Heparin/D5w 25,000 U/250 Ml) 25,000 unit in 250 mls @ 0 mls/hr IV.CONT TITRATE PRN; Protocol PRN Reason: Per Protocol Last Admin: 04/27/18 00:11 Dose: 1,200 units/hr, 12 mls/hr Norepinephrine Bitartrate 4 mg (/ Sodium Chloride) 250 mls @ 7.5 mls/hr IV.SIG TITRATE PRN; Protocol PRN Reason: Per Protocol Last Titration: 04/20/18 21:53 Dose: 0 mcg/min, 0 mls/hr Propofol (Diprivan 1000 Mg/100 Ml Inj) 1,000 mg in 100 mls @ 5.781 mls/hr IV.CONT TITRATE PRN; Protocol PRN Reason: Per Protocol Last Admin: 04/23/18 05:32 Dose: 10 mcg/kg/min, 11.56 mls/hr Bumetanide (Bumex Inj) 25 mg in 100 mls @ 1 mls/hr IV.CONT .Q24H [facility] Last Admin: 04/27/18 11:10 Dose: Not Given Dexmedetomidine HCl 1,000 mcg/ (Sodium Chloride) 250 mls @ 9.22 mls/hr IV.CONT TITRATE PRN; Protocol PRN Reason: See Protocol Last Admin: 04/26/18 18:40 Dose: 0.5 mcg/kg/hr, 23.05 mls/hr Insulin Human Regular (Novolin R Supplemental Scale) 1 units SQ Q6HR [facility]; Protocol Last Admin: 04/27/18 11:11 Dose: Not Given Lactulose (Lactulose Liq) 30 ml PO DAILY PRN PRN Reason: SEVERE CONSITIPATION Lansoprazole (Prevacid Solutab) 30 mg NG/OG DAILY [facility] Last Admin: 04/27/18 09:12 Dose: 30 mg Lorazepam (Ativan Inj) 2 mg IV.PUSH Q15M PRN PRN Reason: SHORTNESS OF BREATH Metoclopramide HCl (Reglan Inj) 5 mg IV.PUSH Q6H PRN PRN Reason: NAUSEA OR VOMITING Morphine Sulfate (Morphine Inj) 6 mg IV.PUSH Q15M PRN PRN Reason: SEE LABEL COMMENTS Multivitamins/Minerals (Theragran-M) 1 tab PO DAILY [facility] Last Admin: 04/27/18 09:12 Dose: 1 tab Senna/Docusate Sodium (Adriane-Colace) 1 tab PO BID [facility] Last Admin: 04/27/18 09:12 Dose: Not Given Sodium Chloride (Ns Flush) 0 ml IV.FLUSH DAILY [facility] Last Admin: 04/27/18 09:12 Dose: 5 ml Sodium Chloride (Ns Flush) 0 ml IV.FLUSH PRN PRN PRN Reason: FLUSH AFTER USING IV ACCESS Sodium Chloride (Ns Flush) 2 ml IV.FLUSH UNSCH PRN PRN Reason: FLUSH AFTER USING IV ACCESS Last Admin: 04/19/18 10:18 Dose: 2 ml Sodium Chloride (Ns Flush) 2 ml IV.FLUSH BID [facility] Last Admin: 04/27/18 09:12 Dose: Not Given Sterile Water (Free Water) 250 ml G-TUBE Q4HR [facility] Last Admin: 04/27/18 11:10 Dose: 250 ml Terbutaline Sulfate (Brethine Inj) 1 mg SQ UNSCH PRN PRN Reason: For Extravasation Ziprasidone (Geodon) 20 mg PO BIDPC [facility] Last Admin: 04/27/18 09:12 Dose: 20 mg Allergies Allergy/AdvReac Type Severity Reaction Status Date / Time shrimp Allergy Severe RASH Verified 08/18/17 18:34 Sulfa (Sulfonamide Allergy Intermediate RASH Verified 08/18/17 18:34 Antibiotics) Home Medications Medication Instructions Recorded Confirmed Type acetaminophen [Tylenol] 650 mg PO Q4H PRN 04/17/18 04/17/18 History atenolol [Tenormin] 50 mg PO HS 04/17/18 04/17/18 History calcium carbonate [Tums] 500 mg PO DIRECTED PRN 04/17/18 04/17/18 History dextromethorphan-guaifenesin 5 ml PO Q4-8H PRN 04/17/18 04/17/18 History [Robitussin Cough-Chest Alpesh DM] gabapentin [Neurontin] 300 mg PO BID 04/17/18 04/17/18 History hydrocodone-acetaminophen [[place]] 1 tab PO Q4H PRN 04/17/18 04/17/18 History lorazepam [Ativan] 0.5 mg PO Q12H 04/17/18 04/17/18 History magnesium citrate [Citroma] See Label Instructions .ROUTE 04/17/18 04/17/18 History .COMPLEX magnesium hydroxide [Milk of 30 ml PO HS PRN 04/17/18 04/17/18 History Magnesia] melatonin 6 mg PO HS PRN 04/17/18 04/17/18 History multivitamin with minerals 1 tab PO DAILY 04/17/18 04/17/18 History [Multiple Vitamin-Minerals] omeprazole 20 mg PO DAILY 04/17/18 04/17/18 History tolterodine [Detrol LA] 2 mg PO DAILY 04/17/18 04/17/18 History white petrolatum-mineral oil 1 applic TOPICAL Q6H PRN 04/17/18 04/17/18 History [Eucerin] ziprasidone HCl [Geodon] 20 mg PO BIDPC 04/17/18 04/17/18 History Exam Vital signs: Vital Signs 04/26/18 16:59 04/26/18 18:00 04/26/18 20:00 Temperature 98.5 F Pulse Rate 70 70 69 Respiratory Rate 18 24 Blood Pressure 114/63 Pulse Oximetry 96 100 04/26/18 20:51 04/26/18 22:00 04/27/18 00:00 Temperature 98.4 F Pulse Rate 68 70 70 Respiratory Rate 18 18 Blood Pressure 103/65 Pulse Oximetry 100 99 04/27/18 00:35 04/27/18 02:00 04/27/18 04:00 Temperature 98.1 F Pulse Rate 70 71 Respiratory Rate 18 18 Blood Pressure 98/51 L Pulse Oximetry 99 98 04/27/18 04:29 04/27/18 06:00 04/27/18 08:00 Temperature 98.8 F Pulse Rate 71 70 Respiratory Rate 18 18 Blood Pressure 116/65 Pulse Oximetry 100 100 04/27/18 09:09 04/27/18 09:12 04/27/18 10:00 Temperature Pulse Rate 70 71 Respiratory Rate 18 18 Blood Pressure Pulse Oximetry 98 04/27/18 12:00 04/27/18 14:00 Temperature Pulse Rate 70 70 Respiratory Rate Blood Pressure Pulse Oximetry Intake & Output 04/26/18 04/27/18 04/27/18 18:59 06:59 18:59 Intake Total 1206 / 1206 1375 / 1375 Output Total 2450 / 2450 900 / 900 Balance -1244 / -1244 475 / 475 Weight 168.1 kg Intake: IV 250 / 250 250 / 250 Precedex Inj 1,000 MCG In NS 250 / 250 Inj 240 ML @ 0.2 MCG/KG/HR 9.22 mls/hr IV.CONT TITRATE PRN Rx# :[id number] Heparin/D5W 25,000 U/250 mL 25, 250 / 250 000 unit In 250 ml @ Per Protocol IV.CONT TITRATE PRN Rx #:[id number] Oral 0 / 0 0 / 0 Tube Feeding 556 / 556 625 / 625 Water Bolus Amount 400 / 400 500 / 500 Output: Urine Amount (Catheter) 2450 / 2450 900 / 900 Indwelling Temp Sensing 2450 / 2450 900 / 900 Catheter Other: Date of Last Bowel Movement 04/23/18 04/27/18 04/27/18 # Bowel Movements 0 # Incontinent Bowel Movements 1 Mental Status Examination Appearance: Appropriate Consciousness: Alert Orientation: Person, Place, Date/Time Motor Activity: Abnormal gait Speech: Other (intubated) Language: Adequate Fund of Knowledge: Adequate Attention and Concentration: Adequate Mood: Appropriate Affect: Appropriate Thought Content: Appropriate Hallucination Type: None Delusion Type: None Suicidal Ideation: No Suicidal Plan: No Suicidal Intention: No Homicidal Ideation: No Homicidal Plan: No Homicidal Intention: No Insight: Adequate Judgment: Adequate Assessment and Plan - Plan Plan: Estimated LOS: [] days At the moment of the psychiatric evaluation the patient does not present any neuropsychiatric symptoms or require an immediate psychiatric intervention. The patient should remain in current psychotropic regimen. There is no symptoms of psychosis, depression, anxiety or elvira present. The patient denies suicidal and homicidal ideation, she denies visual and auditory hallucinations. Patient has psychiatric history of schizophrenia, but she has been stable for many years. She was hospitalized once before is due to altered mental status and possible psychogenic polydipsia. At the moment of my evaluation the patient seems to be oriented 3, aware of current medical conditions, she has a choice which seems to be quite rational, she prefers to be extubated and she is quite aware of the consequences of this choice. I do not see any psychiatric contraindication for the patient to make this decision. The patient has full decision-making capacity to take medical decisions at this moment. This decision has been discussed with palliative care team and youngest daughter. Justification for Continued Inpatient Stay: The patient does not meet criteria for involuntary psychiatric admission.
== END 2018-04-27 16:36 | disposition expired ==
LOC: N03 04-17 01:45
PROVIDERS: ADMIT Internal Medicine Critical Care Medicine; ATTEND Internal Medicine Critical Care Medicine